=== PATIENT | male | born 1950 | race Caucasian/White ===

== ENCOUNTER → 2017-07-29 09:04 | Outpatient (CLI) | payer MEDICARE, OTHER, SELFPAY ==
[2017-07-29 12:42] LABS: AST(SGOT) 80 U/L (15-37); Alanine Aminotransfer ALT/SGPT 370 U/L (16-61); Albumin, Serum 3.7 g/dL (3.2-5.0); Alkaline Phosphatase 214 U/L (45-117); Bilirubin, Direct 0.15 mg/dL (0.00-0.30); Cholesterol 254 mg/dL (200); Globulin 4.3 g/dL (2.2-4.2); High Density Lipoprotein 39 mg/dL; Triglycerides 179 mg/dL; Very Low Density Lipoprotein 36 mg/dL (5-40)
== END ==
PROVIDERS: Internal Medicine Cardiovascular Disease; Family Provider Family Medicine; PCP Family Medicine; Visit Provider Urology
DX: C61 Malignant neoplasm of prostate (principal); E78.5 Hyperlipidemia, unspecified
CPT/HCPCS: 36415; 80061; 80076; 84153

== ENCOUNTER → 2017-07-29 15:57 | Outpatient (CLI) | payer MEDICARE, OTHER, SELFPAY ==
--- NOTE | 2017-07-29 16:00 | VDLE_ITS ---
Reason For Study: pain and swelling RIGHT LEFT CFV is compressible, spontaneous, phasic, GSV is normal. competent and demonstrates normal CFV is compressible, spontaneous, phasic, augmentation. competent, and demonstrates normal Procedure augmentation. Exam performed in department. FV is compressible, spontaneous, phasic, The exam was diagnostic. competent and demonstrates normal A preliminary report was called and/or faxed augmentation. to the [facility]. POP V is compressible, spontaneous, phasic, competent and demonstrates normal augmentation. T/P Trunk is compressible. PTV is compressible. LT PerV is compressible. Interpretation Summary Deep veins of the left lower extremity are patent and compressible segmentally. There is no evidence of left lower extremity deep vein thrombosis. Valvular competence appears intact within the proximal deep venous system on the left . The left greater saphenous vein appears patent and compressible segmentally. Ordering Physician: DANIKA HARDY Performed By: Breezy Cloud RVT
== END ==
PROVIDERS: Family Provider Family Medicine; PCP Family Medicine
DX: M79.605 Pain in left leg (principal); M79.89 Other specified soft tissue disorders; C61 Malignant neoplasm of prostate; E78.5 Hyperlipidemia, unspecified
CPT/HCPCS: 36415; 80061; 80076; 84153; 93971

== ENCOUNTER 2017-08-09 11:15 | Day surgery (SDC) | payer MEDICARE, OTHER, SELFPAY ==
[2017-07-24 11:23] VITALS: BP 143/86; PULSE 101; RESP 16; TEMP 37.2; O2SAT 97; BMI 32.2
--- NOTE | 2017-07-24 11:52 | SDCEKG_ITS ---
Test Reason : Blood Pressure : / mmHG Vent. Rate : 089 BPM Atrial Rate : 089 BPM P-R Int : 164 ms QRS Dur : 100 ms QT Int : 348 ms P-R-T Axes : 030 028 041 degrees QTc Int : 423 ms Normal sinus rhythm Possible Left atrial enlargement Borderline ECG Confirmed by KATIE JAMES MD ([id number]), senior editor DAMARI JOHN ([id number]) on 07/25/2017 2:41:54 PM Also confirmed by KATIE JAMES MD ([id number]), senior editor VINICIUS SOUZA ([id number]) on 10/24/2018 10:57:21 AM Referred By: Harsha Gilman Confirmed By:KATIE JAMES MD
[2017-07-24 12:12] LABS: Hematocrit 39.5 % (40-54); Hemoglobin 12.9 g/dl (13.0-16.5); Mean Corp Hgb Conc 32.7 g/gl (32-36); Mean Corpuscular Hgb 28.1 pg (27.0-32.0); Mean Corpuscular Volume 86.1 fL (80-94); Mean Platelet Vol. 8.1 fl (6.2-12.0); Platelet Count 242 K/mm3 (150-450); RBC Distribution Width CV 13.2 % (11.6-14.6); RBC Distribution Width SD 41.6 fl (35.1-43.9); Red Blood Count 4.59 M/mm3 (4.6-6.2)
[2017-07-24 12:13] LABS: Scan Indicated on CBC? Y/N NO
[2017-07-24 12:51] LABS: Anion Gap 7 (5-15); BUN 27 mg/dL (7-18); BUN/Creat Ratio 22.7 RATIO (10-20); Chloride 102 mmol/L (98-107); Creatinine, Serum 1.19 mg/dL (0.70-1.30); EST Glomerular Filtration Rate 65 mL/min (>60); Est Glom Filt Rate - Afr Amer 79 mL/min (>60); Estimated Creatinine Clearance 65.04 ml/min; Glucose 107 mg/dL (74-106); Potassium 3.7 mmol/L (3.5-5.1); Sodium Level 137 mmol/L (136-145)
[2017-08-09] VITALS (11 sets, daily range): BP systolic 117–146; BP diastolic 85–102; PULSE 76–99; RESP 12–18; TEMP 36.7–37.2; O2SAT 92–96; BMI 32.2
--- NOTE | 2017-08-09 13:04 | PCM.DC.URO ---
Discharge Diet: Light diet - advance as tolerated Discharge Activity: Return to Normal Activity, May not drive while taking narcotic pain medications. May shower in (days): 1 Lifting Restrictions: no lifting > 10lbs Call your doctor if your incision/area has: Sudden Increased Bleeding Call your doctor if you observe: Fever of 101 or Higher, Uncontrolled pain Suture Line Care: Avoid Pulling/Pushing, Avoid Pinching/Bending Allergies/Adverse Reactions: Allergies Penicillins Allergy (Verified 07/24/17 11:14) Rash valsartan Adverse Reaction (Severe, Verified 07/24/17 11:14) Joint Pain Medications to take at Discharge nitroglycerin 0.4 mg sublingual tablet 0.4 mg SUBLINGUAL Q5M PRN 04/04/17 Amlodipine Besylate [Norvasc] 10 mg PO QDAY 07/24/17 Hydrochlorothiazide 12.5 mg PO DAILY 07/24/17 Naproxen Sodium [Aleve] 220 mg PO Q8H PRN PRN 07/24/17 [place]-3 Fatty Acids/Fish Oil [Fish Oil 1,000 mg Capsule] 1 each PO DAILY 07/24/17 Pantoprazole Sodium [Protonix] 40 mg PO DAILY 07/24/17 Ciprofloxacin [Cipro] 500 mg PO BID #20 tab 08/09/17 Hydrocodone/Acetaminophen [[place] 5-325 Tablet] 1 ea PO Q4H PRN PRN 7 Days #20 tab 08/09/17 The following prescriptions were given: Hydrocodone/Acetaminophen [[place] 5-325 Tablet] 1 ea PO Q4H PRN PRN 7 Days #20 tab PRN Reason: Pain Ciprofloxacin [Cipro] 500 mg PO BID #20 tab Primary Care Physician: Ritesh Rocha MD [Primary Care Provider] - Please Follow Up With: Harsha Gilman MD - call if need to change appt. When: SaturdayAugust 27 at 1:45 pm
--- NOTE | 2017-08-09 13:08 | DCINST_ITS ---
Discharge Diet: Light diet - advance as tolerated Discharge Activity: Return to Normal Activity, May not drive while taking narcotic pain medications. May shower in (days): 1 Lifting Restrictions: no lifting > 10lbs Call your doctor if your incision/area has: Sudden Increased Bleeding Call your doctor if you observe: Fever of 101 or Higher, Uncontrolled pain Suture Line Care: Avoid Pulling/Pushing, Avoid Pinching/Bending Allergies/Adverse Reactions: Allergies Penicillins Allergy (Verified 07/24/17 11:14) Rash valsartan Adverse Reaction (Severe, Verified 07/24/17 11:14) Joint Pain Medications to take at Discharge nitroglycerin 0.4 mg sublingual tablet 0.4 mg SUBLINGUAL Q5M PRN 04/04/17 Amlodipine Besylate [Norvasc] 10 mg PO QDAY 07/24/17 Hydrochlorothiazide 12.5 mg PO DAILY 07/24/17 Naproxen Sodium [Aleve] 220 mg PO Q8H PRN PRN 07/24/17 [place]-3 Fatty Acids/Fish Oil [Fish Oil 1,000 mg Capsule] 1 each PO DAILY Pantoprazole Sodium [Protonix] 40 mg PO DAILY 07/24/17 Ciprofloxacin [Cipro] 500 mg PO BID #20 tab 08/09/17 Hydrocodone/Acetaminophen [[place] 5-325 Tablet] 1 ea PO Q4H PRN PRN 7 Days #20 tab 08/09/17 The following prescriptions were given: Hydrocodone/Acetaminophen [[place] 5-325 Tablet] 1 ea PO Q4H PRN PRN 7 Days #20 tab PRN Reason: Pain Ciprofloxacin [Cipro] 500 mg PO BID #20 tab Primary Care Physician: Ritesh Rocha MD [Primary Care Provider] - Please Follow Up With: Harsha Gilman MD - call if need to change appt. When: SaturdayAugust 27 at 1:45 pm
--- NOTE | 2017-08-09 13:20 | PROS_PTH ---
PATIENT: HENRI SILVESTRE LOC: [facility] [place] U#:[id number] AGE/SX: 67/M ROOM: RE08/09/[address]: Dr. Harsha Gilman MD : [id number] BED: DIS: 08/10/2017 SPEC #: [id number] RECD: 08/09/17 15:23 STATUS: GAURANG MARIA GUADALUPE #: [id number] LUISA: 08/09/17 13:[address]: Harsha Gilman DEPT: SURGICAL PATHOLOGY RECD BY: Murphy Rojas ENTERED: 08/12/17 09:54 SP TYPE: TURP OTHR DR: Dr. Manuel Rocha MD Tissues: Prostate, NOS Procedures: Surgery Specimen Level IV HEADER OPERATION: Cysto, TUR, prostate, Olympus PRE-OP DIAGNOSIS: BPH with obstruction, urinary retention TISSUE SUBMITTED: Prostate chips MICROSCOPIC DIAGNOSIS Prostate chips, TUR: Benign prostatic hyperplasia, glandular and stromal type. Focal chronic inflammation and basal cell hyperplasia. SJ:nadine 08/13/17 COMMENT Please make reference to previous specimen ([id number]) right prostate, mid, core biopsy and left prostate, mid, core biopsy with diagnosis of prostatic adenocarcinoma. This case has been reviewed in consultation with Dr. Diaz who concurs with the above diagnosis. MICROSCOPIC DESCRIPTION Slides are reviewed. GROSS DESCRIPTION Received is one container labeled with the patient's name and designated prostate tissue. The specimen consists of multiple irregular fragments of pink-hunter, rubbery, soft tissue that in aggregate weigh 20.8 gm and measure in aggregate 6.5 x 6.5 x 1 cm. Braille Teacher portions are submitted in 12 cassettes. / AM:nadine 08/12/17 Rest of the specimen is submitted in eight more cassettes, 13-20. A few metallic pins are also noted in the specimen. These are for gross only. / SJ:nadine 08/13/17 TC:5 CPT: 05053
[2017-08-09] MEDS: Cefazolin 2 GM in 0.9% Normal Saline 100 ML IV (13:30)
--- NOTE | 2017-08-09 15:22 | OP.PCM_ITS ---
Report of Operation Date of Procedure: 08/09/17 Pre-Operative Diagnosis: BPH and urinary retention Post-Operative Diagnosis: Same Surgery/Procedure Performed:: Transurethral resection of the prostate Description of Surgical Findings:: 67-year-old male has a history of BPH with a large prostate after a surgical procedure with orthopedics he develop retention of urine is failed multiple voiding trials is on maximal medical therapy for now and taken to surgery to do a TURP to restore normal voiding. Patient underwent general anesthesia was placed supine on the table the penis and testicles were prepped and draped in usual sterile fashion. Went into the urethra with a 26 Lithuanian continuous flow resectoscope the entire length of the urethra is normal sphincter was normal prostate had bilateral hypertrophy obstructive tissue bilaterally no median lobe I then switched over to the resectoscope and started resecting the prostate resected at the all the way circumferentially around the 12:00 to the 6 :00 in the prostate and the right side resected the right lobe all the way back to the verumontanum then went to the left side resected the left side all the way back to the verumontanum and then switch over to the Olympus button and in use the button to finish off the resection of the near the sphincter smoothing out the edges of the resection nice smooth resection all the way from the sphincter into the bladder at the end of the resection pulled back to the sphincter the sphincter was intact the due to flow test had a nice open flow at all the chips out and he had a prior procedure and all the clips were removed removed from the prostate from the prior ureteral left in the past. Had a nice wide open channel put a catheter in the bladder continues bladder irrigation the urine is nice and clear and he went to the PACU in good condition tomorrow morning we will get the catheter out for a voiding trial. Type of Anesthesia:: General Drains: lisa 3 way - Admit VTE Documentation VTE Present on Admission: No VTE Mechan Device Prophylaxis: SCD's VTE Pharm Prophylaxis ordered?: No Reason prophylaxis not ordered:: Treatment Not Indicated
[2017-08-09] MEDS: oxyCODONE 5 MG Tablet PO (16:41)
[2017-08-09] MEDS: 0.9% Normal Saline 1,000 ML 150 ML IV (19:04)
[2017-08-09] MEDS: Naproxen 250 MG Tablet PO (21:59)
[2017-08-09] MEDS: Docusate Sodium 100 MG Capsule PO (22:00)
[2017-08-09] MEDS: Ciprofloxacin 500 MG Tablet PO (22:00)
--- NOTE | 2017-08-09 23:59 | NURSING ---
see PACU documentation for previous CBI intake/output charting.
[2017-08-10] MEDS: 0.9% Normal Saline 1,000 ML 150 ML IV ×2 (01:50→08:08)
[2017-08-10 02:16] VITALS: BP 128/85; PULSE 66; RESP 18; TEMP 36.6; O2SAT 95
--- NOTE | 2017-08-10 04:24 | NURSING ---
pt states has now passed gas
[2017-08-10] MEDS: oxyCODONE 5 MG Tablet PO (04:34)
--- NOTE | 2017-08-10 06:57 | NURSING ---
Pt's CBI irrigation clamped at this time, lisa draining to gravity.
[2017-08-10 08:02] VITALS: O2SAT 95
[2017-08-10 08:10] VITALS: BP 152/94; PULSE 71; RESP 18; TEMP 36.8; O2SAT 98
[2017-08-10] MEDS: Ciprofloxacin 500 MG Tablet PO (08:17)
[2017-08-10] MEDS: Pantoprazole Sodium 40 MG Tablet PO (08:17)
[2017-08-10] MEDS: Docusate Sodium 100 MG Capsule PO (08:17)
[2017-08-10] MEDS: amLODIPine 10 MG Tablet PO (08:17)
[2017-08-10] MEDS: HYDROCHLOROTHIAZIDE 12.5 MG CAPSULE PO (08:17)
[2017-08-10] MEDS: Finasteride 5 MG Tablet PO (08:18)
[2017-08-10] MEDS: Naproxen 250 MG Tablet PO (11:01)
[2017-08-10 13:24] VITALS: BP 156/94; PULSE 96; RESP 18; TEMP 36.7; O2SAT 98
== END 2017-08-10 13:47 | disposition home or self-care (01) ==
LOC: SDC 11:16 → AC 11:17 → MS3 13:41
PROVIDERS: Anesthesiology; Family Provider Family Medicine; PCP Family Medicine; Visit Provider Urology
PROC: (CPT 52601; principal; 2017-08-09 13:10)
DX: N40.1 Benign prostatic hyperplasia with lower urinary tract symptoms (principal); R33.8 Other retention of urine; R35.1 Nocturia; R39.12 Poor urinary stream; C61 Malignant neoplasm of prostate; R97.21 Rising PSA following treatment for malignant neoplasm of prostate; I25.10 Atherosclerotic heart disease of native coronary artery without angina pectoris; I10 Essential (primary) hypertension; E78.00 Pure hypercholesterolemia, unspecified; G47.30 Sleep apnea, unspecified; M19.90 Unspecified osteoarthritis, unspecified site; Z79.82 Long term (current) use of aspirin; Z79.899 Other long term (current) drug therapy
CPT/HCPCS: 52601; 80048; 85027; 88305; J7030; J7120; J2405

== ENCOUNTER 2017-08-21 07:30 | Outpatient (RCR) | payer MEDICARE, OTHER, SELFPAY ==
--- NOTE | 2017-07-18 13:59 | HP.PTEVAL_ITS ---
Patient's Visit Information HENRI SILVESTRE is a 67 year old M referred to Physical Therapy by MD FANNIE Rios with a diagnosis of L TKA. Date of Evaluation: 07/18/17 Physical Therapist: Dennis Abraham PT, - Visit Plan Frequency: 2-3x /Week Duration: 4-6 Weeks Plan: L knee PROM/MOBs, stretching and strengthening, balance and proprio, nustep, and HEP - Subjective Subjective: DOS: 06/21/17. Pt reports he has had a chronic Hx of L knee pain for several years.. Pt reports both of his knees are bone on bone. Pt reports he eventually needs to get a R TKA. Pt reports he has had home health PT for the past 4 weeks. 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 Pt reports his R knee is still numb at the time. Sleep diff secondary to pain. Pt reports he is not sure if he is happy to have had the surgery yet secondary to not really feeling the benefits yet. 4/10 at rest, 9/10 at worst - Pain L knee Pain Intensity (Out of 10): 4 Pain Intensity Range: 9 - Objective Neuro: B LE sensation is WNL to light touch. Palpation: Incision is mostly healed. No signs of infection. 2+ pitting edema. Girth at joint line: L knee 44 cm. ROM: R knee 0-130, L knee 0-18-106. MMT: R knee 5/5, L knee 4-/5 and painful - Goals Goal 1:: Decrease L knee pain x 50% to aid with sleep Goal Time Frame: 4-6 Weeks Goal 2:: Increase L knee strength x 1 grade to aid with RTW without limitation Goal Time Frame: 4-6 Weeks Goal 3:: Increase L knee ROM x 20 degrees to aid with restoring a more normal gait pattern Goal Time Frame: 4-6 Weeks Goal 4:: I with HEP Goal Time Frame: 4-6 Weeks - Rehabilitation Potential Physical Therapy Diagnosis: L knee pain, swelling, and weakness secondary to L tKA Rehabilitation Potential: Excellent - Anticipated Interventions Patient/Client Instruction: Educate patient on: Condition, Plan of Care For the Purpose of:: To improve self management Therapeutic Exercise to Include: Strength training, Endurance training, Balance training, Flexibilty training, Gait and locomotor training, Passive ROM, Active ROM, Dynamic Lumbar Stabilization For the Purpose of:: To decrease pain, To increase ROM, To improve muscle performance and motor function Cryotherapy (ice pack, ice massage): Yes For the Purpose of:: To decrease pain Thank you for the opportunity to evaluate your patient. For Medicare and Medicare HMO plans, please review the plan of care and approve it. It will need to be FAXED BACK to us at [phone] for Medicare purposes. Please let me know if there are questions or concerns regarding this plan of care. Physician Signature: Date:
--- NOTE | 2017-08-21 08:13 | HP.PTDCSUM ---
HP - PT D/C Summary It has been my pleasure to treat HENRI SILVESTRE under orders from Robbin Frazier MD, for the diagnosis of L TKA for a total of 15 visit(s). Discharge Date: Please see the following information for a summary of their discharge status. - Subjective Subjective: Knee is a little sore today. - Pain L knee Pain Intensity (Out of 10): 3 - Overall Improvement % Improvement: 75 - Objective Objective/Function: Pt is now I with HEP and has achieved all Rx goals. L knee ROM: 0-10-122. L knee MMT: flex= 5/5, ext= 4/5 - Goals Goal 1:: Decrease L knee pain x 50% to aid with sleep Goal Progress: Goal Met Goal 2:: Increase L knee strength x 1 grade to aid with RTW without limitation Goal Progress: Goal Met Goal 3:: Increase L knee ROM x 20 degrees to aid with restoring a more normal gait pattern Goal Progress: Goal Met Goal 4:: I with HEP Goal Progress: Goal Met - Plan Plan: Discharge - D/C Information If there are questions or concerns regarding this patient's physical therapy, please feel free to call me at [phone]. Thank you for the referral of this patient. Sincerely, Dennis Abraham, PT,
== END 2017-08-21 19:00 | disposition home or self-care (01) ==
LOC: PT 07:30
PROVIDERS: Family Provider Family Medicine; PCP Family Medicine; Visit Provider Specialist
DX: Z96.652 Presence of left artificial knee joint (principal)
CPT/HCPCS: 97110; 97161; 97530; J2405

== ENCOUNTER → 2017-08-27 08:13 | Outpatient (CLI) | payer MEDICARE, OTHER, SELFPAY ==
[2017-08-27 10:51] LABS: AST(SGOT) 21 U/L (15-37); Alanine Aminotransfer ALT/SGPT 45 U/L (16-61); Albumin, Serum 3.9 g/dL (3.2-5.0); Alkaline Phosphatase 81 U/L (45-117); Bilirubin, Direct 0.12 mg/dL (0.00-0.30); Globulin 3.9 g/dL (2.2-4.2); Magnesium 2.2 mg/dL (1.6-2.6); Protein, Total 7.8 g/dL (6.4-8.2)
== END ==
PROVIDERS: Nurse Practitioner Family; Family Provider Family Medicine; PCP Family Medicine; Visit Provider Urology
DX: E78.5 Hyperlipidemia, unspecified (principal); I25.10 Atherosclerotic heart disease of native coronary artery without angina pectoris; I10 Essential (primary) hypertension; R74.8 Abnormal levels of other serum enzymes; R30.0 Dysuria
CPT/HCPCS: 36415; 80076; 83735; 87086

== ENCOUNTER → 2017-09-18 10:08 | Outpatient (CLI) | payer MEDICARE, OTHER, SELFPAY ==
--- NOTE | 2017-09-18 10:14 | RAD_ITS ---
STUDY: X-RAY - ORBITS REASON FOR EXAM: Male, 67 years old. This study is being performed as a clearance examination for exclusion of orbital metal, prior to the performance of an MRI examination. TECHNIQUE: 2 view(s) of the orbits were obtained. COMPARISON: None. FINDINGS: Normal bilateral orbits without a metallic orbital foreign body. Normal visualized facial bones. Normal paranasal sinuses. The soft tissue structures are unremarkable. RAD/Orbits for Foreign Body IMPRESSION: No demonstrated metallic orbital foreign body. The patient is cleared for an MRI examination. Electronically Signed: Rahul Acevedo MD at 10:38 EDT Tel [phone], Service support ,
--- NOTE | 2017-09-18 10:45 | MRI_ITS ---
STUDY: MRI RIGHT SHOULDER REASON FOR EXAM: Right shoulder pain and limited range of motion status post fall. TECHNIQUE: Standardized fat and water weighted pulse sequences were obtained in all 3 orthogonal planes. COMPARISON: Radiographs 04/12/2017. FINDINGS: There is a full-thickness tear of the supraspinatus tendon (T2 coronal images 12-14; T2 sagittal image 15) with a fluid-filled gap measuring 1.4 cm in diameter. There is a small signal void in the distal anterior supraspinatus tendon (proton-density coronal image 12) consistent with calcific tendinitis. Normal infraspinatus tendon. There is an undersurface partial-thickness tear of the subscapularis tendon with delamination (T2 axial images 16, 17). Normal teres minor tendon. There is atrophy with partial fat replacement of the supraspinatus and infraspinatus muscles (T2 sagittal images 1-7). Normal subscapularis muscle. Normal teres minor muscle. There is a small glenohumeral joint effusion with fluid extending into the bicipital tendon sheath. Normal humeral head and visualized proximal humerus. Normal biceps labral complex. Normal intracapsular long biceps tendon. Normal labrum. Normal capsulo- ligamentous complex. There is acromioclavicular arthrosis with hypertrophic changes (T2 sagittal images 10, 11). There is a Type I morphology (flat undersurface), with a neutral orientation. There is subacromial-subdeltoid bursal fluid. Normal visualized coracohumeral and coracoacromial ligaments. Normal deltoid muscle. Normal trapezius muscle. 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 Undersurface partial thickness tear of the subscapularis tendon. Atrophy of the supraspinatus and infraspinatus muscles. Acromioclavicular arthrosis. Glenohumeral joint fluid communicating with the subacromial-subdeltoid bursa. Electronically Signed: Ortega Thompson MD at 11:40 EDT Tel , Service support ,
== END ==
PROVIDERS: Family Provider Family Medicine; PCP Family Medicine
DX: M75.101 Unspecified rotator cuff tear or rupture of right shoulder, not specified as traumatic (principal)
CPT/HCPCS: 70030; 73221

== ENCOUNTER → 2017-11-29 15:10 | Outpatient (CLI) | payer MEDICARE, OTHER, SELFPAY ==
--- NOTE | 2017-11-29 15:14 | RAD_ITS ---
STUDY: X-RAY - RIGHT KNEE REASON FOR EXAM: Male, 67 years old. PAIN IN RIGHT KNEE FOR A LONG TIME GETTING WORSE TECHNIQUE: 3 view(s) of the knee. COMPARISON: None. FINDINGS: Normal visualized distal femur. Normal visualized proximal tibia and fibula. Normal proximal tibiofibular articulation. There is severe degenerative arthrosis of the medial femorotibial compartment with severe joint space narrowing. Normal lateral femorotibial compartment. There is mild degenerative arthrosis of the patellofemoral articulation. The soft tissue structures are unremarkable. RAD/Knee 3 Views IMPRESSION: Degenerative arthrosis. Electronically Signed: Dennis Heredia MD at 19:38 EDT , Service support ,
== END ==
PROVIDERS: Family Provider Family Medicine; PCP Family Medicine; Visit Provider Family Medicine
DX: M17.11 Unilateral primary osteoarthritis, right knee (principal)
CPT/HCPCS: 73562

== ENCOUNTER → 2018-02-26 07:48 | Outpatient (CLI) | payer MEDICARE, OTHER, SELFPAY ==
[2018-02-26 10:51] LABS: AST(SGOT) 24 U/L (15-37); Alanine Aminotransfer ALT/SGPT 50 U/L (16-61); Alkaline Phosphatase 76 U/L (45-117); Anion Gap 6 (5-15); BUN 18 mg/dL (7-18); BUN/Creat Ratio 15.5 RATIO (10-20); Bilirubin, Direct 0.19 mg/dL (0.00-0.30); Calcium,Total 8.6 mg/dL (8.5-10.1); Chloride 104 mmol/L (98-107); Cholesterol 181 mg/dL (200); Creatinine, Serum 1.16 mg/dL (0.70-1.30); EST Glomerular Filtration Rate 67 mL/min (>60); Est Glom Filt Rate - Afr Amer 81 mL/min (>60); Glucose 103 mg/dL (74-106); High Density Lipoprotein 51 mg/dL; Potassium 3.7 mmol/L (3.5-5.1); Sodium Level 139 mmol/L (136-145); Triglycerides 119 mg/dL; Very Low Density Lipoprotein 24 mg/dL (5-40)
== END ==
PROVIDERS: Family Provider Family Medicine; PCP Family Medicine; Referring Provider Family Medicine; Visit Provider Family Medicine
DX: I10 Essential (primary) hypertension (principal); E78.5 Hyperlipidemia, unspecified
CPT/HCPCS: 36415; 80048; 80061; 80076

== ENCOUNTER → 2018-05-19 09:37 | Outpatient (CLI) | payer MEDICARE, OTHER, SELFPAY ==
[2018-05-19 12:24] LABS: ALB/GLOB Ratio 1.2 RATIO (0.9-2.4); AST(SGOT) 25 U/L (15-37); Alanine Aminotransfer ALT/SGPT 50 U/L (16-61); Albumin, Serum 4.4 g/dL (3.2-5.0); Alkaline Phosphatase 85 U/L (45-117); Anion Gap 11 (5-15); BUN 28 mg/dL (7-18); BUN/Creat Ratio 23.3 RATIO (10-20); Calcium,Total 9.3 mg/dL (8.5-10.1); Chloride 103 mmol/L (98-107); Cholesterol 255 mg/dL (200); EST Glomerular Filtration Rate 64 mL/min (>60); Est Glom Filt Rate - Afr Amer 78 mL/min (>60); Globulin 3.8 g/dL (2.2-4.2); Glucose 100 mg/dL (74-106); High Density Lipoprotein 45 mg/dL; PSA,Total- Diagnostic 5.86 ng/mL (0.0-4.0); Potassium 3.5 mmol/L (3.5-5.1); Protein, Total 8.2 g/dL (6.4-8.2); Sodium Level 140 mmol/L (136-145); Triglycerides 151 mg/dL; Very Low Density Lipoprotein 30 mg/dL (5-40)
--- OUTSIDE RECORDS SUMMARY | 2018-07-21 19:42 | XMS RPT_ITS ---
:1950 Author Organization [employer] Address [address] [place] [address] Phone Care Team Providers Name Role Phone Feliz BENÍTEZ, Nickolas Ewing Unavailable Reason for Visit Reason For Visit Description Start Date New/Est - 1st visit with physician Preliminary reason for visit data, not yet signed by the author as of right shoulder pain Preliminary reason for visit data, not yet signed by the author as of Chief Complaint Chief Complaint Description Start Date right shoulder pain Preliminary chief complaint data, not yet signed by the author as of Instructions Instruction Description Start Date Patient advised to follow-up with Primary Care Physician for BMI management. Plan of Care Type Date Detail Appointment 03:00 PM Nickolas Piper MD, [address] [place], [address], Appointment 11:30 AM Nickolas Piper MD, [address] [place], [address], Appointment 03:00 PM Nickolas Piper MD, [address] [place], [address], Patient education \[email or web address]\CPS_PtEducation\CD [email or web address].pdf Medications Medication Instructions Start Stop Generic Name NDC Provider Date Date TRAMADOL HCL take one tab by / TRAMADOL HCL 35096484371 Robbin F 50 MG TABS mouth every 6 27 Freddie BENÍTEZ hours as needed for pain. AUGMENTIN Take 1 tablet / AMOXICILLIN-POT 34064298900 Robbin F 500-125 MG by mouth at 11 CLAVULANATE Freddie BENÍTEZ TABS bedtime the night before dental treatment and 1 tablet 3 times the day of dental visit AMLODIPINE daily / AMLODIPINE 08684413099 Phan Keenan BESYLATE 5 MG 11 BESYLATE Feliz BENÍTEZ TABS ALEVE 220 MG as directed as / NAPROXEN SODIUM 06420092127 Robbin Molina CAPS needed 06 Freddie BENÍTEZ NITROSTAT 0.4 take 1 tablet / NITROGLYCERIN 22129022761 Ashli MG SUBL as needed Anahi RAMIREZ ASPIRIN 81 MG take 1 tablet / ASPIRIN 26004806182 Ashli ORAL TABLET once daily 29 Anahi ADAMESN Conditions or Problems Problem Name Problem Code Onset Status Entry Provider Comment Standard Annotate Date Date Description Rotator cuff 500043117 Active Nickolas Ewing Disorder of SS, SbS tear, right (SNOMED CT) 06/03 06/03 Feliz BENÍTEZ rotator cuff Presence of Z96.651 Active Robbin Molina Presence of right (ICD-10-CM) 05/25 05/25 Freddie BENÍTEZ 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 Pain in right 39395274389113 Active Phan Keenan Pain of shoulder 100 (SNOMED 09/06 09/06 Feliz BENÍTEZ right CT) shoulder joint Presence of Z96.652 Active Robbin Molina Presence of left (ICD-10-CM) 07/12 07/12 Freddie BENÍTEZ 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 Subacromial 233665053 Active Robbin Molina Subacromial impingement of (SNOMED CT) 06/04 06/04 Freddie BENÍTEZ impingement right shoulder Unilateral M17.12 Active Robbin Molina Unilateral primary (ICD-10-CM) 06/04 06/04 Freddie BENÍTEZ primary osteoarthritis osteoarthrit left knee is, left knee Unilateral M17.11 Active Robbni Molina Unilateral primary (ICD-10-CM) 06/04 06/04 Freddie BENÍTEZ primary osteoarthritis osteoarthrit right knee is, right knee Allergies, Adverse Reactions, Alerts Allergy Name Reaction Start Date Severity Status Provider Description PENICILLIN rash Critical Active Ashli Anahi RAMIREZ Social History No information available. Vital Signs Date Name Value Unit Description BMI (Body Mass 33.31 kg/m2 Body Mass Index Index) [Ratio] Preliminary vital sign data, not yet signed by the author as of BP Diastolic 82 mm[Hg] blood pressure, diastolic Preliminary vital sign data, not yet signed by the author as of BP Systolic 131 mm[Hg] blood pressure, systolic Preliminary vital sign data, not yet signed by the author as of Heart Rate 89 /min pulse rate E&M Preliminary vital sign data, not yet signed by the author as of Height 71 [in_us] height E&M Preliminary vital sign data, not yet signed by the author as of Height 180 cm height in centimeters E&M Preliminary vital sign data, not yet signed by the author as of Weight Measured 238 [lb_av] weight E&M Preliminary vital sign data, not yet signed by the author as of Weight Measured 108 kg weight in kilograms E&M Preliminary vital sign data, not yet signed by the author as of Results Date Name Value Unit Range Flag Description Office Visit: New/Est - 1st visit with physician, Rm: 10 MEDS REVIEW Done Documentation of current medications (procedure) Preliminary observation data, not yet signed by the author as of Preliminary observation data, not yet signed by the author as of MRI HX of the Right MRI (magnetic shoulder on resonance 09/18/2017 at imaging) history [facility] Preliminary observation data, not yet signed by the author as of XRAY HX of the Right xray history shoulder on 09/06/2017 at [facility] [place] Preliminary observation data, not yet signed by the author as of Clinical Summary: HMSPatientID FOP account number Procedures Code Procedure Name Date Entry Date CPT-40907 Physical Therapy R6444A [facility] [place] COMBO - SHOULDER (BREG) [id number] [place]ING[place]OT 2 (BREG) G8730 Pain assessment documented as positive - follow-up documented G8427 Current medications documented 1036F Tobacco screening was negative - non user G8417 BMI documented as above normal parameters - follow-up documented G8783 Blood pressure within normal parameters - no follow-up required 1100F Fallen more than twice or injured themselves from a fall documented 3288F Falls risk assessment documented 0518F Falls plan of care documented [id number] Patient Encounter Medications Administered No information available. Immunizations No information available. Advance Directives There may be information available, but it has not been provided by the sender. Assessments There may be information available, but it has not been provided by the sender. Review of Systems There may be information available, but it has not been provided by the sender. Family History There may be information available, but it has not been provided by the sender. History of Past Illness There may be information available, but it has not been provided by the sender. History of Present Illness There may be information available, but it has not been provided by the sender.
--- OUTSIDE RECORDS SUMMARY | 2018-07-21 19:42 | XMS RPT_ITS ---
:[address] [employer] Address [facility] [place] [address] Phone Care Team Providers Name Role Phone Feliz BENÍTEZ, Nickolas Ewing Unavailable Reason for Visit Reason For Visit Description Start Date Postop - 1st visit Preliminary reason for visit data, not yet signed by the author as of right shoulder post Right shoulder rotator cuff repair and subacromial decompression on 05/01/2018 Preliminary reason for visit data, not yet signed by the author as of Chief Complaint Chief Complaint Description Start Date right shoulder post Right shoulder rotator cuff repair and subacromial decompression on 05/01/2018 Preliminary chief complaint data, not yet signed by the author as of Instructions Instruction Description Start Date Patient advised to follow-up with Primary Care Physician for BMI management. Plan of Care Type Date Detail Appointment 10:10 AM Nickolas Piper MD, [address] [place] [address], [id number], Medications Medication Instructions Start Stop Generic Name ND Provider Date Date PERCOCET 5-325 1-2 tablets by / OXYCODONE-ACETAM 88554182672 Nickolas Ewing MG TABS mouth every 4-6 03 LIZPHEN Feliz BENÍTEZ hours as needed for pain (Duration: 5 days supply) TRAMADOL HCL take one tab by / TRAMADOL HCL 13948587018 Robbin F 50 MG TABS mouth every 6 27 Freddie BENÍTEZ hours as needed for pain. AUGMENTIN Take 1 tablet / AMOXICILLIN-POT 90115940566 Robbin F 500-125 MG by mouth at 11 CLAVULANATE Freddie BENÍTEZ TABS bedtime the night before dental treatment and 1 tablet 3 times the day of dental visit AMLODIPINE daily / AMLODIPINE 53608238311 Phan Keenan BESYLATE 5 MG 11 BESYLATE Feliz BENÍTEZ TABS ALEVE 220 MG as directed as / NAPROXEN SODIUM 50713701550 Robbin Molina CAPS needed 06 Freddie BENÍTEZ NITROSTAT 0.4 take 1 tablet / NITROGLYCERIN 51067592060 Ashli MG SUBL as needed Anahi RAMIREZ ASPIRIN 81 MG take 1 tablet / ASPIRIN 31757690116 Ashli ORAL TABLET once daily 29 Anahi ADAMESN Conditions or Problems Problem Name Problem Code Onset Status Entry Provider Comment Standard Annotate Date Date Description Rotator cuff 507164033 Active Nickolas Ewing Disorder of SS, SbS tear, right (SNOMED CT) 06/03 06/03 Feliz BENÍTEZ rotator cuff Presence of Z96.651 Active Robbin Molina Presence of right (ICD-10-CM) 05/25 05/25 Freddie BENÍTEZ 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 Pain in right 87427114016457 Active Phan Keenan Pain of shoulder 100 (SNOMED 09/06 09/06 Feliz BENÍTEZ right CT) shoulder joint Presence of Z96.652 Active Robbin Molina Presence of left (ICD-10-CM) 07/12 07/12 Freddie BENÍTEZ 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 Subacromial 508939050 Active Robbin Molian Subacromial impingement of (SNOMED CT) 06/04 06/04 Freddie BENÍTEZ impingement right shoulder Unilateral M17.12 Active Robbin Molina Unilateral primary (ICD-10-CM) 06/04 06/04 Freddie BENÍTEZ primary osteoarthritis osteoarthrit left knee is, left knee Unilateral M17.11 Active Robbin Molina Unilateral primary (ICD-10-CM) 06/04 [...] by the author as of BP Diastolic 88 mm[Hg] blood pressure, diastolic Preliminary vital sign data, not yet signed by the author as of BP Systolic 127 mm[Hg] blood pressure, systolic Preliminary vital sign data, not yet signed by the author as of Heart Rate 98 /min pulse rate E&M Preliminary vital sign [...] Value Unit Range Flag Description Office Visit: Postop - 1st visit, Rm: 10 MEDS REVIEW Done Documentation of current medications (procedure) Preliminary observation data, not yet signed by the author as of Preliminary observation data, not yet signed by the author as of Clinical Summary: HMSPatientID FOP account number Procedures Code Procedure Name Date Entry Date G8730 Pain assessment documented as positive - follow-up documented G8427 Current medications documented 1036F Tobacco screening was negative - non user G8417 BMI documented as above normal parameters - follow-up documented G8783 Blood pressure within normal parameters - no follow-up required [id number] Patient Encounter Medications Administered No information available. [...]
--- OUTSIDE RECORDS SUMMARY | 2018-07-21 19:42 | XMS RPT_ITS ---
:1950 Author Organization [email or web address] Address [address] [place] [address] Phone Care Team Providers Name Role Phone Robbin Frazier MD Unavailable Reason for Visit Reason For Visit Description Start Date Follow-up by complaint Preliminary reason for visit data, not yet signed by the author as of left knee pain Preliminary reason for visit data, not yet signed by the author as of Chief Complaint Chief Complaint Description Start Date left knee pain Preliminary chief complaint data, not yet signed by the author as of Instructions Instruction Description Start Date Please follow-up with Primary Care Physician or Book Coverer for treatment or adjustment of medication regarding elevated blood pressure.Patient advised to follow-up with Primary Care Physician for BMI management. Plan of Care Type Date Detail Appointment 02:15 PM Robbin Frazier MD, [address] [place], [address], Appointment 07:30 AM Robbin Frazier MD, [address] [place], [address], Appointment 01:30 PM Robbin Frazier MD, [address] [place], [address], Patient education \[email or web address]\[email or web address]\ht n.pdf Medications Medication Instructions Start Stop Generic Name NDC Provider Date Date HYDROCHLOROTHIAZIDE daily Robbin Molina 25 MG ORAL TABLET Freddie BENÍTEZ (HYDROCHLOROTHIAZIDE) AMLODIPINE BESYLATE 5 daily AMLODIPINE 68856688600 Phan J MG TABS / BESYLATE Feliz BENÍTEZ ALEVE 220 MG CAPS as directed as NAPROXEN SODIUM 36036563988 Robbin Molina needed Freddie BENÍTEZ NITROSTAT 0.4 MG SUBL take 1 tablet NITROGLYCERIN 92941976506 Ashli as needed Anahi RAMIREZ ASPIRIN 81 MG ORAL take 1 tablet ASPIRIN 86463682650 Ashli TABLET once daily Anahi RAMIREZ Conditions or Problems Problem Name Problem Code Onset Status Entry Provider Comment Standard Annotate Date Date Description Pain in right 30696766916376 Active Phan Keenan Pain of shoulder 100 (SNOMED 09/06 09/06 Feliz BENÍTEZ right CT) shoulder joint Presence of Z96.652 Active Robbin Molina Presence of left (ICD-10-CM) 07/12 07/12 Freddie BENÍTEZ 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 Subacromial 138909532 Active Robbin Molina Subacromial impingement of (SNOMED [...] Name Value Unit Description BMI (Body Mass 34.15 kg/m2 Body Mass Index Index) [Ratio] Preliminary vital sign data, not yet signed by the author as of BP Diastolic 85 mm[Hg] blood pressure, diastolic Preliminary vital sign data, not yet signed by the author as of BP Diastolic 103 mm[Hg] blood pressure, diastolic, second observation Preliminary vital sign data, not yet signed by the author as of BP Systolic 147 mm[Hg] blood pressure, systolic Preliminary vital sign data, not yet signed by the author as of BP Systolic 152 mm[Hg] blood pressure, systolic, second observation Preliminary vital sign data, not yet signed by the author as of Heart Rate 96 /min pulse rate E&M Preliminary vital sign data, not yet signed by the author as of Height 71 [in_us] height E&M Preliminary vital sign data, not yet signed by the author as of Height 180 cm height in centimeters E&M Preliminary vital sign data, not yet signed by the author as of Weight Measured 244 [lb_av] weight E&M Preliminary vital sign data, not yet signed by the author as of Weight Measured 111 kg weight in kilograms E&M Preliminary vital sign data, not yet signed by the author as of Results Date Name Value Unit Range Flag Description Office Visit: Follow-up by cherie Rm: 2 MEDS REVIEW Done Documentation of current medications (procedure) Preliminary observation data, not yet signed by the author as of Preliminary observation data, not yet signed by the author as of Clinical Summary: HMSPatientID FOP account number Procedures Code Procedure Name Date Entry Date CPT-27470 XR KNEE 3VWS-LT G8730 Pain assessment documented as positive - follow-up documented G8427 Current medications documented 1036F Tobacco screening was negative - non user G8417 BMI documented as above normal parameters - follow-up documented G8950 Blood pressure outside of normal parameters - follow-up documented 1006F Osteoarthritis symptoms and functional status assessed [facility] [email or web address] Patient Encounter Medications Administered No information available. [...]
--- OUTSIDE RECORDS SUMMARY | 2018-07-21 19:42 | XMS RPT_ITS ---
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 Plan of Care Type Date Detail Appointment 01:30 PM Robbin Frazier MD, [address] [place] [address], [address], Patient education \[email or web address]\CPS_PtEducation\CD C_[email or web address].pdf Medications Medication Instructions Start Stop Generic Name NDC Provider Date Date TRAMADOL HCL take one tab by / TRAMADOL HCL 62960044866 Robbin Molina 50 MG TABS mouth every 6 27 Freddie BENÍTEZ hours as needed for pain. AUGMENTIN Take 1 tablet / AMOXICILLIN-POT 05392710526 Robbin F 500-125 MG by mouth at 11 CLAVULANATE Freddie BENÍTEZ TABS bedtime the night before dental treatment and 1 tablet 3 times the day of dental visit AMLODIPINE daily / AMLODIPINE 91262733858 Phan Keenan BESYLATE 5 MG 11 BESYLATE Feliz BENÍTEZ TABS ALEVE 220 MG as directed as / NAPROXEN SODIUM 53041674908 Robbin Molina CAPS needed Freddie BENÍTEZ NITROSTAT 0.4 take 1 tablet / NITROGLYCERIN 65165988651 Ashli MG SUBL as needed Anahi RAMIREZ ASPIRIN 81 MG take 1 tablet / ASPIRIN 68797416951 Ashli ORAL TABLET once daily 29 Anahi RAMIREZ Conditions or Problems Problem Name Problem Code Onset Status Entry Provider Comment Standard Annotate Date Date Description Presence of Z96.651 Active Robbin Molina Presence of right (ICD-10-CM) 05/25 05/25 Freddie BENÍTEZ 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 Vital Signs Date Name Value Unit Description BMI (Body Mass 33.31 kg/m2 Body Mass Index Index) [Ratio] Preliminary vital sign data, not yet signed by the author as of BP Diastolic 78 mm[Hg] blood pressure, diastolic Preliminary vital sign data, not yet signed by the author as of BP Systolic 112 mm[Hg] blood pressure, systolic Preliminary vital sign data, not yet signed by the author as of Heart Rate 102 /min pulse rate E&M Preliminary vital sign [...] Office Visit: Postop - 1st visit, Rm: 1 MEDS REVIEW Done Documentation of current medications (procedure) Preliminary observation data, not yet signed by the author as of Preliminary observation data, not yet signed by the author as of Clinical Summary: HMSPatientID FOP account number Procedures Code Procedure Name Date Entry Date CPT-80950 XR KNEE 1-2 VWS-RT G8730 Pain assessment documented as positive - [...] documented 0518F Falls plan of care documented [id number] Patient Encounter Medications Administered No information available. [...]
--- OUTSIDE RECORDS SUMMARY | 2018-07-21 19:43 | XMS RPT_ITS ---
:1950 Author Organization [employer] Address [facility] [place] [address] Phone Care Team Providers Name Role Phone Robbin Frazier MD Unavailable Reason for Visit Reason For Visit Description Start Date Postop - 1st visit Preliminary reason for visit data, not yet signed by the author as of left knee post left knee replacement on 06/21/2017 Preliminary reason for visit data, not yet signed by the author as of Chief Complaint Chief Complaint Description Start Date left knee post left knee replacement on 06/21/2017 Preliminary chief complaint data, not yet signed by the author as of Instructions Instruction Description Start Date Patient advised to follow-up with Primary Care Physician for BMI management. Plan of Care Type Date Detail Appointment 09:00 AM Robbin Frazier MD, [address] [place] [address], [phone], Medications Medication Instructions Start Stop Generic Name [facility] Provider Date Date ALEVE 220 MG as directed as / NAPROXEN SODIUM 63196964165 Robbin Molina CAPS needed 06 Freddie BENÍTEZ NITROSTAT 0.4 take 1 tablet / NITROGLYCERIN 37353215229 Ashli MG SUBL as needed 29 Anahi [employer] FINASTERIDE 5 take 1 tablet / FINASTERIDE 56148849647 Ashli MG TABS once daily 29 [place] [employer] ASPIRIN 81 MG take 1 tablet / ASPIRIN 04322320909 Ashli TABS once daily 29 [place] [employer] AMLODIPINE take 1 tablet / AMLODIPINE 28648469248 Ashli BESYLATE 10 MG once daily 29 BESYLATE Anahi FIELD MARKETER TABS Conditions or Problems Problem Name Problem Onset Status Entry Provider Comment Standard Annotate Code Date Date Description Presence of left Z96.652 Active Robbin Molina Presence of artificial knee (ICD-10-CM) 07/12 Freddie BENÍTEZ left joint artificial knee joint Subacromial 148104970 Active Robbin Molina Subacromial impingement of (SNOMED CT) /06/04 Freddie BENÍTEZ impingement right shoulder Unilateral M17.12 Active Robbin Molina Unilateral primary (ICD-10-CM) /06/04 Freddie BENÍTEZ primary osteoarthritis osteoarthrit left knee is, left knee Unilateral M17.11 Active Robbin F Unilateral primary (ICD-10-CM) /06/04 Freddie BENÍTEZ primary osteoarthritis osteoarthrit right knee is, right knee Allergies, Adverse Reactions, Alerts Allergy Name Reaction Start Date Severity Status Provider Description PENICILLIN rash Critical Active Ashli Anahi [employer] Social History No information available. Vital Signs Date Name Value Unit Description BMI (Body Mass 32.89 kg/m2 Body Mass Index Index) [Ratio] Preliminary vital sign data, not yet signed by the author as of BP Diastolic 69 mm[Hg] blood pressure, diastolic Preliminary vital sign data, not yet signed by the author as of BP Systolic 105 mm[Hg] blood pressure, systolic Preliminary vital sign data, not yet signed by the author as of Heart Rate 109 /min pulse rate E&M Preliminary vital sign data, not yet signed by the author as of Height 71 [in_us] height E&M Preliminary vital sign data, not yet signed by the author as of Height 180 cm height in centimeters E&M Preliminary vital sign data, not yet signed by the author as of Weight Measured 235 [lb_av] weight E&M Preliminary vital sign data, not yet signed by the author as of Weight Measured 107 kg weight in kilograms E&M Preliminary vital sign data, not yet signed by the author as of Results Date Name Value Unit Range Flag Description Office Visit: Postop - 1st visit, Rm: 2 MEDS REVIEW Done Documentation of current medications (procedure) Preliminary observation data, not yet signed by the author as of Preliminary observation data, not yet signed by the author as of Clinical Summary: HMSPatientID FOP account number Procedures Code Procedure Name Date Entry Date CPT-43888 XR KNEE 1-2 VWS-LT G8730 Pain assessment documented as positive - follow-up documented G8427 Current medications documented 1036F Tobacco screening was negative - non user G8417 BMI documented as above normal parameters - follow-up documented G8783 Blood pressure within normal parameters - no follow-up required 1006F Osteoarthritis symptoms and functional status assessed [facility]-[id number] Patient Encounter Medications Administered No information available. [...]
--- OUTSIDE RECORDS SUMMARY | 2018-07-21 19:44 | XMS RPT_ITS ---
:1950 Author Organization [facility] Support Name Relationship Address Phone Dany SILVESTRE Unavailable [address] + [place] [address] TOÑO SILVESTRE Unavailable [address] + [place] [address] S Unavailable Unavailable Unavailable Dany SILVESTRE CASSY Unavailable [address] + [place] [address] BRYNN SILVESTREIAN Unavailable [address] + [place] [address] S Unavailable Unavailable Unavailable Dany SILVESTRE CASSY Unavailable [address] + [place] [address] BRYNN SILVESTREIAN Unavailable [address] + [place] [address] S Unavailable Unavailable Unavailable Dany SILVESTRE CASSY Unavailable [address] + [place] [address] BRYNN SILVESTREIAN Unavailable [address] + [place] [address] S Unavailable Unavailable Unavailable KONRAD Dany CASSY Unavailable [address] + [place] [address] KONRAD TOÑO Unavailable [address] + [place] [address] S Unavailable Unavailable Unavailable Dany SILVESTRE CASSY Unavailable [address] + [place] [address] KONRAD TOÑO Unavailable [address] + [place] [address] S Unavailable Unavailable Unavailable Dany SILVESTRE CASSY Unavailable [address] [phone] [place] [address] KONRAD TOÑO Unavailable [address] + [place] [address] S Unavailable Unavailable Unavailable JENTES, L CASSY Unavailable [address] [phone] [place] [address] BRYNN SILVESTREIAN Unavailable [address] + [place] [address] S Unavailable Unavailable Unavailable JENTES, L CASSY Unavailable [address] [phone] [place] [address] KONRAD TOÑO Unavailable . + [place] [address] S Unavailable Unavailable Unavailable JENTES, L CASSY Unavailable [address] [phone] [place] [address] KONRAD TOÑO Unavailable . + [place] [address] S Unavailable Unavailable Unavailable JENTES, L CASSY Unavailable [address] [phone] [place] [address] BRYNN SILVESTREIAN Unavailable Unavailable + S Unavailable Unavailable Unavailable JENTES, L CASSY Unavailable [address] [phone] [place] [address] S Unavailable Unavailable Unavailable JENTES, L CASSY Unavailable [address] [phone] [place] [address] S Unavailable Unavailable Unavailable JENTES, L CASSY Unavailable [address] [phone] [place] [address] BRYNN SILVESTREIAN Unavailable [address] + [place] [address] S Unavailable Unavailable Unavailable JENTES, L CASSY Unavailable NA + [place], [place] Unavailable Unavailable Unavailable JENTES, L CASSY Unavailable [place] + [place] Unavailable Unavailable Unavailable JENTES, L CASSY Unavailable [place] + [place] Unavailable Unavailable Unavailable JENTES, L CASSY Unavailable [place] + [place] Unavailable Unavailable Unavailable Care Team Providers Name Role Phone Nickolas Piper Attending Unavailable Nickolas Piper Referring Unavailable Manuel Rocha Primary Care Unavailable Harsha Chaidez Attending Unavailable [facility] Unavailable Kaylynn, Harsha Zimmerman Referring Unavailable Moodispaw, Clinton Attending Unavailable Ranney, Christopher Referring Unavailable [facility], [facility] Primary [facility] Unavailable Debbie Barker Attending Unavailable Ranney, Christopher Referring Unavailable [facility], [facility] Primary [facility] Unavailable Corrie Teixeira Attending Unavailable Kaushik Morgan H Attending Unavailable Robbin Frazier Attending Unavailable Robbin Frazier Referring Unavailable [facility], [facility] Unavailable Kaylynn, Harsha Zimmerman Attending Unavailable Ranney, Christopher Primary Care Unavailable Kaylynn, Manish Referring Unavailable Kaylynn, Harsha Zimmerman Attending Unavailable Ranney, Christopher Primary Care Unavailable Kaylynn, Harsha Zimmerman Referring Unavailable Moodispaamdaeo, Clinton Consulting Unavailable Ranney, Christarelyer Consulting Unavailable DANIKA HARDY Attending Unavailable Ran[facility], [facility] Unavailable Moodispaamadeo, Clinton Attending Unavailable Ranney, Christopher Referring Unavailable Ranney, [facility] Primary [facility] Unavailable Kaylynn, Harsha Zimmerman Attending Unavailable Ranney, Tunas Primary Care Unavailable Kaushik Morgan Referring Unavailable Clinton Barriga Consulting Unavailable Blayne Medina Attending Unavailable IanHoTom lincoln Referring Unavailable FELIZ, PHAN Attending Unavailable FELIZ, PHAN Referring Unavailable Ranney, [facility] Primary Care Unavailable Kaylynn, Harsha Zimmerman Attending Unavailable Kaylynn, Harsha Zimmerman Referring Unavailable Ranney, [facility] Primary Care Unavailable NoAmerica rodríguez Attending Unavailable Gillespie, Clinton Attending Unavailable GillespieClinton Referring Unavailable Ranney, [facility] Primary Care Unavailable Ranney, Manuel Attending Unavailable Ranney, Christopher Referring Unavailable Ranney, Tunas Primary Care Unavailable PROBLEMS PROBLEMS DATE TYPE CONDITION / CODE ATTENDING STATUS SOURCE 05/23/2018 Unknown M75.101 - Unspecified FelizNickolas coto Active [place] rotator cuff tear or Community rupture of right Hospital shoulder, not Repository specified as traumatic / M75.101(ICD-10) 11/29/2017 Unknown M25.569 - Pain in Clinton Gillespie Active [facility] unspecified knee / Community M25.569(ICD-10) Hospital Repository 08/22/2017 Unknown Z96.652 - Presence of Robbin Frazier Active [place] left artificial knee [facility] Community joint / Hospital Z96.652(ICD-10) Repository 08/15/2017 Unknown R74.0 - Nonspecific MoodispawClinton Active [place] elevation of levels [facility] lactic acid Repository dehydrogenase [LDH] / R74.0(ICD-10) 08/12/2017 Unknown 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.1 - 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 [facility] / D29.1(ICD-10) Hospital Repository 09/02/2017 Unknown 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, 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 Repository without angina pectoris / I25.10(ICD-10) 09/02/2017 Unknown I10 - Essential Carol, Brandon Active [place] (primary) Community hypertension / Hospital I10(ICD-10) Repository PROCEDURES PROCEDURES No Procedure Records FoundRESULTS RESULTS COMPREHENSIVE METABOLIC Collected: 05/19/2018 Status: F Source: [place] PROFIL 9:45 AM [facility] REPOSITORY Order Comment: DR CHAIDEZ ORDERED PSAD DR ROCHA ORDERED CMP/LIPID/PSA TYPE CODE TESTS RESULT OUT OF RANGE REFERENCE UNITS LAB L501.0100 74-106 mg/dL Normal GLU 100 Result Comment: Fasting Glucose result from 100 to 125 mg/dL suggests IMPAIRED HOMEOSTASIS per A.D.A. criteria. Please note revised GLUCOSE reference range effective 2017. LAB L501.1000 7-18 mg/dL High BUN 28 LAB L501.1100 0.70-1.30 mg/dL Normal CREAT,SERUM 1.20 Result Comment: The validity of the calculated GFR AND GFRAA in patients over 70 years has not been determined. Clinical correlation is essential. LAB L501.1110 >60 mL/min Normal EST GFR 64 Result Comment: Non- GFR Calc LAB L501.1115 >60 mL/min Normal EST GFR - AA 78 Result Comment: GFR Calc LAB L501.1300 10-20 RATIO High BUN/CRE 23.3 LAB L501.1500 6.4-8.2 g/dL T Normal PROT 8.2 LAB L501.1800 3.2-5.0 g/dL Normal ALB 4.4 LAB L501.1950 2.2-4.2 g/dL Normal GLOB 3.8 LAB L501.2000 0.9-2.4 RATIO Normal A/G 1.2 LAB L501.2200 8.5-10.1 mg/dL CA Normal 9.3 LAB L501.4100 15-37 U/L Normal AST 25 LAB L501.4305 45-117 U/L Normal ALK P 85 LAB L501.4405 16-61 U/L Normal ALT 50 LAB L501.4600 0.20-1.00 mg/dL T Normal BILI 0.70 LAB L501.5300 136-145 mmol/L NA Normal 140 LAB L501.5600 3.5-5.1 mmol/L K Normal 3.5 LAB L501.5900 98-107 mmol/L CL Normal 103 LAB L501.6100 21.0-32.0 mmol/L Normal CO2 26.0 LAB L501.6200 5-15 Normal GAP 11 Performed By: #### L500.4050, L500.4100 #### [facility] [address] [place], [place], [id number] LIPID PROFILE Collected: 05/19/2018 Status: F Source: [place] 9:45 AM [facility] REPOSITORY Order Comment: DR CHAIDEZ ORDERED PSAD DR ROCHA ORDERED CMP/LIPID/PSA TYPE CODE TESTS RESULT OUT OF RANGE REFERENCE UNITS LAB L501.4900 200 mg/dL High CHOL 255 Result Comment: <200 mg/dL Desirable 200-240 mg/dL Borderline >240 mg/dL High Risk LAB L501.5000 mg/dL Normal TRIG 151 Result Comment: The drugs N-Acetylcysteine and Metamizole may falsely depress this assay. Serum Triglycerides Reference Interval Normal <150 mg/dL Borderline high 150 - 199 mg/dL High 200 - 499 mg/dL Very High > or = 500 mg/dL LAB L501.6400 mg/dL Normal HDL 45 Result Comment: The drugs N-Acetylcysteine and Metamizole may falsely depress this assay. Reference Range HDL <40 mg/dL Low HDL Cholesterol HDL >or= 60 mg/dL High HDL Cholesterol LAB L501.6500 0-130 mg/dL High LDL 180 LAB L501.6600 5-40 mg/dL Normal VLDL 30 Performed By: #### L500.4050, L500.4100 #### [facility] [address] [place], [address] PSA,TOTAL- DIAGNOSTIC Collected: 05/19/2018 Status: F Source: [place] 9:45 AM [facility] REPOSITORY Order Comment: DR CHAIDEZ ORDERED PSAD DR ROCHA ORDERED CMP/LIPID/PSA TYPE CODE TESTS RESULT OUT OF REFERENCE UNITS RANGE LAB L501.9940 0.0-4.0 ng/mL PSA, High DIAGNOSTIC 5.86 Result Comment: This test was performed using the TPSA assay method for the [employer] chemistry system. Values obtained with different assay methods cannot be used interchangably. When changing PSA assays in the course of monitoring a patient, additional sequential testing should be carried out to confirm baseline values. Performed By: #### L501.9940 #### [facility] [address] [place], [address] INITAL EVALUATION (1) Observed: 05/13/2018 Status: F Source: [place] - PT 9:43 AM [facility] REPOSITORY [facility] Physical Therapy 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 Date of Evaluation: 05/09/18 Physical Therapist: Tom Foster DPT, OCS, CSCS - Visit Plan Frequency: 2-3x /Week Duration: 3 Months Plan: 1-3x/week for 4-6 weeks initially and 3 months long-term to work on. 1. Ensure appropriate progress for first 3 weeks. 2. Progress per protocol PROM, AAROM, AROM, resistance. Return to function when appropriate - Subjective Findings: R large RCR last 05/01/17. Tore it tripping in shop and landing on shoulder in March of 2017. Wasn't healing well and had knee replaced and then he fixed it. Prior to surgery was painful with movement. Not much pain now but eating pills percoset every 4 hours. In sling all day and all night. Sleeping is decent in recliner chair due to shoulder. Ice machine at home at night. HEP is squeezing ball. He lets it hang when he takes a shower. 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 Is R handed. Dressing with help from for pants and sling. Not wearing tie shoes. R knee was done in February and L last May. - Pain R shoulder pain Pain Intensity (Out of 10): 0 Pain Intensity Range: 0, 4 - Objective Walks I and safe, trasnfers I protecting R UE. Incision healed well and no drainage, excess redness or heat. [address] PROM R UE ext rotation to 5 degrees, flexion to 80 and abd to 45. Elbow aROM is full but slow. Hand ROM is full and painfree. Scapular ROM is limited in R side vs. L. - Goals Goal 1:: ST: Full PROM according to protocol without pain Goal Time Frame: 6-8 Weeks Goal 2:: Reach [place] and behind back without pain Goal Time Frame: 8-12 Weeks Goal 3:: Pain 0-1/10 and sleeping well without interruption Goal Time Frame: 4-6 Weeks Goal 4:: Pt ready to return to work Goal Time Frame: 12-16 Weeks - Rehabilitation Potential Physical Therapy Diagnosis: R RCT Rehabilitation Potential: Fair - Anticipated Interventions Patient/Client Instruction: Educate patient on: Condition, Plan of Care For the Purpose of:: To decrease pain, To decrease swelling/inflammation, To increase ROM, To improve ability of physical actions for home/community/work/leisure Therapeutic Exercise to Include: Strength training, Passive ROM, Active ROM Comment: per protocol For the Purpose of:: To decrease pain, To increase ROM, To improve performance and independence with ADL's, To decrease level of supervision to perform tasks, To improve gait and locomotor functions Manual Therapy Techniques to Include: Scar massage, Passive ROM For the Purpose of:: To increase ROM, To improve ability of physical actions for home/community/work/leisure Cryotherapy (ice pack, ice massage): Yes For the Purpose of:: To decrease pain, To decrease swelling/inflammation Thank you for the opportunity to evaluate your patient. For Medicare and Medicare HMO plans, please review the plan of care and approve it. It will need to be FAXED BACK to us at [phone] for Medicare purposes. For Medicare only, by signing this I certify the plan of care. Please let me know if there are questions or concerns regarding this plan of care. Physician Signature: Date: <Electronically signed by Tom Foster DPT, OCS, CSCS> 05/13/18 0943 CC: Nickolas Piper MD; Manuel Rocha MD EBG Signed BASIC METABOLIC Collected: 02/26/2018 Status: F Source: [place] PROFILE (BMP) 7:54 AM [facility] REPOSITORY Order Comment: Order Date: 11/18/17 Order Info: 0667-1 - BMP Order Info: 0788-1 - LIVER Order Info: 32776-9 - LIPID TYPE CODE TESTS RESULT OUT OF RANGE REFERENCE UNITS LAB L501.0100 74-106 mg/dL Normal GLU 103 Result Comment: Fasting Glucose result from 100 to 125 mg/dL suggests IMPAIRED HOMEOSTASIS per A.D.A. criteria. Please note revised GLUCOSE reference range effective 2017. LAB L501.1000 7-18 mg/dL Normal BUN 18 LAB L501.1100 0.70-1.30 mg/dL Normal CREAT,SERUM 1.16 Result Comment: The validity of the calculated GFR AND GFRAA in patients over 70 years has not been determined. Clinical correlation is essential. LAB L501.1110 >60 mL/min Normal EST GFR 67 Result Comment: Non- GFR Calc LAB L501.1115 >60 mL/min Normal EST GFR - AA 81 Result Comment: GFR Calc LAB L501.1300 10-20 RATIO Normal BUN/CRE 15.5 LAB L501.2200 8.5-10.1 mg/dL CA Normal 8.6 LAB L501.5300 136-145 mmol/L NA Normal 139 LAB L501.5600 3.5-5.1 mmol/L K Normal 3.7 LAB L501.5900 98-107 mmol/L CL Normal 104 LAB L501.6100 21.0-32.0 mmol/L Normal CO2 29.0 LAB L501.6200 5-15 Normal GAP 6 Performed By: #### L500.2500 #### [facility] [address] [place], [place], [address] LIVER PROFILE Collected: 02/26/2018 Status: F Source: [place] 7:54 AM [facility] REPOSITORY Order Comment: Order Date: 11/18/17 Order Info: 0667-1 - BMP Order Info: 0788 - LIVER Order Info: [id number] - LIPID TYPE CODE TESTS RESULT OUT OF RANGE REFERENCE UNITS LAB L501.1500 6.4-8.2 g/dL Normal T PROT 8.0 LAB L501.1800 3.2-5.0 g/dL Normal ALB 4.0 LAB L501.1950 2.2-4.2 g/dL Normal GLOB 4.0 LAB L501.4100 15-37 U/L Normal AST 24 LAB L501.4305 45-117 U/L Normal ALK P 76 LAB L501.4405 16-61 U/L Normal ALT 50 LAB L501.4600 0.20-1.00 mg/dL Normal T BILI 0.60 LAB L501.4700 0.00-0.30 mg/dL Normal D BILI 0.19 Performed By: #### L500.3400, L500.4100 #### [facility] [address] [place], [place], [address] LIPID PROFILE Collected: 02/26/2018 Status: F Source: [place] 7:54 AM [facility] REPOSITORY Order Comment: Order Date: 11/18/17 Order Info: 0667-1 - BMP Order Info: 0788- - LIVER Order Info: 41677-2 - LIPID TYPE CODE TESTS RESULT OUT OF RANGE REFERENCE UNITS LAB L501.4900 200 mg/dL Normal CHOL 181 Result Comment: <200 mg/dL Desirable 200-240 mg/dL Borderline >240 mg/dL High Risk LAB L501.5000 mg/dL Normal TRIG 119 Result Comment: The drugs N-Acetylcysteine and Metamizole may falsely depress this assay. Serum Triglycerides Reference Interval Normal <150 mg/dL Borderline high 150 - 199 mg/dL High 200 - 499 mg/dL Very High > or = 500 mg/dL LAB L501.6400 mg/dL Normal HDL 51 Result Comment: The drugs N-Acetylcysteine and Metamizole may falsely depress this assay. Reference Range HDL <40 mg/dL Low HDL Cholesterol HDL >or= 60 mg/dL High HDL Cholesterol LAB L501.6500 0-130 mg/dL Normal LDL 106 LAB L501.6600 5-40 mg/dL Normal VLDL 24 Performed By: #### L500.3400, L500.4100 #### [facility] [address] [facility] [place], [address] KNEE 3 VIEWS Observed: 11/29/2017 Status: F Source: [place] 3:14 PM [facility] REPOSITORY [facility] Imaging Services [address] [place] [address] Knee 3 Views MR#: [id number] Acct: [id number] Name: HENRI SILVESTRE Rep #: [id number] : 1950 M 67 From: Dennis Heredia MD PCP: Manuel Rocha MD Status: REG CLI Study: Knee 3 Views Date of Exam: 11/29/17 Exam# [id number] Ordering Dr: Clinton Gillespie MD STUDY: X-RAY - RIGHT KNEE REASON FOR EXAM: Male, 67 years old. PAIN IN RIGHT KNEE FOR A LONG TIME GETTING WORSE TECHNIQUE: 3 view(s) of the knee. COMPARISON: None. FINDINGS: Normal visualized distal femur. Normal visualized proximal tibia and fibula. Normal proximal tibiofibular articulation. There is severe degenerative arthrosis of the medial femorotibial compartment with severe joint space narrowing. Normal lateral femorotibial compartment. There is mild degenerative arthrosis of the patellofemoral articulation. The soft tissue structures are unremarkable. RAD/Knee 3 Views IMPRESSION: Degenerative arthrosis. Electronically Signed: Dennis Heredia MD at 19:38 EDT , Service support , CC: Manuel Rocha MD; [place] Gillespie MD Hog Raiser: Signed UPPER EXT JOINT Observed: 09/18/2017 Status: F Source: [place] ONLY(ROUTINE) 10:24 AM [facility] REPOSITORY [facility] Imaging Services [address] [place] [address] Upper Ext Joint Only(Routine) MR#: [id number] Acct: [id number] Name: HENRI SILVESTRE Rep #: [id number] : 1950 M 67 From: Ortega Thompson MD PCP: Manuel Rocha MD Status: REG CLI Study: Upper Ext Joint Only(Routine) Date of Exam: 09/18/17 Exam# [id number] Ordering Dr: Phan Piper MD STUDY: MRI RIGHT SHOULDER REASON FOR EXAM: Right shoulder pain and limited range of motion status post fall. TECHNIQUE: Standardized fat and water weighted pulse sequences were obtained in all 3 orthogonal planes. COMPARISON: Radiographs 04/12/2017. FINDINGS: There is a full-thickness tear of the supraspinatus tendon (T2 coronal images 12-14; T2 sagittal image 15) with a fluid-filled gap measuring 1.4 cm in diameter. There is a small signal void in the distal anterior supraspinatus tendon (proton-density coronal image 12) consistent with calcific tendinitis. Normal infraspinatus tendon. There is an undersurface partial-thickness tear of the subscapularis tendon with delamination (T2 axial images 16, 17). Normal teres minor tendon. There is atrophy with partial fat replacement of the supraspinatus and infraspinatus muscles (T2 sagittal images 1-7). Normal subscapularis muscle. Normal teres minor muscle. There is a small glenohumeral joint effusion with fluid extending into the bicipital tendon sheath. Normal humeral head and visualized proximal humerus. Normal biceps labral complex. Normal intracapsular long biceps tendon. Normal labrum. Normal capsulo- ligamentous complex. There is acromioclavicular arthrosis with hypertrophic changes (T2 sagittal images 10, 11). There is a Type I morphology (flat undersurface), with a neutral orientation. There is subacromial-subdeltoid bursal fluid. Normal visualized coracohumeral and coracoacromial ligaments. Normal deltoid muscle. Normal trapezius muscle. 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 Undersurface partial thickness tear of the subscapularis tendon. Atrophy of the supraspinatus and infraspinatus muscles. Acromioclavicular arthrosis. Glenohumeral joint fluid communicating with the subacromial-subdeltoid bursa. Electronically Signed: Ortega Thompson MD at 11:40 EDT Tel , Service support , CC: Manuel Rocha MD; PHAN PIPER Hog Raiser: Signed ORBITS FOR FOREIGN Observed: 09/17/2017 Status: F Source: [place] BODY 2:10 PM [facility] REPOSITORY [facility] Imaging Services [address] [place] [address] Orbits for Foreign Body MR#: [id number] Acct: [id number] Name: HENRI SILVESTRE Rep #: [id number] : 1950 67 From: Rahul Acevedo MD PCP: Manuel Rocha MD Status: REG CLI Study: Orbits for Foreign Body Date of Exam: 09/18/17 Exam# [id number] Ordering Dr: Phan Piper MD STUDY: X-RAY - ORBITS REASON FOR EXAM: Male, 67 years old. This study is being performed as a clearance examination for exclusion of orbital metal, prior to the performance of an MRI examination. TECHNIQUE: 2 view(s) of the orbits were obtained. COMPARISON: None. FINDINGS: Normal bilateral orbits without a metallic orbital foreign body. Normal visualized facial bones. Normal paranasal sinuses. The soft tissue structures are unremarkable. RAD/Orbits for Foreign Body IMPRESSION: No demonstrated metallic orbital foreign body. The patient is cleared for an MRI examination. Electronically Signed: Rahul Acevedo MD at 10:38 EDT Tel [phone], Service support , CC: Manuel Rocha MD; PHAN PIPER Hog Raiser: Signed LIVER PROFILE Collected: 08/27/2017 Status: F Source: [place] 8:20 AM [facility] REPOSITORY TYPE CODE TESTS RESULT OUT OF RANGE REFERENCE UNITS LAB L501.1500 6.4-8.2 g/dL Normal T PROT 7.8 LAB L501.1800 3.2-5.0 g/dL Normal ALB 3.9 LAB L501.1950 2.2-4.2 g/dL Normal GLOB 3.9 LAB L501.4100 15-37 U/L Normal AST 21 LAB L501.4305 45-117 U/L Normal ALK P 81 LAB L501.4405 16-61 U/L Normal ALT 45 LAB L501.4600 0.20-1.00 mg/dL Normal T BILI 0.50 LAB L501.4700 0.00-0.30 mg/dL Normal D BILI 0.12 Performed By: #### L500.3400, L501.5200 #### [facility] [address] [place], [address] MAGNESIUM Collected: 08/27/2017 Status: F Source: [place] 8:20 AM [facility] REPOSITORY TYPE CODE TESTS RESULT OUT OF RANGE REFERENCE UNITS LAB L501.5200 1.6-2.6 mg/dL Normal MG 2.2 Performed By: #### L500.3400, L501.5200 #### [facility] [address] [place], [address] Observed: 08/27/2017 Status: F Source: [place] CULTURE, URINE 8:20 AM [facility] REPOSITORY Urine Culture Culture exhibits no growth. Performed By: #### M100.0650 #### [facility] [address] [place], [address] PT D/C SUMMARY (1) Observed: 08/21/2017 Status: F Source: [place] 8:14 AM [facility] REPOSITORY [facility] Physical Therapy [facility] [address] [place], [place] [address] Fax REHABILITATION SERVICES DISCHARGE SUMMARY MR#: [id number] Acct: [id number] Name: HENRI SILVESTRE Rep #: [id number] : 1950 67 From: Dennis Abraham PT, ATC Referring Dr.: Robbin Frazier MD Status: REG RCR Insurance: SELF PAY INSURANCE HP - PT D/C Summary It has been my pleasure to treat HENRI SILVESTRE under orders from Robbin Frazier MD, for the diagnosis of L TKA for a total of 15 visit(s). Discharge Date: Please see the following information for a summary of their discharge status. - Subjective Subjective: Knee is a little sore today. - Pain L knee Pain Intensity (Out of 10): 3 - Overall Improvement % Improvement: 75 - Objective Objective/Function: Pt is now I with HEP and has achieved all Rx goals. L knee ROM: 0-10-122. L knee MMT: flex= 5/5, ext= 4/5 - Goals Goal 1:: Decrease L knee pain x 50% to aid with sleep Goal Progress: Goal Met Goal 2:: Increase L knee strength x 1 grade to aid with RTW without limitation Goal Progress: Goal Met Goal 3:: Increase L knee ROM x 20 degrees to aid with restoring a more normal gait pattern Goal Progress: Goal Met Goal 4:: I with HEP Goal Progress: Goal Met - Plan Plan: Discharge - D/C Information If there are questions or concerns regarding this patient's physical therapy, please feel free to call me at [phone]. Thank you for the referral of this patient. Sincerely, Dennis Abraham, PT, <Electronically signed by Dennis Abraham PT, ATC> 08/21/17 0814 CC: Robbin Frazier MD; Manuel Rocha MD [facility] Signed CARDIOLOGY VISIT Observed: 08/15/2017 Status: F Source: LODI REPORT 11:06 AM [facility] REPOSITORY [facility] [address] [place] [address] OFFICE VISIT Date of Service: 08/15/17 MR#: [id number] Acct: [id number] Name: HENRI SILVESTRE Rep #: [id number] : 1950 Provider: Clinton Barriga MD Age/Sex: 67/M Location: [facility] [place] Status: Signed HPI HPI Details: HENRI SILVESTRE, is a 67 M who presents to the office today for for outpatient cardiovascular follow-up. Since his last visit on 02/07/2017 he states from a cardiac standpoint he has been doing well. He denies any ongoing history of classic angina pectoris or evidence of CHF or pulmonary edema. There has been no near syncope or syncope. He has undergone noncardiovascular evaluation. This included a urologic procedure with a TURP and an orthopedic procedure with a knee replacement. He had hepatic and lipid studies performed earlier this month. His lipid profile demonstrates continued elevation of his total cholesterol and LDL cholesterol. His hepatic transaminases were elevated as well. He has been on various other lipid-lowering medications in the past. He has been on atorvastatin as well as rosuvastatin. He has also been on Zetia and cholestyramine. He states every time he is on a lipid-lowering medication he does not tolerate them well. He did have an echocardiogram performed on 04/19/2017. At that time his left ventricle was normal with an LVEF of 65%. He had moderate concentric LVH. He had no hemodynamically significant valvular heart disease. Intake Vital Signs08/15/17 Height 5 ft 11 in 08/15/17 Weight: 235 lb 08/15/17 Body Mass Index (BMI) 32.8 08/15/17 Blood Pressure 128/74 Intake Visit Reasons: 6 M FU Allergies Penicillins Allergy (Verified 08/15/17 10:17) Rash valsartan Adverse Reaction (Severe, Verified 08/15/17 10:17) Joint Pain Medications nitroglycerin 0.4 mg sublingual tablet 0.4 mg SUBLINGUAL Q5M PRN 04/04/17 [History Confirmed 08/15/17] Amlodipine Besylate [Norvasc] 10 mg PO QDAY 07/24/17 [History Confirmed 08/15/17] Hydrochlorothiazide 12.5 mg PO DAILY 07/24/17 [History Confirmed 08/15/17] Naproxen Sodium [Aleve] 220 mg PO Q8H PRN PRN 07/24/17 [History Confirmed 08/15/17] Slater-3 Fatty Acids/Fish Oil [Fish Oil 1,000 mg Capsule] 1 ea PO DAILY 07/24/17 [History Confirmed 08/15/17] Pantoprazole Sodium [Protonix] 40 mg PO DAILY 07/24/17 [History Confirmed 08/15/17] Ciprofloxacin [Cipro] 500 mg PO BID #20 tab 08/09/17 [Rx Confirmed 08/15/17] Hydrocodone/Acetaminophen [[place] 5-325 Tablet] 1 ea PO Q4H PRN PRN 7 Days #20 tab 08/09/17 [Rx Confirmed 08/15/17] PFSH Medical History Chest pain, precordial (Acute) Atherosclerotic heart disease of [place] coronary artery without angina pectoris (Chronic) Hyperlipidemia (Acute) Hypertension (Chronic) Family history of hypertension (Acute) Surgical History H/O transurethral resection of prostate (Resolved) History of knee replacement procedure of left knee (Resolved) Family History Mother CHF (congestive heart failure) Brother Hypertension Son Hypertension Other Family history of hypertension Social History Smoking Status: Never smoker alcohol intake: never substance use type: does not use ROS Const Const: Negative for fatigue, weakness, weight gain, weight loss, frequent falls or excessive sweating Eyes Eyes: Negative for change in vision, blurry vision or transient loss of vision ENT ENT: Positive for dizziness (x1 episode after surgery); negative for balance problems Cardio Chest Pain: No Palpitations: Yes (occasional) feels like its: thumping Edema: Left (slight) Muscle aches with walking: Left Additional Details: Patient S/P left knee sugery 06/16 Resp Respiratory: Negative for SOB with activity or SOB at rest GI GI: Negative vomiting or vomiting blood/hematemesis : Negative for hematuria Musc Musc: Negative for balance problems, muscle aches/ myalgia, muscle weakness or joint pain Skin Skin: Negative non-healing lesions or rash Neuro Neuro: Positive for dizziness (x1 episode after surgery); negative for weakness, blurry vision, lightheadedness, frequent falls or orthostatic symptoms Yobani Hematologic/Lymphatic: Negative for easy bleeding Endo Endo: Negative for fatigue or excessive sweating Psych Psych: Negative for anxiety or depression Allergy Allergy/Immunology: Negative for hives, Negative for rash Cardiology Exam Const Appearance: cooperative, healthy appearing, comfortable, no acute distress, well groomed and well developed Nutritional Appearance: average body habitus Orientation: alert, awake and oriented x3 Head Head: normal to inspection, normocephalic and atraumatic Ears: hearing grossly normal bilaterally Nose: external nose normal Face and Sinus: face symmetric Mouth: oral mucosae normal Eyes General: appearance normal, both eyes and all related structures Eyelids: eyelids normal Conjunctivae: conjunctivae normal Pupils: PERRL EOM: EOM intact bilaterally Neck Neck: normal visual inspection and full ROM Carotids: normal carotid upstroke Chest Chest inspection: normal inspection of the chest and symmetric chest movement Auscultation: Bilateral: Clear to Auscultation Cardio Palpation: normal PMI Rate: regular rate Rhythm: regular rhythm Heart sounds: S1 normal and S2 normal GI GI: normal to inspection, bowel sounds present, soft and no hepatosplenomegaly Neuro General: alert, awake and oriented x3 Extremities Pulses: Normal: Right Radial Pulse, Left Radial Pulse Lower Extremity Edema: None: Bilateral Psych Psychological: normal affect Assessment AND Plan 1. Atherosclerosis of [place] coronary artery of [place] heart without angina pectoris I25.10 Mild per Cardiac cath 09/13/09 Plan At the present time he appears to be doing well with no acute symptoms. He does need to continue risk factor modification and medical management as best as possible. This would ideally include reattempting prescription medication to bring his lipid profile under better control. However there are concerns with respect to his hepatic transaminase levels. Thus the present time he will have these repeated in the near future. If they remain elevated he should have further follow-up with his primary care physician and gastroenterology as deemed appropriate. Otherwise it does not appear he requires further cardiac diagnostic studies or therapeutic intervention at this time. 2. Hyperlipidemia, unspecified hyperlipidemia type E78.5 Plan Again his lipid labs were reviewed. His lipid profile remains elevated. He will undergo further evaluation and care as noted above. If he is able to attempt other lipid-lowering medications in the future then perhaps he can attempt, if he does not want to retry statin therapy, etc. medicine such as colestipol or Colestid. 3. Essential hypertension I10 Plan He has blood pressure appears to be improved at this time. He will continue his current medical management. 4. Elevated transaminase level R74.0 Plan Again he will undergo follow-up hepatic studies. Copies will be forwarded to his other physicians. Depending upon his findings he may need additional follow-up by his primary care physician as well as gastroenterology. Orders Orders: Plan Detail Additional Comments Otherwise he will be scheduled for an outpatient visit in approximately 9 months unless needed sooner. Thank you for allowing me to participate in the care of your patient. Please don't hesitate to call if any issues arise. This note was generated using a voice recognition system and there may be incorrect words, spelling or punctuation that were not noted when reviewing the office note prior to saving. Follow Up 9 Months (PFM) Coding Level of Care Code Off vis,est,level 4 Diagnoses Atherosclerosis of [place] coronary artery of [place] heart without angina pectoris I25.10 [place] vs. transplanted heart: [place] heart Hyperlipidemia, unspecified hyperlipidemia type E78.5 Hyperlipidemia type: unspecified Essential hypertension I10 Hypertension type: essential hypertension Elevated transaminase level R74.0 Coding Level of Care Code Off vis,est,level 4 Diagnoses Atherosclerosis of [place] coronary artery of [place] heart without angina pectoris I25.10 [place] vs. transplanted heart: [place] heart Hyperlipidemia, unspecified hyperlipidemia type E78.5 Hyperlipidemia type: unspecified Essential hypertension I10 Hypertension type: essential hypertension Elevated transaminase level R74.0 08/15/17 1106 <Electronically signed by Clinton Barriga MD> Date Clinton Barriga MD Cosigner Signature: Date (if applicable) CC: Manuel Rocha MD; Harsha Chaidez MD; Robbin Gutierrez MD; Nacho Montgomery OPERATIVE REPORT Observed: 08/09/2017 Status: F Source: LODI 3:22 PM [facility] REPOSITORY [facility] Medical Records Department [address] [facility] [place] [address] Operative Report 08/09/17 1519 MR#: [id number] Acct: [id number] Name: HENRI SILVESTRE Randy Rep #: [id number] : 1950 67 From: Harsha Chaidez MD PCP: Manuel Rocha MD Status: REG SDC Y Location: [place] [address] Report of Operation Date of Procedure: 08/09/17 Pre-Operative Diagnosis: BPH and urinary retention Post-Operative Diagnosis: Same Surgery/Procedure Performed:: Transurethral resection of the prostate Description of Surgical Findings:: 67-year-old male has a history of BPH with a large prostate after a surgical procedure with orthopedics he develop retention of urine is failed multiple voiding trials is on maximal medical therapy for now and taken to surgery to do a TURP to restore normal voiding. Patient underwent general anesthesia was placed supine on the table the penis and testicles were prepped and draped in usual sterile fashion. Went into the urethra with a 26 Martiniquais continuous flow resectoscope the entire length of the urethra is normal sphincter was normal prostate had bilateral hypertrophy obstructive tissue bilaterally no median lobe I then switched over to the resectoscope and started resecting the prostate resected at the all the way circumferentially around the 12:00 to the 6:00 in the prostate and the right side resected the right lobe all the way back to the verumontanum then went to the left side resected the left side all the way back to the verumontanum and then switch over to the Olympus button and in use the button to finish off the resection of the near the sphincter smoothing out the edges of the resection nice smooth resection all the way from the sphincter into the bladder at the end of the resection pulled back to the sphincter the sphincter was intact the due to flow test had a nice open flow at all the chips out and he had a prior procedure and all the clips were removed removed from the prostate from the prior ureteral left in the past. Had a nice wide open channel put a catheter in the bladder continues bladder irrigation the urine is nice and clear and he went to the PACU in good condition tomorrow morning we will get the catheter out for a voiding trial. Type of Anesthesia:: General Drains: lisa 3 way - Admit VTE Documentation VTE Present on Admission: No VTE Mechan Device Prophylaxis: SCD's VTE Pharm Prophylaxis ordered?: No Reason prophylaxis not ordered:: Treatment Not Indicated 08/09/171521 <Electronically signed by Harsha Chaidez MD> Date Harsha Chaidez MD CC: Manuel Rocha MD; Harsha Chaidez MD Signed PROSTATE, TUR Observed: 08/09/2017 Status: F Source: LODI 1:20 PM [facility] REPOSITORY Patient: HENRI SILVESTRE : 1950 (67/M) Acct Num: [id number] Phys: Kaylynn BENÍTEZ,Harsha Zimmerman Unit Num: [id number] Loc: [facility] Specimen: [id number] Received: 08/09/171522 Spec Type: TURP TISSUES TISSUES: Prostate, NOS COMMENT Please make reference to previous specimen ([id number]) right prostate, mid, core biopsy and left prostate, mid, core biopsy with diagnosis of prostatic adenocarcinoma. This case has been reviewed in consultation with Dr. Diaz who concurs with the above diagnosis. GROSS DESCRIPTION Received is one container labeled with the patient's name and designated prostate tissue. The specimen consists of multiple irregular fragments of pink-hunter, rubbery, soft tissue that in aggregate weigh 20.8 gm and measure in aggregate 6.5 x 6.5 x 1 cm. Financial Economist portions are submitted in 12 cassettes. / AM:nadine 08/12/17 Rest of the specimen is submitted in eight more cassettes, 13-20. A few metallic pins are also noted in the specimen. These are for gross only. / SJ: nadine 08/13/17 TC:5 CPT: 92250 HEADER OPERATION: Cysto, TUR, prostate, Olympus PRE-OP DIAGNOSIS: BPH with obstruction, urinary retention TISSUE SUBMITTED: Prostate chips MICROSCOPIC DESCRIPTION Slides are reviewed. MICROSCOPIC DIAGNOSIS Prostate chips, TUR: Benign prostatic hyperplasia, glandular and stromal type. Focal chronic inflammation and basal cell hyperplasia. SJ:nadine 08/13/17 Signed Rush Saucedo 08/14/17 <signature on file> Performed By: #### PPROS #### [facility] [address] [facility] [facility] [place], [address] DISCHARGE INSTRUCTION Observed: 08/09/2017 Status: F Source: LODI 1:08 PM [facility] REPOSITORY [facility] Medical Records Department [address] [place] [address] Instructions for Home/Discharge Instructions 08/09/17 1304 MR#: [id number] Acct: [id number] Name: HENRI SILVESTRE Rep #: [id number] : 1950 67 From: Harsha Chaidez MD PCP: Manuel Rocha MD Status: REG [facility] Discharge Diet: Light diet - advance as tolerated Discharge Activity: Return to Normal Activity, May not drive while taking narcotic pain medications. May shower in (days): 1 Lifting Restrictions: no lifting > 10lbs Call your doctor if your incision/area has: Sudden Increased Bleeding Call your doctor if you observe: Fever of 101 or Higher, Uncontrolled pain Suture Line Care: Avoid Pulling/Pushing, Avoid Pinching/Bending Allergies/Adverse Reactions: Allergies Penicillins Allergy (Verified 07/24/17 11:14) Rash valsartan Adverse Reaction (Severe, Verified 07/24/17 11:14) Joint Pain Medications to take at Discharge nitroglycerin 0.4 mg sublingual tablet 0.4 mg SUBLINGUAL Q5M PRN 04/04/17 Amlodipine Besylate [Norvasc] 10 mg PO QDAY 07/24/17 Hydrochlorothiazide 12.5 mg PO DAILY 07/24/17 Naproxen Sodium [Aleve] 220 mg PO Q8H PRN PRN 07/24/17 Slater-3 Fatty Acids/Fish Oil [Fish Oil 1,000 mg Capsule] 1 each PO DAILY 07/24/17 Pantoprazole Sodium [Protonix] 40 mg PO DAILY 07/24/17 Ciprofloxacin [Cipro] 500 mg PO BID #20 tab 08/09/17 Hydrocodone/Acetaminophen [[place] 5-325 Tablet] 1 ea PO Q4H PRN PRN 7 Days #20 tab 08/09/17 The following prescriptions were given: Hydrocodone/Acetaminophen [[place] 5-325 Tablet] 1 ea PO Q4H PRN PRN 7 Days #20 tab PRN Reason: Pain Ciprofloxacin [Cipro] 500 mg PO BID #20 tab Primary Care Physician: Ritesh Rocha MD [Primary Care Provider] - Please Follow Up With: Harsha Chaidez MD - call if need to change appt. When: SaturdayAugust 27 at 1:45 pm 08/09/17 1308 <Electronically signed by Harsha Chaidez MD> Date Harsha Chaidez MD CC: Manuel Rocha MD VENOUS DUPLEX LOWER Observed: 07/29/2017 Status: F Source: TEJINDER EXTREMITY 9:33 PM [facility] REPOSITORY [facility] Cardiovascular Services [address] [place] [address] Venous Duplex US, Unilateral 07/29/17 1601 MR#: [id number] Acct: [id number] Name: HENRI SILVESTRE Rep #: [id number] : 1950 67 From: Espinoza Murray MD Attending Dr: DANIKA HARDY Status: REG CLI Ordering Dr: Danika Hardy MD Date: 07/29/17 Location: [facility] Sex: M C Admitted: Reason For Study: pain and swelling RIGHT LEFT CFV is compressible, spontaneous, phasic, GSV is normal. competent and demonstrates normal CFV is compressible, spontaneous, phasic, augmentation. competent, and demonstrates normal Procedure augmentation. Exam performed in department. FV is compressible, spontaneous, phasic, The exam was diagnostic. competent and demonstrates normal A preliminary report was called and/or faxed augmentation. to the [facility]. POP V is compressible, spontaneous, phasic, competent and demonstrates normal augmentation. T/P Trunk is compressible. PTV is compressible. LT PerV is compressible. Interpretation Summary Deep veins of the left lower extremity are patent and compressible segmentally. There is no evidence of left lower extremity deep vein thrombosis. Valvular competence appears intact within the proximal deep venous system on the left . The left greater saphenous vein appears patent and compressible segmentally. Ordering Physician: DANIKA HARDY Performed By: Breezy Cloud RVT 07/29/172132 Date Espinoza Murray MD CC: Manuel Rocha MD; DANIKA HARDY Date Dictated: 07/29/17 1601 Date Transcribed: 07/29/172132 Hog Raiser: Signed LIVER PROFILE Collected: 07/29/2017 Status: F Source: TEJINDER 9:15 AM [facility] REPOSITORY Order Comment: Order Date: 02/08/17 Order Info: [id number] - *Hepatic Function Panel Order Info: [id number] - *Lipid Profile CC PCP Comments: 12 hours fasting, may have water. MOODISPAW ORDERED LIPID AND LIVER KAYLYNN ORDERED PSAD COPY OF RESULTS GO TO [facility] TYPE CODE TESTS RESULT OUT OF RANGE REFERENCE UNITS LAB L501.1500 6.4-8.2 g/dL Normal T PROT 8.0 LAB L501.1800 3.2-5.0 g/dL Normal ALB 3.7 LAB L501.1950 2.2-4.2 g/dL High GLOB 4.3 LAB L501.4100 15-37 U/L High AST 80 LAB L501.4305 45-117 U/L High ALK P 214 LAB L501.4405 16-61 U/L High ALT 370 Result Comment: Please note revised ALT reference range effective 2017. LAB L501.4600 0.20-1.00 mg/dL Normal T BILI 0.50 LAB L501.4700 0.00-0.30 mg/dL Normal D BILI 0.15 Performed By: #### L500.3400 #### [facility] [address] [place], [address] LIPID PROFILE Collected: 07/29/2017 Status: F Source: TEJINDER 9:15 AM [facility] REPOSITORY Order Comment: Order Date: 02/08/17 Order Info: [id number] - *Hepatic Function Panel Order Info: [id number] - *Lipid Profile CC PCP Comments: 12 hours fasting, may have water. MOODISPAW ORDERED LIPID AND LIVER KAYLYNN ORDERED PSAD COPY OF RESULTS GO TO [facility] TYPE CODE TESTS RESULT OUT OF RANGE REFERENCE UNITS LAB L501.4900 200 mg/dL High CHOL 254 Result Comment: <200 mg/dL Desirable 200-240 mg/dL Borderline >240 mg/dL High Risk LAB L501.5000 mg/dL Normal TRIG 179 Result Comment: The drugs N-Acetylcysteine and Metamizole may falsely depress this assay. Serum Triglycerides Reference Interval Normal <150 mg/dL Borderline high 150 - 199 mg/dL High 200 - 499 mg/dL Very High > or = 500 mg/dL LAB L501.6400 mg/dL Low HDL 39 Result Comment: The drugs N-Acetylcysteine and Metamizole may falsely depress this assay. Reference Range HDL <40 mg/dL Low HDL Cholesterol HDL >or= 60 mg/dL High HDL Cholesterol LAB L501.6500 0-130 mg/dL High LDL 179 LAB L501.6600 5-40 mg/dL Normal VLDL 36 Performed By: #### L500.4100 #### [facility] [address] [facility] [place], [address] PSA,TOTAL- DIAGNOSTIC Collected: 07/29/2017 Status: F Source: LODI 9:15 AM [facility] REPOSITORY Order Comment: Order Date: 02/08/17 Order Info: 0788-1 - *Hepatic Function Panel Order Info: [id number] - *Lipid Profile CC PCP Comments: 12 hours fasting, may have water. MOODISPAW ORDERED LIPID AND LIVER KAYLYNN ORDERED PSAD [facility] TYPE CODE TESTS RESULT OUT OF REFERENCE UNITS RANGE LAB L501.9940 0.0-4.0 ng/mL PSA, High DIAGNOSTIC 22.40 Result Comment: This test was performed using the TPSA assay method for the [employer] chemistry system. Values obtained with different assay methods cannot be used interchangably. When changing PSA assays in the course of monitoring a patient, additional sequential testing should be carried out to confirm baseline values. Performed By: #### L501.9940 #### [facility] [address] [place], [address] 12 LEAD ELECTROCARDIOGRAM Observed: 07/25/2017 Status: F Source: LODI 2:42 PM [facility] REPOSITORY [facility] Cardiovascular Services [address] [facility] [address] EKG - [facility] 07/24/17 1104 MR#: [id number] Acct: [id number] Name: HENRI SILVESTRE Randy Rep #: [id number] : 1950 67 From: Blayne Medina MD Attending Dr: Harsah Chaidez MD Status: PRE [facility] Ordering Dr: Tom Bonilla MD Date: 07/24/17 Location: [facility] Sex: M C Admitted: Test Reason : Blood Pressure : / mmHG Vent. Rate : 089 BPM Atrial Rate : 089 BPM P-R Int : 164 ms QRS Dur : 100 ms QT Int : 348 ms P-R-T Axes : 030 028 041 degrees QTc Int : 423 ms Normal sinus rhythm Possible Left atrial enlargement Borderline ECG Confirmed by BLAYNE MEDINA MD ([id number]), writer editor DAMARI JOHN ([id number]) on 07/25/2017 2:41:54 PM Referred By: Harsha Chaidez Confirmed By:BLAYNE MEDINA MD 07/25/17 1441 Date Blayne Medina MD CC: Manuel Rocha MD; Tom Bonilla MD; Harsha Chaidez MD Date Dictated: 07/24/171103 Date Transcribed: 07/24/171103 Hog Raiser: Signed CBC-COMPLETE BLOOD CNT Collected: 07/24/2017 Status: F Source: TEJINDER NO DIFF 12:00 PM [facility] REPOSITORY TYPE CODE TESTS RESULT OUT OF RANGE REFERENCE UNITS LAB L100.1000 4.4-11.0 K/mm3 Normal WBC 5.0 LAB L100.1200 4.6-6.2 M/mm3 Low RBC 4.59 LAB L100.1300 13.0-16.5 g/dl Low HGB 12.9 LAB L100.1400 40-54 % Low HCT 39.5 LAB L100.1500 80-94 fL Normal MCV 86.1 LAB L100.1600 27.0-32.0 pg Normal MCH 28.1 LAB L100.1700 32-36 g/gl Normal MCHC 32.7 LAB L100.1810 11.6-14.6 % Normal RDW CV 13.2 LAB L100.1820 35.1-43.9 fl Normal RDW SD 41.6 LAB L100.1900 150-450 K/mm3 Normal PLT 242 LAB L100.2000 6.2-12.0 fl Normal MPV 8.1 Performed By: #### L100.0500 #### [facility] [address] [place], [place], [address] BASIC METABOLIC Collected: 07/24/2017 Status: F Source: TEJINDER PROFILE (BMP) 12:00 PM [facility] REPOSIT[facility] TYPE CODE TESTS RESULT OUT OF RANGE REFERENCE UNITS LAB L501.0100 74-106 mg/dL High GLU 107 Result Comment: Fasting Glucose result from 100 to 125 mg/dL suggests IMPAIRED HOMEOSTASIS per A.D.A. criteria. Please note revised GLUCOSE reference range effective 2017. LAB L501.1000 7-18 mg/dL High BUN 27 LAB L501.1100 0.70-1.30 mg/dL Normal CREAT,SERUM 1.19 Result Comment: The validity of the calculated GFR AND GFRAA in patients over 70 years has not been determined. Clinical correlation is essential. LAB L501.1110 >60 mL/min Normal EST GFR 65 Result Comment: Non- GFR Calc LAB L501.1115 >60 mL/min Normal EST GFR - AA 79 Result Comment: GFR Calc LAB L501.1255 ml/min Normal Estimated CRCL 65.04 LAB L501.1300 10-20 RATIO High BUN/CRE 22.7 LAB L501.2200 8.5-10 mg/dL Normal .1 CA 9.0 LAB L501.5300 136-14 mmol/L Normal 5 NA 137 LAB L501.5600 3.5-5. mmol/L Normal 1 K 3.7 LAB L501.5900 98-107 mmol/L Normal CL 102 LAB L501.6100 21.0-3 mmol/L Normal 2.0 CO2 28.0 LAB L501.6200 5-15 Normal GAP 7 Performed By: #### L500.2500 #### [facility] [address] [place], [address] INITAL EVALUATION (1) Observed: 07/18/2017 Status: F Source: TEJINDER - PT 1:59 PM [facility] REPOSITORY [facility] [address] [place] [address]. [address] [place], [place] [address] Fax REHABILITATION SERVICES INITIAL EVALUATION MR#: [id number] Acct: [id number] Name: HENRI SILVESTRE Rep #: [id number] : 1950 67 From: Dennis Abraham PT, ATC Referring Dr.: Robbin Frazier MD Status: REG RCR Insurance: SELF PAY INSURANCE Patient's Visit Information HENRI SILVESTRE is a 67 year old M referred to Physical Therapy by Robbin Frazier MD DR.RKLI with a diagnosis of L TKA. Date of Evaluation: 07/18/17 Physical Therapist: Dennis Abraham, PT, - Visit Plan Frequency: 2-3x /Week Duration: 4-6 Weeks Plan: L knee PROM/MOBs, stretching and strengthening, balance and proprio, nustep, and HEP - Subjective Subjective: DOS: 06/21/17. Pt reports he has had a chronic Hx of L knee pain for several years.. Pt reports both of his knees are bone on bone. Pt reports he eventually needs to get a R TKA. Pt reports he has had home health PT for the past 4 weeks. 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 Pt reports his R knee is still numb at the time. Sleep diff secondary to pain. Pt reports he is not sure if he is happy to have had the surgery yet secondary to not really feeling the benefits yet. 4/10 at rest, 9/10 at worst - Pain L knee Pain Intensity (Out of 10): 4 Pain Intensity Range: 9 - Objective Neuro: B LE sensation is WNL to light touch. Palpation: Incision is mostly healed. No signs of infection. 2+ pitting edema. Girth at joint line: L knee 44 cm. ROM: R knee 0-130, L knee 0-18-106. MMT: R knee 5/5, L knee 4-/5 and painful - Goals Goal 1:: Decrease L knee pain x 50% to aid with sleep Goal Time Frame: 4-6 Weeks Goal 2:: Increase L knee strength x 1 grade to aid with RTW without limitation Goal Time Frame: 4-6 Weeks Goal 3:: Increase L knee ROM x 20 degrees to aid with restoring a more normal gait pattern Goal Time Frame: 4-6 Weeks Goal 4:: I with HEP Goal Time Frame: 4-6 Weeks - Rehabilitation Potential Physical Therapy Diagnosis: L knee pain, swelling, and weakness secondary to L tKA Rehabilitation Potential: Excellent - Anticipated Interventions Patient/Client Instruction: Educate patient on: Condition, Plan of Care For the Purpose of:: To improve self management Therapeutic Exercise to Include: Strength training, Endurance training, Balance training, Flexibilty training, Gait and locomotor training, Passive ROM, Active ROM, Dynamic Lumbar Stabilization For the Purpose of:: To decrease pain, To increase ROM, To improve muscle performance and motor function Cryotherapy (ice pack, ice massage): Yes For the Purpose of:: To decrease pain Thank you for the opportunity to evaluate your patient. For Medicare and Medicare HMO plans, please review the plan of care and approve it. It will need to be FAXED BACK to us at [phone] for Medicare purposes. Please let me know if there are questions or concerns regarding this plan of care. Physician Signature: Date: <Electronically signed by Dennis Abraham PT, ATC> 07/18/17 1359 CC: Robbin Frazier MD; Manuel Rocha MD [facility] Signed For Medicare only, by signing this I certify the plan of care. Physicians Signature Date OFFICE VISIT REPORT Observed: 06/27/2017 Status: F Source: [place] 4:[address] [place] [address] OFFICE VISIT Date of Service: 06/27/17 MR#: [id number] Acct: [id number] Patient: HENRI SILVESTRE Rep #: [id number] : 1950 Provider: Debbie Barker Age/Sex: 66/M Location: [facility] Status: Signed Intake Intake Visit Reasons: Allergies Penicillins Allergy (Verified 04/12/17 08:39) Rash Medications Aspirin [Aspirin, Baby] 81 mg PO DAILY@0800 11/18/15 [History Confirmed 04/12/17] nitroglycerin 0.4 mg sublingual tablet 0.4 mg SUBLINGUAL Q5M PRN 04/04/17 [History Confirmed 04/12/17] Hydrocodone Bitart/Apap 5-325 [[place] 5/325] 1 - 2 tab PO Q4H PRN PRN #12 tab 04/12/17 [Rx] finasteride 5 mg tablet 5 mg PO QDAY 05/07/17 [History] amlodipine 10 mg tablet 10 mg PO QDAY #30 tab 06/14/17 [Rx] Nursing Note Pt is here today for a bp check pt states he was instructed to start HCTZ, pt currently does not know the dosage and will call us back. In the meantime I contacted [facility] and left a VM for dosage clarification. Pt denies SOB, chest discomfort, dizziness, left lower extremity edema is present, pt recently had a left knee surgery. BP 130/82, HR 104, RR 20.Kaushik Morgan NP reviewed vitals and pt is to continue current medication therapy, record BP and HR and call us in 2 weeks with readings. 06/27/17 1646 <Electronically signed by Kaushik Morgan MUTTON PUNCHER-C> Date Kaushik Morgan NP-C Cosigner Signature: Date (if applicable) CC: Debbie Barker OFFICE VISIT REPORT Observed: 05/30/2017 Status: F Source: [place] 11:53 AM [address] [place] [place] [address] OFFICE VISIT Date of Service: 05/30/17 MR#: [id number] Acct: [id number] Patient: HENRI SILVESTRE Rep #: [id number] : 1950 Provider: Clinton Barriga MD Age/Sex: 66/M Location: [facility] Status: Signed Intake Vital Signs05/30/17 Height 5 ft 11 in 05/30/17 Blood Pressure 140/88 05/30/17 Blood Pressure Location Lt brachial Intake Visit Reasons: 2 wk bp ck Spice Cleaner Required: No Accompanied by: None Is patient in pain?: No Allergies Penicillins Allergy (Verified 04/12/17 08:39) Rash Medications Aspirin [Aspirin, Baby] 81 mg PO DAILY@0800 11/18/15 [History Confirmed 04/12/17] nitroglycerin 0.4 mg sublingual tablet 0.4 mg SUBLINGUAL Q5M PRN 04/04/17 [History Confirmed 04/12/17] Hydrocodone Bitart/Apap 5-325 [[place] 5/325] 1 - 2 tab PO Q4H PRN PRN #12 tab 04/12/17 [Rx] finasteride 5 mg tablet 5 mg PO QDAY 05/07/17 [History] amlodipine 10 mg tablet 10 mg PO QDAY 05/16/17 [History Confirmed 05/16/17] Nursing Note Pt is here today (05/30/2017) for a bp check d/t increasing Norvasc to 10 mg po daily. Since increasing Norvasc pt has noticed some trace lower extremity edema, pt denies SOB, chest discomfort, and dizziness. BP 140/88, 88 bpm, RR 20. Kaushik HOUSE reviewed vitals and pt is to 1.) continue current medication therapy, 2.) monitor bp and call in readings in 2 weeks. It was discussed with pt and Kaushik Morgan MUTTON PUNCHER-C regarding the possibility of starting HCTZ at either 12.5 mg or 25 mg daily, and decreasing norvasc to 5 mg po daily, at this time pt will continue with Norvasc 10 mg po daily, no change in medication was made today. 05/30/17 1153 <Electronically signed by Kaushik ORDONEZC> Date Kaushik ORDONEZC Cosigner Signature: Date (if applicable) CC: Debbie DeFinis ALLERGIES ALLERGIES DATE TYPE / CODE NAME / CODE REACTION SEVERITY SOURCE 08/15/2017 Drug Penicillins/ Rash Unknown [facility] Allergy/4160 [id number]([facility] [address]27(SNOMED XNORM) Repository CT) 08/15/2017 Drug valsartan/F0 JOINT PAIN [facility] Allergy/4160 [id number]([place] 1346202(SNOMED ORM) Repository CT) ENCOUNTERS ENCOUNTERS ADMIT/DISCHARGE ACCOUNT ADMITTING ENCOUNTER LOCATION SOURCE NUMBER CLASS 05/23/2018 [id number] Ambulatory [place] [facility] Hospital ing:PT Repository 05/19/2018 [id number] [facility] [place] [facility] ing[facility]MTLAB Repository 02/26/2018 [id number] Ambulatory [place] 5 [facility] Hospital ing:MTLAB Repository 11/29/2017 [id number] Ambulatory [place] 0 [facility] Hospital ing:MTRAD Repository 11/18/2017 [id number] Ambulatory BMSBuilding:B [place] 5 [facility] Repository 10/18/2017 [id number] Ambulatory [place] 1 [facility] Hospital ing:LAB.FUTUR Repository E 09/18/2017 [id number] Ambulatory [place] 6 [facility] Hospital ing:MRI Repository 08/27/2017 [id number] Ambulatory [place] 0 [facility] Hospital ing:LAB.FUTUR Repository E 08/21/2017/ [id number] Ambulatory [place] 8 1 [facility] Hospital ing:PT Repository 08/15/2017/ [id number] Ambulatory BMSBuilding:B [place] [facility] 8 [facility] Repository 08/09/2017/ [id number] Ambulatory [place] 8 7 [facility] Hospital ing:SDCRoom: Repository MS303 07/29/2017 [id number] Ambulatory [place] [facility] Hospital ing:CVS Repository 07/29/2017 [id number] Ambulatory [place] 7 [facility] Hospital ing:LAB.FUTUR Repository E 07/24/2017 [id number] Ambulatory BMSBuilding:W [place] 9 [facility] Repository 07/11/2017 [id number] Ambulatory BMSBuilding:B [place] 8 [facility] Repository 07/03/2017 [id number] Ambulatory BMSBuilding:B [place] 3 [facility] Repository 06/27/2017/ [id number] Ambulatory BMSBuilding:B [place] 8 8 [facility] Repository 05/30/2017/02/01/201 [id number] Ambulatory BMSBuilding:B [place] 8 9 [facility] Repository PAYERS PAYERS ENCOUNTER GUARANTOR PAYER SUBSCRIBER SOURCE 05/23/2018 HENRI N Primary [place]RI N [place] [id number] Insurance:MEDICARE JENTESDOB: Community JENTES PART A [facility] [id number] Number[place] Repository 22714Ygd: 330 [id number] [phone] (HP) Date:2016-06-27 05/23/2018 Secondary HENRI N [place] Insurance:MEDICAL JENTESDOB: [facility] [id number] Hospital Number: Repository [id number] Date:4011-94-66QA [address] [address]JM: 05/23/2018 Tertiary NOT GIVENUNK [place] Insurance:SELF PAY [facility] Number: Effective Repository Date:2018-05-02 05/19/2018 HENRI N Primary HENRI N [place] [id number] Insurance:MEDICARE JENTESDOB: Community JENTES PART A [facility] [id number] Number: Repository [address]Kfq: 330 [id number] [phone] (HP) Date:2018-05-12 05/19/2018 Secondary HENRI N [place] Insurance:MEDICAL JENTESDOB: [facility] [id number] Hospital Number: Repository [id number] Date:6932-39-65DU [address] [address]NB: 05/19/2018 Tertiary NOT GIVENUNK [place] Insurance:SELF PAY [facility] Number: Effective Repository Date:2018-05-12 02/26/2018 HENRI N Primary HENRI N [place] [id number] Insurance:MEDICARE JENTESDOB: Community JENTES PART A [facility] [id number] Number: Repository 115[address]Iez: 330 [id number] [phone] (HP) Date:2018-02-26 02/26/2018 Secondary HENRI N [place] Insurance:MEDICAL JENTESDOB: [facility] [id number] Hospital Number: Repository [id number] Date:8851-58-00VB [address] [address]AM: 02/26/2018 Tertiary NOT GIVENUNK [place] Insurance:SELF PAY [facility] Number: Effective Repository Date:2018-02-26 11/29/2017 HENRI N Primary HENRI N [place] [id number] Insurance:MEDICARE JENTESDOB: Community JENTES PART A [facility] [id number] Number: Repository [address]Uak: [phone] [id number] [phone] (HP) Date:2017-11-29 11/29/2017 Secondary HENRI N [place] Insurance:MEDICAL JENTESDOB: [facility] [id number] Hospital Number: Repository [id number] Date:8212-71-61QH[address] [address]NN: 11/29/2017 Tertiary NOT GIVENUNK [place] Insurance:SELF PAY [facility] Number: Effective Repository Date:2017-11-29 11/18/2017 HENRI N Primary HENRI N [place] [id number] Insurance:MEDICARE JENTESDOB: Community JENTES PART A [facility] [id number] Number: Repository [address]Eti: 330 [id number] [phone] (HP) Date:2017-11-18 11/18/2017 Secondary HENRI N [place] Insurance:MEDICAL JENTESDOB: [facility] [id number] Hospital Number: Repository [id number] Date:8892-78-25UF[address] [address]EP: 11/18/2017 Tertiary NOT GIVENUNK [place] Insurance:SELF PAY [facility] Number: Effective Repository Date:2017-11-18 10/18/2017 HENRI N Primary HENRI N [place] [id number] Insurance:MEDICARE JENTESDOB: Community JENTES PART A [facility] [id number] Number: Repository [address]Mkx: [phone] [id number] [phone] () Date:2017-10-18 10/18/2017 Secondary HENRI N [place] Insurance:MEDICAL JENTESDOB: [facility] [id number] Hospital Number: Repository [id number] Date:9103-25-36CF [address] [address]QX: 10/18/2017 Tertiary NOT GIVENUNK [place] Insurance:SELF PAY [facility] Number: Effective Repository Date:2017-10-18 09/18/2017 HENRI N Primary HENRI N [place] [id number] Insurance:MEDICARE JENTESDOB: Community JENTES PART A [facility] [id number] Number: Repository [address]Bdm: [id number] [phone] Date:2017-09-06 () 09/18/2017 Secondary HNERI N [place] Insurance:MEDICAL JENTESDOB: [facility] [id number] Hospital Number: Repository [id number] Date:0063-73-96NG [address] [address]OX: 09/18/2017 Tertiary NOT GIVENUNK [place] Insurance:SELF PAY [facility] Number: Effective Repository Date:2017-09-06 08/27/2017 HENRI N Primary HENRI N [place] [id number] Insurance:MEDICARE JENTESDOB: Community JENTES PART A [facility] [id number] Number: Repository [address]Hvm: [id number] [phone] Date:2017-08-22 () 08/27/2017 Secondary HENRI N [place] Insurance:MEDICAL JENTESDOB: [facility] [id number] Hospital Number: Repository [id number] Date:8919-53-98RD [address] [address]ZL: 08/27/2017 Tertiary NOT GIVENUNK [place] Insurance:SELF PAY [facility] Number: Effective Repository Date:2017-08-22 08/21/2017 HENRI N Primary HENRI N [place] [id number] Insurance:MEDICARE JENTESDOB: Community JENTES PART A [facility] [id number] Number: Repository [address]Okr: [id number] [phone] Date:2016-06-27 () 08/21/2017 Secondary HENRI N [place] Insurance:MEDICAL JENTESDOB: Community [facility] [id number] Hospital Number: Repository [id number] Date:5707-60-02OB [address] [address]YA: 08/21/2017 Tertiary NOT GIVENUNK [place] Insurance:SELF PAY [facility] Hospital Number: Effective Repository Date:2017-07-17 08/15/2017 HENRI N Primary HENRI N [place] [id number] Insurance:MEDICARE JENTESDOB: Community JENTES PART A [facility] [id number] Number: Repository [address]Jyf: [id number] [phone] Date:2017-04-15 () 08/15/2017 Secondary HENRI N [place] Insurance:MEDICAL JENTESDOB: [facility] [id number] Hospital Number: Repository [id number] Date:7201-44-87QR [address] [address]LQ: 08/15/2017 Tertiary NOT GIVENUNK [place] Insurance:SELF PAY [facility] Hospital Number: Effective Repository Date:2017-08-15 08/09/2017 HENRI N Primary HENRI N [place] [id number] Insurance:MEDICARE JENTESDOB: Community JENTES PART A [facility] [id number], [place] Number: Repository [id number]: [id number] [phone] Date:2017-07-17 (HP) 08/09/2017 Secondary HENRI N [place] Insurance:MEDICAL JENTESDOB: Community [facility] [id number] Hospital Number: Repository [id number] Date:4612-96-26RI [address] [address]KH: 08/09/2017 Tertiary NOT GIVENUNK [place] Insurance:SELF PAY [facility] Hospital Number: Effective Repository Date:2017-07-17 07/29/2017 HENRI N Primary HENRI N [place] [id number] Insurance:MEDICARE JENTESDOB: Community JENTES PART A [facility] [id number], [place] Number: Repository [address]Doj: [id number] [phone] Date:2017-07-29 () 07/29/2017 Secondary HENRI N [place] Insurance:MEDICAL JENTESDOB: [facility] [id number] Hospital Number: Repository [id number] Date:0348-87-89SC [address] [address]OK: 07/29/2017 Tertiary NOT GIVENUNK [place] Insurance:SELF PAY [facility] Number: Effective Repository Date:2017-07-29 07/29/2017 HENRI N Primary HENRI N [place] [id number] Insurance:MEDICARE JENTESDOB: Community JENTES PART A [facility] [id number], [place] Number: Repository [id number]: [id number] [phone] Date:2017-07-29 () 07/29/2017 Secondary HENRI N [place] Insurance:MEDICAL JENTESDOB: [facility] [id number] Hospital Number: Repository [id number] Date:7938-52-41SI [address] [address]IE: 07/29/2017 Tertiary NOT GIVENUNK [place] Insurance:SELF PAY [facility] Number: Effective Repository Date:2017-07-29 07/24/2017 HENRI N Primary HENRI N [place] [id number] Insurance:MEDICARE JENTESDOB: Community JENTES PART A [facility] [id number], [place] Number: Repository [id number]: [id number] [phone] Date:2017-07-29 (HP) 07/24/2017 Secondary HENRI N [place] Insurance:MEDICAL JENTESDOB: [facility] [id number] Hospital Number: Repository [id number] Date:3685-22-61WA [address] [place] [address]KX: 07/24/2017 Tertiary NOT GIVENUNK [place] Insurance:SELF PAY [facility] Number: Effective Repository Date:2017-07-24 07/11/2017 BOOGIE D Primary BOOGIE D [place] [id number] Insurance:MEDICARE JENTESDOB: Community JENTES PART A [facility] [id number], [place] Number: Repository [id number]: 330 [id number] [phone] () Date:2017-07-11 07/11/2017 Secondary BOOGIE D [place] Insurance:MEDICAL JENTESDOB: [facility] [id number] Hospital Number: Repository [id number] Date:0564-41-72GO[address] [address]KY: 07/11/2017 Tertiary NOT GIVENUNK [place] Insurance:SELF PAY [facility] Number: Effective Repository Date:2017-07-11 07/03/2017 BOOGIE D Primary BOOGIE D [place] [id number] Insurance:MEDICARE JENTESDOB: Community JENTES PART A [facility] [id number] Number: Repository [address]Xkg: 330 [id number] [phone] () Date:2017-07-03 07/03/2017 Secondary BOOGIE D [place] Insurance:MEDICAL JENTESDOB: [facility] [id number] Hospital Number: Repository [id number] Date:1047-68-33LR [address] [place] [address]JX: 07/03/2017 Tertiary NOT GIVENUNK [place] Insurance:SELF PAY [facility] Number: Effective Repository Date:2017-07-03 06/27/2017 BOOGIE D Primary BOOGIE D [place] [id number] Insurance:MEDICARE JENTESDOB: Community JENTES PART A [facility] [id number], [place] Number: Repository [id number]: 330 [id number] [phone] () Date:2017-06-24 06/27/2017 Secondary BOOGIE D [place] Insurance:MEDICAL JENTESDOB: [facility] [id number] Hospital Number: Repository [id number] Date:4950-32-60CP [address] [address]AI: 06/27/2017 Tertiary NOT GIVENUNK [place] Insurance:SELF PAY [facility] Number: Effective Repository Date:2017-06-24 05/30/2017 BOOGIE D Primary BOOGIE D [place] [id number] Insurance:MEDICARE JENTESDOB: Community JENTES PART A [facility] [id number], [place] Number: Repository [id number]: 330 [id number] [phone] () Date:2017-05-16 05/30/2017 Secondary BOOGIE D [place] Insurance:MEDICAL JENTESDOB: [facility] [id number] Hospital Number: Repository [id number] Date:5995-14-36SI [address] [place] [address]IT: 05/30/2017 Tertiary NOT GIVENUNK [place] Insurance:SELF PAY [facility] Number: Effective Repository Date:2017-05-16
== END ==
PROVIDERS: Family Provider Family Medicine; PCP Family Medicine; Referring Provider Urology; Visit Provider Urology
DX: N40.0 Benign prostatic hyperplasia without lower urinary tract symptoms (principal); C61 Malignant neoplasm of prostate; E78.5 Hyperlipidemia, unspecified
CPT/HCPCS: 36415; 80053; 80061; 84153

== ENCOUNTER → 2018-08-20 08:11 | Outpatient (CLI) | payer MEDICARE, OTHER, SELFPAY ==
[2018-08-04 13:02] VITALS: BMI 34.2
[2018-08-20 10:46] LABS: Anion Gap 7 (5-15); BUN 21 mg/dL (7-18); BUN/Creat Ratio 16.7 RATIO (10-20); Calcium,Total 9.4 mg/dL (8.5-10.1); Chloride 102 mmol/L (98-107); Creatinine, Serum 1.26 mg/dL (0.70-1.30); EST Glomerular Filtration Rate 61 mL/min (>60); Est Glom Filt Rate - Afr Amer 73 mL/min (>60); Glucose 102 mg/dL (74-106); Potassium 3.3 mmol/L (3.5-5.1); Sodium Level 140 mmol/L (136-145)
== END ==
PROVIDERS: Family Provider Family Medicine; PCP Family Medicine; Referring Provider Internal Medicine Cardiovascular Disease; Visit Provider Internal Medicine Cardiovascular Disease
DX: I10 Essential (primary) hypertension (principal)
CPT/HCPCS: 36415; 80048

== ENCOUNTER → 2018-08-27 | Outpatient (CLI) | payer MEDICARE, OTHER, SELFPAY ==
[2018-08-04 13:02] VITALS: BMI 34.2
[2018-08-27 10:16] LABS: Anion Gap 6 (5-15); BUN 19 mg/dL (7-18); BUN/Creat Ratio 15.8 RATIO (10-20); Calcium,Total 8.9 mg/dL (8.5-10.1); Chloride 102 mmol/L (98-107); EST Glomerular Filtration Rate 64 mL/min (>60); Est Glom Filt Rate - Afr Amer 78 mL/min (>60); Glucose 143 mg/dL (74-106); Potassium 3.4 mmol/L (3.5-5.1); Sodium Level 139 mmol/L (136-145)
== END | disposition home or self-care (01) ==
LOC: MTLAB 08:35
PROVIDERS: Family Provider Family Medicine; PCP Family Medicine; Referring Provider Internal Medicine Cardiovascular Disease; Visit Provider Internal Medicine Cardiovascular Disease
DX: E87.6 Hypokalemia (principal)
CPT/HCPCS: 36415; 80048

== ENCOUNTER → 2018-09-08 08:12 | Outpatient (CLI) | payer MEDICARE, OTHER, SELFPAY ==
[2018-08-04 13:02] VITALS: BMI 34.2
[2018-09-08 10:22] LABS: Anion Gap 8 (5-15); BUN 23 mg/dL (7-18); Calcium,Total 8.4 mg/dL (8.5-10.1); Chloride 105 mmol/L (98-107); Creatinine, Serum 1.35 mg/dL (0.70-1.30); EST Glomerular Filtration Rate 56 mL/min (>60); Est Glom Filt Rate - Afr Amer 68 mL/min (>60); Glucose 192 mg/dL (74-106); Sodium Level 140 mmol/L (136-145)
== END ==
PROVIDERS: Family Provider Family Medicine; PCP Family Medicine; Referring Provider Internal Medicine Cardiovascular Disease; Visit Provider Internal Medicine Cardiovascular Disease
DX: E87.6 Hypokalemia (principal); I10 Essential (primary) hypertension
CPT/HCPCS: 36415; 80048

== ENCOUNTER 2018-10-16 10:30 | Outpatient (RCR) | payer MEDICARE, OTHER, SELFPAY ==
--- NOTE | 2018-05-09 12:58 | HP.PTEVAL_ITS ---
Patient's Visit Information HENRI SILVESTRE is a 67 year old M referred to Physical Therapy by Nickolas Piper MD with a diagnosis of R RCT s/p repair s/p repair 05/01/18 jeremiah. Date of Evaluation: 05/09/18 Physical Therapist: Tom Foster, DPT, OCS, CSCS - Visit Plan Frequency: 2-3x /Week Duration: 3 Months Plan: 1-3x/week for 4-6 weeks initially and 3 months long-term to work on. 1. Ensure appropriate progress for first 3 weeks. 2. Progress per protocol PROM, AAROM, AROM, resistance. Return to function when appropriate - Subjective Findings: R large RCR last 05/01/17. Tore it tripping in shop and landing on shoulder in March of 2017. Wasn't healing well and had knee replaced and then he fixed it. Prior to surgery was painful with movement. Not much pain now but eating pills percoset every 4 hours. In sling all day and all night. Sleeping is decent in recliner chair due to shoulder. Ice machine at home at night. HEP is squeezing ball. He lets it hang when he takes a shower. 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 Is R handed. Dressing with help from for pants and sling. Not wearing tie shoes. R knee was done in February and L last May. - Pain R shoulder pain Pain Intensity (Out of 10): 0 Pain Intensity Range: 0, 4 - Objective Walks I and safe, trasnfers I protecting R UE. Incision healed well and no drainage, excess redness or heat. [address] PROM R UE ext rotation to 5 degrees, flexion to 80 and abd to 45. Elbow aROM is full but slow. Hand ROM is full and painfree. Scapular ROM is limited in R side vs. L. - Goals Goal 1:: ST: Full PROM according to protocol without pain Goal Time Frame: 6-8 Weeks Goal 2:: Reach OH and behind back without pain Goal Time Frame: 8-12 Weeks Goal 3:: Pain 0-1/10 and sleeping well without interruption Goal Time Frame: 4-6 Weeks Goal 4:: Pt ready to return to work Goal Time Frame: 12-16 Weeks - Rehabilitation Potential Physical Therapy Diagnosis: R RCT Rehabilitation Potential: Fair - Anticipated Interventions Patient/Client Instruction: Educate patient on: Condition, Plan of Care For the Purpose of:: To decrease pain, To decrease swelling/inflammation, To increase ROM, To improve ability of physical actions for home/community/work/leisure Therapeutic Exercise to Include: Strength training, Passive ROM, Active ROM Comment: per protocol For the Purpose of:: To decrease pain, To increase ROM, To improve performance and independence with ADL's, To decrease level of supervision to perform tasks, To improve gait and locomotor functions Manual Therapy Techniques to Include: Scar massage, Passive ROM For the Purpose of:: To increase ROM, To improve ability of physical actions for home/community/work/leisure Cryotherapy (ice pack, ice massage): Yes For the Purpose of:: To decrease pain, To decrease swelling/inflammation Thank you for the opportunity to evaluate your patient. For Medicare and Medicare HMO plans, please review the plan of care and approve it. It will need to be FAXED BACK to us at [phone] for Medicare purposes. For Medicare only, by signing this I certify the plan of care. Please let me know if there are questions or concerns regarding this plan of care. Physician Signature: Date:
--- NOTE | 2018-06-20 13:24 | HP.PTREVAL ---
Nickolas Piper MD, It has been my pleasure to treat HENRI SILVESTRE over the last 7 visits for R RCT s/p repair s/p repair 05/01/18 large. Please see the progress note below for an update on the physical therapy plan of care! Subjective: Doing OK, no issues. Not alot of pain. HEP going well , feels like he is getting further. Sleeping well. Alleve in am for shoulder adn knees and one at night. Objective/Function: Impriving AAROM supine with stick adn carol ann within protocol limits. Coming along nicely with improvements every week. still on target for plan and progression. 147 supine stick flexion, ext rotation:38 degrees. Near 120 supine stick abduction and 45 IR at 50 abduction. Plan Plan: progress per protocol to seated ex next session, continue weekly x 6-8 weeks for protocol progression of HEP. Goals Goal 1:: ST: Full PROM according to protocol without pain Goal Time Frame: 6-8 Weeks Goal Progress: Progressing Goal 2:: Reach OH and behind back without pain Goal Time Frame: 8-12 Weeks Goal 3:: Pain 0-1/10 and sleeping well without interruption Goal Time Frame: 4-6 Weeks Goal Progress: Progressing Goal 4:: Pt ready to return to work Goal Time Frame: 12-16 Weeks Anticipated Interventions Patient/Client Instruction: Educate patient on: Condition, Plan of Care For the Purpose of:: To decrease pain, To decrease swelling/inflammation, To increase ROM, To improve ability of physical actions for home/community/work/leisure Therapeutic Exercise to Include: Strength training, Passive ROM, Active ROM Comment: per protocol For the Purpose of:: To decrease pain, To increase ROM, To improve performance and independence with ADL's, To decrease level of supervision to perform tasks, To improve gait and locomotor functions Manual Therapy Techniques to Include: Scar massage, Passive ROM For the Purpose of:: To increase ROM, To improve ability of physical actions for home/community/work/leisure Cryotherapy (ice pack, ice massage): Yes For the Purpose of:: To decrease pain, To decrease swelling/inflammation Please do not hesitate to contact me at [phone] by phone or if you have questions or concerns regarding this new plan of care! Sincerely, Tom Foster, DPT, OCS, CSCS
--- NOTE | 2018-07-28 09:30 | HP.PTREVAL ---
Nickolas Piper MD, It has been my pleasure to treat HENRI SILVESTRE over the last 12 visits for R RCT s/p repair s/p repair 05/01/18 large. Please see the progress note below for an update on the physical therapy plan of care! Subjective: Doing OK, needs to be stronger. Had 4/10 pain with wall walk but transient. No pain at rest. Sleeping well. To doctor on Saturday. Objective/Function: AROM 60 ext rotation, 155 flexion 130 abd, L5 IR. PROM: similar numbers with pain at end ranges. Tolerated isometrics without pain at 50% today. Plan Plan: Pt to doctor this week. Likely will continue weekly x 4-6 for progression to resistance training and ROM/HEP Goals Goal 1:: ST: Full PROM according to protocol without pain Goal Time Frame: 6-8 Weeks Goal Progress: Progressing Goal 2:: Reach OH and behind back without pain Goal Time Frame: 8-12 Weeks Goal Progress: Goal Met Goal 3:: Pain 0-1/10 and sleeping well without interruption Goal Time Frame: 4-6 Weeks Goal Progress: Goal Met Goal 4:: Pt ready to return to work Goal Time Frame: 12-16 Weeks Goal Progress: Progressing Anticipated Interventions Patient/Client Instruction: Educate patient on: Condition, Plan of Care For the Purpose of:: To decrease pain, To decrease swelling/inflammation, To increase ROM, To improve ability of physical actions for home/community/work/leisure Therapeutic Exercise to Include: Strength training, Passive ROM, Active ROM Comment: per protocol For the Purpose of:: To decrease pain, To increase ROM, To improve performance and independence with ADL's, To decrease level of supervision to perform tasks, To improve gait and locomotor functions Manual Therapy Techniques to Include: Scar massage, Passive ROM For the Purpose of:: To increase ROM, To improve ability of physical actions for home/community/work/leisure Cryotherapy (ice pack, ice massage): Yes For the Purpose of:: To decrease pain, To decrease swelling/inflammation Please do not hesitate to contact me at [phone] by phone or if you have questions or concerns regarding this new plan of care! Sincerely, Tom Foster, DPT, OCS, CSCS
--- NOTE | 2018-08-20 08:51 | HP.PTREVAL ---
Nickolas Piper MD, It has been my pleasure to treat HENRI SILVESTRE over the last 14 visits for R RCT s/p repair s/p repair 05/01/18 large. Please see the progress note below for an update on the physical therapy plan of care! Subjective: No increase in pain. Some exercises talk to him but doing well. Sleep is OK. Objective/Function: Excellent ROM today 145 flexionwith SLA easily, tough initially with LLA but better after exercises today. Ext rotationa dn Int rotation are symmetrical AROM. Strength improving as expected. Plan Plan: Weekly x 4 to progress bands, mpove to flexion, abd then diagonals and WB. good prgonsis. Goals Goal 1:: ST: Full PROM according to protocol without pain Goal Time Frame: 6-8 Weeks Goal Progress: Progressing Goal 2:: Reach OH and behind back without pain Goal Time Frame: 8-12 Weeks Goal Progress: Goal Met Goal 3:: Pain 0-1/10 and sleeping well without interruption Goal Time Frame: 4-6 Weeks Goal Progress: Goal Met Goal 4:: Pt ready to return to work Goal Time Frame: 12-16 Weeks Goal Progress: Progressing Goal 5:: Pt I with appropriate custodial strength to manage condition and wean back to 100% activities Goal Time Frame: 4-6 Weeks Goal Progress: NEW GOAL Anticipated Interventions Patient/Client Instruction: Educate patient on: Condition, Plan of Care For the Purpose of:: To decrease pain, To decrease swelling/inflammation, To increase ROM, To improve ability of physical actions for home/community/work/leisure Therapeutic Exercise to Include: Strength training, Passive ROM, Active ROM Comment: per protocol For the Purpose of:: To decrease pain, To increase ROM, To improve performance and independence with ADL's, To decrease level of supervision to perform tasks, To improve gait and locomotor functions Manual Therapy Techniques to Include: Scar massage, Passive ROM For the Purpose of:: To increase ROM, To improve ability of physical actions for home/community/work/leisure Cryotherapy (ice pack, ice massage): Yes For the Purpose of:: To decrease pain, To decrease swelling/inflammation Please do not hesitate to contact me at [phone] by phone or if you have questions or concerns regarding this new plan of care! Sincerely, Tom Foster, DPT, OCS, CSCS
--- NOTE | 2018-10-16 10:55 | HP.PTDCSUM_ITS ---
HP - PT D/C Summary It has been my pleasure to treat HENRI SILVESTRE under orders from Nickolas Piper MD, for the diagnosis of R RCT s/p repair s/p repair 05/01/18 large for a total of 18 visit(s). Discharge Date: 10/16/18 Please see the following information for a summary of their discharge status. - Subjective Subjective: To doctor 10/29. R shoulder is coming along. Some days tight and tense if works too hard. Comfy at rest. Sleeping is fine. Has been using chainsaw without pain. reaching up to a switch is tired but can do it. Life activities: pretty normal. Shoulder not holding him back at work. Tight sometimes. u - Pain R shoulder pain Pain Intensity (Out of 10): 0 - Overall Improvement % Improvement: 85 - Objective Objective/Function: 150 AROM R shoulder symmetrical to L, Slightly elevated R scap with LLA flex /abd but corrects with VC. Strength flex abd R is 4 and L is 4+. Biceps,triceps 5/5 B, ext rotation R 4+ and L 5, IR 5/5 B. OVERALL DOING V PABLO WELL WITH FULL AROM , ONLY EXPECTED TIGHTNESS WITH OVERDOING IT. STRENGTH IS IMPROVING AND PT CAN CONTINUE THAT AT HOME. - Goals Goal 1:: ST: Full PROM according to protocol without pain Goal Progress: Goal Met Goal 2:: Reach OH and behind back without pain Goal Progress: Goal Met Goal 3:: Pain 0-1/10 and sleeping well without interruption Goal Progress: Goal Met Goal 4:: Pt ready to return to work Goal Progress: Goal Met Goal 5:: Pt I with appropriate group home strength to manage condition and wean back to 100% activities Goal Progress: Goal Met - Plan Plan: D/C - D/C Information Discharge Comments: Pt to continue HEP of strengthening and f/u with doctor in October. Doing excellent. Just needs to keep up with strengthening regularly. If there are questions or concerns regarding this patient's physical therapy, please feel free to call me at [phone]. Thank you for the referral of this patient. Sincerely, Tom Foster, DPT, OCS, CSCS
== END 2018-10-16 19:00 | disposition home or self-care (01) ==
LOC: PT 10:30
PROVIDERS: Family Provider Family Medicine; PCP Family Medicine; Referring Provider Orthopaedic Surgery; Visit Provider Orthopaedic Surgery
DX: M75.101 Unspecified rotator cuff tear or rupture of right shoulder, not specified as traumatic (principal); I10 Essential (primary) hypertension
CPT/HCPCS: 36415; 80048; 97110; 97140; 97162; 97530

== ENCOUNTER → 2018-11-07 09:00 | Outpatient (CLI) | payer MEDICARE, OTHER, SELFPAY ==
[2018-08-04 13:02] VITALS: BMI 34.2
--- NOTE | 2018-11-07 09:03 | RAD_ITS ---
STUDY: X-RAY - ESOPHAGUS (BARIUM SWALLOW) WITH FLUOROSCOPY REASON FOR EXAM: Male, 68 years old. Dysphagia. TECHNIQUE: 17 view(s) of the esophagus were obtained following swallowing of barium. FLUOROSCOPY TIME (if supplied): (0:37) minutes/seconds COMPARISON: None. FINDINGS: There is no demonstrated esophageal foreign body. There is no demonstrated stricture or mucosal abnormality. Normal gastroesophageal junction, without a demonstrated hiatal hernia. The patient ingested a 12 mm tablet of barium. The tablet is trapped at the gastroesophageal junction. There is atherosclerotic calcification of the aortic arch with tortuosity of the descending aorta. Normal visualized pulmonary parenchyma. There are degenerative changes of the visualized thoracic spine. RAD/Esophagus Only IMPRESSION: The 12 mm tablet of barium is trapped at the gastroesophageal junction. Electronically Signed: Rahul Acevedo, at 15:22 EDT , Service support ,
== END ==
PROVIDERS: Family Provider Family Medicine; PCP Family Medicine; Referring Provider Internal Medicine Gastroenterology; Visit Provider Internal Medicine Gastroenterology
DX: R13.10 Dysphagia, unspecified (principal)
CPT/HCPCS: 74220

== ENCOUNTER → 2018-11-17 08:20 | Outpatient (CLI) | payer MEDICARE, OTHER, SELFPAY ==
[2018-08-04 13:02] VITALS: BMI 34.2
[2018-11-17 10:07] LABS: Anion Gap 8 (5-15); BUN 17 mg/dL (7-18); BUN/Creat Ratio 14.2 RATIO (10-20); Calcium,Total 8.8 mg/dL (8.5-10.1); Chloride 106 mmol/L (98-107); EST Glomerular Filtration Rate 64 mL/min (>60); Est Glom Filt Rate - Afr Amer 78 mL/min (>60); Glucose 103 mg/dL (74-106); PSA,Total- Diagnostic 4.75 ng/mL (0.0-4.0); Potassium 3.9 mmol/L (3.5-5.1); Sodium Level 141 mmol/L (136-145)
== END ==
PROVIDERS: Internal Medicine Cardiovascular Disease; Family Provider Family Medicine; PCP Family Medicine; Referring Provider Urology; Visit Provider Urology
DX: C61 Malignant neoplasm of prostate (principal); I25.10 Atherosclerotic heart disease of native coronary artery without angina pectoris; I10 Essential (primary) hypertension
CPT/HCPCS: 36415; 80048; 84153

== ENCOUNTER → 2019-05-18 08:55 | Outpatient (CLI) | payer MEDICARE, OTHER, SELFPAY ==
[2018-08-04 13:02] VITALS: BMI 34.2
[2019-05-18 11:16] LABS: ALB/GLOB Ratio 1.1 RATIO (0.9-2.4); AST(SGOT) 31 U/L (15-37); Alanine Aminotransfer ALT/SGPT 68 U/L (16-61); Albumin, Serum 4.2 g/dL (3.2-5.0); Alkaline Phosphatase 71 U/L (45-117); Anion Gap 4 (5-15); BUN 16 mg/dL (7-18); BUN/Creat Ratio 12.8 RATIO (10-20); Calcium,Total 9.2 mg/dL (8.5-10.1); Chloride 103 mmol/L (98-107); Cholesterol 200 mg/dL (200); Creatinine, Serum 1.25 mg/dL (0.70-1.30); EST Glomerular Filtration Rate 61 mL/min (>60); Est Glom Filt Rate - Afr Amer 74 mL/min (>60); Globulin 3.9 g/dL (2.2-4.2); Glucose 111 mg/dL (74-106); High Density Lipoprotein 49 mg/dL; PSA,Total- Diagnostic 4.19 ng/mL (0.0-4.0); Protein, Total 8.1 g/dL (6.4-8.2); Sodium Level 137 mmol/L (136-145); Triglycerides 90 mg/dL; Very Low Density Lipoprotein 18 mg/dL (5-40)
== END ==
PROVIDERS: PCP Family Medicine; Referring Provider Urology; Visit Provider Urology
DX: C61 Malignant neoplasm of prostate (principal); E78.5 Hyperlipidemia, unspecified
CPT/HCPCS: 36415; 80053; 80061; 84153

== ENCOUNTER → 2019-07-02 15:47 | Outpatient (CLI) | payer MEDICARE, OTHER, SELFPAY ==
[2018-08-04 13:02] VITALS: BMI 34.2
== END ==
PROVIDERS: PCP Family Medicine; Referring Provider Family Medicine; Visit Provider Family Medicine
DX: J32.9 Chronic sinusitis, unspecified (principal)
CPT/HCPCS: 87070; 87077; 87205

== ENCOUNTER → 2019-11-12 09:33 | Outpatient (CLI) | payer MEDICARE, OTHER, SELFPAY ==
[2019-08-06 12:55] VITALS: BMI 33.9
[2019-11-12 13:11] LABS: AST(SGOT) 23 U/L (15-37); Alanine Aminotransfer ALT/SGPT 44 U/L (16-61); Albumin, Serum 4.2 g/dL (3.2-5.0); Alkaline Phosphatase 86 U/L (45-117); Bilirubin, Direct 0.19 mg/dL (0.00-0.30); Cholesterol 266 mg/dL (200); Globulin 4.1 g/dL (2.2-4.2); High Density Lipoprotein 47 mg/dL; Protein, Total 8.3 g/dL (6.4-8.2); Triglycerides 143 mg/dL; Very Low Density Lipoprotein 29 mg/dL (5-40)
== END ==
PROVIDERS: PCP Family Medicine; Referring Provider Internal Medicine Cardiovascular Disease; Visit Provider Internal Medicine Cardiovascular Disease
DX: E78.00 Pure hypercholesterolemia, unspecified (principal)
CPT/HCPCS: 36415; 80061; 80076

== ENCOUNTER → 2019-11-17 12:03 | Outpatient (CLI) | payer MEDICARE, OTHER, SELFPAY ==
[2019-11-13 14:32] VITALS: BMI 33.9
[2019-11-17 15:48] LABS: ALB/GLOB Ratio 1.1 RATIO (0.9-2.4); AST(SGOT) 27 U/L (15-37); Alanine Aminotransfer ALT/SGPT 46 U/L (16-61); Albumin, Serum 4.3 g/dL (3.2-5.0); Alkaline Phosphatase 82 U/L (45-117); Anion Gap 2 (5-15); BUN 19 mg/dL (7-18); BUN/Creat Ratio 18.1 RATIO (10-20); Calcium,Total 8.9 mg/dL (8.5-10.1); Chloride 104 mmol/L (98-107); Creatinine, Serum 1.05 mg/dL (0.70-1.30); EST Glomerular Filtration Rate 75 mL/min (>60); Est Glom Filt Rate - Afr Amer 90 mL/min (>60); Globulin 3.9 g/dL (2.2-4.2); Glucose 93 mg/dL (74-106); Potassium 3.8 mmol/L (3.5-5.1); Protein, Total 8.2 g/dL (6.4-8.2); Sodium Level 137 mmol/L (136-145)
[2019-11-17 17:06] LABS: PSA,Total- Diagnostic 5.24 ng/mL (0.0-4.0)
== END ==
PROVIDERS: PCP Family Medicine; Referring Provider Urology; Visit Provider Urology
DX: C61 Malignant neoplasm of prostate (principal); I25.10 Atherosclerotic heart disease of native coronary artery without angina pectoris
CPT/HCPCS: 36415; 80053; 84153

== ENCOUNTER → 2019-12-01 06:41 | Outpatient (CLI) | payer MEDICARE, OTHER, SELFPAY ==
[2019-11-13 14:32] VITALS: BMI 33.9
--- NOTE | 2019-12-01 06:42 | ECHOCS_ITS ---
Reason For Study: CAD/ASHD Procedure This was a 2D Doppler, Color Flow transthoracic echocardiogram. The study was technically difficult. Due to body habitus. Contrast injection was performed. Exam performed in department. Left Ventricle Moderate concentric left ventricular hypertrophy. Base upon the 2D echocardiographic and contrast enhanced images obtained there appears to be grossly normal left ventricular size, wall motion, and systolic function. The estimated ejection fraction is 55 %. No evidence for diastolic dysfunction. Right Ventricle Normal RV size. Normal systolic function. Atria Normal left atrium. Normal right atrium. No doppler evidence for ASD. Mitral Valve There is no mitral annular calcification. Normal mitral valve. Trivial mitral valve insufficiency. Tricuspid Valve Normal tricuspid valve. Mild tricuspid valve insufficiency. Right ventricular systolic pressure estimated to be 25 mmHg. Aortic Valve Trisinus/trileaflet aortic valve. Mild focal aortic valve calcification. Pulmonic Valve The pulmonic valve is not well visualized. Trivial pulmonic valve insufficiency. Great Vessels Mildly dilated aortic root. Pericardium/Pleural No pericardial effusion. Medication Diluted definity 3.0ml given slow IV push to enhance endocardial definition. MMode/2D Measurements & Calculations LVIDd: 4.4 cm IVSd: 1.8 cm Ao root diam: 4.0 cm LVIDs: 2.8 cm LVPWd: 1.5 cm RVDd: 4.1 cm FS: 35.1 % LAV(MOD-bp): 48.5 ml LA A4 area: 16.4 cm2 LA dimension(2D): 3.9 cm LAV(MOD-bp) Indexed: 21.3 ml/m2 LAV(MOD-sp2): 47.8 ml LAV(MOD-sp4): 49.1 ml RA A4 area: 12.7 cm2 Doppler Measurements & Calculations MV E max kayden: 42.4 cm/sec Lat Peak E' Kayden: 6.3 cm/sec Med Peak E' Kayden: 3.8 cm/sec MV A max kayden: 60.1 cm/sec E/E' lat: 6.7 E/E' med: 11.1 MV E/A: 0.71 Ao V2 max: 78.4 cm/sec LV V1 max: 70.2 cm/sec PA V2 max: 103.7 cm/sec Ao max P.5 mmHg LV V1 max P.0 mmHg TR max kayden: 235.7 cm/sec TR max P.2 mmHg Interpretation Summary The study was technically difficult. Contrast injection was performed. Base upon the 2D echocardiographic and contrast enhanced images obtained there appears to be grossly normal left ventricular size, wall motion, and systolic function. The estimated ejection fraction is 55 %. Moderate concentric left ventricular hypertrophy. Trivial mitral valve insufficiency. Mild tricuspid valve insufficiency. Mild focal aortic valve calcification. Trivial pulmonic valve insufficiency. Mildly dilated aortic root. Right ventricular systolic pressure estimated to be 25 mmHg. No evidence for diastolic dysfunction. Ordering Physician: Clinton Barriga Referring Physician: Yadi Rocha Performed By: Keara Hand RDCS, RVT
--- NOTE | 2019-12-01 08:38 | STRESSREP ---
Stress Test Report Date: 12-01-2019 Procedure: Exercise tolerance test/imaging study Indications: Chest pain; CAD Consent: Per the patient Procedure: The patient exercised on a Krzysztof protocol for 7 minutes completing completing Stage II and 1 minute of Stage III achieving a peak heart rate of 131 bpm (86 % predicted maximal heart rate) with a peak blood pressure 204/98 mmHg and a peak MET capacity of 8 METs. The baseline ECG demonstrated normal sinus rhythm. The peak exercise ECG demonstrated somatic/motion artifact with no obvious ECG changes and recovery ECG demonstrating transient 0.5 to [address] segment depression in lead II and aVF and approximately 0.[address] segment depression in lead III with subsequent gradual resolution towards baseline. There was a rare premature ectopic complex during early recovery. The functional capacity was considered average. There was left upper arm/shoulder discomfort during exercise with spontaneous resolution in recovery. The examination was discontinued secondary to dyspnea, fatigue, and left upper arm/shoulder discomfort. Impression: 1. Technically adequate (percent predicted maximal heart rate greater than 85%) exercise tolerance test 2. Peak exercise ECG with somatic/motion artifact with no obvious ECG changes and recovery ECG demonstrating transient 0.5 to [address] segment depression in lead II and aVF and approximately 0.[address] segment depression in lead III with subsequent gradual resolution towards baseline 3. There was a rare premature ectopic complex during early recovery 4. Nuclear images pending Myocardial perfusion imaging study: Technique: The patient was injected with 14.4 mCi of technetium 99m Cardiolite and subsequently rest SPECT Cardiolite nuclear imaging was obtained in the horizontal long, vertical long, and short axis views. The patient exercised on a Krzysztof protocol for 7 minutes completing completing Stage II and 1 minute of Stage III achieving a peak heart rate of 131 bpm (86 % predicted maximal heart rate) with a peak blood pressure 204/98 mmHg and a peak MET capacity of 8 METs. The patient was injected with 44.5 mCi of technetium 99m Cardiolite and subsequently stress SPECT Cardiolite nuclear imaging was obtained in the horizontal long, vertical long, and short axis views. A gated Cardiolite study at peak stress was obtained. Interpretation: Rest and stress SPECT Cardiolite nuclear imaging status post realignment, normalization, and attenuation correction, demonstrates at rest the appearance of relative uniform tracer uptake and myocardial perfusion appearing within normal limits. Status post stress there is notation of diminished myocardial perfusion/tracer uptake in portions of the distal anterior, distal anteroseptal, and apical segments. There is diminished end systolic thickening and brightening in the aforementioned areas. The gated Cardiolite study demonstrates myocardial thickening and inward wall motion. The reported LVEF is 57 %. Impression: 1. Rest and stress SPECT Cardiolite nuclear imaging demonstrate myocardial perfusion changes concerning for an area of stress-induced myocardial ischemia involving portions of the distal anterior, distal anteroseptal, and apical segments. 2. The gated Cardiolite study reports an LVEF of 57 %. This note was generated with [employer] software. It may contain incorrect words, spelling, and punctuation that were not noted in checking the note before signing.
== END ==
PROVIDERS: PCP Family Medicine; Referring Provider Internal Medicine Cardiovascular Disease; Visit Provider Internal Medicine Cardiovascular Disease
DX: I25.10 Atherosclerotic heart disease of native coronary artery without angina pectoris (principal); E78.5 Hyperlipidemia, unspecified; I10 Essential (primary) hypertension; R07.2 Precordial pain; R06.00 Dyspnea, unspecified
CPT/HCPCS: 78452; 93017; 93306; A9500; Q9957; A4216; C8929

== ENCOUNTER 2019-12-08 08:57 | Day surgery (SDC) | payer MEDICARE, OTHER, SELFPAY ==
[2019-11-13 14:32] VITALS: BMI 33.9
[2019-12-04 10:26] VITALS: BMI 33.9
--- NOTE | 2019-12-04 10:30 | RAD_ITS ---
STUDY: X-RAY CHEST REASON FOR EXAM: Male, 69 years old. Shortness of breath. Hypertension. TECHNIQUE: Frontal and lateral views of the chest COMPARISON: 11/18/15 FINDINGS: The lungs are clear. There are no pleural effusions. There is no pneumothorax. The heart is normal in size. The visualized osseous structures are within normal limits. RAD/Chest PA and Lateral IMPRESSION: No acute thoracic pathology. Electronically Signed: Mook Quevedo, at 21:57 EDT Tel , Service support ,
[2019-12-04 11:20] LABS: Hematocrit 50.3 % (40-54); Hemoglobin 16.7 g/dL (13.0-16.5); Mean Corp Hgb Conc 33.2 g/dL (32-36); Mean Corpuscular Hgb 28.4 pg (27.0-32.0); Mean Corpuscular Volume 85.7 fL (80-94); Mean Platelet Vol. 8.8 fl (6.2-12.0); Platelet Count 291 K/mm3 (150-450); RBC Distribution Width CV 12.5 % (11.6-14.6); RBC Distribution Width SD 38.6 fl (35.1-43.9); Red Blood Count 5.87 M/mm3 (4.6-6.2); White Blood Count 7.2 K/mm3 (4.4-11.0)
[2019-12-04 11:36] LABS: Partial Thromboplast Time 31.2 Seconds (24.1-36.2)
[2019-12-04 11:44] LABS: Anion Gap 3 (5-15); BUN 15 mg/dL (7-18); BUN/Creat Ratio 15.2 RATIO (10-20); Chloride 106 mmol/L (98-107); Creatinine, Serum 0.99 mg/dL (0.70-1.30); EST Glomerular Filtration Rate 80 mL/min (>60); Est Glom Filt Rate - Afr Amer 97 mL/min (>60); Glucose 107 mg/dL (74-106); Potassium 3.7 mmol/L (3.5-5.1); Sodium Level 139 mmol/L (136-145)
[2019-12-07 08:17] VITALS: BMI 33.9
[2019-12-08] VITALS (12 sets, daily range): BP systolic 120–137; BP diastolic 77–90; PULSE 57–76; RESP 13–23; TEMP 36.6–37.4; O2SAT 92–96; BMI 33.6
--- NOTE | 2019-12-08 08:32 | PCM.HP.BLA ---
Problem List (1) Abnormal stress test Status: Acute History and Physical Date of Admission: 12/08/19 [facility] [address] [place] [address] OFFICE VISIT Date of Service: 11/13/19 MR#: [id number] Acct: [id number] Name: HENRI SILVESTRE Rep #: [id number] : 1950 Provider: Dr. Clinton Barriga MD Age/Sex: 69/M Location: [facility] [email or web address] Status: Signed HPI [facility] History of Present Illness Details: This is a 69 year-old white male who presents today for outpatient cardiovascular follow-up with a history of CAD previously thought to be non-angiographically significant, hyperlipidemia, and hypertension. Overall he states he is done reasonably well however he does note that he has had some episodes with exertion where he feels a chest heaviness as he points to the left side of his chest with some shortness of breath and dyspnea on exertion. He notes that this can occur after he works in his garden for some time. He has not had resting or nocturnal discomfort. There is been no episodes of orthopnea or PND or worsening peripheral pitting edema. There is been no near syncope or syncope. He states he has not had use his nitroglycerin sublingual and states he does not have them because they went through the washing machine . He states he never received his previous prescription for his hyperlipidemia with fenofibrate despite the system stating that it was successfully delivered to the pharmacy. He states he forgot to call back and notify the office that his prescription never arrived. He did have lipids performed earlier this year and now just recently. His recent lipid profile demonstrated a significant change/increase in his total cholesterol up to 266 with an LDL up to 190 with his HDLs being at 47 and his triglycerides being at 143. 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: No Accompanied by: None Is patient in pain?: No Allergies Penicillins Allergy (Verified 08/04/18 13:02) Rash valsartan Adverse Reaction (Severe, Verified 08/04/18 13:02) Joint Pain Medications aspirin 81 mg tablet,delayed release 81 mg PO DAILY 08/04/18 [History Confirmed 11/13/19] hydrochlorothiazide 25 mg tablet 12.5 mg PO QDAY tab 08/06/19 [History Confirmed 11/13/19] amlodipine 5 mg tablet 2.5 mg PO QDAY tab 11/13/19 [History] ezetimibe 10 mg tablet 10 mg PO DAILY #90 tab 11/13/19 [Rx Confirmed 11/13/19] nitroglycerin 0.4 mg sublingual tablet 0.4 mg SUBLINGUAL Q5M PRN #90 tab 11/13/19 [Rx Confirmed 11/13/19] potassium chloride 20 mEq tablet,extended release 20 meq PO BID tab 11/13/19 [History] Ejection fraction %: 65 to 70 PFSH Medical History Essential hypertension (Chronic) Chest pain, precordial (Chronic) Atherosclerotic heart disease of [place] coronary artery without angina pectoris (Chronic) Hyperlipidemia (Chronic) Family history of hypertension (Chronic) Hypertension (Inactive) Surgical History H/O transurethral resection of prostate (Resolved) History of knee replacement procedure of left knee (Resolved) History of total right knee replacement (Resolved) S/P right rotator cuff repair (Resolved) Family History Mother CHF (congestive heart failure) Brother Hypertension Son Hypertension Other Family history of hypertension Social History (Updated 11/13/19 @ 15:[address] Clinton Barriga MD) Smoking Status: Never smoker alcohol intake: never substance use type: does not use ROS Const Const: Positive for fatigue (Tires more easily); negative for weakness, headache(s), frequent falls, difficulty sleeping or excessive sweating Eyes Eyes: Negative for loss of peripheral vision, transient loss of vision, blurry vision, double vision or tunnel vision ENT ENT: Positive for dizziness (Occasional dizziness); negative for headache(s), Nosebleed/epistaxis or balance problems Cardio Chest Pain: Yes Frequency: other (randomly) Character: dull, tightness Onset: other (exertion) Location: left chest Duration: minutes (15-20 minutes) Palpitations: Yes (1 episode of racing heart a couple of months ago) Edema: Bilateral Muscle aches with walking: None Resp Respiratory: Positive for SOB with activity; negative for SOB at rest, SOB orthopnea\SOB lying down, Cough or paroxysmal nocturnal dyspnea GI GI: Negative nausea, vomiting, heartburn or black,tarry stools : Negative for hematuria Musc Musc: Negative for muscle aches/ myalgia, muscle weakness, joint pain or balance problems Skin Skin: Negative non-healing lesions, rash or unusual bruising Neuro Neuro: Positive for dizziness (Occasional dizziness); negative for lightheadedness, near syncope, syncope, frequent falls, headache(s), weakness, blurry vision, double vision or lack of coordination Yobani Hematologic/Lymphatic: Negative for easy bleeding or easy bruising Endo Endo: Positive for fatigue (Tires more easily); negative for excessive sweating or increased thirst/drinking Psych Psych: Negative for anxiety or depression Allergy Allergy/Immunology: Negative for hives, Negative for rash Cardiology Exam Const Appearance: cooperative, healthy appearing, comfortable, no acute distress, well developed and well groomed Nutritional Appearance: average body habitus Orientation: alert, awake and oriented x3 Head Head: normal to inspection, normocephalic and atraumatic Ears: hearing grossly normal bilaterally Nose: external nose normal Face and Sinus: face symmetric Eyes Eyelids: eyelids normal Conjunctivae: conjunctivae normal Pupils: PERRL EOM: EOM intact bilaterally Neck Neck: normal visual inspection and full ROM Carotids: normal carotid upstroke Chest Chest inspection: normal inspection of the chest, symmetric chest movement and normal respiratory effort Auscultation: Bilateral: Clear to Auscultation Cardio Palpation: normal PMI Rate: regular rate Rhythm: regular rhythm Heart sounds: S1 normal and S2 normal GI GI: normal to inspection, soft and bowel sounds present Neuro General: alert, awake, oriented x3 and moves all extremities Skin Skin: no rashes or lesions noted Extremities Pulses: Normal: Right Radial Pulse, Left Radial Pulse Lower Extremity Edema: +1: Bilateral Psych Psychological: normal affect Assessment & Plan 1. Atherosclerosis of [place] coronary artery of [place] heart without angina pectoris I25.10 Mild per Cardiac cath 09/13/09 Plan At the present time he is going to continue risk factor modification medical therapy as deemed appropriate. His nitroglycerin sublingual prescription will be renewed. He will be asked based upon his symptoms to have reassessment of his cardiovascular anatomy, structure, and physiology with a combination of a transthoracic echocardiogram and an exercise tolerance test/imaging study. Depending upon the findings he may need repeat diagnostic cardiac catheterization to compare to his study of 10 years ago. Orders Orders: Echo Complete Today Nuclear Stress Test - Treadmil Today Lipid Profile 6 Weeks Liver Profile 6 Weeks 2. Hyperlipidemia, unspecified hyperlipidemia type E78.5 Plan He is willing to attempt alternative lipid-lowering therapy such as Zetia at 10 mg a day. He states he cannot tolerate statins. If he does not do well with Zetia then he may need to inquire with his third-libertarian pair whether he can be a candidate for Repatha therapy. Orders Orders: Echo Complete Today Nuclear Stress Test - Treadmil Today Lipid Profile 6 Weeks Liver Profile 6 Weeks 3. Essential hypertension I10 Plan His blood pressure is borderline to mildly elevated today. It will need to be followed with his upcoming studies and visits. If his blood pressure trends are elevated then he may need readjustment of his medications such as increasing his amlodipine dose. Orders Orders: Echo Complete Today Nuclear Stress Test - Treadmil Today Lipid Profile 6 Weeks Liver Profile 6 Weeks 4. Chest pain, precordial R07.2 Plan Again he has concerns of chest discomfort and dyspnea on exertion. It is unclear whether this is cardiac versus noncardiac. However based upon his known diagnosis, etc., he will undergo further evaluation as noted above. Orders Orders: Echo Complete Today Nuclear Stress Test - Treadmil Today Lipid Profile 6 Weeks Liver Profile 6 Weeks Plan Detail Other Orders Orders: Echo Complete Today R06.00 Nuclear Stress Test - Treadmil Today R06.00 Lipid Profile 6 Weeks E78.00, R06.00 Liver Profile 6 Weeks E78.00, R06.00 Other Medications New: nitroglycerin 0.4 mg sublingual Q5M PRN 90 tabs 3RF Pain ezetimibe (Zetia) 10 mg PO DAILY 90 tabs 3RF Discontinued: fenofibrate nanocrystallized Discontinued Reason: Order Changed 145 mg PO DAILY 90 tabs 3RF Additional Comments Thank you for allowing me to participate in the care of your patient. Please don't hesitate to call if any issues arise. This note was generated using a voice recognition system and there may be incorrect words, spelling or punctuation that were not noted when reviewing the office note prior to saving. Follow Up 6 Months (PFM) Coding Level of Care Code Off vis,est,level 4 Diagnoses Atherosclerosis of [place] coronary artery of [place] heart without angina pectoris I25.10 ??[place] vs. transplanted heart: [place] heart Hyperlipidemia, unspecified hyperlipidemia type E78.5 ??Hyperlipidemia type: unspecified Essential hypertension I10 Chest pain, precordial R07.2 Coding Level of Care Code Off vis,est,level 4 Diagnoses Atherosclerosis of [place] coronary artery of [place] heart without angina pectoris I25.10 ??[place] vs. transplanted heart: [place] heart Hyperlipidemia, unspecified hyperlipidemia type E78.5 ??Hyperlipidemia type: unspecified Essential hypertension I10 Chest pain, precordial R07.2 Supplemental Info Supplemental Information Labs LDL Cholesterol 190 mg/dL (0-130) H 11/12/19 HDL Cholesterol 47 mg/dL (40-) 11/12/19 Triglycerides 143 mg/dL (-199) 11/12/19 VLDL Cholesterol 29 mg/dL (5-40) 11/12/19 Diagnostics Electrocardiogram 11/18/15 Echocardiogram 04/19/17 Chest X-Ray 11/18/15 Venous Doppler Study 07/29/17 11/13/19 9836 <Electronically signed by Clinton Barriga MD> Date Clinton Barriga MD Cosigner Signature: Date (if applicable) CC: Dr. Ritesh Rocha MD ~ I have examined the patient the following changes are noted: The patient has undergone evaluation with a transthoracic echocardiogram and an exercise tolerance test/imaging study. The results are as noted. Echocardiogram: 12-01-2019 Interpretation Summary The study was technically difficult. Contrast injection was performed. Base upon the 2D echocardiographic and contrast enhanced images obtained there appears to be grossly normal left ventricular size, wall motion, and systolic function. The estimated ejection fraction is 55 %. Moderate concentric left ventricular hypertrophy. Trivial mitral valve insufficiency. Mild tricuspid valve insufficiency. Mild focal aortic valve calcification. Trivial pulmonic valve insufficiency. Mildly dilated aortic root. Right ventricular systolic pressure estimated to be 25 mmHg. No evidence for diastolic dysfunction. Stress Test Report Date: 12-01-2019 Procedure: Exercise tolerance test/imaging study Indications: Chest pain; CAD Consent: Per the patient Procedure: The patient exercised on a Krzysztof protocol for 7 minutes completing completing Stage II and 1 minute of Stage III achieving a peak heart rate of 131 bpm (86 % predicted maximal heart rate) with a peak blood pressure 204/98 mmHg and a peak MET capacity of 8 METs. The baseline ECG demonstrated normal sinus rhythm. The peak exercise ECG demonstrated somatic/motion artifact with no obvious ECG changes and recovery ECG demonstrating transient 0.5 to [address] segment depression in lead II and aVF and approximately 0.[address] segment depression in lead III with subsequent gradual resolution towards baseline. There was a rare premature ectopic complex during early recovery. The functional capacity was considered average. There was left upper arm/shoulder discomfort during exercise with spontaneous resolution in recovery. The examination was discontinued secondary to dyspnea, fatigue, and left upper arm/shoulder discomfort. Impression: 1. Technically adequate (percent predicted maximal heart rate greater than 85%) exercise tolerance test 2. Peak exercise ECG with somatic/motion artifact with no obvious ECG changes and recovery ECG demonstrating transient 0.5 to 1[address] segment depression in lead II and aVF and approximately 0.[address] segment depression in lead III with subsequent gradual resolution towards baseline 3. There was a rare premature ectopic complex during early recovery 4. Nuclear images pending Myocardial perfusion imaging study: Technique: The patient was injected with 14.4 mCi of technetium 99m Cardiolite and subsequently rest SPECT Cardiolite nuclear imaging was obtained in the horizontal long, vertical long, and short axis views. The patient exercised on a Krzysztof protocol for 7 minutes completing completing Stage II and 1 minute of Stage III achieving a peak heart rate of 131 bpm (86 % predicted maximal heart rate) with a peak blood pressure 204/98 mmHg and a peak MET capacity of 8 METs. The patient was injected with 44.5 mCi of technetium 99m Cardiolite and subsequently stress SPECT Cardiolite nuclear imaging was obtained in the horizontal long, vertical long, and short axis views. A gated Cardiolite study at peak stress was obtained. Interpretation: Rest and stress SPECT Cardiolite nuclear imaging status post realignment, normalization, and attenuation correction, demonstrates at rest the appearance of relative uniform tracer uptake and myocardial perfusion appearing within normal limits. Status post stress there is notation of diminished myocardial perfusion/tracer uptake in portions of the distal anterior, distal anteroseptal, and apical segments. There is diminished end systolic thickening and brightening in the aforementioned areas. The gated Cardiolite study demonstrates myocardial thickening and inward wall motion. The reported LVEF is 57 %. Impression: 1. Rest and stress SPECT Cardiolite nuclear imaging demonstrate myocardial perfusion changes concerning for an area of stress-induced myocardial ischemia involving portions of the distal anterior, distal anteroseptal, and apical segments. 2. The gated Cardiolite study reports an LVEF of 57 %. Cardiac catheterization: 09-13-2009 [facility] Left ventricle normal with an LVEF of 65% No angiographically significant appearing CAD reported Based upon the aforementioned history and findings it was recommended the patient be considered for further evaluation with diagnostic cardiac catheterization. The procedure and risks were discussed with the patient. He was agreeable to this approach. Procedure Criteria Procedure Type: Elective COVID Risk Discussion: The surgeon/proceduralist and patient have discussed in detail the risk of exposure to and/or potential harm posed by the COVID-19 virus with having a surgery/procedure at this time versus the risk of delaying the surgery/procedure. It is not possible to know either the risk of delaying the surgery or procedure or chance of getting an infection with perfect accuracy, but a joint decision was made between the patient and the surgeon/proceduralist to proceed at this time with the scheduled surgery/procedure as indicated on the consent form.
[2019-12-08 11:26] LABS: ACT Activated Clotting Time 169 sec (74-137)
--- NOTE | 2019-12-08 11:27 | CL.I_ITS ---
Patient Name: HENRI SILVESTRE Study Date: 12/08/2019 Performing: Nickolas Whittington MD Ht: 70.87 inches 180 cm : 1950 Wt: 242.51 lbs 110 kg Age: 69 Gender: male BSA: 2.29 PROCEDURE(S) PERFORMED XV57-JKM W OR WO PTCA, SINGLE CORONARY ARTERY [id number], EACH ADD'L CORONARY ART, SAME MAJOR CLINICAL PROFILE AND CO-MORBIDITIES Indications: Worsening Angina, New Onset Angina <= 2 months Heart Failure: None Stress/Imaging Date: 12/08/2019 Stress Test with SPECT MPI: Positive Angina Classification Anginal Classification w/in 2 Weeks: CCS III CAD Presentations: Stable angina. Unstable angina. Comorbidities/Risk Factors: Hypertension Dyslipidemia CONCLUSIONS Successful PTCA/ALEC to mid LAD with a 2.5 x 38 Promus Synergy, followed immediately upstream with a 2 .5 x 12 Promus Synergy, post dilated proximally with a 3.0 x 8 NC Balloon; 85%-->0%, no dissection. Successful PCI with PTCA to the ostial DIAG#1 with a 2.0 x 12 balloon; 90%-->50%, no dissection. RECOMMENDATIONS Highly recommend quitting all tobacco products Follow up with primary property staff accountant Risk factor modification ASA Indefinitley Plavix for at least 12 months Routine post interventional care Refer for Outpatient Cardiac Rehab Manual sheath removal per protocol Follow up with Dr. Barriga Medical management of distal RCA unless or until pt has recurrent angina or inferior ischemia. Successful Mynx Control closure of RFA. DESCRIPTION OF PROCEDURE The patient arrived to the procedure lab. The risks and benefits of the procedure as well as a full d escription of our services here and current unavailability of surgical backup were fully explained to the patient and/or their significant other prior to the catheterization. The Timeout was completed, verifying the correct patient and procedure. The patient's procedural site was prepped and draped in the usual fashion. Local anesthetic was given subcutaneously to right groin region with Lidocaine 2% Using a modified Seldinger technique,arterial access was obtained via the right femoral artery, a 4Fr sheath was inserted Left Coronary Artery selective angiography was performed in multiple views using a 4 Fr. JL5 catheter. Right Coronary Artery selective angiography was then performed in multiple vie ws using a 4 Fr. 3DRC catheter. Left Ventriculography was performed in FIORE projection using a 4 Fr. P igtail catheter. LV to AO pullback pressures were then recorded.The images were reviewed and options discussed. A decision was then made to proceed with an Intervention, IVUS or other adjunc t procedure. Arterial sheath was exchanged for a 6 Fr Sheath. EBU 3.75 Guide catheter was inserted and engaged into the LCA. EBU 4.0 Guide catheter was inserted and engaged into the LCA. BMW Guide wire was advan yvette to the LAD. Emerge 2.00x12 Balloon catheter was inserted. PTCA balloon inflated at 6 atms for 10 secs. PTCA balloon inflated at 6 atms for 7 secs. Angiogram performed post balloon dilatation. Synerg y 2.50x38 Drug Eluting stent was inserted. Angiogram performed post stent deployment. Synergy 2.50x12 Drug Eluting stent was inserted. Angiogram performed post stent deployment. NC Emerge 3.00x8 Balloon catheter was inserted. Angiogram performed post balloon dilatation. NC Emerge 3.00x8 Balloon cathete r was inserted. Angiogram performed post balloon dilatation. BMW Guide wire was repositioned to the 1 st Diagonal EMerge 2.00x12 Balloon catheter was inserted. PTCA balloon inflated at 5 atms for 14 secs . PTCA balloon inflated at 6 atms for 17 secs. Angiogram performed post balloon dilatation. Contrast was injected through the sheath and the Right Iliac and Femoral artery were asse ssed for possible closure device. The arterial sheath was pulled and a Mynx closure device was deplo yed for hemostasis INTERVENTION INFORMATION LESION SITE: LAD (Mid) Lesion Complexity: High/C, lesion at bifurcation: Yes, thrombus present: No, lesion length: 50 mm, cu lprit lesion: Yes Pre Stenosis: 85 % Pre intervention TINY flow: 3 PROCEDURE: Drug Eluting Stent with pre and post dilatation Post Stenosis: 0 % Post intervention TINY flow: 3 Lesion Devices: [place] .014 BMW [place] Straight 190cm Braulio Sci EMERGE MR 2.00x12 BALLOON Medtronic 6 Fr EBU4.0 100cm Guide Catheter Braulio Sci Synergy MR ALEC 2.50x38 Braulio Sci Synergy MR ALEC 2.50x12 Braulio Sci NC EMERGE MR 3.00x08 BALLOON LESION SITE: 1st Diagonal (Ostial) Lesion Complexity: Non-High/Non-C, lesion at bifurcation: Yes, thrombus present: No, lesion length: 8 mm, culprit lesion: No Pre Stenosis: 90 % Pre intervention TINY flow: 2 PROCEDURE: Balloon Angioplasty Post Stenosis: 50 % Post intervention TINY flow: 3 Lesion Devices: [place] .014 BMW [place] Straight 190cm Braulio Sci EMERGE MR 2.00x12 BALLOON Medtronic 6 Fr EBU4.0 100cm Guide Catheter COMPLICATIONS No Complications PROCEDURE MEDICATIONS Versed 1 mg IV Baby Aspirin (81mg) 1 Tabs PO @ 12/08/2019 09:12:13 Heparin 6000 unit(s) IV 12/08/2019 10:34:16 Nitro 200 mcg IC 12/08/2019 10:38:41 Nitro 300 mcg IC 12/08/2019 10:43:16 Nitro 300 mcg IC 12/08/2019 10:55:23 Nitro 200 mcg IC 12/08/2019 11:07:16 Nitro Paste 1 in R shoulder 12/08/2019 11:13:02 IV Bolus: .9 NaCl 600 ml total 12/08/2019 10:34:22 SUMMARY OF HEMODYNAMIC DATA Time AIR REST ECG 09:14:04 AO 180/99 (129) SA 09:47:49 LV 162/-18, 12 09:59:28 LV 163/-21, 11 09:59:34 LV 160/-7, 15 10:00:32 LVp 157/-9, 15 10:00:35 AOp 159/86 (117) 10:00:41 Signed By Nickolas Whittington MD On 12/08/2019 11:26:07 Nickolas Whittington MD
--- NOTE | 2019-12-08 11:30 | EKG12_ITS ---
Test Reason : POST PCI Blood Pressure : / mmHG Vent. Rate : 064 BPM Atrial Rate : 064 BPM P-R Int : 178 ms QRS Dur : 112 ms QT Int : 410 ms P-R-T Axes : 046 048 075 degrees QTc Int : 422 ms Normal sinus rhythm Nonspecific T wave abnormality Abnormal ECG When compared with ECG of 24-JUL-2017 11:04, Nonspecific T wave abnormality now evident in Lateral leads Confirmed by MARIAN FERMIN ([id number]), primer expeditor and drier OSCAR MCCAULEY ([id number]) on 12/11/2019 10:41:51 AM Referred By: Clinton Barriga Confirmed By:MARIAN FERMIN
[2019-12-08] MEDS: 0.9% Normal Saline 1,000 ML 150 ML IV (11:52)
--- NOTE | 2019-12-08 13:06 | CRPHASE1 ---
Patient Communication Former Patient:: Phase I PHII Cardiac Rehab Discussed with Patient:: Yes Guide to Cardiac Rehab Given to Patient:: Yes Cardiac Rehab Facility Choice List Given to Patient:: Yes Choice Program [facility] CR PHII:: Communication Given to CR Choice Program Other:: Communication Given to CR Refer Phase II Cardiac Rehab:: Yes Sessions:: 36 sessions - 3 days/wk, 12 weeks Risk Factors/Lifestyle Smoking Status: Never smoker Second-Hand Smoke:: No Hx Hypertension: Yes Hx Diabetes Mellitus Type 1: No Hx Diabetes Mellitus Type 2: No Hx Metabolic Disorders: No Hx Dyslipidemia: Yes Hx Obesity: Yes Post-Menopausal: No ETOH: No Caffeine: No Substance Abuse: No Risk Factor for Sedentary Lifestyle: Moderate Risk Family History: Family History (Last Reviewed 11/13/19 @ 14:41 by America Lora) Mother CHF (congestive heart failure) Brother Hypertension Son Hypertension Other Family history of hypertension Cardiac Rehabilitation Info Cardiac Rehabilitation Program Information: Cardiac Rehabilitation is important for patients like you who are recovering from a heart problem. Cardiac rehabilitation programs are recognized as integral to the continued care of the patient with coronary heart disease. The cardiac rehabilitation program is designed to optimize a patient's physical, psychological, and social functioning. Health healthcare applications analyst work in cardiac rehabilitation programs and assist you with getting the treatments you need to get stronger and healthier - like exercise, healthy eating habits, and medications. Cardiac rehabilitation has been show to help people with heart problems live longer and have better life enjoyment than people who do not go to cardiac rehabilitation. Please contact the Cardiac Rehabilitation Program at [facility] at in two weeks if you have not heard from them.
--- NOTE | 2019-12-08 13:08 | CRPH1.INSTRU ---
General Education CAD and cardiac anatomy and function:: Patient communicates acknowledgment Explanation of diagnoses and procedures:: Patient communicates acknowledgment Sign/Symptoms of [place]:: Patient communicates acknowledgment Antiplatelet therapy: Patient communicates acknowledgment Proper use of NTG-SL: Patient communicates acknowledgment Emergency procedures and activation of EMS: Patient communicates acknowledgment Compliance of all prescribed medications: Patient communicates acknowledgment Dyslipidemia Patient Dyslipidemia Risk Factors Are:: Total Cholesterol, Triglycerides, LDL Recommendations Include:: Lipid profile provided, Lipid profile not available, Reviewed NCEP/ATP guidelines, Therapeutic Lifestyle Change dietary guidelines Dyslipidemia Response Code:: Patient communicates acknowledgment Overweight/Obesity Patient Overweight/Obesity Risk Factors Are:: Obesity - > or = 30 Recommendations Include:: Weight loss of 5-10%, Reduced calorie diet, Exercise 5-7 times/week Overweight/Obesity:: Patient communicates acknowledgment Hypertension Patient Hypertension Risk Factors Are:: No documented hx of HTN Recommendations Include:: Maintain BP <130/85, DASH dietary guidelines, Decrease/maintain normal body weight, Moderation of ETOH Hypertension:: Patient communicates acknowledgment Sedentary Patient Sedentary Risk Factors Are:: Lack of regular exercise Recommendations Include:: Aerobic exercise 5-7 times/week for 20-30 minutes continuously, Benefits of regular exercise, Discussed home walking program, Monitored Outpatient Cardiac Rehab Sedentary Response Code:: Patient communicates acknowledgment
--- NOTE | 2019-12-08 15:55 | CHAPLAIN ---
Type of Pastoral Visit _x__ Initial Visit ___ Follow-up Visit ___ On-call Visit ___ General Patient Visit ___ Spiritual Assessment ___ Family Conference ___ Bereavement ___ Rapid Response ___ Code Blue ___ Other (describe below) Pastoral Care Referral From _x__ Patient ___ Family ___ Nurse ___ Physician ___ Back Shoe Worker ___ Agricultural Produce Commission Agent ___ Other (describe below) Sacrament/Intervention _x__ Active listening ___ Anointing ___ Worship ___ Bereavement ___ Communion ___ Ángela exploration ___ _x__ Life review _x__ Prayer ___ Reconciliation ___ Sacrament of Sick _x__ Supportive presence ___ Wedding ___ Other (describe below) Pastoral Comments
--- NOTE | 2019-12-08 16:15 | PCM.DC.CCA ---
Discharge Diet: Low fat/ Low Cholesterol Discharge Activity: Return to Normal Activity Lifting Restrictions: 10 pounds and also avoid any pushing or pulling for 3 days after your test. Call your doctor if your incision/area has: Continuous Slow Oozing, Sudden Increased Bleeding, Increased Pain/ Swelling, Increased Redness, Foul Smelling Discharge, Swelling at the incision site Call your doctor if you observe: Fever of 101 or Higher, Shortness of breath, Chest pain Remove Dressing in (days):: 1 Cleanse incision/area with: Soap & Water Additional Dressing/Incision Instructions:: Keep the dressing (bandage) on until the next morning. You may then shower, but do not take a tub bath for 5 days after your test. It is normal to have some tenderness and discomfort at the puncture site. Sometimes bruising also occurs. However, if pain, numbness, or coldness occurs below the puncture site (in your leg, toes, arms or fingers) call your doctor at once. You may have a small, marble sized knot at the puncture site. This is normal. Do not rub it. It will go away in 4-6 weeks. Bleeding can occur from the area where the puncture was done. Blood may spurt or drip from the site. If blood spurts, apply pressure right away to stop bleeding and call 911. Although rare, bleeding into the tissue (hematoma) can also occur. If this happens, a large, firm area goose egg under the skin will appear. If any of these occur, lie down as flat as you can and have someone apply firm pressure to the cath site with a gauze pad or a clean washcloth for 10-15 minutes. Call 911 or go to the Emergency Department. Additional Instructions: You will need to stay on your plavix for at least one year prior to stopping this. Allergies/Adverse Reactions: Allergies Penicillins Allergy (Verified 08/04/18 13:02) Rash valsartan Adverse Reaction (Severe, Verified 08/04/18 13:02) Joint Pain Medications to take at Discharge aspirin 81 mg tablet,delayed release 81 mg PO DAILY 08/04/18 hydrochlorothiazide 25 mg tablet 12.5 mg PO QDAY tab 08/06/19 amlodipine 5 mg tablet 2.5 mg PO QDAY tab 11/13/19 ezetimibe 10 mg tablet 10 mg PO DAILY #90 tab 11/13/19 nitroglycerin 0.4 mg sublingual tablet 0.4 mg SUBLINGUAL Q5M PRN #90 tab 11/13/19 potassium chloride 20 mEq tablet,extended release 20 meq PO BID tab 11/13/19 clopidogrel 75 mg tablet 75 mg PO DAILY #30 tab 12/02/19 Primary Care Physician: Ritesh Rocha MD [Primary Care Provider] - Test Results: Test results from this visit will be discussed in further detail at your follow-up appointment, if applicable. Please Follow Up With: Corrie Eckert PA When: 12/24 at 10am Cardiac Rehabilitation Info Cardiac Rehabilitation Program Information: Cardiac Rehabilitation is important for patients like you who are recovering from a heart problem. Cardiac rehabilitation programs are recognized as integral to the continued care of the patient with coronary heart disease. The cardiac rehabilitation program is designed to optimize a patient's physical, psychological, and social functioning. Health hospice care transitions coordinator work in cardiac rehabilitation programs and assist you with getting the treatments you need to get stronger and healthier - like exercise, healthy eating habits, and medications. Cardiac rehabilitation has been show to help people with heart problems live longer and have better life enjoyment than people who do not go to cardiac rehabilitation. Please contact the Cardiac Rehabilitation Program at [facility] at in two weeks if you have not heard from them.
--- NOTE | 2019-12-08 16:22 | CL.D_ITS ---
Patient Name: HENRI SILVESTRE Study Date: 12/08/2019 Performing: Clinton Barriga MD Ht: 70.87 inches 180 cm : 1950 Wt: 242.51 lbs 110 kg Age: 69 Gender: male BSA: 2.29 PROCEDURE(S) PERFORMED [id number]/LV [id number] W OR WO PTCA, SINGLE CORONARY ARTERY [id number], EACH ADD'L CORONARY ART, SAME MAJOR CLINICAL PROFILE AND INDICATIONS Indications: Worsening Angina, New Onset Angina <= 2 months Heart Failure: None Stress/Imaging Date: 12/08/2019Stress Test with SPECT MPI: Positive Angina Classification Anginal Classification w/in 2 Weeks: CCS III CAD Presentations: Stable angina. Unstable angina. Comorbidities/Risk Factors: Hypertension Dyslipidemia CONCLUSIONS Normal Left Ventricular End Diastolic Pressure Normal LV size, wall motion,and systolic function LVEF: by LV gram 60 % [place] Multivessel CAD RECOMMENDATIONS Risk factor modification Medical therapy Referred for immediate PCI DESCRIPTION OF PROCEDURE The patient arrived to the procedure lab. The risks and benefits of the procedure as well as a full d escription of our services here and current unavailability of surgical backup were fully explained to the patient and/or their significant other prior to the catheterization. The Timeout was completed, verifying the correct patient and procedure. The patient's procedural site was prepped and draped in the usual fashion. Local anesthetic was given subcutaneously to right groin region with Lidocaine 2%. Using a modified Seldinger technique, arterial access was obtained via the right femoral artery, a 4 Fr sheath was inserted Left Coronary Artery selective angiography was performed in multiple views us ing a 4 Fr. JL5 catheter. Right Coronary Artery selective angiography was then performed in multiple views using a 4 Fr. 3DRC catheter. Left Ventriculography was performed in FIORE projection using a 4 Fr . Pigtail catheter. LV to AO pullback pressures were then recorded.Contrast was injected through the sheath and the Right Iliac and Femoral artery were assessed for possible closure device.T he arterial sheath was pulled and a Mynx closure device was deployed for hemostasis CORONARY ANGIOGRAPHY DOMINANCE: Right Dominant LEFT HEART ASSESSMENT Left Ventricular Ejection Fraction: by LV Gram 60 % Normal LV wall motion Normal Left Ventricular End Diastolic Pressure LVEDP: 11 mmHg LEFT MAIN: Angiographically normal LEFT ANTERIOR DESCENDING ARTERY: PROX LAD: Mild calcification, Mild luminal irregularities MID LAD: 90 % Stenosis DIAGONAL 2: Ostial - 90 % Stenosis (small caliber vessel) CIRCUMFLEX ARTERY: PROX CIRC: Mild luminal irregularities RIGHT CORONARY ARTERY: Mild luminal irregularities DISTAL RCA: diffuse: ectatic: 50 -75 % Stenosis AORTIC ROOT: Angiographically normal COMPLICATIONS No Complications PROCEDURE MEDICATIONS Versed 1 mg IV Baby Aspirin (81mg) 1 Tabs PO @ 12/08/2019 09:12:13 Heparin 6000 unit(s) IV 12/08/2019 10:34:16 Nitro 200 mcg IC 12/08/2019 10:38:41 Nitro 300 mcg IC 12/08/2019 10:43:16 Nitro 300 mcg IC 12/08/2019 10:55:23 Nitro 200 mcg IC 12/08/2019 11:07:16 Nitro Paste 1 in R shoulder 12/08/2019 11:13:02 IV Bolus: .9 NaCl 600 ml total 12/08/2019 10:34:22 SUMMARY OF HEMODYNAMIC DATA Time AIR REST ECG 09:14:04 AO 180/99 (129) SA 09:47:49 LV 162/-18, 12 09:59:28 LV 163/-21, 11 09:59:34 LV 160/-7, 15 10:00:32 LVp 157/-9, 15 10:00:35 AOp 159/86 (117) 10:00:41 Signed By Clinton Barriga MD On 12/08/2019 16:21:19 Clinton Barriga MD
[2019-12-08] MEDS: Nitroglycerin Oint 1 INCH PACKET TRANSDERM. ×2 (18:32→23:43)
[2019-12-08] MEDS: Carvedilol 3.125 MG TABLET PO (21:43)
[2019-12-08] MEDS: Acetaminophen 325 MG Tablet 650 MG PO (21:43)
[2019-12-08] MEDS: Atorvastatin Calcium 80 MG Tablet PO (21:44)
--- NOTE | 2019-12-09 00:20 | NURSING ---
Rec'd report from ROXNANA Osorio. This RN taking over care at this time. Kemar RN
[2019-12-09 02:58] VITALS: PULSE 54
[2019-12-09 03:40] VITALS: BP 129/76; PULSE 59; RESP 12; TEMP 36.7; O2SAT 93
[2019-12-09 05:57] LABS: Hematocrit 46.5 % (40-54); Hemoglobin 14.7 g/dL (13.0-16.5); Mean Corp Hgb Conc 31.6 g/dL (32-36); Mean Corpuscular Hgb 27.7 pg (27.0-32.0); Mean Corpuscular Volume 87.7 fL (80-94); Mean Platelet Vol. 8.9 fl (6.2-12.0); Platelet Count 265 K/mm3 (150-450); RBC Distribution Width CV 12.7 % (11.6-14.6); RBC Distribution Width SD 41.1 fl (35.1-43.9); White Blood Count 7.6 K/mm3 (4.4-11.0)
[2019-12-09 06:27] VITALS: BP 141/68; PULSE 58; RESP 16; TEMP 36.6; O2SAT 92
[2019-12-09 06:30] VITALS: BP 141/68; PULSE 58
[2019-12-09] MEDS: Nitroglycerin Oint 1 INCH PACKET TRANSDERM. (06:30)
[2019-12-09 06:42] LABS: AST(SGOT) 20 U/L (15-37); Alanine Aminotransfer ALT/SGPT 41 U/L (16-61); Albumin, Serum 3.5 g/dL (3.2-5.0); Alkaline Phosphatase 70 U/L (45-117); Anion Gap 2 (5-15); BUN 22 mg/dL (7-18); Calcium,Total 8.5 mg/dL (8.5-10.1); Chloride 105 mmol/L (98-107); EST Glomerular Filtration Rate 71 mL/min (>60); Est Glom Filt Rate - Afr Amer 86 mL/min (>60); Estimated Creatinine Clearance 68.45 ml/min; Globulin 3.5 g/dL (2.2-4.2); Glucose 103 mg/dL (74-106); Sodium Level 138 mmol/L (136-145)
[2019-12-09 06:46] VITALS: PULSE 66
--- NOTE | 2019-12-09 07:45 | DCINST_ITS ---
- Discharge Diagnoses Current Active Problems: CAD s/p PCI Reason(s) for Visit for Discharge Instructions: Abnormal stress test. Cardiac catheterization You will use the following diet at home:: Cardiac Discharge Activity: Return to Normal Activity, May Not Drive - May not drive: X48 hours, May Shower - May shower today, May Take a Tub Bath - May not take a tub bath for 7 days May resume sexual activity in: 2 weeks Weight Bearing Status: - - Avoid heavy exertional activity x2 weeks Call your doctor if your incision/area has: Continuous Slow Oozing, Sudden Increased Bleeding, Increased Pain/ Swelling, Increased Redness, Foul Smelling Discharge, Swelling at the incision site Call your doctor if you observe: Fever of 101 or Higher, Shortness of breath, Chest pain Remove Dressing in (days):: 1 Cleanse incision/area with: Soap & Water Additional Dressing/Incision Instructions:: Keep the dressing (bandage) on until the next morning. You may then shower, but do not take a tub bath for 5 days after your test. It is normal to have some tenderness and discomfort at the puncture site. Sometimes bruising also occurs. However, if pain, numbness, or coldness occurs below the puncture site (in your leg, toes, arms or fingers) call your doctor at once. You may have a small, marble sized knot at the puncture site. This is normal. Do not rub it. It will go away in 4-6 weeks. Bleeding can occur from the area where the puncture was done. Blood may spurt or drip from the site. If blood spurts, apply pressure right away to stop bleeding and call 911. Although rare, bleeding into the tissue (hematoma) can also occur. If this happens, a large, firm area goose egg under the skin will appear. If any of these occur, lie down as flat as you can and have someone apply firm pressure to the cath site with a gauze pad or a clean washcloth for 10-15 minutes. Call 911 or go to the Emergency Department. Allergies/Adverse Reactions: Allergies Penicillins Allergy (Verified 08/04/18 13:02) Rash valsartan Adverse Reaction (Severe, Verified 08/04/18 13:02) Joint Pain Medications to take at Discharge aspirin 81 mg tablet,delayed release 81 mg PO DAILY 08/04/18 hydrochlorothiazide 25 mg tablet 12.5 mg PO QDAY tab 08/06/19 amlodipine 5 mg tablet 2.5 mg PO QDAY tab 11/13/19 ezetimibe 10 mg tablet 10 mg PO DAILY #90 tab 11/13/19 nitroglycerin 0.4 mg sublingual tablet 0.4 mg SUBLINGUAL Q5M PRN #90 tab 11/13/19 potassium chloride 20 mEq tablet,extended release 20 meq PO BID tab 11/13/19 clopidogrel 75 mg tablet 75 mg PO DAILY #30 tab 12/02/19 Atorvastatin Calcium [Lipitor] 80 mg PO QHS tablet 12/09/19 Carvedilol [Coreg (Beta Luisito)] 3.125 mg PO BID tablet 12/09/19 Nitroglycerin (INPATIENT USE) [Nitrostat] 0.4 mg SUBLINGUAL Q5M PRN tab.subl 12/09/19 Primary Care Physician: Ritesh Rocha MD [Primary Care Provider] - Test Results: Test results from this visit will be discussed in further detail at your follow- up appointment, if applicable. Please Follow Up With: Corrie Eckert PA When: 12/24 at 10am
[2019-12-09 08:50] VITALS: BP 143/85; PULSE 78; RESP 16; TEMP 37.2; O2SAT 94
[2019-12-09] MEDS: hydroCHLOROthiazide 12.5mg 12.5 MG PO (08:54)
[2019-12-09] MEDS: Carvedilol 3.125 MG TABLET PO (08:54)
[2019-12-09] MEDS: Clopidogrel Bisulfate 75 MG Tablet PO (08:54)
[2019-12-09] MEDS: Aspirin E.C. 81 MG Tablet PO (08:54)
[2019-12-09] MEDS: amLODIPine 2.5 MG Tablet PO (08:54)
[2019-12-09] MEDS: Ezetimibe 10 MG Tablet PO (08:54)
--- NOTE | 2019-12-09 09:16 | DS.PCM_ITS ---
Discharge Date and Diagnosis Date of Admission: 12/08/19 Date of Discharge: 12/09/19 - Primary Discharge Diagnosis Acute Problems: CAD status post PCI - Secondary Discharge Diagnosis Chronic Problems: Chronic Problems (Last Updated 12/09/19 @ 09:07 by Corrie Teixeira) Presence of coronary angioplasty implant and graft (Chronic ~12/08/19) Successful PTCA/ALEC to mid LAD with a 2.5 x 38 Promus Synergy, followed immediately upstream with a 2.5 x 12 Promus Synergy, post dilated proximally with a 3.0 x 8 NC Balloon; 85%-->0%, no dissection; Successful PCI with PTCA to the ostial DIAG#1 with a 2.0 x 12 balloon; 90%-->50%, no dissection per cath 12/08/19 Presence of stent in coronary artery (Chronic ~12/08/19) Successful PTCA/ALEC to mid LAD with a 2.5 x 38 Promus Synergy, followed immediately upstream with a 2.5 x 12 Promus Synergy, post dilated proximally with a 3.0 x 8 NC Balloon; 85%-->0%, no dissection; Successful PCI with PTCA to the ostial DIAG#1 with a 2.0 x 12 balloon; 90%-->50%, no dissection per cath 12/08/19 Essential hypertension (Chronic) Chest pain, precordial (Chronic) Atherosclerotic heart disease of [place] coronary artery without angina pectoris (Chronic) Hyperlipidemia (Chronic) Hospital Course and Treatment Procedures: Cardiac catheterization, - - Cardiac intervention Summary of Care Provided: The patient is a 69 year old white male who presented for evaluation of an abnormal exercise tolerance test and underwent diagnostic cardiac catheterization. The diagnostic cardiac catheterization led to PCI. The patient was monitored overnight. He appeared to be symptomatically and hemodynamically stable. He is to be released home for continued outpatient cardiovascular follow-up and outpatient cardiac rehabilitation therapy. [] Subjective: The patient is awake and alert and in no acute distress. - Physical Exam Vitals/I&O's: Vital Signs Temp Pulse Resp BP Pulse Ox 99.0 F 78 16 143/85 H 94 12/09/19 08:50 12/09/19 08:50 12/09/19 08:50 12/09/19 08:50 12/09/19 08:50 Oxygen Delivery Method Room Air Weight: 240 lb 11.916 oz Body Mass Index (BMI) 33.6 Intake and Output for Last 24 Hours 12/07/19 12/08/19 12/09/19 23:59 23:59 23:59 Intake Total 1995.0 / 1995.0 100 / 100 Output Total 550 / 550 Balance 1445.0 / 1445.0 100 / 100 General: Alert, Oriented x3, Cooperative, No apparent distress HEENT: Atraumatic, PERRLA, EOMI, Normocephalic Neck: Supple, No JVD Lungs: Clear to auscultation Cardiovascular: Regular rate, Normal S1, Normal S2 Abdomen: Bowel Sounds Present, Soft Extremities: No edema Neurological: Neuro grossly intact Psych/Mental Status: Normal Affect Comment: Right inguinal area: Right femoral artery pulse: 2+/4+; no bruit; no hemato Laboratory Results 12/08/19 11:08: Activated Clotting Time 169 H 12/09/19 05:28: WBC 7.6, RBC 5.30, Hgb 14.7, Hct 46.5, MCV 87.7, MCH 27.7, MCHC 31.6 L, RDW Std Deviation 41.1, RDW Coeff of Robinson 12.7, Plt Count 265, MPV 8.9 12/09/19 05:28: Sodium 138, Potassium 4.0, Chloride 105, Carbon Dioxide 31.0, Anion Gap 2 L, BUN 22 H, Creatinine 1.10, Estim Creat Clear Calc 68.45, Est GFR (MDRD) Af Amer 86, Est GFR (MDRD) Non-Af 71, BUN/Creatinine Ratio 20.0, Glucose 103, Calcium 8.5, Total Bilirubin 0.90, AST 20, ALT 41, Alkaline Phosphatase 70, Total Protein 7.0, Albumin 3.5, Globulin 3.5, Albumin/Globulin Ratio 1.0 Cardiac catheterization: CONCLUSIONS Normal Left Ventricular End Diastolic Pressure Normal LV size, wall motion,and systolic function LVEF: by LV gram 60 % [place] Multivessel CAD RECOMMENDATIONS Risk factor modification Medical therapy Referred for immediate PCI CORONARY ANGIOGRAPHY DOMINANCE: Right Dominant LEFT HEART ASSESSMENT Left Ventricular Ejection Fraction: by LV Gram 60 % Normal LV wall motion Normal Left Ventricular End Diastolic Pressure LVEDP: 11 mmHg LEFT MAIN: Angiographically normal LEFT ANTERIOR DESCENDING ARTERY: PROX LAD: Mild calcification, Mild luminal irregularities MID LAD: 90 % Stenosis DIAGONAL 2: Ostial - 90 % Stenosis (small caliber vessel) CIRCUMFLEX ARTERY: PROX CIRC: Mild luminal irregularities RIGHT CORONARY ARTERY: Mild luminal irregularities DISTAL RCA: diffuse: ectatic: 50 -75 % Stenosis AORTIC ROOT: Angiographically normal PCI: CONCLUSIONS Successful PTCA/ALEC to mid LAD with a 2.5 x 38 Promus Synergy, followed immediately upstream with a 2.5 x 12 Promus Synergy, post dilated proximally with a 3.0 x 8 NC Balloon; 85%-->0%, no dissection. Successful PCI with PTCA to the ostial DIAG#1 with a 2.0 x 12 balloon; 90%-->50%, no dissection. Current Medications Acetaminophen (Tylenol) 650 mg PO Q6H PRN PRN PRN Reason: Pain Score 1-10 Last Admin: 12/08/19 21:43 Dose: 650 mg Documented by: Amlodipine Besylate (Norvasc) 2.5 mg PO DAILY [facility] Last Admin: 12/09/19 08:54 Dose: 2.5 mg Documented by: [facility]) [facility] Last Admin: 12/09/19 08:54 Dose: 81 mg Documented by: Atorvastatin Calcium (Lipitor) 80 mg PO QHS [facility] Last Admin: 12/08/19 21:44 Dose: 80 mg Documented by: Atropine Sulfate () 0.5 mg IV UD PRN PRN Reason: HR <50 bpm Carvedilol (Coreg) 3.125 mg PO BID [facility] Last Admin: 12/09/19 08:54 Dose: 3.125 mg Documented by: Clopidogrel Bisulfate (Plavix) 75 mg PO DAILY [facility] Last Admin: 12/09/19 08:54 Dose: 75 mg Documented by: Diazepam (Valium) 5 mg PO Q6H PRN PRN PRN Reason: BACK SPASMS/ANXIETY Ezetimibe (Zetia) 10 mg PO DAILY [facility] Last Admin: 12/09/19 08:54 Dose: 10 mg Documented by: Heparin Sodium (Beef Lung) (Heparin 500 Unit/5 Ml (100/Ml)) 500 unit IV UD PRN PRN Reason: HEPARIN FLUSH Hydrochlorothiazide () 12.5 mg PO DAILY [facility] Last Admin: 12/09/19 08:54 Dose: 12.5 mg Documented by: Labetalol HCl (Trandate) 5 mg IV X1 PRN PRN Reason: SBP > 160 when pulling sheath Metoclopramide HCl (Reglan) 5 mg IV Q6H PRN PRN PRN Reason: NAUSEA/VOMITING Morphine Sulfate () 2 - 4 mg IV Q4H PRN PRN PRN Reason: Pain Score 1-10/10 Morphine Sulfate () 2 - 4 mg IV Q4H PRN PRN PRN Reason: Pain Score 1-10/10 Nitroglycerin (Nitrobid) 1 inch TRANSDERM. Q6 [facility] Stop: 12/09/19 10:00 Last Admin: 12/09/19 06:30 Dose: 1 inch Documented by: Nitroglycerin (Nitrostat) 0.4 mg SUBLINGUAL Q5M PRN PRN Reason: CARDIAC/CHEST PAIN Potassium Chloride (K-Dur) 20 meq PO BIDCM [facility] Last Admin: 12/09/19 08:54 Dose: 20 meq Documented by: Sodium Chloride () 500 ml IV BOLUS PRN PRN Reason: VASO-VAGAL PROTOCOL Sodium Chloride () 10 - 40 ml IV UD PRN PRN Reason: SALINE FLUSH Discharge Diet: Low fat/ Low Cholesterol Discharge Activity: Return to Normal Activity, May Not Drive - May not drive: X48 hours, May Shower - May shower today, May Take a Tub Bath - May not take a tub bath for 7 days May resume sexual activity in: 2 weeks Weight Bearing Status: - - Avoid heavy exertional activity x2 weeks Call your doctor if your incision/area has: Continuous Slow Oozing, Sudden Increased Bleeding, Increased Pain/ Swelling, Increased Redness, Foul Smelling Discharge, Swelling at the incision site Call your doctor if you observe: Fever of 101 or Higher, Shortness of breath, Chest pain Remove Dressing in (days):: 1 Cleanse incision/area with: Soap & Water Additional Dressing/Incision Instructions:: Keep the dressing (bandage) on until the next morning. You may then shower, but do not take a tub bath for 5 days after your test. It is normal to have some tenderness and discomfort at the puncture site. Sometimes bruising also occurs. However, if pain, numbness, or coldness occurs below the puncture site (in your leg, toes, arms or fingers) call your doctor at once. You may have a small, marble sized knot at the puncture site. This is normal. Do not rub it. It will go away in 4-6 weeks. Bleeding can occur from the area where the puncture was done. Blood may spurt or drip from the site. If blood spurts, apply pressure right away to stop bleeding and call 911. Although rare, bleeding into the tissue (hematoma) can also occur. If this happens, a large, firm area goose egg under the skin will appear. If any of these occur, lie down as flat as you can and have someone apply firm pressure to the cath site with a gauze pad or a clean washcloth for 10-15 minutes. Call 911 or go to the Emergency Department. Home Medications: Medications to take at Discharge aspirin 81 mg tablet,delayed release 81 mg PO DAILY 08/04/18 hydrochlorothiazide 25 mg tablet 12.5 mg PO QDAY tab 08/06/19 amlodipine 5 mg tablet 2.5 mg PO QDAY tab 11/13/19 ezetimibe 10 mg tablet 10 mg PO DAILY #90 tab 11/13/19 potassium chloride 20 mEq tablet,extended release 20 meq PO BID tab 11/13/19 clopidogrel 75 mg tablet 75 mg PO DAILY #30 tab 12/02/19 Atorvastatin Calcium [Lipitor] 80 mg PO QHS tab 12/09/19 Carvedilol [Coreg (Beta Luisito)] 3.125 mg PO BID tab 12/09/19 Nitroglycerin (INPATIENT USE) [Nitrostat] 0.4 mg SUBLINGUAL Q5M PRN tab.subl 12/09/19 Other Amb Orders: Phase II, Outpatient Cardiac Rehab Location: None Selected Primary Care Physician: Ritesh Rocha MD [Primary Care Provider] - Please Follow Up With: Corrie Eckert PA When: 12/24 at 10am Additional Instructions: You will need to stay on your plavix for at least one year prior to stopping this. Disposition: Home Minutes spent on discharge:: 45 Patient Condition:: Stable Medical Necessity - Tobacco Use Smoking Status: Never smoker Meaningful Use Info Meaningful Use Diagnoses (Choose all that apply): None applicable
--- NOTE | 2019-12-09 10:00 | EKG12_ITS ---
Test Reason : AM EKG Blood Pressure : / mmHG Vent. Rate : 059 BPM Atrial Rate : 059 BPM P-R Int : 174 ms QRS Dur : 114 ms QT Int : 416 ms P-R-T Axes : 033 045 071 degrees QTc Int : 411 ms Sinus bradycardia Nonspecific T wave abnormality Abnormal ECG When compared with ECG of 08-DEC-2019 11:38, MANUAL COMPARISON REQUIRED, DATA IS UNCONFIRMED Confirmed by MARIAN FERMIN ([id number]), book or script editor OSCAR MCCAULEY ([id number]) on 12/11/2019 10:39:15 AM Referred By: Clinton Barriga Confirmed By:MARIAN FERMIN
== END 2019-12-09 07:46 | disposition home or self-care (01) ==
LOC: CLSP 08:58 → ICU 11:20 → PCU 15:23
PROVIDERS: Internal Medicine Cardiovascular Disease; PCP Family Medicine; Referring Provider Internal Medicine Cardiovascular Disease; Visit Provider Internal Medicine Cardiovascular Disease
DX: I25.110 Atherosclerotic heart disease of native coronary artery with unstable angina pectoris (principal); R94.39 Abnormal result of other cardiovascular function study; I10 Essential (primary) hypertension; Z79.899 Other long term (current) drug therapy; Z79.82 Long term (current) use of aspirin; Z79.02 Long term (current) use of antithrombotics/antiplatelets; E78.5 Hyperlipidemia, unspecified; I08.3 Combined rheumatic disorders of mitral, aortic and tricuspid valves; R07.9 Chest pain, unspecified
CPT/HCPCS: 36415; 71046; 80048; 80053; 85027; 85347; 85610; 85730; 92921; 92928; 93005; 93458; 99152; 99153; C1760; J7030; J7040; Q9967; C1725; C1769; C1874; C1887; C1894; C9600

== ENCOUNTER → 2019-12-17 07:51 | Outpatient (CLI) | payer MEDICARE, OTHER, SELFPAY ==
[2019-12-08 11:35] VITALS: BMI 33.6
--- NOTE | 2019-12-17 07:57 | PCM.CR.ITP ---
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 Personal Learning Style:: Audio/Visual, Written Barriers to Learning: Vision Impairment Stage of change r/t lifestyle modifications:: Action Gave educational material for:: Treating Heart Disease, Emotions & Heart Disease, Stress Management & Relaxation, Sleep Disorders & Heart Disease, How The Heart Works, What it means to have Heart Disease, How Coronary Artery Disease is Diagnosed, Heart Procedures, What Heart Medications Do, Risk Factors & Modifications, Living an Active Life, Nutrition - Education/Goals Individual Counseling: Initial Assessment: Abnormal Cholesterol Levels, High Blood Pressure, Overweight/Obesity Cardiac Rehabilitation Goals: 1. Maintain the individual as the primary focus of care. 2. To improve the patient's quality of life. 3. Identification of cardiac risk factors and provide cardiac risk factor management. 4. Enhance the psychosocial status of the patient. 5. Reconditioning enough to allow the patient to resume customary activities. 6. Control symptoms of cardiac disease Personal Goals: Initial Assessment: Improve energy level, Get back to work, or to resume activities faster, Improve muscle strength and endurance, Control risk factors (learn risk factor modification) Scale for measuring improvement of personal goals: Enter appropriate number in Comments. 2 = Unchanged. 3 = Slightly Better. 4 = Moderate Improvement. 5 = Met my Goal - Diagnosis & Disease Process Outcomes/Goals: Pt IDs own risk factors & lifestyle modifications by Session 10, Verbalizes symptoms of angina & response by session 3., Pt independently manages Plan/Interventions: Assist Pt to ID & engage in lifestyle modification to reduce CVD risk, Instruct on individual risk factors, Review symptoms of angina & emergency actions, Review secondary diagnosis & identify educational needs. - Safety Referral to Physical Therapy: No Referral to [facility] Case Management: No Fall Risk Assessed:: Yes Assistive Devices:: None Exercise - Initial Assessment - Visit Date of Eval: 12/17/19 Session #:: 0 - PRE-CARDIAC REHAB EVALUATION Mets: Pre-: >7 METS for 30 minutes by discharge - Stress Test Date: 12/01/19 Protocol:: MELONIE Resting HR (bpm):: 67 Maximum HR (bpm):: 130 Blood Pressure: 142/96 Maximum Blood Pressure: 184/90 MET LEVEL:: 8.5 EKG: hORIZONTAL ST SEG DEPRESSION IN LEAD II AND aVF - Physician Prescribed Exercise Modalities: Treadmill, Rower, Airdyne Frequency: 3x/week for 12 weeks [36 sessions] Intensity: 60-80% maximum heart rate reserve from GXT Current METSs:: 4.0 Target Heart Rate:: 99-129 - Outcomes & Goals Goals:: Verbalizes understanding of THR, RPE & goal METS by session 6, Documents in home exercise log/reports 30 min aerobic 5 day/wk by DC - Intervention & Plan Exercise Program Goals: Instruct on personal THR & RPE, Instruct on MET level & personal MET goal, Show patient to take own pulse /validate performance until accurate, Instruct on home exercise - Physical Activity Home Exercise Physical Activity - Home Exercise: Safe Exercise, Warm-up, Self-monitoring, Cool-Down, Home Exercise > 30 min Daily, Sitting Time <3 hours/daily - Outcomes & Goals Outcomes/Goals: Demonstrates correct Warm-up/exercise Cool-Down (S3) if = 2.5 METs, Verbalizes symptoms of exercise intolerance by Session 3 (S3), Demonstrate safe equipment use (S3) & follows exercise prescrition (6) - Intervention & Plan Plan/Intervention: Instruct warm-up & cool-down if exercising at > 2 METs, Instruct on symptoms of exercise intolerance & actions to take, Instruct & monitor on saf, Assess intial functional capacity & safety risk Nutrition - Initial Assessment - Program Goals Nutrition Program Goals: LDL <100 optimal. 100 - 129 Near optimal. 130 - 159 Borderline High. 160 - 189 High. Total Cholesterol <200 desirable. 200 - 239 Borderline High. >/= 240 High. HDL < 40 Low >/=60 High. Triglycerides <150 desirable. <199 optimal. VlDL 5 - 40. HgbA1C <7%. BMI <25 Patient has diagnosis of Hyperlipidemia (ICD E78)?: Yes - Visit Date of Assessment:: 12/17/19 Session #:: 0 - PRE-CARDIAC REHAB - Cholesterol/Lipids Triglycerides (mg/dL): 143 - 11/12/2019 Total Cholesterol (mg/dL): 266 LDL Cholesterol (mg/dL): 190 HDL Cholesterol (mg/dL): 47 Determine presence & major risk factors that modify LDL goal: Hypertension or hypertensive medication, Age men > 45 years; women >/= 55 years Outcomes/Goals: Pt IDs own risk factors & lifestyle modifications by Session 10, Verbalizes symptoms of angina & response by session 3., Pt independently manages Intervention/Plan: Advocate for lipid panel cholesterol medication if applicable, Instruct on personal lipid levels & lipid goals/NCEP guidelines Referral to dietitian:: Yes - Diabetes (Other Core Measures) Diabetes Type: Not Applicable - Weight Mgt (Other Care) Not Applicable: No Height: 5 ft 11 in Weight:: 243 lb BMI: 33.9 Diagnosis Overweight/Obesity BMI> 30% ICD-10 E66: Yes Diagnosis High BMI/Morbid Obesity BMI> 35% ICD-10 Z68: No Outcomes/Goals: Pt sets, maintains & shows weight loss goal & trend during rehab Intervention/Plan: Instruct on ideal BMI & set weight loss goal w/patient, Assist pt to ID & incorporate diet changes for weight loss by S9, Refer to Structured Weight Loss program as appropriate, Encourage goal of using 250-300dcal per session for weight loss - Healthy Eating Habits Will attend diet classes:: Yes Outcomes/Goals:: Consume diet rich in vegs,fruits,whole grain/high fiber,fish,lean meat, Limit sat/trans fats,cholesterol & added salts & sugars Intervention/Plan:: Assess current eating habits - Education Gave educational materials for:: Healthy eating Medical - Initial Assessment - Visit Date of Eval: 12/17/19 Session #:: 0 - PRE-CARDIAC REHAB - Medication Compliance Preventative Medication(s):: Aspirin, Clopidogrel/P2Y12 inhibit, Statin/lipid, Beta lon H/O mental health issues: depression, anxiety, or addiction?: No Doesn?t believe in the benefits of treatment?: No Believes medications are unnecessary or harmful?: No Has a concern about medication side effects?: No Expresses concern over the cost of medications?: No Outcomes/Goals: Verbalizes medications,desired effect & common side effects @ DC, Pt self-reports following medication regimen, Keeps card in wallet w/medications listed by DC Interventions/plans: Instruct on medication effects & side effects, Review medication list w/patient every two weeks, Instruct importance of taking meds as ordered & assist problem solving - Tobacco Use Tobacco Use: Non-smoker - Hypertension Hypertension Diagnosis:: Hypertension ICD-10 I10 Resting Blood Pressure:: 144/86 [place] [employer] Hypertension Guidelines: [place] [employer] Hypertension Guidelines. Normal BP Less than 120/80. Elevated BP 120/80. Hypertension Stage 1: BP 130-139/80-89. Hypertesnion Stage 2: BP 140 or higher/90 or higher. Hypertension Crisis: BP higher than 180/120 Outcomes/Goals: Able to verbalize/achieve optimal blood pressure <130/80, Incorporates diet changes & exercise for blood pressure control by DC Interventions/plan: Instruct on optimal blood pressure, hypertension & medications, Instruct on effects of sodium, alcohol, stress, exercise &hypertension - Tobacco Cessation Referral Smoking Cessation Referral:: No Individual Education/Counseling:: No Education Schedule Given:: Yes Psychosocial - Initial Assess - VIsit Date of Eval: 12/17/19 Session #:: 0 - PRE-CARDIAC REHAB Not Applicable: Yes History of previous Mental disease:: No - Target Goals Target Goals: Assess presence or absence of depression. Using a valid screening tool, maximizes coping skills. Positive support system - Psychosocial Test Tool Used:: [employer] QOL Cardiac, PHQ-9 Questionnaire Self-reported stress:: phq-9 Severity: Severity. 1-4 Minimal Depression. 5-9 Mild Depression. 10-14 Moderate Depression. 15-19 Moderately Sever Depression. 20-27 Severe Depression. Rule: See PHQ-9 Score: 10 - MODERATE DEPRESSION - Referral to Behavioral Health PS - Interventions: Yes Referral to Behavioral Health if PHQ-9 score >9:, Yes Referral to Physician if PHQ-9 if score is 5-9: - REFERRAL TO PCP, Yes Attend Stress Management Classes, No Referral to [facility] - Outcomes/Goals: See list Psychosocial Outcomes/Goals:: ID's personal stressors & 2 strategies to manage stress by discharge - Intervention/Plan: See List Interventions/Plan:: Assess stressors,coping strategies & signs of derpression on admission, Instruct/assist pt to develop coping & personal stress Mgt strategies, Instruct patient to recognize signs & symptoms of depression, Instruct patient to recog Patient Health Questionnaire Initial Assessment 1. Little interest or pleasure in doing things: Several days 2. Feeling down, depressed, or hopeless: Several days 3. Trouble falling or staying asleep, or sleeping too much: Several days 4. Feeling tired or having little energy: More than half the days 5. Poor appetite or overeating: Several days 6. Feeling bad about yourself -- or that you are a failure or have let yourself or your family down: Several days 7. Trouble concentrating on things, such as reading the newspaper or watching television: Several days 8. Moving or speaking so slowly that other people could have noticed. Or the opposite - being so fidgety or restless that you have been moving around a lot more than usual: Several days 9. Thoughts that you would be better off , or of hurting yourself in some way: Several days How difficult have these problems made it for you to do your work, take care of things at home, or get along with other people?: Somewhat difficult - REFERRAL TO PCP Total Score: 10 [place]-Q SV Test - Statements CAD is a disease of the arteries in the heart: True Examples of risk factors for heart disease: True Angina is chest pain or discomfort: I Don't Know The benefits of resistance training include: True Eating more meat and dairy products: False Anti-platelet medications such as aspirin are important: True The only effective way to manage stress: False An exercise warm-up slowly increases heart rate: True Prepared, processed foods usually have high sodium: True Depression is common after a heart attack: I Don't Know The statin medications lower cholesterol: True To control blood pressure, lower the amount of sodium: True If someone gets chest discomfort during walking: False Transfats are partially hydrogenated vegetable oils: I Don't Know Sleep apnea that is not treated increases the risk: False To control cholesterol, one should become a vegetarian: False Someone knows if he/she is exercising at the right level: True Diabetes cannot be prevented with exercise & health eating: True Stress is a large risk for heart attack: True A diet that can help lower blood pressure is rich in: True - Total Score Total Correct Responses: 15 Self-Efficacy Initial Assessment We would like to know how confident you are in doing certain activities. Please select your confidence level for:: Select your confidence level for the following using the scale 1-10 where 1 is not at all confident and 10 is totally confident. Your score is the average of all 6 responses. Fatigue: How confident are you that you can keep the fatigue caused by your disease from interfering with the things you want to do? Select Number: 7 Physical Discomfort or Pain: How confident are you that you can keep the physical discomfort or pain of your disease from interfering with the things you want to do? Select Number: 7 Emotional Distress: How confident are you that you can keep the emotional distress caused by your disease from interfering with the things you want to do? Select Number: 8 Other Symptoms or Health Problems: How confident are you that you can keep other symptoms or health problems from interfering with the things you want to do? Select Number: 8 Different Tasks and Activities: How confident are you that you can do the different tasks and activities needed to manage your health condition so as to reduce your need to see a doctor? Select Number: 8 Medication: How confident are you that you can do things other than just taking medication to reduce how much your illness affects your everyday life? Select Number: 9 Total Score:: 7 Nutrition Survey - Nutrition Survey Instructions Scoring Instructions: Scoring is as follows: Yes = 1 points. No = 0 point. Patient score that is >/=12 is considered to be at potential nutritional risk and could benefit from a referral to a registered dietitian. - Nutrition Survey Initial Have you lost >10 lbs over the past 2 months without trying?: No Are you following a special diet at home for diabetes, low fat, or low salt?: No Are you interested in meeting with a dietitian for help understanding your diet?: Yes Do you eat less than 3 meals a day?: No Do you eat fatty meats (kaur, sausage, ribs, etc), fried foods, desserts, large amounts of salad dressings, margarine, butter, or cheese most days?: Yes Do you have food allergies? [Enter types in comment field]: No Do you eat in restaurants more than 3 times a week?: No Do you season food with salt, seasoning salt, or garlic salt?: Yes Do you used canned, boxed, frozen meals, or soups, seasoning packets?: No Total Score:: 3
--- NOTE | 2019-12-17 07:58 | CR.HP_ITS ---
CR - History & Physical - General Arrival date:: 12/17/19 Arrival time:: 08:01 Date of Referral:: 12/09/19 Date of CR Evaluation:: 12/17/19 Referring Physician: DR. FREDI CROOKS Primary Diagnosis: PCI W/CORONARY STENTING - History of Present Cardiac Event Onset Date: Enter Onset Date of cardiac illnesses in Comment field below PTCA or coronary stenting:: Yes - 12/08/2019 Type of Symptoms:: SHORTNESS OF BREATH AND DYSPNEA ON EXERTION, kind of an aching in the chest. Interventions with present event:: STRESS TEST-ABNORMAL HEART CATH PROCEDURE Were there any complications?: NONE - Medications Home Medications: Ambulatory Orders Medication Instructions Recorded aspirin 81 mg tablet,delayed 81 mg PO DAILY 08/04/18 release hydrochlorothiazide 25 mg tablet 12.5 mg PO QDAY tab 08/06/19 amlodipine 5 mg tablet 2.5 mg PO QDAY tab 11/13/19 ezetimibe 10 mg tablet 10 mg PO DAILY #90 tab 11/13/19 potassium chloride 20 mEq 20 meq PO BID tab 11/13/19 tablet,extended release clopidogrel 75 mg tablet 75 mg PO DAILY #30 tab 12/02/19 Atorvastatin Calcium [Lipitor] 80 mg PO QHS tab 12/09/19 Carvedilol [Coreg (Beta Luisito)] 3.125 mg PO BID tab 12/09/19 Nitroglycerin (INPATIENT USE) 0.4 mg SUBLINGUAL Q5M PRN tab.subl 12/09/19 [Nitrostat] - Allergies Allergies/Adverse Reactions: Allergies Penicillins Allergy (Verified 08/04/18 13:02) Rash valsartan Adverse Reaction (Severe, Verified 08/04/18 13:02) Joint Pain - Sleep Disorder Evaluation Hx of Sleep Apnea: Yes Do you snore loudly (louder than talking or can be heard through closed doors)?: Yes - Yes, on CPAP for 4-5 years now. Do you often feel tired/ fatigued/ sleepy during daytime?: No Has anyone observed you stop breathing during sleep?: No History of Hypertension (for STOP score): Yes STOP Results: Positive Advanced Directives - Advanced Directives Power of Risk And Insurance Consultant: Yes Living Will: Yes Advance Directives Information Provided: No Advance Directives on File: No DNR Order?:: No - MOLST See MOLST form: No Past Medical History - Covid-19 Screening Fever: No Unexplained muscle aches: No Current respiratory symptoms: No Upper respiratory infections symptoms: No Gastro-intestinal symptoms: No Izs-Lsbm-Lvjend symptoms: No Has tested positive for COVID-19 in last 30 days: No Had contact w/person w/symptoms or Covid-19 (+) last 14 days: No Has High Risk Exposures ID'd by Health dept/Inf Control team: No 65 years or older:: Yes Lives in Assisted Living facility:: No Has a chronic lung disease or moderate to severe asthma:: No Has a serious heart condition:: No Immunocompromised:: No Severely obese (Body Mass Index of 40 or higher):: No Diabetic:: No Has chronic kidney disease undergoing dialysis:: No Has liver disease:: No - Past Medical Illness Medical History: Past Medical History (Last Updated 12/09/19 @ 09:07 by Corrie Teixeira) Presence of stent in coronary artery (Chronic) Onset Date: ~12/08/19 Z95.5 Successful PTCA/ALEC to mid LAD with a 2.5 x 38 Promus Synergy, followed immediately upstream with a 2.5 x 12 Promus Synergy, post dilated proximally with a 3.0 x 8 NC Balloon; 85%-->0%, no dissection; Successful PCI with PTCA to the ostial DIAG#1 with a 2.0 x 12 balloon; 90%-->50%, no dissection per cath 12/08/19 Chest pain (Acute) R07.9 SOB (shortness of breath) on exertion (Acute) R06.02 Abnormal stress test (Acute) R94.39 Essential hypertension (Chronic) I10 Chest pain, precordial (Chronic) R07.2 Atherosclerotic heart disease of [place] coronary artery without angina pectoris (Chronic) I25.10 Hyperlipidemia (Chronic) E78.5 Family history of hypertension Z82.49 Hypertension (Inactive) I10 - Past Surgical History Surgical History: Past Surgical History (Last Updated 12/09/19 @ 09:07 by Corrie Teixeira) Presence of coronary angioplasty implant and graft (Chronic) Onset Date: ~12/08/19 Z95.5 Successful PTCA/ALEC to mid LAD with a 2.5 x 38 Promus Synergy, followed immediately upstream with a 2.5 x 12 Promus Synergy, post dilated proximally with a 3.0 x 8 NC Balloon; 85%-->0%, no dissection; Successful PCI with PTCA to the ostial DIAG#1 with a 2.0 x 12 balloon; 90%-->50%, no dissection per cath 12/08/19 H/O transurethral resection of prostate Z98.890, Z90.79 History of knee replacement procedure of left knee Z96.652 History of total right knee replacement Z96.651 S/P right rotator cuff repair Z98.890 - Family History Summary Family History: Family History (Last Reviewed 11/13/19 @ 14:41 by America Lora) Mother CHF (congestive heart failure) Brother Hypertension Son Hypertension Other Family history of hypertension Social History - Smoking History Smoking Status: Never smoker Hx Tobacco Use: No Hx Smoking Exposure: No - Alcohol Use Alcohol Usage: No - Substance Abuse Hx Substance Use: No - Occupation Occupation (List type of work in comments):: 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 [employer] Hours worked per day:: 10 - Hobbies, Recreation, Social Activities Hobbies: Farm, Other - antiquing, seeing grandchildren Recreational Activities: I am able to engage in most, but not all activities Social Environment - Status Marital Status: - Current Living Arrangements Living Environment:: Spouse - Children How many children do you have?: 4 Do any of your children live nearby?: Yes - 3 in [facility], other in [place] - Safety Do you feel safe in your surroundings?: Yes - Assistance Do you need any assistance at home?: none Review of Systems - Review of Systems Hints: Right click = Denies (Slash). Left click = Reports ([place]) Review of Present Symptoms: Reports: Operative Discomfort - still experiencing a dulll aching in the chest and upper left shoulder area from the heart cath and stent. Patient advised to let the office knwo if the discomfort becomes worse or continues., Dizziness/Lightheadedness - touch once in a while but nothing troubling or concerning.. Denies: Shortness of Breath at Rest, Shortness of Breath with Exertion - Pain Is Patient Pain Free?: Yes Pain Location: none Risk Factor Assessment - Chief Complaint Chief Complaint: THIS IS A 69/MALE OF DR. CROOKS WHO PRESENTST O CARDIAC REHAB TODAY FOLLOWING RECENT PCI INTERVENTION HERE AT [facility] ON 12/08/2019. - Vital Signs Temperature: 97.7 F Respiratory Rate: 16 Pulse Ox: 96 Blood Pressure: 144/86 - Pulse Pulse Rate: 96 Pulse Rhythm: Regular - Hypertension How long have you been treated?: 10 On medication(s)?: yes Blood Pressure Sitting - Left Arm: 144/86 - Blood Cholesterol/Lipids Total Cholesterol (mg/dL) Goal = less than 200 mg/dL: 266 HDL Cholesterol (mg/dL) Goal = less than 40 mg/dL: 47 LDL Cholesterol (mg/dL) Goal = less than 70 mg/dL: 190 Triglycerides (mg/dL) Goal = less than 150 mg/dL: 143 - Obesity Height: 5 ft 11 in Weight:: 243 lb Weight in Pounds: 243.0 lbs Weight Source: [facility] Body Mass Index (BMI): 33.9 Nutritional Referral for Obesity: Yes - Physical Inactivity Physical Inactivity: Physically demanding job - Risk Stratification Risk Guidelines: Lowest Risk: Risk Factor for Smoking, Risk Factor for Diabetes, Risk Factor for Sedentary Lifestyle, Risk Factor for Depression, Moderate Risk: Risk Factor for Dyslipidemia, Risk Factor for Hypertension, Highest Risk: Risk Factor for Obesity - For Smoking Smoking Risk Guidelines: Smoking Low Risk: None or quit greater than 6 months ago. Smoking Moderate Risk: Smoker or quit 6 months or less ago. Smoking High Risk: Smoker - For Dyslipidemia Dyslipidemia Risk Guidelines: Low Risk: Moderate Risk: High Risk: 15-25% fat 25.1-29% fat >/= 30% fat. <7% sat fat 7-9% sat fat >9% sat fat. <150 mg chol 150-299 mg chol >/= 300 mg chol. LDL <100 LDL 100-129 LDL >/= 130. Chol/HDL ratio <5.0 Chol/HDL ratio 5.0-6.0 Chol/HDL ratio >6.0. Triglycerides <100 Triglycerides 100- 149 Triglycerides >/= 150 - For Diabetes Mellitus Diabetes Risk Guidelines: Diabetes Low Risk: HgA1c <6.5% and/or FBG <120. Diabetes Moderate Risk: HgA1c 6.6-7.9% and/or FBG 120-180. Diabetes High Risk: HgA1c >/= 8% and/or FBG >180 - For Obesity/Overweight Obesity/Overweight Risk Guidelines: Obesity Low Risk: BMI <25.0. Obesity Moderate Risk: BMI 25-29.9. Obesity High Risk: BMI >/= 30.0 - For Hypertension Hypertension Risk Guidelines: Hypertension Low Risk: Systolic <120 and Diastolic <80. Hypertension Moderate Risk: Systolic 120-139 and Diastolic 80-89. Hypertension High Risk: Systolic >/= 140 and Diastolic >/= 90 - For Sedentary Lifestyle Sedentary Lifestyle Risk Guidelines: Sedentary Lifestyle Low Risk: >/= 1,500 kcal/week. Sedentary Lifestyle Moderate Risk: 700-1,499 kcal/week. Sedentary Lifestyle High Risk: < 700 kcal/week - For Depression Depression Risk Guidelines: Depression Low Risk: Not clinically depressed. Depression Moderate Risk: Mildly depressed. Depression High Risk: Clinically depressed - Family History Family History: Family History (Last Reviewed 11/13/19 @ 14:41 by America Lora) Mother CHF (congestive heart failure) Brother Hypertension Son Hypertension Other Family history of hypertension Motivation - Motivation to Participate On a scale of 1 to 10, how prepared are you to commit to attending program?: 7 What do you see as barriers to successfully being able to complete the program?: vacation planned first week december corn harvesting What do you see as the benefits of succesfully completing the program? In other words, what do you hope to get out of participating in the program?: learning how to exercise, nutrition, more energy Are there issues you are dealing with that will interfere with completing the program?: none Do you have a spouse or signficant other, family or friends who will help support you to complete the program?: yes
[2019-12-17 08:21] VITALS: BP 142/96; BP 144/86; BMI 33.9
[2019-12-17 08:36] VITALS: BP 144/86; PULSE 96; RESP 16; TEMP 36.5; O2SAT 96; BMI 33.9
== END ==
PROVIDERS: PCP Family Medicine; Referring Provider Internal Medicine Cardiovascular Disease; Visit Provider Internal Medicine Cardiovascular Disease
DX: E78.5 Hyperlipidemia, unspecified (principal); I10 Essential (primary) hypertension; I25.10 Atherosclerotic heart disease of native coronary artery without angina pectoris; Z82.49 Family history of ischemic heart disease and other diseases of the circulatory system; Z68.33 Body mass index [BMI] 33.0-33.9, adult

== ENCOUNTER 2019-12-28 08:00 | Outpatient (RCR) | payer MEDICARE, OTHER, SELFPAY ==
[2019-12-17 08:21] VITALS: BMI 33.9
[2019-12-17 08:36] VITALS: BMI 33.9
== END 2019-12-28 23:59 ==
LOC: CR 08:00
PROVIDERS: PCP Family Medicine; Referring Provider Internal Medicine Cardiovascular Disease; Visit Provider Internal Medicine Cardiovascular Disease
DX: Z95.5 Presence of coronary angioplasty implant and graft (principal); I25.10 Atherosclerotic heart disease of native coronary artery without angina pectoris
CPT/HCPCS: 93798

== ENCOUNTER 2020-01-27 08:00 | Outpatient (RCR) | payer MEDICARE, OTHER, SELFPAY ==
[2019-12-17 08:21] VITALS: BMI 33.9
[2019-12-25 10:02] VITALS: BMI 33.9
--- NOTE | 2020-01-15 07:28 | CR.ITP_ITS ---
Exercise - 30-day Assessment - Visit Date of Eval: 01/15/20 Session #:: 10 - Physician Prescribed Exercise Modalities: Treadmill, Airdyne, NuStep Frequency: 3x/week for 12 weeks [36 sessions] Intensity: 60-80% of age predicted maximum heart rate reserve Current METSs:: 4.5 increase from 4.0 Target Heart Rate:: 99-129 Current RPE:: 13-15 Maximum Excercise HR:: 109 Resting Blood Pressure: 154/86 - uncontrolled with medication Maximum Exercise Blood Pressure: 164/82 EKG Type: NSR to sinus tachycardia with occas. PAC Current Physical Activity or Exercising minutes: [place] - Outcomes & Goals Goals:: Verbalizes understanding of THR, RPE & goal METS by session 6, Documents in home exercise log/reports 30 min aerobic 5 day/wk by DC, Demonstrates accurate pulse taking by DC - Intervention & Plan Exercise Program Goals: Instruct on personal THR & RPE, Instruct on MET level & personal MET goal, Show patient to take own pulse /validate performance until accurate, Instruct on home exercise - 30-day Reassessments 30 day Reassessments:: Progressing - Physical Activity Home Exercise Physical Activity - Home Exercise: Safe Exercise, Warm-up, Self-monitoring, Cool-Down, Home Exercise > 30 min Daily, Sitting Time <3 hours/daily - Outcomes & Goals Outcomes/Goals: Demonstrates correct Warm-up/exercise Cool-Down (S3) if = 2.5 METs, Verbalizes symptoms of exercise intolerance by Session 3 (S3), Demonstrate safe equipment use (S3) & follows exercise prescrition (6) - Intervention & Plan Plan/Intervention: Instruct warm-up & cool-down if exercising at > 2 METs, Instruct on symptoms of exercise intolerance & actions to take, Instruct & monitor on saf, Assess intial functional capacity & safety risk - 30-day Reassessments 30 day Reassessments:: Progressing Nutrition - 30-Day Assessment - Program Goals Nutrition Program Goals: LDL <100 optimal. 100 - 129 Near optimal. 130 - 159 Borderline High. 160 - 189 High. Total Cholesterol <200 desirable. 200 - 239 Borderline High. >/= 240 High. HDL < 40 Low >/=60 High. Triglycerides <150 desirable. <199 optimal. VlDL 5 - 40. HgbA1C <7%. BMI <25 Patient has diagnosis of Hyperlipidemia (ICD E78)?: Yes - Visit Date of Assessment:: 01/15/20 Session #:: 10 - no updated labs - Cholesterol/Lipids Outcomes/Goals: Pt IDs own risk factors & lifestyle modifications by Session 10, Verbalizes symptoms of angina & response by session 3., Pt independently manages Intervention/Plan: Advocate for lipid panel cholesterol medication if applicable, Instruct on personal lipid levels & lipid goals/NCEP guidelines, Instruct on cholesterol Referral to dietitian:: Yes 30-day Reassessments:: Progressing - Diabetes (Other Core Measures) Diabetes Type: Not Applicable - Weight Mgt (Other Care) Not Applicable: No Height: 5 ft 11 in Weight:: 246 lb BMI: 34.2 Diagnosis Overweight/Obesity BMI> 30% ICD-10 E66: Yes Diagnosis High BMI/Morbid Obesity BMI> 35% ICD-10 Z68: No Outcomes/Goals: Pt sets, maintains & shows weight loss goal & trend during rehab Intervention/Plan: Instruct on ideal BMI & set weight loss goal w/patient, Assist pt to ID & incorporate diet changes for weight loss by S9, Refer to Structured Weight Loss program as appropriate, Encourage goal of using 250- 300dcal per session for weight loss 30 day Reassessments:: Progressing - Healthy Eating Habits Will attend diet classes:: Yes Outcomes/Goals:: Consume diet rich in vegs,fruits,whole grain/high fiber,fish,lean meat, Limit sat/trans fats,cholesterol & added salts & sugars Intervention/Plan:: Assess current eating habits 30-day Reassessments:: Progressing - Education Gave educational materials for:: Healthy eating Medical- 30-Day Assessment - Visit Date of Eval: 01/15/20 Session #:: 10 - Medication Compliance Preventative Medication(s):: Aspirin, Clopidogrel/P2Y12 inhibit, Statin/lipid, Beta lon H/O mental health issues: depression, anxiety, or addiction?: No Doesn?t believe in the benefits of treatment?: No Believes medications are unnecessary or harmful?: No Has a concern about medication side effects?: No Expresses concern over the cost of medications?: No Outcomes/Goals: Verbalizes medications,desired effect & common side effects @ DC, Pt self-reports following medication regimen, Keeps card in wallet w/medications listed by DC Interventions/plans: Instruct on medication effects & side effects, Review medication list w/patient every two weeks, Instruct importance of taking meds as ordered & assist problem solving 30-day Reassessments:: Progressing - Tobacco Use Tobacco Use: Non-smoker - Hypertension [place] [employer] Hypertension Guidelines: [place] [employer] Hypertension Guidelines. Normal BP Less than 120/80. Elevated BP 120/80. Hypertension Stage 1: BP 130-139/80-89. Hypertesnion Stage 2: BP 140 or higher/90 or higher. Hypertension Crisis: BP higher than 180/120 Outcomes/Goals: Able to verbalize/achieve optimal blood pressure <130/80, Incorporates diet changes & exercise for blood pressure control by DC Interventions/plan: Instruct on optimal blood pressure, hypertension & medications, Instruct on effects of sodium, alcohol, stress, exercise &hypertension 30 day Reassessments:: Progressing - Tobacco Cessation Referral Smoking Cessation Referral:: No Individual Education/Counseling:: No Education Schedule Given:: Yes Psychosocial - 30-Day Assess - VIsit Date of Eval: 01/15/20 Session #:: 10 Not Applicable: Yes - Target Goals Target Goals: Assess presence or absence of depression. Using a valid screening tool, maximizes coping skills. Positive support system - Psychosocial Test Tool Used:: PHQ-9 Questionnaire phq-9 Severity: Severity. 1-4 Minimal Depression. 5-9 Mild Depression. 10-14 Moderate Depression. 15-19 Moderately Sever Depression. 20-27 Severe Depression. Rule: - Referral to Behavioral Health PS - Interventions: Yes Attend Stress Management Classes, No Referral to Behavioral Health if PHQ-9 score >9:, No Referral to [facility], No Referral to Physician if PHQ-9 if score is 5-9: - Outcomes/Goals: See list Psychosocial Outcomes/Goals:: ID's personal stressors & 2 strategies to manage stress by discharge - Intervention/Plan: See List Interventions/Plan:: Assess stressors,coping strategies & signs of derpression on admission, Instruct/assist pt to develop coping & personal stress t merlin mcintyre, Instruct patient to recognize signs & symptoms of depression, Instruct patient to recog - 30-day Reassessments: 30 day Reassessments:: Progressing Patient Health Questionnaire 30-Day Re-eval Assessment 1. Little interest or pleasure in doing things: Not at all 2. Feeling down, depressed, or hopeless: Several days 3. Trouble falling or staying asleep, or sleeping too much: Not at all 4. Feeling tired or having little energy: Several days 5. Poor appetite or overeating: Not at all 6. Feeling bad about yourself -- or that you are a failure or have let yourself or your family down: Several days 7. Trouble concentrating on things, such as reading the newspaper or watching television: Not at all 8. Moving or speaking so slowly that other people could have noticed. Or the opposite - being so fidgety or restless that you have been moving around a lot more than usual: Several days 9. Thoughts that you would be better off , or of hurting yourself in some way: Several days How difficult have these problems made it for you to do your work, take care of things at home, or get along with other people?: Somewhat difficult - referral back to PCP for Depression evaluation based on PHQ-9 Total Score: 5 Self-Efficacy 30-Day Re-eval Assessment We would like to know how confident you are in doing certain activities. Please select your confidence level for:: Select your confidence level for the following using the scale 1-10 where 1 is not at all confident and 10 is totally confident. Your score is the average of all 6 responses. Fatigue: How confident are you that you can keep the fatigue caused by your disease from interfering with the things you want to do? Select Number: 8 Physical Discomfort or Pain: How confident are you that you can keep the physical discomfort or pain of your disease from interfering with the things you want to do? Select Number: 8 Emotional Distress: How confident are you that you can keep the emotional distress caused by your disease from interfering with the things you want to do? Select Number: 8 Other Symptoms or Health Problems: How confident are you that you can keep other symptoms or health problems from interfering with the things you want to do? Select Number: 8 Different Tasks and Activities: How confident are you that you can do the different tasks and activities needed to manage your health condition so as to reduce your need to see a doctor? Select Number: 8 Medication: How confident are you that you can do things other than just taking medication to reduce how much your illness affects your everyday life? Select Number: 8 Total Score:: 8
[2020-01-15 07:40] VITALS: BP 154/86; BMI 34.2
== END 2020-01-27 23:59 ==
LOC: CR 08:00
PROVIDERS: PCP Family Medicine; Referring Provider Internal Medicine Cardiovascular Disease; Visit Provider Internal Medicine Cardiovascular Disease
DX: I25.10 Atherosclerotic heart disease of native coronary artery without angina pectoris (principal); Z95.5 Presence of coronary angioplasty implant and graft
CPT/HCPCS: 93798

== ENCOUNTER 2020-02-26 08:00 | Outpatient (RCR) | payer MEDICARE, OTHER, SELFPAY ==
[2019-12-25 10:02] VITALS: BMI 33.9
[2020-01-15 07:40] VITALS: BMI 34.2
[2020-01-28 00:40] VITALS: BP 154/86
--- NOTE | 2020-02-12 07:07 | PCM.CR.ITP ---
Exercise - 60-day Assessment - Visit Date of Eval: 02/12/20 Session #:: 23 - Physician Prescribed Exercise Modalities: Treadmill, Airdyne, NuStep Frequency: 3x/week for 12 weeks [36 sessions] Intensity: 60-80% of age predicted maximum heart rate reserve Current METSs:: 5.0 no increase; patient states maximal level Target Heart Rate:: 99-129 Current RPE:: 11-12 Maximum Excercise HR:: 103 Resting Blood Pressure: 144/86 Maximum Exercise Blood Pressure: 172/72 EKG Type: NSR to sinus tachycardia with rare isolated PAC. - Outcomes & Goals Goals:: Verbalizes understanding of THR, RPE & goal METS by session 6, Documents in home exercise log/reports 30 min aerobic 5 day/wk by DC, Demonstrates accurate pulse taking by DC - Intervention & Plan Exercise Program Goals: Instruct on personal THR & RPE, Instruct on MET level & personal MET goal, Show patient to take own pulse /validate performance until accurate, Instruct on home exercise - 30-day Reassessments 30 day Reassessments:: Progressing - Physical Activity Home Exercise Physical Activity - Home Exercise: Safe Exercise, Warm-up, Self-monitoring, Cool-Down, Home Exercise > 30 min Daily, Sitting Time <3 hours/daily - Outcomes & Goals Outcomes/Goals: Demonstrates correct Warm-up/exercise Cool-Down (S3) if = 2.5 METs, Verbalizes symptoms of exercise intolerance by Session 3 (S3), Demonstrate safe equipment use (S3) & follows exercise prescrition (6) - Intervention & Plan Plan/Intervention: Instruct warm-up & cool-down if exercising at > 2 METs, Instruct on symptoms of exercise intolerance & actions to take, Instruct & monitor on saf, Assess intial functional capacity & safety risk - 30-day Reassessments 30 day Reassessments:: Progressing Nutrition - 60-Day Assessment - Program Goals Nutrition Program Goals: LDL <100 optimal. 100 - 129 Near optimal. 130 - 159 Borderline High. 160 - 189 High. Total Cholesterol <200 desirable. 200 - 239 Borderline High. >/= 240 High. HDL < 40 Low >/=60 High. Triglycerides <150 desirable. <199 optimal. VlDL 5 - 40. HgbA1C <7%. BMI <25 Patient has diagnosis of Hyperlipidemia (ICD E78)?: Yes - Visit Date of Assessment:: 02/12/20 Session #:: 23 - no updated lipid profile available - Cholesterol/Lipids Determine presence & major risk factors that modify LDL goal: Hypertension or hypertensive medication, Age men > 45 years; women >/= 55 years Outcomes/Goals: Pt IDs own risk factors & lifestyle modifications by Session 10, Verbalizes symptoms of angina & response by session 3., Pt independently manages Intervention/Plan: Instruct on personal lipid levels & lipid goals/NCEP guidelines, Instruct on cholesterol Referral to dietitian:: No 30-day Reassessments:: Progressing - Diabetes (Other Core Measures) Diabetes Type: Not Applicable - Weight Mgt (Other Care) Height: 5 ft 11 in Weight:: 245 lb 8 oz - loss 1.5 pounds BMI: 34.2 Diagnosis Overweight/Obesity BMI> 30% ICD-10 E66: Yes Diagnosis High BMI/Morbid Obesity BMI> 35% ICD-10 Z68: No Outcomes/Goals: Pt sets, maintains & shows weight loss goal & trend during rehab Intervention/Plan: Instruct on ideal BMI & set weight loss goal w/patient, Assist pt to ID & incorporate diet changes for weight loss by S9, Refer to Structured Weight Loss program as appropriate, Encourage goal of using 250-300dcal per session for weight loss 30 day Reassessments:: Not Met - Healthy Eating Habits Will attend diet classes:: Yes Outcomes/Goals:: Consume diet rich in vegs,fruits,whole grain/high fiber,fish,lean meat, Limit sat/trans fats,cholesterol & added salts & sugars Intervention/Plan:: Assess current eating habits 30-day Reassessments:: Progressing - Education Gave educational materials for:: Healthy eating Medical- 60-Day Assessment - Visit Date of Eval: 02/12/20 Session #:: 23 - Medication Compliance Preventative Medication(s):: Aspirin, Statin/lipid, Beta lon H/O mental health issues: depression, anxiety, or addiction?: No Doesn?t believe in the benefits of treatment?: No Believes medications are unnecessary or harmful?: No Has a concern about medication side effects?: No Expresses concern over the cost of medications?: No Outcomes/Goals: Verbalizes medications,desired effect & common side effects @ DC, Pt self-reports following medication regimen, Keeps card in wallet w/medications listed by DC Interventions/plans: Instruct on medication effects & side effects, Review medication list w/patient every two weeks, Instruct importance of taking meds as ordered & assist problem solving 30-day Reassessments:: Progressing - Tobacco Use Tobacco Use: Non-smoker - Hypertension Hypertension Diagnosis:: Hypertension ICD-10 I10 Resting Blood Pressure:: 144/86 [place] [employer] Hypertension Guidelines: [place] [employer] Hypertension Guidelines. Normal BP Less than 120/80. Elevated BP 120/80. Hypertension Stage 1: BP 130-139/80-89. Hypertesnion Stage 2: BP 140 or higher/90 or higher. Hypertension Crisis: BP higher than 180/120 Peak Exercise Blood Pressure:: 172/72 Outcomes/Goals: Able to verbalize/achieve optimal blood pressure <130/80, Incorporates diet changes & exercise for blood pressure control by DC Interventions/plan: Instruct on optimal blood pressure, hypertension & medications, Instruct on effects of sodium, alcohol, stress, exercise &hypertension 30 day Reassessments:: Progressing - Tobacco Cessation Referral Smoking Cessation Referral:: No Individual Education/Counseling:: No Education Schedule Given:: Yes Psychosocial - 60-Day Assess - VIsit Date of Eval: 02/12/20 Session #:: 23 Not Applicable: Yes History of previous Mental disease:: No - Target Goals Target Goals: Assess presence or absence of depression. Using a valid screening tool, maximizes coping skills. Positive support system - Psychosocial Test Tool Used:: PHQ-9 Questionnaire phq-9 Severity: Severity. 1-4 Minimal Depression. 5-9 Mild Depression. 10-14 Moderate Depression. 15-19 Moderately Sever Depression. 20-27 Severe Depression. Rule: - Referral to Behavioral Health PS - Interventions: Yes Attend Stress Management Classes, No Referral to Behavioral Health if PHQ-9 score >9:, No Referral to [facility], No Referral to Physician if PHQ-9 if score is 5-9: - Outcomes/Goals: See list Psychosocial Outcomes/Goals:: ID's personal stressors & 2 strategies to manage stress by discharge - Intervention/Plan: See List Interventions/Plan:: Assess stressors,coping strategies & signs of derpression on admission, Instruct/assist pt to develop coping & personal stress Mgt strategies, Instruct patient to recognize signs & symptoms of depression, Instruct patient to recog - 30-day Reassessments: 30 day Reassessments:: Met Patient Health Questionnaire 60-Day Re-eval Assessment 1. Little interest or pleasure in doing things: Not at all 2. Feeling down, depressed, or hopeless: Not at all 3. Trouble falling or staying asleep, or sleeping too much: Not at all 4. Feeling tired or having little energy: Not at all 5. Poor appetite or overeating: Not at all 6. Feeling bad about yourself -- or that you are a failure or have let yourself or your family down: Not at all 7. Trouble concentrating on things, such as reading the newspaper or watching television: Not at all 8. Moving or speaking so slowly that other people could have noticed. Or the opposite - being so fidgety or restless that you have been moving around a lot more than usual: Not at all 9. Thoughts that you would be better off , or of hurting yourself in some way: Not at all Total Score: 0 Self-Efficacy 60-Day Re-eval Assessment We would like to know how confident you are in doing certain activities. Please select your confidence level for:: Select your confidence level for the following using the scale 1-10 where 1 is not at all confident and 10 is totally confident. Your score is the average of all 6 responses. Fatigue: How confident are you that you can keep the fatigue caused by your disease from interfering with the things you want to do? Select Number: 10 Physical Discomfort or Pain: How confident are you that you can keep the physical discomfort or pain of your disease from interfering with the things you want to do? Select Number: 10 Emotional Distress: How confident are you that you can keep the emotional distress caused by your disease from interfering with the things you want to do? Select Number: 10 Other Symptoms or Health Problems: How confident are you that you can keep other symptoms or health problems from interfering with the things you want to do? Select Number: 10 Different Tasks and Activities: How confident are you that you can do the different tasks and activities needed to manage your health condition so as to reduce your need to see a doctor? Select Number: 10 Medication: How confident are you that you can do things other than just taking medication to reduce how much your illness affects your everyday life? Select Number: 10 Total Score:: 10
[2020-02-12 07:13] VITALS: BP 144/86; BP 172/72; BMI 34.2
== END 2020-02-27 23:59 ==
LOC: CR 08:00
PROVIDERS: PCP Family Medicine; Referring Provider Internal Medicine Cardiovascular Disease; Visit Provider Internal Medicine Cardiovascular Disease
DX: I25.10 Atherosclerotic heart disease of native coronary artery without angina pectoris (principal); Z95.5 Presence of coronary angioplasty implant and graft
CPT/HCPCS: 93798

== ENCOUNTER → 2020-03-04 08:39 | Outpatient (CLI) | payer MEDICARE, OTHER, SELFPAY ==
[2019-12-25 10:02] VITALS: BMI 33.9
[2020-02-12 07:13] VITALS: BMI 34.2
[2020-03-04 10:05] LABS: AST(SGOT) 26 U/L (15-37); Alanine Aminotransfer ALT/SGPT 51 U/L (16-61); Albumin, Serum 3.9 g/dL (3.2-5.0); Alkaline Phosphatase 86 U/L (45-117); Cholesterol 212 mg/dL (200); High Density Lipoprotein 49 mg/dL; Protein, Total 7.9 g/dL (6.4-8.2); Triglycerides 144 mg/dL; Very Low Density Lipoprotein 29 mg/dL (5-40)
== END ==
PROVIDERS: PCP Family Medicine; Visit Provider Physician Assistant Medical
DX: E78.00 Pure hypercholesterolemia, unspecified (principal); I25.10 Atherosclerotic heart disease of native coronary artery without angina pectoris; E78.5 Hyperlipidemia, unspecified; I10 Essential (primary) hypertension; R07.2 Precordial pain; R06.00 Dyspnea, unspecified
CPT/HCPCS: 36415; 80061; 80076

== ENCOUNTER 2020-03-11 08:00 | Outpatient (RCR) | payer MEDICARE, OTHER, SELFPAY ==
[2019-12-25 10:02] VITALS: BMI 33.9
[2020-02-12 07:13] VITALS: BMI 34.2
[2020-02-28 00:25] VITALS: BP 144/86; BP 172/72
--- NOTE | 2020-03-16 06:55 | PCM.CR.ITP ---
Exercise - Final/Discharge - Visit Date of Eval: 03/16/20 Session #:: 32 - Physician Prescribed Exercise Modalities: Treadmill, Airdyne, NuStep Frequency: 3x/week for 12 weeks [36 sessions] Intensity: 60-80% of age predicted maximum heart rate reserve Current METSs:: 5.0 originally started at 2.5 METs Target Heart Rate:: 99-129 Current RPE:: 11-12 Maximum Excercise HR:: 106 Resting Blood Pressure: 148/88 - still not well controlled with medications. Maximum Exercise Blood Pressure: 162/90 EKG Type: NSR to sinus tachycardia without ectopy. - Outcomes & Goals Goals:: Verbalizes understanding of THR, RPE & goal METS by session 6, Documents in home exercise log/reports 30 min aerobic 5 day/wk by DC, Demonstrates accurate pulse taking by DC - Intervention & Plan Exercise Program Goals: Instruct on personal THR & RPE, Instruct on MET level & personal MET goal, Show patient to take own pulse /validate performance until accurate, Instruct on home exercise - 30-day Reassessments 30 day Reassessments:: Met - Physical Activity Home Exercise Physical Activity - Home Exercise: Safe Exercise, Warm-up, Self-monitoring, Cool-Down, Home Exercise > 30 min Daily, Sitting Time <3 hours/daily - Outcomes & Goals Outcomes/Goals: Demonstrates correct Warm-up/exercise Cool-Down (S3) if = 2.5 METs, Verbalizes symptoms of exercise intolerance by Session 3 (S3), Demonstrate safe equipment use (S3) & follows exercise prescrition (6) - Intervention & Plan Plan/Intervention: Instruct warm-up & cool-down if exercising at > 2 METs, Instruct on symptoms of exercise intolerance & actions to take, Instruct & monitor on saf, Assess intial functional capacity & safety risk - 30-day Reassessments 30 day Reassessments:: Met Nutrition - Final Assessment - Program Goals Nutrition Program Goals: LDL <100 optimal. 100 - 129 Near optimal. 130 - 159 Borderline High. 160 - 189 High. Total Cholesterol <200 desirable. 200 - 239 Borderline High. >/= 240 High. HDL < 40 Low >/=60 High. Triglycerides <150 desirable. <199 optimal. VlDL 5 - 40. HgbA1C <7%. BMI <25 Patient has diagnosis of Hyperlipidemia (ICD E78)?: Yes - Visit Date of Assessment:: 03/16/20 Session #:: 32 - no recent update to labs drawn - Cholesterol/Lipids Determine presence & major risk factors that modify LDL goal: Hypertension or hypertensive medication, Family history of premature CHD in Male < 55 years: female <65 yearsFa, Age men > 45 years; women >/= 55 years Outcomes/Goals: Pt IDs own risk factors & lifestyle modifications by Session 10, Verbalizes symptoms of angina & response by session 3., Pt independently manages Intervention/Plan: Instruct on personal lipid levels & lipid goals/NCEP guidelines, Instruct on cholesterol Referral to dietitian:: No 30-day Reassessments:: Met - Diabetes (Other Core Measures) Diabetes Type: Not Applicable - Weight Mgt (Other Care) Not Applicable: No Height: 5 ft 11 in Weight:: 246 lb BMI: 34.2 Diagnosis Overweight/Obesity BMI> 30% ICD-10 E66: Yes Diagnosis High BMI/Morbid Obesity BMI> 35% ICD-10 Z68: No Outcomes/Goals: Pt sets, maintains & shows weight loss goal & trend during rehab Intervention/Plan: Instruct on ideal BMI & set weight loss goal w/patient, Assist pt to ID & incorporate diet changes for weight loss by S9, Encourage goal of using 250-300dcal per session for weight loss 30 day Reassessments:: Not Met - Patient made little effort to lose weight during the program. - Healthy Eating Habits Will attend diet classes:: Yes Outcomes/Goals:: Consume diet rich in vegs,fruits,whole grain/high fiber,fish,lean meat, Limit sat/trans fats,cholesterol & added salts & sugars Intervention/Plan:: Assess current eating habits 30-day Reassessments:: Not Met Medical - Final Assessment - Visit Date of Eval: 03/16/20 Session #:: 32 - Medication Compliance Preventative Medication(s):: Aspirin, Clopidogrel/P2Y12 inhibit, Statin/lipid, Beta lon H/O mental health issues: depression, anxiety, or addiction?: Yes Doesn?t believe in the benefits of treatment?: No Believes medications are unnecessary or harmful?: No Has a concern about medication side effects?: No Expresses concern over the cost of medications?: No Outcomes/Goals: Verbalizes medications,desired effect & common side effects @ DC, Pt self-reports following medication regimen, Keeps card in wallet w/medications listed by DC Interventions/plans: Instruct on medication effects & side effects, Review medication list w/patient every two weeks, Instruct importance of taking meds as ordered & assist problem solving 30-day Reassessments:: Met - Tobacco Use Tobacco Use: Non-smoker - Hypertension Hypertension Diagnosis:: Hypertension ICD-10 I10 Resting Blood Pressure:: 148/88 - still not well controlled with medications and sodium reduction [place] [employer] Hypertension Guidelines: [place] [employer] Hypertension Guidelines. Normal BP Less than 120/80. Elevated BP 120/80. Hypertension Stage 1: BP 130-139/80-89. Hypertesnion Stage 2: BP 140 or higher/90 or higher. Hypertension Crisis: BP higher than 180/120 Peak Exercise Blood Pressure:: 162/90 Outcomes/Goals: Able to verbalize/achieve optimal blood pressure <130/80, Incorporates diet changes & exercise for blood pressure control by DC Interventions/plan: Instruct on optimal blood pressure, hypertension & medications, Instruct on effects of sodium, alcohol, stress, exercise &hypertension 30 day Reassessments:: Not Met - Tobacco Cessation Referral Smoking Cessation Referral:: No Individual Education/Counseling:: No Education Schedule Given:: Yes Psychosocial - Final Assessmen - VIsit Date of Eval: 03/16/20 Session #:: 32 Not Applicable: Yes History of previous Mental disease:: No - Target Goals Target Goals: Assess presence or absence of depression. Using a valid screening tool, maximizes coping skills. Positive support system - Psychosocial Test Tool Used:: Radha Pacheco QOL Cardiac, PHQ-9 Questionnaire phq-9 Severity: Severity. 1-4 Minimal Depression. 5-9 Mild Depression. 10-14 Moderate Depression. 15-19 Moderately Sever Depression. 20-27 Severe Depression. Rule: - Referral to Behavioral Health PS - Interventions: Yes Attend Stress Management Classes, No Referral to Behavioral Health if PHQ-9 score >9:, No Referral to [facility], No Referral to Physician if PHQ-9 if score is 5-9: - Outcomes/Goals: See list Psychosocial Outcomes/Goals:: ID's personal stressors & 2 strategies to manage stress by discharge - Intervention/Plan: See List Interventions/Plan:: Assess stressors,coping strategies & signs of derpression on admission, Instruct/assist pt to develop coping & personal stress Mgt strategies, Instruct patient to recognize signs & symptoms of depression, Instruct patient to recog - 30-day Reassessments: 30 day Reassessments:: Progressing Patient Health Questionnaire Discharge Assessment 1. Little interest or pleasure in doing things: Not at all 2. Feeling down, depressed, or hopeless: Not at all 3. Trouble falling or staying asleep, or sleeping too much: Several days 4. Feeling tired or having little energy: Several days 5. Poor appetite or overeating: Not at all 6. Feeling bad about yourself -- or that you are a failure or have let yourself or your family down: Not at all 7. Trouble concentrating on things, such as reading the newspaper or watching television: Not at all 8. Moving or speaking so slowly that other people could have noticed. Or the opposite - being so fidgety or restless that you have been moving around a lot more than usual: Not at all 9. Thoughts that you would be better off , or of hurting yourself in some way: Not at all Total Score: 2 [place]-Q SV Test - Statements CAD is a disease of the arteries in the heart: False Examples of risk factors for heart disease: True Angina is chest pain or discomfort: True The benefits of resistance training include: True Eating more meat and dairy products: False Anti-platelet medications such as aspirin are important: True The only effective way to manage stress: False An exercise warm-up slowly increases heart rate: True Prepared, processed foods usually have high sodium: True Depression is common after a heart attack: True The statin medications lower cholesterol: True To control blood pressure, lower the amount of sodium: True If someone gets chest discomfort during walking: False Transfats are partially hydrogenated vegetable oils: True Sleep apnea that is not treated increases the risk: False To control cholesterol, one should become a vegetarian: False Someone knows if he/she is exercising at the right level: True Diabetes cannot be prevented with exercise & health eating: False Stress is a large risk for heart attack: True A diet that can help lower blood pressure is rich in: True - Total Score Total Correct Responses: 20 Self-Efficacy Discharge Assessment We would like to know how confident you are in doing certain activities. Please select your confidence level for:: Select your confidence level for the following using the scale 1-10 where 1 is not at all confident and 10 is totally confident. Your score is the average of all 6 responses. Fatigue: How confident are you that you can keep the fatigue caused by your disease from interfering with the things you want to do? Select Number: 10 Physical Discomfort or Pain: How confident are you that you can keep the physical discomfort or pain of your disease from interfering with the things you want to do? Select Number: 10 Emotional Distress: How confident are you that you can keep the emotional distress caused by your disease from interfering with the things you want to do? Select Number: 10 Other Symptoms or Health Problems: How confident are you that you can keep other symptoms or health problems from interfering with the things you want to do? Select Number: 10 Different Tasks and Activities: How confident are you that you can do the different tasks and activities needed to manage your health condition so as to reduce your need to see a doctor? Select Number: 10 Medication: How confident are you that you can do things other than just taking medication to reduce how much your illness affects your everyday life? Select Number: 10 Total Score:: 10 Nutrition Survey - Nutrition Survey Instructions Scoring Instructions: Scoring is as follows: Yes = 1 points. No = 0 point. Patient score that is >/=12 is considered to be at potential nutritional risk and could benefit from a referral to a registered dietitian. - Nutrition Survey Discharge Have you lost >10 lbs over the past 2 months without trying?: No Are you following a special diet at home for diabetes, low fat, or low salt?: No Are you interested in meeting with a dietitian for help understanding your diet?: No Do you eat less than 3 meals a day?: No Do you eat fatty meats (kaur, sausage, ribs, etc), fried foods, desserts, large amounts of salad dressings, margarine, butter, or cheese most days?: Yes Do you have food allergies? [Enter types in comment field]: No Do you eat in restaurants more than 3 times a week?: No Do you season food with salt, seasoning salt, or garlic salt?: Yes Do you used canned, boxed, frozen meals, or soups, seasoning packets?: Yes Total Score:: 3
[2020-03-16 07:02] VITALS: BP 148/88; BP 162/90; BMI 34.2
== END 2020-03-28 23:59 ==
LOC: CR 08:00
PROVIDERS: PCP Family Medicine; Referring Provider Internal Medicine Cardiovascular Disease; Visit Provider Internal Medicine Cardiovascular Disease
DX: I25.10 Atherosclerotic heart disease of native coronary artery without angina pectoris (principal); Z95.5 Presence of coronary angioplasty implant and graft
CPT/HCPCS: 93798

== ENCOUNTER 2020-03-16 06:37 | Day surgery (SDC) | payer MEDICARE, OTHER, SELFPAY ==
[2019-12-25 10:02] VITALS: BMI 33.9
[2020-02-12 07:13] VITALS: BMI 34.2
[2020-03-14 14:13] LABS: Hematocrit 49.5 % (40-54); Hemoglobin 15.9 g/dL (13.0-16.5); Mean Corp Hgb Conc 32.1 g/dL (32-36); Mean Corpuscular Volume 87.3 fL (80-94); Mean Platelet Vol. 8.9 fl (6.2-12.0); Platelet Count 229 K/mm3 (150-450); RBC Distribution Width CV 12.5 % (11.6-14.6); RBC Distribution Width SD 40.5 fl (35.1-43.9); Red Blood Count 5.67 M/mm3 (4.6-6.2); White Blood Count 4.3 K/mm3 (4.4-11.0)
[2020-03-14 14:24] LABS: Prothrombin Time (Protime)PT. 13.1 SECONDS (11.7-14.9)
[2020-03-14 14:25] LABS: Partial Thromboplast Time 32.4 Seconds (24.1-36.2)
[2020-03-14 15:00] LABS: Anion Gap 4 (5-15); BUN 17 mg/dL (7-18); BUN/Creat Ratio 14.4 RATIO (10-20); Calcium,Total 8.9 mg/dL (8.5-10.1); Chloride 102 mmol/L (98-107); Creatinine, Serum 1.18 mg/dL (0.70-1.30); EST Glomerular Filtration Rate 65 mL/min (>60); Est Glom Filt Rate - Afr Amer 79 mL/min (>60); Glucose 127 mg/dL (74-106); Potassium 3.7 mmol/L (3.5-5.1); Sodium Level 139 mmol/L (136-145)
[2020-03-15 11:17] VITALS: BMI 33.9
[2020-03-16] VITALS (18 sets, daily range): BP systolic 125–158; BP diastolic 71–89; PULSE 46–87; RESP 14–18; TEMP 36.6–37.1; O2SAT 92–96; BMI 34.0
--- NOTE | 2020-03-16 07:42 | HP.PCM_ITS ---
Problem List (1) Abnormal stress test Status: Acute (2) Chest pain Status: Acute (3) CAD (coronary artery disease) Status: Chronic (4) Presence of stent in coronary artery Status: Chronic Comment: Successful PTCA/ALEC to mid LAD with a 2.5 x 38 Promus Synergy, followed immediately upstream with a 2.5 x 12 Promus Synergy, post dilated proximally with a 3.0 x 8 NC Balloon; 85%-->0%, no dissection; Successful PCI with PTCA to the ostial DIAG#1 with a 2.0 x 12 balloon; 90%-->50%, no dissection per cath 12/08/19 (5) Hyperlipidemia Status: Chronic Qualifiers: (6) Essential hypertension Status: Chronic History and Physical Date of Admission: 03/16/20 [facility] [address] [place] [address] OFFICE VISIT Date of Service: 12/25/19 MR#: [id number] Acct: [id number] Name: HENRI SILVESTRE Rep #: [id number] : 1950 Provider: BARAK Eckert Age/Sex: 69/M Location: [facility] Status: Signed HPI HPI History of Present Illness Details: This is a 69 year-old white male who presents today for outpatient cardiovascular follow-up with a history of CAD previously thought to be non- angiographically significant, hyperlipidemia, and hypertension. Pt started cardiac rehab this past week. He does feel better. He does occasionally have chest heaviness. He sts that this is not brought on by anything in particular but does feel better since his stenting. He does not have an does not have any worsening SOB. He does not have any palpitations that you are aware of. He does not have any lightheadedness/dizziness. He does not have any syncope. He does occasionally have edema. He questions of his his is having more muscle aches since starting his statin. He is an active nava. In reviewing his medications it appears he did not start his coreg. Intake Vital Signs 12/25/19 Height 5 ft 11 in 12/25/19 Weight: 243 lb 12/25/19 BP 156/90 H 12/25/19 Blood Pressure Location Lt brachial 12/25/19 Position Sitting 12/25/19 Respiration 18 12/25/19 Pulse 80 12/25/19 Pulse Source Monitor 12/25/19 Pulse Oximetry (%) 95 Intake Visit Reasons: POST PCI Guncotton Packer Required: No Accompanied by: None Is patient in pain?: No Allergies Penicillins Allergy (Verified 12/25/19 10:02) Rash valsartan Adverse Reaction (Severe, Verified 12/25/19 10:02) Joint Pain Medications aspirin 81 mg tablet,delayed release 81 mg PO DAILY 08/04/18 [History Confirmed 12/07/19] ezetimibe 10 mg tablet 10 mg PO DAILY #90 tab 11/13/19 [Rx Confirmed 12/07/19] potassium chloride 20 mEq tablet,extended release 20 meq PO BID tab 11/13/19 [History Confirmed 12/07/19] Nitroglycerin (INPATIENT USE) [Nitrostat] 0.4 mg SUBLINGUAL Q5M PRN tab.subl 12/09/19 [Rx] amlodipine 2.5 mg tablet 2.5 mg PO QDAY #30 tab 12/25/19 [Rx Confirmed 12/25/19] atorvastatin 40 mg tablet 40 mg PO QHS #30 tab 12/25/19 [Rx Confirmed 12/25/19] carvedilol 3.125 mg tablet 3.125 mg PO BID #60 tab 12/25/19 [Rx Confirmed 12/25/19] clopidogrel 75 mg tablet 75 mg PO DAILY #30 tab 12/25/19 [Rx Confirmed 12/25/19] hydrochlorothiazide 12.5 mg tablet 12.5 mg PO QDAY #30 tab 12/25/19 [Rx Con firmed 12/25/19] [facility] Medical History Presence of stent in coronary artery (Chronic ~12/08/19) Chest pain (Acute) SOB (shortness of breath) on exertion (Acute) Abnormal stress test (Acute) Essential hypertension (Chronic) Chest pain, precordial (Chronic) Atherosclerotic heart disease of [place] coronary artery without angina pectoris (Chronic) Hyperlipidemia (Chronic) Family history of hypertension (Chronic) Hypertension (Inactive) Surgical History Presence of coronary angioplasty implant and graft (Chronic ~12/08/19) H/O transurethral resection of prostate (Resolved) History of knee replacement procedure of left knee (Resolved) History of total right knee replacement (Resolved) S/P right rotator cuff repair (Resolved) Family History Mother CHF (congestive heart failure) Brother Hypertension Son Hypertension Other Family history of hypertension Social History (Updated 12/28/19 @ 17:11 by BARAK Torres) Smoking Status: Never smoker alcohol intake: never substance use type: does not use ROS Const Const: Negative for fatigue, weakness, fever(s) or headache(s) Eyes Eyes: Negative for blind spots, loss of peripheral vision or transient loss of vision ENT ENT: Negative for headache(s), dizziness, tinnitus or Nosebleed/epistaxis Cardio Chest Pain: Yes Palpitations: No Edema: None Muscle aches with walking: None Resp Respiratory: Positive for SOB with activity; negative for SOB at rest, SOB orthopnea\SOB lying down or Cough GI GI: Negative nausea, vomiting, heartburn or vomiting blood/hematemesis : Negative for hematuria Musc Musc: Positive for muscle aches/ myalgia Neuro Neuro: Negative for dizziness, lightheadedness, near syncope, syncope, orthostatic symptoms, headache(s) or weakness Yobani Hematologic/Lymphatic: Negative for easy bleeding Endo Endo: Negative for fatigue Cardiology Exam Const Appearance: cooperative, healthy appearing, comfortable, no acute distress, well developed and well groomed Nutritional Appearance: average body habitus Orientation: alert, awake and oriented x3 Head Head: normal to inspection, normocephalic and atraumatic Ears: hearing grossly normal bilaterally Nose: external nose normal Face and Sinus: face symmetric Eyes Eyelids: eyelids normal Conjunctivae: conjunctivae normal Pupils: PERRL EOM: EOM intact bilaterally Neck Neck: normal visual inspection and full ROM Carotids: normal carotid upstroke Chest Chest inspection: normal inspection of the chest, symmetric chest movement and normal respiratory effort Auscultation: Bilateral: Clear to Auscultation Cardio Palpation: normal PMI Rate: regular rate Rhythm: regular rhythm Heart sounds: S1 normal and S2 normal GI GI: normal to inspection, soft and bowel sounds present Neuro General: alert, awake, oriented x3 and moves all extremities Skin Skin: no rashes or lesions noted Extremities Pulses: Normal: Right Radial Pulse, Left Radial Pulse Lower Extremity Edema: +1: Bilateral Psych Psychological: normal affect Assessment & Plan 1. Atherosclerosis of [place] coronary artery of [place] heart without angina pectoris I25.10 Plan Patient does not have any symptoms of angina. He will continue with aggressive medical management. We will have him start his Coreg. He is aware that he needs to continue with his Plavix for at least 1 year prior to interrupting. 2. Essential hypertension I10 Plan Blood pressure is on the higher side. We will have him start his Coreg. We will continue to monitor this. Patient Instructions I started you on Coreg at 3.125 mg twice a day, this is the one they wanted you to start after her heart cath. This helps with blood pressure 3. Hyperlipidemia, unspecified hyperlipidemia type E78.5 Plan Patient does seem to be intolerant to statins. Will decrease his atorvastatin to 40 mg daily. He will call us with an update on how he is feeling. May consider adding Repatha Patient Instructions Decrease your atorvastatin to 40 mg a day. You are on 80 mg a day. Let us know if you are on Zetia. If your muscle are not any better or getting worse call the office Plan Detail Other Medications Changed: From: atorvastatin 80 mg PO QHS 0RF To: atorvastatin 40 mg PO QHS 30 tabs 11RF From: amlodipine 2.5 mg PO QDAY BP To: amlodipine 2.5 mg PO QDAY 30 tabs 11RF BP From: clopidogrel For Cardiac Cath 75 mg PO DAILY 30 tabs 3RF To: clopidogrel 75 mg PO DAILY 30 tabs 11RF From: hydrochlorothiazide 12.5 mg PO QDAY blood pressure To: hydrochlorothiazide 12.5 mg PO QDAY 30 tabs 11RF blood pressure Refilled: carvedilol 3.125 mg PO BID 60 tabs 11RF Follow Up 12/25/19 (keep as is with [facility]) 12/25/19 (PFM 6 months from there) Coding Level of Care Code Off vis,est,level 4 Diagnoses Atherosclerosis of [place] coronary artery of [place] heart without angina pectoris I25.10 ??[place] vs. transplanted heart: [place] heart Essential hypertension I10 Hyperlipidemia, unspecified hyperlipidemia type E78.5 ??Hyperlipidemia type: unspecified Coding Level of Care Code Off vis,est,level 4 Diagnoses Atherosclerosis of [place] coronary artery of [place] heart without angina pectoris I25.10 ??[place] vs. transplanted heart: [place] heart Essential hypertension I10 Hyperlipidemia, unspecified hyperlipidemia type E78.5 ??Hyperlipidemia type: unspecified Supplemental Info Supplemental Information Stress Test Report Date: 12-01-2019 Procedure: Exercise tolerance test/imaging study Indications: Chest pain; CAD Consent: Per the patient Procedure: The patient exercised on a Krzysztof protocol for 7 minutes completing completing Stage II and 1 minute of Stage III achieving a peak heart rate of 131 bpm (86 % predicted maximal heart rate) with a peak blood pressure 204/98 mmHg and a peak MET capacity of 8 METs. The baseline ECG demonstrated normal sinus rhythm. The peak exercise ECG demonstrated somatic/motion artifact with no obvious ECG changes and recovery ECG demonstrating transient 0.5 to 1[address] segment depression in lead II and aVF and approximately 0.[address] segment depression in lead III with subsequent gradual resolution towards baseline. There was a rare premature ectopic complex during early recovery. The functional capacity was considered average. There was left upper arm/shoulder discomfort during exercise with spontaneous resolution in recovery. The examination was discontinued secondary to dyspnea, fatigue, and left upper arm/shoulder discomfort. Impression: 1. Technically adequate (percent predicted maximal heart rate greater than 85%) exercise tolerance test 2. Peak exercise ECG with somatic/motion artifact with no obvious ECG changes and recovery ECG demonstrating transient 0.5 to 1[address] segment depression in lead II and aVF and approximately 0.[address] segment depression in lead III with subsequent gradual resolution towards baseline 3. There was a rare premature ectopic complex during early recovery 4. Nuclear images pending Myocardial perfusion imaging study: Technique: The patient was injected with 14.4 mCi of technetium 99m Cardiolite and subsequently rest SPECT Cardiolite nuclear imaging was obtained in the horizon alejandro long, vertical long, and short axis views. The patient exercised on a Krzysztof protocol for 7 minutes completing completing Stage II and 1 minute of Stage III achieving a peak heart rate of 131 bpm (86 % predicted maximal heart rate) with a peak blood pressure 204/98 mmHg and a peak MET capacity of 8 METs. The patient was injected with 44.5 mCi of technetium 99m Cardiolite and subsequently stress SPECT Cardiolite nuclear imaging was obtained in the horizontal long, vertical long, and short axis views. A gated Cardiolite study at peak stress was obtained. Interpretation: Rest and stress SPECT Cardiolite nuclear imaging status post realignment, normalization, and attenuation correction, demonstrates at rest the appearance of relative uniform tracer uptake and myocardial perfusion appearing within normal limits. Status post stress there is notation of diminished myocardial perfusion/tracer uptake in portions of the distal anterior, distal anteroseptal, and apical segments. There is diminished end systolic thickening and brightening in the aforementioned areas. The gated Cardiolite study demonstrates myocardial thickening and inward wall motion. The reported LVEF is 57 %. Impression: 1. Rest and stress SPECT Cardiolite nuclear imaging demonstrate myocardial perfusion changes concerning for an area of stress-induced myocardial ischemia involving portions of the distal anterior, distal anteroseptal, and apical segments. 2. The gated Cardiolite study reports an LVEF of 57 %. CORONARY ANGIOGRAPHY 12/08/2019 DOMINANCE: Right Dominant LEFT HEART ASSESSMENT Left Ventricular Ejection Fraction: by LV Gram 60 % Normal LV wall motion Normal Left Ventricular End Diastolic Pressure LVEDP: 11 mmHg LEFT MAIN: Angiographically normal LEFT ANTERIOR DESCENDING ARTERY: PROX LAD: Mild calcification, Mild luminal irregularities MID LAD: 90 % Stenosis DIAGONAL 2: Ostial - 90 % Stenosis (small caliber vessel) CIRCUMFLEX ARTERY: PROX CIRC: Mild luminal irregularities RIGHT CORONARY ARTERY: Mild luminal irregularities DISTAL RCA: diffuse: ectatic: 50 -75 % Stenosis PCI: 11/2019: Successful PTCA/ALEC to mid LAD with a 2.5 x 38 Promus Synergy, followed immediately upstream with a 2.5 x 12 Promus Synergy, post dilated proximally with a 3.0 x 8 NC Balloon; 85%-->0%, no dissection. Successful PCI with PTCA to the ostial DIAG#1 with a 2.0 x 12 balloon; 90%-->50%, no dissection. RECOMMENDATIONS Risk factor modification ASA Indefinitley Plavix for at least 12 months Medical management of distal RCA unless or until pt has recurrent angina or inferior ischemia. Labs LDL Cholesterol 190 mg/dL (0-130) H 11/12/19 HDL Cholesterol 47 mg/dL (40-) 11/12/19 Triglycerides 143 mg/dL (-199) 11/12/19 VLDL Cholesterol 29 mg/dL (5-40) 11/12/19 Diagnostics Electrocardiogram 12/09/19 Echocardiogram 12/01/19 Stress Test Nuclear Medicine 12/01/19 Stress Test 12/01/19 Cardiac Catheterization 12/08/19 Chest X-Ray 12/04/19 12/28/19 0131 <Electronically signed by Corrie Alfonso> Date _ Corrie CANCINO Cosigner Signature: Date (if applicable) CC: Dr. Ritesh Rocha MD ~ I have examined the patient the following changes are noted: Patient has been participating in cardiac rehabilitation. He has been complaining of exertional chest discomfort which she states is similar to the discomfort he had prior to his diagnosis of CAD and his subsequent PCI procedure. He had been counseled on the appropriate use of nitroglycerin sublingual. He had been started on additional medical therapy with nitrates with isosorbide mononitrate at 30 mg p.o. daily. Based upon his ongoing concerns superimposed upon his cardiovascular diagnosis of CAD leading to PCI- especially in the LAD distribution-he has been recommended for reevaluation of his coronary status for the possibility of progression of CAD and/or in-stent restenosis with diagnostic cardiac catheterization. The procedure and risks have been discussed with him. He was agreeable to this approach. Procedure Criteria Procedure Type: Elective COVID Risk Discussion: The surgeon/proceduralist and patient have discussed in detail the risk of exposure to and/or potential harm posed by the COVID-19 virus with having a surgery/procedure at this time versus the risk of delaying the surgery/procedure. It is not possible to know either the risk of delaying the surgery or procedure or chance of getting an infection with perfect accuracy, but a joint decision was made between the patient and the surgeon/proceduralist to proceed at this time with the scheduled surgery/procedure as indicated on the consent form.
--- NOTE | 2020-03-16 09:44 | CL.D_ITS ---
Patient Name: HENRI SILVESTRE Study Date: 03/16/2020 Performing: Clinton Barriga MD Ht: 70.86 inches 180 cm : 1950 Wt: 246.92 lbs 112 kg Age: 69 Gender: male BSA: 2.3 PROCEDURE(S) PERFORMED [id number]/LV [id number] W OR WO PTCA, SINGLE CORONARY ARTERY CLINICAL PROFILE AND INDICATIONS Indications: Worsening Angina, Suspected CAD Heart Failure: None Stress/Imaging Stress/Image Study Performed: No Angina Classification Anginal Classification w/in 2 Weeks: CCS III CAD Presentations: Unstable angina. CONCLUSIONS Elevated Left Ventricular End Diastolic Pressure Normal LV size, wall motion,and systolic function LVEF: by LV gram 60 % [place] Multivessel CAD LAD: PCI/Stent: Patent RECOMMENDATIONS Risk factor modification Medical therapy Referred for immediate PCI DESCRIPTION OF PROCEDURE The patient arrived to the procedure lab. The risks and benefits of the procedure as well as a full d escription of our services here and current unavailability of surgical backup were fully explained to the patient and/or their significant other prior to the catheterization. The Timeout was completed, verifying the correct patient and procedure. The patient's procedural site was prepped and draped in the usual fashion. Local anesthetic was given subcutaneously to right groin region with Lidocaine 2%. Using a modified Seldinger technique, arterial access was obtained via the right femoral artery, a 4 Fr sheath was inserted Left Coronary Artery selective angiography was performed in multiple views us ing a 4 Fr. JL5 catheter. Right Coronary Artery selective angiography was then performed in multiple views using a 4 Fr. 3DRC catheter. Left Ventriculography was performed in FIORE projection using a 4 Fr . Pigtail catheter. LV to AO pullback pressures were then recorded.Contrast was injected through the sheath and the Right Iliac and Femoral artery were assessed for possible closure device.T he arterial sheath was pulled and a Perclose closure device was deployed for hemostasis CORONARY ANGIOGRAPHY DOMINANCE: Right Dominant LEFT HEART ASSESSMENT Left Ventricular Ejection Fraction: by LV Gram 60 % Normal LV wall motion Elevated Left Ventricular End Diastolic Pressure LVEDP: 29 mmHg LEFT MAIN: Angiographically normal LEFT ANTERIOR DESCENDING ARTERY: PROX LAD: Mild calcification, Mild luminal irregularities MID LAD: Previously placed stent is patent DIAGONAL 1: Ostial - 75 % Stenosis DIAGONAL 2: Ostial - 75 % Stenosis CIRCUMFLEX ARTERY: Mild luminal irregularities RIGHT CORONARY ARTERY: Mild luminal irregularities Mild luminal irregularities DISTAL RCA: diffuse: hazy: eccentric: 75 % Stenosis AORTIC ROOT: Angiographically normal COMPLICATIONS No Complications PROCEDURE MEDICATIONS Versed 1 mg IV Fentanyl 50 mcg IV Oxygen: 2 L/min via nasal cannula Heparin 8000 unit(s) IV 03/16/2020 09:01:51 SUMMARY OF HEMODYNAMIC DATA Time AIR REST ECG 07:04:42 AO 123/84 (95) SA 08:23:13 LV 141/3, 28 08:37:06 LV 139/2, 29 08:37:13 LV 132/5, 28 08:38:49 LVp 137/2, 26 08:38:55 AOp 140/80 (104) 08:39:00 AO 144/88 (112) 09:20:57 Signed By Clinton Barriga MD On 03/16/2020 09:43:18 Clinton Barriga MD
--- NOTE | 2020-03-16 10:15 | EKG12_ITS ---
Test Reason : Blood Pressure : / mmHG Vent. Rate : 075 BPM Atrial Rate : 075 BPM P-R Int : 194 ms QRS Dur : 098 ms QT Int : 398 ms P-R-T Axes : 031 029 050 degrees QTc Int : 444 ms Normal sinus rhythm Normal ECG When compared with ECG of 16-MAR-2020 07:23, MANUAL COMPARISON REQUIRED, DATA IS UNCONFIRMED Confirmed by ERIKA BENÍTEZ, KATIE ([id number]), map editor OSCAR MCCAULEY ([id number]) on 03/18/2020 10:59:38 AM Referred By: Clinton Barriga Confirmed By:KATIE JAMES MD
--- NOTE | 2020-03-16 11:13 | CRPHASE1_ITS ---
Patient Communication Former Patient:: Phase I, Phase II - Patient has just completed CR Phase II Outpatient prior to recent chest pain episode. PHII Cardiac Rehab Discussed with Patient:: Yes Guide to Cardiac Rehab Given to Patient:: Yes Cardiac Rehab Facility Choice List Given to Patient:: Yes Choice Program [facility] CR PHII:: Communication Given to CR, Refer to [facility] Choice Program Other:: Communication Given to CR, With permission faxed order and referral information Police [employer] Dispatcher:: Destiney Metzger Refer Phase II Cardiac Rehab:: Yes Sessions:: 36 sessions - 3 days/wk, 12 weeks Risk Factors/Lifestyle Family History: Family History (Last Reviewed 12/28/19 @ 17:09 by Corrie Eckert PA, PA) Mother CHF (congestive heart failure) Brother Hypertension Son Hypertension Other Family history of hypertension Cardiac Rehabilitation Info Cardiac Rehabilitation Program Information: Cardiac Rehabilitation is important for patients like you who are recovering from a heart problem. Cardiac rehabilitation programs are recognized as integral to the continued care of the patient with coronary heart disease. The cardiac rehabilitation program is designed to optimize a patient's physical, psychological, and social functioning. Health palliative care specialist work in cardiac rehabilitation programs and assist you with getting the treatments you need to get stronger and healthier - like exercise, healthy eating habits, and medications. Cardiac rehabilitation has been show to help people with heart problems live longer and have better life enjoyment than people who do not go to cardiac rehabilitation. Please contact the Cardiac Rehabilitation Program at [facility] at in two weeks if you have not heard from them.
--- NOTE | 2020-03-16 11:19 | CRPH1.INSTRU ---
General Education CAD and cardiac anatomy and function:: Patient communicates acknowledgment, Not instructed Explanation of diagnoses and procedures:: Patient communicates acknowledgment, Not instructed Sign/Symptoms of [place]:: Patient communicates acknowledgment, Not instructed Antiplatelet therapy: Patient communicates acknowledgment, Not instructed Proper use of NTG-SL: Patient communicates acknowledgment, Not instructed Emergency procedures and activation of EMS: Patient communicates acknowledgment, Not instructed Compliance of all prescribed medications: Patient communicates acknowledgment, Not instructed
--- NOTE | 2020-03-16 11:23 | CL.I_ITS ---
Patient Name: HENRI SILVESTRE Study Date: 03/16/2020 Performing: Lázaro Metzger MD Ht: 71 inches 180 cm : 1950 Wt: 247.2 lbs 112 kg Age: 69 Gender: male BSA: 2.3 PROCEDURE(S) PERFORMED EX90-EPE W OR WO PTCA, SINGLE CORONARY ARTERY CLINICAL PROFILE AND CO-MORBIDITIES Indications: Worsening Angina, Suspected CAD Heart Failure: None Stress/Imaging Stress/Image Study Performed: No Angina Classification Anginal Classification w/in 2 Weeks: CCS III CAD Presentations: Unstable angina. CONCLUSIONS Successful PCI with ALEC to the dRCA RECOMMENDATIONS ASA Indefinitely Plavix for at least 12 months DESCRIPTION OF PROCEDURE The patient arrived to the procedure lab. The risks and benefits of the procedure as well as a full d escription of our services here and current unavailability of surgical backup were fully explained to the patient and/or their significant other prior to the catheterization. The Timeout was completed, verifying the correct patient and procedure. The patient's procedural site was prepped and draped in the usual fashion. Local anesthetic was given subcutaneously to right groin region with Lidocaine 2% Using a modified Seldinger technique,arterial access was obtained via the right femoral artery, a 4Fr sheath was inserted Left Coronary Artery selective angiography was performed in multiple views using a 4 Fr. JL5 catheter. Right Coronary Artery selective angiography was then performed in multiple vie ws using a 4 Fr. 3DRC catheter. Left Ventriculography was performed in FIORE projection using a 4 Fr. P igtail catheter. LV to AO pullback pressures were then recorded.The images were reviewed and options discussed. A decision was then made to proceed with an Intervention, IVUS or other adjunc t procedure. JR 4 Guide catheter was inserted and engaged into the RCA. BMW Guide wire was advanced to the RCA . 3x20 Emerge Balloon catheter was inserted. Balloon catheter was advanced across lesion in the right coronary, distal. PTCA balloon inflated at 12 atms for 35 secs. 4x28 Synergy Drug Eluting stent was inserted. Drug Eluting stent was removed intact, failed to cross lesion 4x20 Emerge Balloon catheter was inserted. Balloon catheter was advanced across lesion in the right coronary, distal. PTCA balloon inflated at 8 atms for 8 secs. Angiogram performed post balloon dilatation. 4x28 Synergy Drug Elutin g stent was reinserted Drug Eluting stent was advanced across the lesion in the right coronary, dista l. Angiogram performed post stent deployment. Contrast was injected through the sheath and the Right Iliac and Femoral artery were assessed for possible closure device. The arterial sheath was pulled a nd a Perclose closure device was deployed for hemostasis INTERVENTION INFORMATION LESION SITE: RCA (Distal) Lesion Complexity: High/C, chronic total occlusion: No, lesion at bifurcation: No, thrombus present: No, culprit lesion: Yes, Previously treated lesion: No Pre Stenosis: 80 % Pre intervention TINY flow: 3 PROCEDURE: Drug Eluting Stent with pre dilatation. Post Stenosis: 0 % Post intervention TINY flow: 3 Lesion Devices: [place]no .014 BMW [place] Straight 190cm Medtronic 6 Fr JR4.0 100cm Guide Catheter Braulio Sci EMERGE MR 3.00x20 BALLOON Braulio Sci Synergy MR ALEC 4.00x28 Vascular Solutions 6 Macanese GuideLiner Brualio Sci EMERGE MR 4.00x20 BALLOON COMPLICATIONS No Complications PROCEDURE MEDICATIONS Versed 1 mg IV Fentanyl 50 mcg IV Oxygen: 2 L/min via nasal cannula Heparin 8000 unit(s) IV 03/16/2020 09:01:51 SUMMARY OF HEMODYNAMIC DATA Time AIR REST ECG 07:04:42 AO 123/84 (95) SA 08:23:13 LV 141/3, 28 08:37:06 LV 139/2, 29 08:37:13 LV 132/5, 28 08:38:49 LVp 137/2, 26 08:38:55 AOp 140/80 (104) 08:39:00 AO 144/88 (112) 09:20:57 RM AIR REST 09:43:02 Signed By Lázaro Metzger MD On 03/16/2020 11:22:39 AM Lázaro Metzger MD
--- NOTE | 2020-03-16 11:30 | NURSING ---
1035-Noted right femoral dressing completely saturated with blood running down pt leg. Manual pressure applied, called for rim fire charger operator to come to room to assist. electroplating laborer RN called to come to floor at 1050 d/t site continuing to bleed. 1100 ammunition assembly laborer RN, Jitendra to floor to assist with holding pressure. Hemostasis achieved at 1120, new dressing was applied. Dr Metzger updated on bleed and advised to restart bedrest time. Pt denies any abdominal pain or back pain at this time.
[2020-03-16] MEDS: Aspirin E.C. 81 MG Tablet PO (13:05)
--- NOTE | 2020-03-16 16:26 | NURSING ---
1615-Walked into hallway with this RN. No bleeding noted. Tolerated without difficulty. States back was uncomfortable in bed but has resolved with ambulation and changing of position. Assisted to sit in recliner and advised to call staff for assistance back to bed or if wants to get up to walk.
[2020-03-16] MEDS: Carvedilol 12.5 MG Tablet PO (17:03)
[2020-03-16] MEDS: Acetaminophen 325 MG Tablet 650 MG PO (17:03)
[2020-03-16] MEDS: Atorvastatin Calcium 40 MG Tablet PO (22:25)
[2020-03-17 02:59] VITALS: PULSE 67
[2020-03-17 03:29] VITALS: BP 167/83; PULSE 62; RESP 17; TEMP 36.7; O2SAT 96
[2020-03-17 05:18] LABS: Hematocrit 46.3 % (40-54); Hemoglobin 15.3 g/dL (13.0-16.5); Mean Corpuscular Hgb 28.8 pg (27.0-32.0); Mean Platelet Vol. 8.8 fl (6.2-12.0); Platelet Count 217 K/mm3 (150-450); RBC Distribution Width CV 12.3 % (11.6-14.6); RBC Distribution Width SD 39.4 fl (35.1-43.9); Red Blood Count 5.32 M/mm3 (4.6-6.2); White Blood Count 5.1 K/mm3 (4.4-11.0)
[2020-03-17 05:40] LABS: ALB/GLOB Ratio 0.9 RATIO (0.9-2.4); AST(SGOT) 42 U/L (15-37); Alanine Aminotransfer ALT/SGPT 46 U/L (16-61); Albumin, Serum 3.5 g/dL (3.2-5.0); Alkaline Phosphatase 76 U/L (45-117); Anion Gap 4 (5-15); BUN 19 mg/dL (7-18); BUN/Creat Ratio 18.6 RATIO (10-20); Calcium,Total 8.3 mg/dL (8.5-10.1); Chloride 104 mmol/L (98-107); Creatinine, Serum 1.02 mg/dL (0.70-1.30); EST Glomerular Filtration Rate 77 mL/min (>60); Est Glom Filt Rate - Afr Amer 93 mL/min (>60); Estimated Creatinine Clearance 73.82 ml/min; Globulin 3.7 g/dL (2.2-4.2); Glucose 113 mg/dL (74-106); Potassium 3.5 mmol/L (3.5-5.1); Protein, Total 7.2 g/dL (6.4-8.2); Sodium Level 138 mmol/L (136-145)
--- NOTE | 2020-03-17 05:41 | EKG12_ITS ---
Test Reason : AM EKG Blood Pressure : / mmHG Vent. Rate : 068 BPM Atrial Rate : 068 BPM P-R Int : 168 ms QRS Dur : 098 ms QT Int : 396 ms P-R-T Axes : 043 019 057 degrees QTc Int : 421 ms Normal sinus rhythm Normal ECG When compared with ECG of 16-MAR-2020 12:51, MANUAL COMPARISON REQUIRED, DATA IS UNCONFIRMED Confirmed by ERIKA BENÍTEZ, KATIE ([id number]), scientific editor OSCAR MCCAULEY ([id number]) on 03/21/2020 10:42:13 AM Referred By: Clinton Barriga Confirmed By:KATIE JAMES MD
[2020-03-17 07:00] VITALS: PULSE 68
[2020-03-17 08:45] VITALS: BP 162/97; PULSE 74; RESP 16; TEMP 36.8; O2SAT 95
[2020-03-17] MEDS: Carvedilol 12.5 MG Tablet PO (08:48)
[2020-03-17] MEDS: hydroCHLOROthiazide 6.25mg TAB 12.5 MG PO (08:48)
[2020-03-17] MEDS: Aspirin E.C. 81 MG Tablet PO (08:48)
[2020-03-17] MEDS: Isosorbide Mononitrate 30 MG Tablet PO (08:48)
[2020-03-17] MEDS: amLODIPine 2.5 MG Tablet PO (08:49)
[2020-03-17] MEDS: Ezetimibe 10 MG Tablet PO (08:49)
[2020-03-17] MEDS: Clopidogrel Bisulfate 75 MG Tablet PO (08:49)
[2020-03-17] MEDS: Lisinopril 20 MG Tablet PO (08:49)
--- NOTE | 2020-03-17 08:58 | DCINST_ITS ---
- Discharge Diagnoses Current Active Problems: Current Active and Chronic Problems (Last Updated 03/16/20 @ 12:07 by Corrie Teixeira) CAD (coronary artery disease) (Chronic) Presence of stent in coronary artery (Chronic ~03/16/20) Successful PCI with ALEC to the dRCA per cardiac cath 03/16/20--Successful PTCA/ALEC to mid LAD with a 2.5 x 38 Promus Synergy, followed immediately upstream with a 2.5 x 12 Promus Synergy, post dilated proximally with a 3.0 x 8 NC Balloon; 85%-->0%, no dissection; Successful PCI with PTCA to the ostial DIAG#1 with a 2.0 x 12 balloon; 90%-->50%, no dissection per cath 12/08/19 Chest pain (Acute) Abnormal stress test (Acute) Essential hypertension (Chronic) Hyperlipidemia (Chronic) Reason(s) for Visit for Discharge Instructions: Chest pain/angina pectoris. Cardiac catheterization You will use the following diet at home:: Cardiac Your food should be the consistency of: Regular Discharge Activity: May Drive - Orders may not drive: Ends 48 and May resume sexual activity in: 2 weeks Call your doctor if your incision/area has: Continuous Slow Oozing, Sudden Increased Bleeding, Increased Pain/ Swelling, Increased Redness, Foul Smelling Discharge, Swelling at the incision site Call your doctor if you observe: Fever of 101 or Higher, Shortness of breath, Dizziness, Fainting spells, Chest pain Change Dressing in (Days):: 1 Remove Dressing in (days):: 1 Cleanse incision/area with: Soap & Water Additional Instructions: May return to cardiac rehab on 03/28/2020 barring unforeseen circumstances Allergies/Adverse Reactions: Allergies Penicillins Allergy (Verified 12/25/19 10:02) Rash valsartan Adverse Reaction (Severe, Verified 12/25/19 10:02) Joint Pain Medications to take at Discharge aspirin 81 mg tablet,delayed release 81 mg PO DAILY 08/04/18 ezetimibe 10 mg tablet 10 mg PO DAILY #90 tab 11/13/19 potassium chloride 20 mEq tablet,extended release 20 meq PO BID tab 11/13/19 Nitroglycerin (INPATIENT USE) [Nitrostat] 0.4 mg SUBLINGUAL Q5M PRN tab.subl 12/09/19 amlodipine 2.5 mg tablet 2.5 mg PO QDAY #30 tab 12/25/19 atorvastatin 40 mg tablet 40 mg PO QHS #30 tab 12/25/19 clopidogrel 75 mg tablet 75 mg PO DAILY #30 tab 12/25/19 hydrochlorothiazide 12.5 mg tablet 12.5 mg PO QDAY #30 tab 12/25/19 lisinopril 20 mg tablet 20 mg PO DAILY 01/13/20 carvedilol 12.5 mg tablet 12.5 mg PO BID #60 tab 02/29/20 isosorbide mononitrate 30 mg tablet,extended release 24 hr 30 mg PO DAILY #30 tab 03/11/20 Aspirin E.C. [Ecotrin] 81 mg PO DAILY@0800 tab 03/17/20 Heparin Sodium,Porcine/Pf [Heparin 500 Unit/5 ml (100/ml)] 500 unit IV UD PRN syringe 03/17/20 Orders to be completed after discharge: Phase II, Outpatient Cardiac Rehab Location: None Selected Primary Care Physician: Ritesh Rocha MD [Primary Care Provider] - Test Results: Test results from this visit will be discussed in further detail at your follow- up appointment, if applicable. Please Follow Up With: [facility] When: Office to arrange follow up appointment Proposed Discharge Date: 03/17/20
--- NOTE | 2020-03-17 09:01 | PCM.DC.SUM ---
Discharge Date and Diagnosis - Problem List Patient Problems: Active and Suspected Problems (Last Updated 03/16/20 @ 12:07 by Corrie Teixeira) Chest pain (Acute) Abnormal stress test (Acute) Date of Admission: 03/16/20 Date of Discharge: 03/17/20 - Primary Discharge Diagnosis Acute Problems: Active Problems (Last Updated 03/16/20 @ 12:07 by Corrie Teixeira) Chest pain (Acute) Abnormal stress test (Acute) Suspected Problems: CAD - Secondary Discharge Diagnosis Chronic Problems: Chronic Problems (Last Updated 03/16/20 @ 12:07 by Corrie Teixeira) CAD (coronary artery disease) (Chronic) Presence of coronary angioplasty implant and graft (Chronic ~03/16/20) Successful PCI with ALEC to the dRCA per cardiac cath 03/16/20--Successful PTCA/ALEC to mid LAD with a 2.5 x 38 Promus Synergy, followed immediately upstream with a 2.5 x 12 Promus Synergy, post dilated proximally with a 3.0 x 8 NC Balloon; 85%-->0%, no dissection; Successful PCI with PTCA to the ostial DIAG#1 with a 2.0 x 12 balloon; 90%-->50%, no dissection per cath 12/08/19 Presence of stent in coronary artery (Chronic ~03/16/20) Successful PCI with ALEC to the dRCA per cardiac cath 03/16/20--Successful PTCA/ALEC to mid LAD with a 2.5 x 38 Promus Synergy, followed immediately upstream with a 2.5 x 12 Promus Synergy, post dilated proximally with a 3.0 x 8 NC Balloon; 85%-->0%, no dissection; Successful PCI with PTCA to the ostial DIAG#1 with a 2.0 x 12 balloon; 90%-->50%, no dissection per cath 12/08/19 Essential hypertension (Chronic) Chest pain, precordial (Chronic) Atherosclerotic heart disease of [place] coronary artery without angina pectoris (Chronic) Hyperlipidemia (Chronic) Hospital Course and Treatment Procedures: Cardiac catheterization, - - Cardiac intervention Summary of Care Provided: The patient is a 69 year old white male with history of CAD status post LAD PCI/stent and diagonal branch PTCA who presents for recurrent symptoms of angina pectoris for further evaluation with diagnostic cardiac catheterization. Diagnostic cardiac catheterization revealed the LAD stent to be patent. The ostial portion of the diagonal branch demonstrated stenosis. The consensus was to continue to treat that area medically. The RCA, which demonstrated previous distal disease, was reassessed. The consensus was to proceed with distal RCA PTCA/stent. This was accomplished without obvious adverse events/complication. The patient was monitored overnight. He appeared to be symptomatically and hemodynamically stable. He had no acute changes on his post procedure/follow-up ECGs. The decision was that the patient could be released home for continued outpatient follow-up and outpatient cardiac rehabilitation. [] Patient Problems: Active and Suspected Problems (Last Updated 03/16/20 @ 12:07 by Corrie Teixeira) Chest pain (Acute) Abnormal stress test (Acute) Subjective: Patient is awake and alert and in no acute distress. - Physical Exam Vitals/I&O's: Vital Signs Temp Pulse Resp BP Pulse Ox 98.3 F 74 16 162/97 H 95 03/17/20 08:45 03/17/20 08:45 03/17/20 08:45 03/17/20 08:45 03/17/20 08:45 Oxygen Flow Rate (L/min) 2 Oxygen Delivery Method Room Air Weight: 243 lb 9.773 oz Body Mass Index (BMI) 34.0 Intake and Output for Last 24 Hours 03/15/20 03/16/20 03/17/20 23:59 23:59 23:59 Intake Total 860 / 860 Output Total 675 / 675 Balance 185 / 185 General: Alert, Oriented x3, Cooperative, No apparent distress HEENT: Atraumatic, PERRLA, EOMI, Normocephalic Neck: No JVD Lungs: Clear to auscultation Cardiovascular: Regular rate, Normal S1, Normal S2 Abdomen: Bowel Sounds Present, Soft Extremities: No edema Neurological: Neuro grossly intact Psych/Mental Status: Normal Affect Comment: Right inguinal area: Right femoral pulse 2+/4+; no bruit; no hematoma Laboratory Results 03/17/20 04:50: WBC 5.1, RBC 5.32, Hgb 15.3, Hct 46.3, MCV 87.0, MCH 28.8, MCHC 33.0, RDW Std Deviation 39.4, RDW Coeff of Robinson 12.3, Plt Count 217, MPV 8.8 03/17/20 04:50: Sodium 138, Potassium 3.5, Chloride 104, Carbon Dioxide 30.0, Anion Gap 4 L, BUN 19 H, Creatinine 1.02, Estim Creat Clear Calc 73.82, Est GFR (MDRD) Af Amer 93, Est GFR (MDRD) Non-Af 77, BUN/Creatinine Ratio 18.6, Glucose 113 H, Calcium 8.3 L, Total Bilirubin 0.60, AST 42 H, ALT 46, Alkaline Phosphatase 76, Total Protein 7.2, Albumin 3.5, Globulin 3.7, Albumin/Globulin Ratio 0.9 Current Medications Acetaminophen (Acetaminophen 325 Mg Tablet) 650 mg PO Q6H PRN PRN PRN Reason: Pain Score 1-10 Last Admin: 03/16/20 17:03 Dose: 650 mg Documented by: Amlodipine Besylate (Amlodipine 2.5 Mg Tablet) 2.5 mg PO DAILY [facility] Last Admin: 03/17/20 08:49 Dose: 2.5 mg Documented by: Aspirin (Aspirin E.C. 81 Mg Tablet) 81 mg PO DAILY@0800 [facility] Last Admin: 03/17/20 08:48 Dose: 81 mg Documented by: Atorvastatin Calcium (Atorvastatin Calcium 40 Mg Tablet) 40 mg PO QHS [facility] Last Admin: 03/16/20 22:25 Dose: 40 mg Documented by: Atropine Sulfate (Atropine Sulfate 1 Mg/10 Ml Syringe) 0.5 mg IV UD PRN PRN Reason: HR <50 bpm Carvedilol (Carvedilol 12.5 Mg Tablet) 12.5 mg PO BIDCM [facility] Last Admin: 03/17/20 08:48 Dose: 12.5 mg Documented by: Clopidogrel Bisulfate (Clopidogrel Bisulfate 75 Mg Tablet) 75 mg PO DAILY [facility] Last Admin: 03/17/20 08:49 Dose: 75 mg Documented by: Ezetimibe (Ezetimibe 10 Mg Tablet) 10 mg PO DAILY [facility] Last Admin: 03/17/20 08:49 Dose: 10 mg Documented by: Heparin Sodium (Beef Lung) (Heparin Lock 500 Unit/5 Ml In 10 Ml Syringe) 500 unit IV UD PRN PRN Reason: HEPARIN FLUSH Hydrochlorothiazide (Hydrochlorothiazide 12.5mg) 12.5 mg PO DAILY [facility] Isosorbide Mononitrate (Isosorbide Mononitrate 30 Mg Tablet) 30 mg PO DAILY [facility] Last Admin: 11/19/20 08:48 Dose: 30 mg Documented by: Labetalol HCl (Labetalol (Prefilled) 20 Mg/4 Ml) 5 mg IV X1 PRN PRN Reason: SBP >160 when pulling sheath Stop: 03/18/20 10:04 Lisinopril (Lisinopril 20 Mg Tablet) 20 mg PO DAILY [facility] Last Admin: 03/17/20 08:49 Dose: 20 mg Documented by: Nitroglycerin (Nitroglycerin (Inpatient Use) 0.4 Mg Tab.Subl) 0.4 mg SUBLINGUAL Q5M PRN PRN Reason: CARDIAC/CHEST PAIN Potassium Chloride (Potassium Chloride 20 Meq Tablet) 20 meq PO BID [facility] Last Admin: 03/17/20 08:48 Dose: 20 meq Documented by: Sodium Chloride (0.9% Normal Saline 500 Ml Iv.Soln.) 500 ml IV BOLUS PRN PRN Reason: VASO-VAGAL PROTOCOL Sodium Chloride (0.9% Saline Lock 10 Ml Syringe) 10 - 40 ml IV UD PRN PRN Reason: SALINE FLUSH Discharge Activity: May Drive - Orders may not drive: Ends 48 and May resume sexual activity in: 2 weeks Call your doctor if your incision/area has: Continuous Slow Oozing, Sudden Increased Bleeding, Increased Pain/ Swelling, Increased Redness, Foul Smelling Discharge, Swelling at the incision site Call your doctor if you observe: Fever of 101 or Higher, Shortness of breath, Dizziness, Fainting spells, Chest pain Change Dressing in (Days):: 1 Remove Dressing in (days):: 1 Cleanse incision/area with: Soap & Water Home Medications: Medications to take at Discharge aspirin 81 mg tablet,delayed release 81 mg PO DAILY 08/04/18 ezetimibe 10 mg tablet 10 mg PO DAILY #90 tab 11/13/19 potassium chloride 20 mEq tablet,extended release 20 meq PO BID tab 11/13/19 Nitroglycerin (INPATIENT USE) [Nitrostat] 0.4 mg SUBLINGUAL Q5M PRN tab.subl 12/09/19 amlodipine 2.5 mg tablet 2.5 mg PO QDAY #30 tab 12/25/19 atorvastatin 40 mg tablet 40 mg PO QHS #30 tab 12/25/19 clopidogrel 75 mg tablet 75 mg PO DAILY #30 tab 12/25/19 hydrochlorothiazide 12.5 mg tablet 12.5 mg PO QDAY #30 tab 12/25/19 lisinopril 20 mg tablet 20 mg PO DAILY 01/13/20 carvedilol 12.5 mg tablet 12.5 mg PO BID #60 tab 02/29/20 isosorbide mononitrate 30 mg tablet,extended release 24 hr 30 mg PO DAILY #30 tab 03/11/20 Aspirin E.C. [Ecotrin] 81 mg PO DAILY@0800 tab 03/17/20 Heparin Sodium,Porcine/Pf [Heparin 500 Unit/5 ml (100/ml)] 500 unit IV UD PRN syringe 03/17/20 Other Amb Orders: Phase II, Outpatient Cardiac Rehab Location: None Selected Primary Care Physician: Ritesh Rocha MD [Primary Care Provider] - Please Follow Up With: [facility] When: Office to arrange follow up appointment Disposition: Home Minutes spent on discharge:: 45 Patient Condition:: Stable Medical Necessity - Tobacco Use Smoking Status: Never smoker Meaningful Use Info Meaningful Use Diagnoses (Choose all that apply): None applicable
--- NOTE | 2020-03-17 10:00 | EKG12_ITS ---
Test Reason : PRE CATH Blood Pressure : / mmHG Vent. Rate : 065 BPM Atrial Rate : 065 BPM P-R Int : 172 ms QRS Dur : 096 ms QT Int : 396 ms P-R-T Axes : 048 049 066 degrees QTc Int : 411 ms Normal sinus rhythm Normal ECG When compared with ECG of 09-DEC-2019 04:47, No significant change was found Confirmed by ERIKA BENÍTEZ, KATIE ([id number]), business editor OSCAR MCCAULEY ([id number]) on 03/18/2020 11:00:43 AM Referred By: Clinton Barriga Confirmed By:KATIE JAMES MD
--- NOTE | 2020-03-17 11:07 | PHA.DC.MR ---
Pharmacy Service has performed discharge medication reconciliation for this patient. Spoke with IRMA Godinez to D/C heparin flush order. The patient's discharge medication list was reviewed for discrepancies and discrepancies were resolved. Home Medications ezetimibe 10 mg tablet 10 mg PO DAILY #90 tab 11/13/19 potassium chloride 20 mEq tablet,extended release 20 meq PO BID tab 11/13/19 Nitroglycerin (INPATIENT USE) [Nitrostat] 0.4 mg SUBLINGUAL Q5M PRN tab.subl 12/09/19 amlodipine 2.5 mg tablet 2.5 mg PO QDAY #30 tab 12/25/19 atorvastatin 40 mg tablet 40 mg PO QHS #30 tab 12/25/19 clopidogrel 75 mg tablet 75 mg PO DAILY #30 tab 12/25/19 hydrochlorothiazide 12.5 mg tablet 12.5 mg PO QDAY #30 tab 12/25/19 lisinopril 20 mg tablet 20 mg PO DAILY 01/13/20 carvedilol 12.5 mg tablet 12.5 mg PO BID #60 tab 02/29/20 isosorbide mononitrate 30 mg tablet,extended release 24 hr 30 mg PO DAILY #30 tab 03/11/20 Aspirin E.C. [Ecotrin] 81 mg PO DAILY@0800 tab 03/17/20
== END 2020-03-17 09:01 | disposition home or self-care (01) ==
LOC: CLSP 06:38 → PCU 12:48
PROVIDERS: Specialist; PCP Family Medicine; Referring Provider Internal Medicine Cardiovascular Disease; Visit Provider Internal Medicine Cardiovascular Disease
DX: I25.110 Atherosclerotic heart disease of native coronary artery with unstable angina pectoris (principal); E78.5 Hyperlipidemia, unspecified; I10 Essential (primary) hypertension; Z79.899 Other long term (current) drug therapy; Z95.5 Presence of coronary angioplasty implant and graft; Z79.82 Long term (current) use of aspirin; Z79.02 Long term (current) use of antithrombotics/antiplatelets; R06.02 Shortness of breath
CPT/HCPCS: 36415; 80048; 80053; 85027; 85610; 85730; 92928; 93005; 93458; 99152; 99153; J0153; J7040; Q9967; C1725; C1760; C1769; C1874; C1887; C9600

== ENCOUNTER → 2020-04-12 08:01 | Outpatient (CLI) | payer MEDICARE, OTHER, SELFPAY ==
[2020-03-16 07:02] VITALS: BMI 34.2
[2020-03-30 08:37] VITALS: BMI 34.8
--- NOTE | 2020-04-12 08:06 | PCM.CR.ITP ---
Diagnosis - General Information Admitting Diagnosis: PCI W/CORONARY STENT PLACEMENT Personal Learning Style:: Audio/Visual, Written Barriers to Learning: Vision Impairment Stage of change r/t lifestyle modifications:: Action Gave educational material for:: Treating Heart Disease, Emotions & Heart Disease, Stress Management & Relaxation, Sleep Disorders & Heart Disease, How The Heart Works, What it means to have Heart Disease, How Coronary Artery Disease is Diagnosed, Heart Procedures, What Heart Medications Do, Risk Factors & Modifications, Living an Active Life, Nutrition - Education/Goals Individual Counseling: Initial Assessment: Abnormal Cholesterol Levels, High Blood Pressure, Overweight/Obesity Cardiac Rehabilitation Goals: 1. Maintain the individual as the primary focus of care. 2. To improve the patient's quality of life. 3. Identification of cardiac risk factors and provide cardiac risk factor management. 4. Enhance the psychosocial status of the patient. 5. Reconditioning enough to allow the patient to resume customary activities. 6. Control symptoms of cardiac disease Personal Goals: Initial Assessment: Improve energy level, Get back to work, or to resume activities faster, Improve muscle strength and endurance, Improve diet and eating habits (eat healthier), Control risk factors (learn risk factor modification) Scale for measuring improvement of personal goals: Enter appropriate number in Comments. 2 = Unchanged. 3 = Slightly Better. 4 = Moderate Improvement. 5 = Met my Goal - Diagnosis & Disease Process Outcomes/Goals: Pt IDs own risk factors & lifestyle modifications by Session 10, Verbalizes symptoms of angina & response by session 3., Pt independently manages Plan/Interventions: Assist Pt to ID & engage in lifestyle modification to reduce CVD risk, Instruct on individual risk factors, Review symptoms of angina & emergency actions, Review secondary diagnosis & identify educational needs. - Safety Referral to Physical Therapy: No Referral to [facility] Case Management: No Fall Risk Assessed:: Yes Assistive Devices:: None Exercise - Initial Assessment - Visit Date of Eval: 04/12/20 Session #:: 0 - PRE-CARDIAC REHAB EVALUATION Mets: Pre-: >7 METS for 30 minutes by discharge - Physician Prescribed Exercise Modalities: Treadmill, Rower, Airdyne, NuStep Frequency: 3x/week for 12 weeks [36 sessions] Intensity: 60-80% of age predicted maximum heart rate reserve Current METSs:: 3.5 Target Heart Rate:: 99-129 Resting Blood Pressure: 151/80 EKG Type: SINUS RHYTHM Current Physical Activity or Exercising minutes: FARMING - Outcomes & Goals Goals:: Verbalizes understanding of THR, RPE & goal METS by session 6, Documents in home exercise log/reports 30 min aerobic 5 day/wk by DC, Demonstrates accurate pulse taking by DC - Intervention & Plan Exercise Program Goals: Instruct on personal THR & RPE, Instruct on MET level & personal MET goal, Show patient to take own pulse /validate performance until accurate, Instruct on home exercise - Physical Activity Home Exercise Physical Activity - Home Exercise: Safe Exercise, Warm-up, Self-monitoring, Cool-Down, Home Exercise > 30 min Daily, Sitting Time <3 hours/daily - Outcomes & Goals Outcomes/Goals: Demonstrates correct Warm-up/exercise Cool-Down (S3) if = 2.5 METs, Verbalizes symptoms of exercise intolerance by Session 3 (S3), Demonstrate safe equipment use (S3) & follows exercise prescrition (6) - Intervention & Plan Plan/Intervention: Instruct warm-up & cool-down if exercising at > 2 METs, Instruct on symptoms of exercise intolerance & actions to take, Instruct & monitor on saf, Assess intial functional capacity & safety risk Nutrition - Initial Assessment - Program Goals Nutrition Program Goals: LDL <100 optimal. 100 - 129 Near optimal. 130 - 159 Borderline High. 160 - 189 High. Total Cholesterol <200 desirable. 200 - 239 Borderline High. >/= 240 High. HDL < 40 Low >/=60 High. Triglycerides <150 desirable. <199 optimal. VlDL 5 - 40. HgbA1C <7%. BMI <25 Patient has diagnosis of Hyperlipidemia (ICD E78)?: Yes - Visit Date of Assessment:: 04/12/20 Session #:: 0 - PRE-CARDIAC REHAB EVALUATION - Cholesterol/Lipids Triglycerides (mg/dL): 144 - 02/29/2020 Total Cholesterol (mg/dL): 212 LDL Cholesterol (mg/dL): 134 HDL Cholesterol (mg/dL): 49 Determine presence & major risk factors that modify LDL goal: Hypertension or hypertensive medication, Family history of premature CHD in Male < 55 years: female <65 yearsFa, Age men > 45 years; women >/= 55 years Outcomes/Goals: Pt IDs own risk factors & lifestyle modifications by Session 10, Verbalizes symptoms of angina & response by session 3., Pt independently manages Intervention/Plan: Instruct on personal lipid levels & lipid goals/NCEP guidelines, Instruct on cholesterol Referral to dietitian:: Yes - HYPERLIPIDEMIA/HTN MEDICAL NUTRITION THERAPY - Diabetes (Other Core Measures) Diabetes Type: Not Applicable - Weight Mgt (Other Care) Not Applicable: No Height: 5 ft 11 in Weight:: 246 lb BMI: 34.2 Diagnosis Overweight/Obesity BMI> 30% ICD-10 E66: Yes Diagnosis High BMI/Morbid Obesity BMI> 35% ICD-10 Z68: No Outcomes/Goals: Pt sets, maintains & shows weight loss goal & trend during rehab Intervention/Plan: Instruct on ideal BMI & set weight loss goal w/patient, Assist pt to ID & incorporate diet changes for weight loss by S9, Refer to Structured Weight Loss program as appropriate, Encourage goal of using 250-300dcal per session for weight loss - Healthy Eating Habits Will attend diet classes:: Yes Outcomes/Goals:: Consume diet rich in vegs,fruits,whole grain/high fiber,fish,lean meat, Limit sat/trans fats,cholesterol & added salts & sugars Intervention/Plan:: Assess current eating habits Medical - Initial Assessment - Visit Date of Eval: 04/12/20 Session #:: 0 - PRE-CARDIAC REHAB EVALUATION - Medication Compliance Preventative Medication(s):: Aspirin, Clopidogrel/P2Y12 inhibit, Statin/lipid, Beta lon H/O mental health issues: depression, anxiety, or addiction?: No Doesn?t believe in the benefits of treatment?: No Believes medications are unnecessary or harmful?: No Has a concern about medication side effects?: No Expresses concern over the cost of medications?: No Outcomes/Goals: Verbalizes medications,desired effect & common side effects @ DC, Pt self-reports following medication regimen, Keeps card in wallet w/medications listed by DC Interventions/plans: Instruct on medication effects & side effects, Review medication list w/patient every two weeks, Instruct importance of taking meds as ordered & assist problem solving - Tobacco Use Tobacco Use: Non-smoker - Hypertension Hypertension Diagnosis:: Hypertension ICD-10 I10 Resting Blood Pressure:: 151/80 [place] [employer] Hypertension Guidelines: [place] [employer] Hypertension Guidelines. Normal BP Less than 120/80. Elevated BP 120/80. Hypertension Stage 1: BP 130-139/80-89. Hypertesnion Stage 2: BP 140 or higher/90 or higher. Hypertension Crisis: BP higher than 180/120 Outcomes/Goals: Able to verbalize/achieve optimal blood pressure <130/80, Incorporates diet changes & exercise for blood pressure control by DC Interventions/plan: Instruct on optimal blood pressure, hypertension & medications, Instruct on effects of sodium, alcohol, stress, exercise &hypertension - Tobacco Cessation Referral Smoking Cessation Referral:: No Individual Education/Counseling:: No Education Schedule Given:: Yes Psychosocial - Initial Assess - VIsit Date of Eval: 04/12/20 Session #:: 0 - PRE-CARDIAC REHAB EVALUATION Not Applicable: Yes History of previous Mental disease:: No - Target Goals Target Goals: Assess presence or absence of depression. Using a valid screening tool, maximizes coping skills. Positive support system - Psychosocial Test Tool Used:: [place] QOL Cardiac, PHQ-9 Questionnaire phq-9 Severity: Severity. 1-4 Minimal Depression. 5-9 Mild Depression. 10-14 Moderate Depression. 15-19 Moderately Sever Depression. 20-27 Severe Depression. Rule: - Referral to Behavioral Health PS - Interventions: Yes Attend Stress Management Classes, No Referral to Behavioral Health if PHQ-9 score >9:, No Referral to [facility], No Referral to Physician if PHQ-9 if score is 5-9: - Outcomes/Goals: See list Psychosocial Outcomes/Goals:: ID's personal stressors & 2 strategies to manage stress by discharge - Intervention/Plan: See List Interventions/Plan:: Assess stressors,coping strategies & signs of derpression on admission, Instruct/assist pt to develop coping & personal stress Mgt strategies, Instruct patient to recognize signs & symptoms of depression, Instruct patient to recog Patient Health Questionnaire Initial Assessment 1. Little interest or pleasure in doing things: Not at all 2. Feeling down, depressed, or hopeless: Not at all 3. Trouble falling or staying asleep, or sleeping too much: Several days 4. Feeling tired or having little energy: Several days 5. Poor appetite or overeating: Not at all 6. Feeling bad about yourself -- or that you are a failure or have let yourself or your family down: Not at all 7. Trouble concentrating on things, such as reading the newspaper or watching television: Not at all 8. Moving or speaking so slowly that other people could have noticed. Or the opposite - being so fidgety or restless that you have been moving around a lot more than usual: Not at all 9. Thoughts that you would be better off , or of hurting yourself in some way: Not at all How difficult have these problems made it for you to do your work, take care of things at home, or get along with other people?: Not difficult at all Total Score: 2 [place]-Q SV Test - Statements CAD is a disease of the arteries in the heart: True Examples of risk factors for heart disease: True Angina is chest pain or discomfort: True The benefits of resistance training include: True Eating more meat and dairy products: False Anti-platelet medications such as aspirin are important: True The only effective way to manage stress: False An exercise warm-up slowly increases heart rate: True Prepared, processed foods usually have high sodium: True Depression is common after a heart attack: True The statin medications lower cholesterol: True To control blood pressure, lower the amount of sodium: True If someone gets chest discomfort during walking: False Transfats are partially hydrogenated vegetable oils: I Don't Know Sleep apnea that is not treated increases the risk: True To control cholesterol, one should become a vegetarian: False Someone knows if he/she is exercising at the right level: True Diabetes cannot be prevented with exercise & health eating: True Stress is a large risk for heart attack: True A diet that can help lower blood pressure is rich in: True - Total Score Total Correct Responses: 16 Self-Efficacy Initial Assessment We would like to know how confident you are in doing certain activities. Please select your confidence level for:: Select your confidence level for the following using the scale 1-10 where 1 is not at all confident and 10 is totally confident. Your score is the average of all 6 responses. Fatigue: How confident are you that you can keep the fatigue caused by your disease from interfering with the things you want to do? Select Number: 8 Physical Discomfort or Pain: How confident are you that you can keep the physical discomfort or pain of your disease from interfering with the things you want to do? Select Number: 8 Emotional Distress: How confident are you that you can keep the emotional distress caused by your disease from interfering with the things you want to do? Select Number: 8 Other Symptoms or Health Problems: How confident are you that you can keep other symptoms or health problems from interfering with the things you want to do? Select Number: 8 Different Tasks and Activities: How confident are you that you can do the different tasks and activities needed to manage your health condition so as to reduce your need to see a doctor? Select Number: 8 Medication: How confident are you that you can do things other than just taking medication to reduce how much your illness affects your everyday life? Select Number: 8 Total Score:: 8 Nutrition Survey - Nutrition Survey Instructions Scoring Instructions: Scoring is as follows: Yes = 1 points. No = 0 point. Patient score that is >/=12 is considered to be at potential nutritional risk and could benefit from a referral to a registered dietitian. - Nutrition Survey Initial Have you lost >10 lbs over the past 2 months without trying?: No Are you following a special diet at home for diabetes, low fat, or low salt?: No Are you interested in meeting with a dietitian for help understanding your diet?: Yes Do you eat less than 3 meals a day?: No Do you eat fatty meats (kaur, sausage, ribs, etc), fried foods, desserts, large amounts of salad dressings, margarine, butter, or cheese most days?: Yes Do you have food allergies? [Enter types in comment field]: No Do you eat in restaurants more than 3 times a week?: No Do you season food with salt, seasoning salt, or garlic salt?: No Do you used canned, boxed, frozen meals, or soups, seasoning packets?: Yes Total Score:: 3
--- NOTE | 2020-04-12 08:07 | CR.HP_ITS ---
CR - History & Physical - General Arrival date:: 04/12/20 Arrival time:: 08:00 Date of Referral:: 03/16/20 Date of CR Evaluation:: 04/12/20 Referring Physician: DR. CROOKS Primary Diagnosis: PCI W/CORONARY STENT PLACEMENT - History of Present Cardiac Event Onset Date: Enter Onset Date of cardiac illnesses in Comment field below Acute Myocardial Infarction within 12 months:: Yes - 11/2019 NSTEMI PTCA or coronary stenting:: Yes - 11/2019, again on 03/16/2020 Type of Symptoms:: precordial chest pain - Medications Home Medications: Ambulatory Orders Medication Instructions Recorded ezetimibe 10 mg tablet 10 mg PO DAILY #90 tab 11/13/19 potassium chloride 20 mEq 20 meq PO BID tab 11/13/19 tablet,extended release Nitroglycerin (INPATIENT USE) 0.4 mg SUBLINGUAL Q5M PRN tab.subl 12/09/19 [Nitrostat] clopidogrel 75 mg tablet 75 mg PO DAILY #30 tab 12/25/19 hydrochlorothiazide 12.5 mg tablet 12.5 mg PO QDAY #30 tab 12/25/19 carvedilol 12.5 mg tablet 12.5 mg PO BID #60 tab 02/29/20 Aspirin E.C. [Ecotrin] 81 mg PO DAILY@0800 tab 03/17/20 amlodipine 2.5 mg tablet 5 mg PO QDAY #30 tab 03/30/20 rosuvastatin 5 mg tablet 5 mg PO DAILY 03/31/20 - Allergies Allergies/Adverse Reactions: Allergies Penicillins Allergy (Verified 03/30/20 08:35) Rash valsartan Adverse Reaction (Severe, Verified 03/30/20 08:35) Joint Pain - Sleep Disorder Evaluation Hx of Sleep Apnea: No Do you snore loudly (louder than talking or can be heard through closed doors)?: No Do you often feel tired/ fatigued/ sleepy during daytime?: No Has anyone observed you stop breathing during sleep?: No History of Hypertension (for STOP score): Yes STOP Results: Negative Advanced Directives - Advanced Directives Power of News Assignment Editor: Yes Living Will: Yes Advance Directives Information Provided: No Advance Directives on File: No DNR Order?:: No - MOLST See MOLST form: No Past Medical History - Covid-19 Screening Fever: No Unexplained muscle aches: No Current respiratory symptoms: No Upper respiratory infections symptoms: No Gastro-intestinal symptoms: No Yfv-Gifs-Izwvsw symptoms: No Has tested positive for COVID-19 in last 30 days: No Had contact w/person w/symptoms or Covid-19 (+) last 14 days: No Has High Risk Exposures ID'd by Health dept/Inf Control team: No 65 years or older:: No Lives in Assisted Living facility:: No Has a chronic lung disease or moderate to severe asthma:: No Has a serious heart condition:: Yes Immunocompromised:: No Severely obese (Body Mass Index of 40 or higher):: No Diabetic:: No Has chronic kidney disease undergoing dialysis:: No Has liver disease:: No - Past Medical Illness Medical History: Past Medical History (Last Updated 03/16/20 @ 12:07 by Corrie Teixeira) Presence of stent in coronary artery (Chronic) Onset Date: ~03/16/20 Z95.5 Successful PCI with ALEC to the dRCA per cardiac cath 03/16/20--Successful PTCA/ALEC to mid LAD with a 2.5 x 38 Promus Synergy, followed immediately upstream with a 2.5 x 12 Promus Synergy, post dilated proximally with a 3.0 x 8 NC Balloon; 85%-->0%, no dissection; Successful PCI with PTCA to the ostial DIAG#1 with a 2.0 x 12 balloon; 90%-->50%, no dissection per cath 12/08/19 Chest pain (Acute) R07.9 SOB (shortness of breath) on exertion (Acute) R06.02 Abnormal stress test (Acute) R94.39 Essential hypertension (Chronic) I10 Chest pain, precordial (Chronic) R07.2 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.10 Hyperlipidemia (Chronic) E78.5 Family history of hypertension Z82.49 Hypertension (Inactive) I10 - Past Surgical History Surgical History: Past Surgical History (Last Updated 03/16/20 @ 12:07 by Corrie Teixeira) Presence of coronary angioplasty implant and graft (Chronic) Onset Date: ~03/16/20 Z95.5 Successful PCI with ALEC to the dRCA per cardiac cath 03/16/20--Successful PTCA/ALEC to mid LAD with a 2.5 x 38 Promus Synergy, followed immediately upstream with a 2.5 x 12 Promus Synergy, post dilated proximally with a 3.0 x 8 NC Balloon; 85%-->0%, no dissection; Successful PCI with PTCA to the ostial DIAG#1 with a 2.0 x 12 balloon; 90%-->50%, no dissection per cath 12/08/19 H/O transurethral resection of prostate Z98.890, Z90.79 History of knee replacement procedure of left knee Z96.652 History of total right knee replacement Z96.651 S/P right rotator cuff repair Z98.890 - Family History Summary Family History: Family History (Last Reviewed 12/28/19 @ 17:09 by Corrie Eckert PA, PA) Mother CHF (congestive heart failure) Brother Hypertension Son Hypertension Other Family history of hypertension Social History - Smoking History Smoking Status: Never smoker - Alcohol Use Alcohol Usage: No - Substance Abuse Hx Substance Use: No - Occupation Occupation (List type of work in comments):: Employed - [employer] - Hobbies, Recreation, Social Activities Hobbies: Farm, Walking Recreational Activities: I am able to engage in most, but not all activities Social Environment - Status Marital Status: - Current Living Arrangements Living Environment:: Spouse - Children How many children do you have?: 4 - ALL BOYS Do any of your children live nearby?: Yes - Safety Do you feel safe in your surroundings?: Yes - Assistance Do you need any assistance at home?: No Review of Systems - Review of Systems Hints: Right click = Denies ([place]). Left click = Reports ([place]) Review of Present Symptoms: Reports: Shortness of Breath with Exertion - LITTLE ONCE IN A WHILE, Angina - STILL EXPERIENCING SOME CHEST PAIN OFF/ON. 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 Denies: Shortness of Breath at Rest, Dizziness/Lightheadedness, Heart Arrhythmia/Irregularities, Appetite - Special Diet - NO, Sexual Changes - Pain Is Patient Pain Free?: Yes Pain Location: none Pain Level: 0/10 Risk Factor Assessment - Chief Complaint Chief Complaint: Ivette is a [address] Cro[address] who recently participated in outpatient Cardiac Rehab. On his last scheduled visit, patient presented with precordial chest pain on scale of 2-3 prior to exercise. Patient was taken to the emergency room for evaluation and subsequently admitted. THe next day he had a repeat heart cath which presented an additional blockage of a coronary vessel requiring an addditional stent placement. - Vital Signs Temperature: 97.3 F Respiratory Rate: 18 Pulse Ox: 96 Blood Pressure: 151/80 Nailbeds:: pink - Pulse Pulse Rate: 68 Pulse Rhythm: Regular - Hypertension Blood Pressure Sitting - Left Arm: 151/80 - Stress Stress: Recent - Blood Cholesterol/Lipids Total Cholesterol (mg/dL) Goal = less than 200 mg/dL: 212 - 03/04/2020 HDL Cholesterol (mg/dL) Goal = less than 40 mg/dL: 49 LDL Cholesterol (mg/dL) Goal = less than 70 mg/dL: 134 Triglycerides (mg/dL) Goal = less than 150 mg/dL: 144 - Obesity Height: 5 ft 11 in Weight:: 246 lb Weight in Pounds: 246.0 lbs Weight Source: Standing Scale Body Mass Index (BMI): 34.2 Nutritional Referral for Obesity: Yes - Physical Inactivity Physical Inactivity: Reg Exercise 30 min/day, Physically demanding job, Recreational activity - Risk Stratification Risk Guidelines: Lowest Risk: Risk Factor for Smoking, Risk Factor for Diabetes, Risk Factor for Sedentary Lifestyle, Risk Factor for Depression, Moderate Risk: Risk Factor for Dyslipidemia, Risk Factor for Hypertension, Highest Risk: Risk Factor for Obesity - For Smoking Smoking Risk Guidelines: Smoking Low Risk: None or quit greater than 6 months ago. Smoking Moderate Risk: Smoker or quit 6 months or less ago. Smoking High Risk: Smoker - For Dyslipidemia Dyslipidemia Risk Guidelines: Low Risk: Moderate Risk: High Risk: 15-25% fat 25.1-29% fat >/= 30% fat. <7% sat fat 7-9% sat fat >9% sat fat. <150 mg chol 150-299 mg chol >/= 300 mg chol. LDL <100 LDL 100-129 LDL >/= 130. Chol/HDL ratio <5.0 Chol/HDL ratio 5.0-6.0 Chol/HDL ratio >6.0. Triglycerides <100 Triglycerides 100- 149 Triglycerides >/= 150 - For Diabetes Mellitus Diabetes Risk Guidelines: Diabetes Low Risk: HgA1c <6.5% and/or FBG <120. Diabetes Moderate Risk: HgA1c 6.6-7.9% and/or FBG 120-180. Diabetes High Risk: HgA1c >/= 8% and/or FBG >180 - For Obesity/Overweight Obesity/Overweight Risk Guidelines: Obesity Low Risk: BMI <25.0. Obesity Moderate Risk: BMI 25-29.9. Obesity High Risk: BMI >/= 30.0 - For Hypertension Hypertension Risk Guidelines: Hypertension Low Risk: Systolic <120 and Diastolic <80. Hypertension Moderate Risk: Systolic 120-139 and Diastolic 80-89. Hypertension High Risk: Systolic >/= 140 and Diasto lic >/= 90 - For Sedentary Lifestyle Sedentary Lifestyle Risk Guidelines: Sedentary Lifestyle Low Risk: >/= 1,500 kcal/week. Sedentary Lifestyle Moderate Risk: 700-1,499 kcal/week. Sedentary Lifestyle High Risk: < 700 kcal/week - For Depression Depression Risk Guidelines: Depression Low Risk: Not clinically depressed. Depression Moderate Risk: Mildly depressed. Depression High Risk: Clinically depressed - Family History Family History: Family History (Last Reviewed 12/28/19 @ 17:09 by Corrie CANCINO, PA) Mother CHF (congestive heart failure) Brother Hypertension Son Hypertension Other Family history of hypertension Motivation - Motivation to Participate On a scale of 1 to 10, how prepared are you to commit to attending program?: 9 What do you see as barriers to successfully being able to complete the program?: NO What do you see as the benefits of succesfully completing the program? In other words, what do you hope to get out of participating in the program?: GETTING BACK TO MY NORMAL SELF. Are there issues you are dealing with that will interfere with completing the program?: STILL HAVING SOME CHEST DISCOMFORT, HAD BEEN IN TO SEE WU KEN CNP Do you have a spouse or signficant other, family or friends who will help support you to complete the program?: YES
[2020-04-12 08:28] VITALS: BP 151/80; PULSE 68; RESP 18; TEMP 36.3; O2SAT 96; BMI 34.2
[2020-04-12 08:40] VITALS: BP 151/80; BMI 34.2
== END ==
PROVIDERS: PCP Family Medicine; Visit Provider Internal Medicine Cardiovascular Disease
DX: E78.5 Hyperlipidemia, unspecified (principal); I10 Essential (primary) hypertension; I25.10 Atherosclerotic heart disease of native coronary artery without angina pectoris; Z95.5 Presence of coronary angioplasty implant and graft; Z68.34 Body mass index [BMI] 34.0-34.9, adult

== ENCOUNTER 2020-04-27 08:00 | Outpatient (RCR) | payer MEDICARE, OTHER, SELFPAY ==
[2020-04-12 08:28] VITALS: BMI 34.2
[2020-04-12 08:40] VITALS: BMI 34.2
== END 2020-04-28 23:59 ==
LOC: CR 08:00
PROVIDERS: PCP Family Medicine; Referring Provider Internal Medicine Cardiovascular Disease; Visit Provider Internal Medicine Cardiovascular Disease
DX: I25.10 Atherosclerotic heart disease of native coronary artery without angina pectoris (principal); Z95.5 Presence of coronary angioplasty implant and graft
CPT/HCPCS: 93798

== ENCOUNTER 2020-05-02 21:36 | Emergency (ER) | payer MEDICARE, OTHER, SELFPAY ==
[2020-04-12 08:28] VITALS: BMI 34.2
[2020-04-12 08:40] VITALS: BMI 34.2
[2020-05-02 21:36] VITALS: BP 153/98; PULSE 82; RESP 16; TEMP 36.3; O2SAT 95; BMI 34.2
--- NOTE | 2020-05-02 21:45 | ED.DCSUM_ITS ---
History of Present Illness Chief Complaint: Nosebleed Informant: Patient Onset: Today Context: Sudden Onset Timing: Continuous Current Severity: Moderate Maximum Severity: Moderate Narrative: Patient is a 69-year-old male who presents to the emergency department nosebleed. He states that happened spontaneously. He states that he woke and felt like he did blow his nose. He states he did begin to have bleeding from his left naris. He states he is never really had a significant nosebleed. He is on Plavix for history of coronary vascular disease. He denies any other trauma. He is otherwise been in his normal state of health. Prior similar symptoms: No Recent Illness/Hospitalization: No Past Medical History - Allergies and Home Meds Allergies/Adverse Reactions: Allergies Penicillins Allergy (Verified 03/30/20 08:35) Rash valsartan Adverse Reaction (Severe, Verified 03/30/20 08:35) Joint Pain Primary Care Physician: Ritesh Rocha MD [Primary Care Provider] - Prior records reviewed: Yes Past Medical History: - - Coronary vascular disease, hypertension, hyperlipidemia Surgical History: noncontributory Lives: With Family Smoking Status: Never smoker Review of Systems General: Denies: Chills, Fever, Sweats Eyes: Denies: Visual changes - bilaterally, Diplopia ENT: Denies: Rhinorrhea, Sore throat Cardiovascular: Denies: Chest pain, Palpitations Respiratory: Denies: Dyspnea, Cough, Dyspnea on exertion Gastrointestinal: Denies: Abdominal pain, Nausea, Vomiting, Diarrhea, Melena, Hematochezia Genitourinary: Denies: Dysuria, Hematuria, Frequency Musculoskeletal: Denies: Back pain, Extremity Pain Skin: Denies: Rash, Wounds Neurological: Denies: Headache, Weakness, Numbness Physical Exam Vital Signs/Narrative: Vital Signs Temp Pulse Resp BP Pulse Ox 05/02/20 21:36 97.4 F L 82 16 153/98 H 95 Inital Vital Signs reviewed: Yes General: Well nourished, Well developed, No Acute Distress Head: Normocephalic, Atraumatic Eyes: Perrl, EOMI ENT: Moist mucous membranes, No rhinorrhea, - - There is some clot within the left nares. Minimal active bleeding. Neck: Supple, Nontender Cardiovascular: Regular rate, Regular rhythm, No murmurs Respiratory: No distress, CTA bilaterally, Chest nontender Abdomen: Soft, Nontender, Nondistended, Normal bowel sounds Back: Nontender, Normal Inspection Extremities: Nontender, No edema Skin: Normal color, No rash Neurological: Alert, Oriented x3, Cranial nerves II-XII grossly intact, Normal Strength, Normal Sensation Psychological: Normal affect, Normal Mood Diagnostic/Tx/Re-eval - Medical Decision Making Patient presents with nosebleed. Did appear like discomfort in the left nares, however he had significant clot. Nasal clamp was placed. After 10 minutes, I had him blow his nose and he expelled a large amount of clot. Afrin-soaked pledgets were placed within the nose. After 15 minutes, they were removed. His bleeding had slowed. He did have a polyp on the septum. I was able to ca uterize the area with 1 silver nitrate stick. He was observed. There was still minimal bleeding. I then cauterized it a second time and there seem to be good control the bleeding without any further bleeding. At this point, I do feel the patient is safe for discharge. He is counseled on concerning symptoms and reasons to return. I will not have him hold his Plavix as he just had stents placed. He is comfortable with this plan of care. Impression 1. Epistaxis 2. Nasal cautery ED Disposition - Plan for ED Patient: Instructions: Nosebleed Referrals: Ritesh Rocha MD [Primary Care Provider] -
[2020-05-02] MEDS: Silver Nitrate (BKC) 1 EACH TOPICAL ×2 (23:22)
[2020-05-02] MEDS: Oxymetazoline 0.05% 1 SPRAY SPRAY.BTL 2 SPRAY NASAL (23:22)
== END 2020-05-02 23:26 | disposition home or self-care (01) ==
LOC: ED 22:03
PROVIDERS: Emergency Provider Emergency Medicine; PCP Family Medicine
DX: R04.0 Epistaxis (principal); I10 Essential (primary) hypertension; E78.5 Hyperlipidemia, unspecified; Z79.02 Long term (current) use of antithrombotics/antiplatelets; Z79.82 Long term (current) use of aspirin
CPT/HCPCS: 30901; 99282

== ENCOUNTER → 2020-05-25 07:51 | Outpatient (CLI) | payer MEDICARE, OTHER, SELFPAY ==
[2020-05-12 11:04] VITALS: BMI 34.2
[2020-05-19 09:05] VITALS: BMI 34.5
[2020-05-25 08:45] LABS: AST(SGOT) 24 U/L (15-37); Alanine Aminotransfer ALT/SGPT 54 U/L (16-61); Albumin, Serum 3.8 g/dL (3.2-5.0); Alkaline Phosphatase 65 U/L (45-117); Bilirubin, Direct 0.19 mg/dL (0.00-0.30); Cholesterol 140 mg/dL (200); High Density Lipoprotein 46 mg/dL; PSA,Total- Diagnostic 7.34 ng/mL (0.0-4.0); Protein, Total 7.8 g/dL (6.4-8.2); Triglycerides 104 mg/dL; Very Low Density Lipoprotein 21 mg/dL (5-40)
== END ==
PROVIDERS: PCP Family Medicine; Referring Provider Urology; Visit Provider Urology
DX: N40.1 Benign prostatic hyperplasia with lower urinary tract symptoms (principal); E78.5 Hyperlipidemia, unspecified
CPT/HCPCS: 36415; 80061; 80076; 84153; 84403

== ENCOUNTER 2020-05-27 08:00 | Outpatient (RCR) | payer MEDICARE, OTHER, SELFPAY ==
[2020-04-12 08:28] VITALS: BMI 34.2
[2020-04-12 08:40] VITALS: BMI 34.2
--- NOTE | 2020-05-12 10:58 | PCM.CR.ITP ---
Exercise - 30-day Assessment - Visit Date of Eval: 05/12/20 Session #:: 11 - KX Modifier applied - Physician Prescribed Exercise Modalities: Treadmill, Airdyne, NuStep Frequency: 3x/week for 12 weeks [36 sessions] Intensity: 60-80% of age predicted maximum heart rate reserve Current METSs:: 5.0 increased from 3.0 Target Heart Rate:: 99-129 Current RPE:: 13-14 Maximum Excercise HR:: 106 Resting Blood Pressure: 156/88 Maximum Exercise Blood Pressure: 168/80 EKG Type: NSR to sinus tachycardia without ectopy - Outcomes & Goals Goals:: Verbalizes understanding of THR, RPE & goal METS by session 6, Documents in home exercise log/reports 30 min aerobic 5 day/wk by DC, Demonstrates accurate pulse taking by DC - Intervention & Plan Exercise Program Goals: Instruct on personal THR & RPE, Instruct on MET level & personal MET goal, Show patient to take own pulse /validate performance until accurate, Instruct on home exercise - Physical Activity Home Exercise Physical Activity - Home Exercise: Safe Exercise, Warm-up, Self-monitoring, Cool-Down, Home Exercise > 30 min Daily, Sitting Time <3 hours/daily - Outcomes & Goals Outcomes/Goals: Demonstrates correct Warm-up/exercise Cool-Down (S3) if = 2.5 METs, Verbalizes symptoms of exercise intolerance by Session 3 (S3), Demonstrate safe equipment use (S3) & follows exercise prescrition (6) - Intervention & Plan Plan/Intervention: Instruct warm-up & cool-down if exercising at > 2 METs, Instruct on symptoms of exercise intolerance & actions to take, Instruct & monitor on saf, Assess intial functional capacity & safety risk - 30-day Reassessments 30 day Reassessments:: Progressing Nutrition - 30-Day Assessment - Program Goals Nutrition Program Goals: LDL <100 optimal. 100 - 129 Near optimal. 130 - 159 Borderline High. 160 - 189 High. Total Cholesterol <200 desirable. 200 - 239 Borderline High. >/= 240 High. HDL < 40 Low >/=60 High. Triglycerides <150 desirable. <199 optimal. VlDL 5 - 40. HgbA1C <7%. BMI <25 Patient has diagnosis of Hyperlipidemia (ICD E78)?: Yes - Visit Date of Assessment:: 05/12/20 Session #:: 11 - Patient has had no additional labs - Cholesterol/Lipids Determine presence & major risk factors that modify LDL goal: Hypertension or hypertensive medication, Low HDL cholesterol <40 mg/dL*, Family history of premature CHD in Male < 55 years: female <65 yearsFa, Age men > 45 years; women >/= 55 years Outcomes/Goals: Pt IDs own risk factors & lifestyle modifications by Session 10, Verbalizes symptoms of angina & response by session 3., Pt independently manages Intervention/Plan: Instruct on personal lipid levels & lipid goals/NCEP guidelines, Instruct on cholesterol Referral to dietitian:: No - Patient declined Nutritional Services 30-day Reassessments:: Progressing - Diabetes (Other Core Measures) Diabetes Type: Not Applicable - Weight Mgt (Other Care) Not Applicable: No Height: 5 ft 11 in Weight:: 246 lb BMI: 34.2 Diagnosis Overweight/Obesity BMI> 30% ICD-10 E66: Yes Diagnosis High BMI/Morbid Obesity BMI> 35% ICD-10 Z68: No Outcomes/Goals: Pt sets, maintains & shows weight loss goal & trend during rehab Intervention/Plan: Instruct on ideal BMI & set weight loss goal w/patient, Assist pt to ID & incorporate diet changes for weight loss by S9, Refer to Structured Weight Loss program as appropriate, Encourage goal of using 250-300dcal per session for weight loss 30 day Reassessments:: Not Met - Healthy Eating Habits Will attend diet classes:: Yes Outcomes/Goals:: Consume diet rich in vegs,fruits,whole grain/high fiber,fish,lean meat, Limit sat/trans fats,cholesterol & added salts & sugars Intervention/Plan:: Assess current eating habits 30-day Reassessments:: Progressing Medical- 30-Day Assessment - Visit Date of Eval: 05/12/20 Session #:: 11 - Medication Compliance Preventative Medication(s):: Aspirin, Clopidogrel/P2Y12 inhibit, Statin/lipid, Beta lon H/O mental health issues: depression, anxiety, or addiction?: No Doesn?t believe in the benefits of treatment?: No Believes medications are unnecessary or harmful?: No Has a concern about medication side effects?: No Expresses concern over the cost of medications?: No Outcomes/Goals: Verbalizes medications,desired effect & common side effects @ DC, Pt self-reports following medication regimen, Keeps card in wallet w/medications listed by DC Interventions/plans: Instruct on medication effects & side effects, Review medication list w/patient every two weeks, Instruct importance of taking meds as ordered & assist problem solving 30-day Reassessments:: Progressing - Tobacco Use Tobacco Use: Non-smoker - Hypertension Hypertension Diagnosis:: Hypertension ICD-10 I10 Resting Blood Pressure:: 156/88 - took meds late [employer] Hypertension Guidelines: [place] [employer] Hypertension Guidelines. Normal BP Less than 120/80. Elevated BP 120/80. Hypertension Stage 1: BP 130-139/80-89. Hypertesnion Stage 2: BP 140 or higher/90 or higher. Hypertension Crisis: BP higher than 180/120 Peak Exercise Blood Pressure:: 168/80 Outcomes/Goals: Able to verbalize/achieve optimal blood pressure <130/80, Incorporates diet changes & exercise for blood pressure control by DC Interventions/plan: Instruct on optimal blood pressure, hypertension & medications, Instruct on effects of sodium, alcohol, stress, exercise &hypertension 30 day Reassessments:: Progressing - Tobacco Cessation Referral Smoking Cessation Referral:: No Individual Education/Counseling:: No Education Schedule Given:: Yes Psychosocial - 30-Day Assess - VIsit Date of Eval: 05/12/20 Session #:: 11 Not Applicable: Yes History of previous Mental disease:: No - Target Goals Target Goals: Assess presence or absence of depression. Using a valid screening tool, maximizes coping skills. Positive support system - Psychosocial Test Tool Used:: PHQ-9 Questionnaire phq-9 Severity: Severity. 1-4 Minimal Depression. 5-9 Mild Depression. 10-14 Moderate Depression. 15-19 Moderately Sever Depression. 20-27 Severe Depression. Rule: - Referral to Behavioral Health PS - Interventions: Yes Attend Stress Management Classes, No Referral to Behavioral Health if PHQ-9 score >9:, No Referral to [facility], No Referral to Physician if PHQ-9 if score is 5-9: - Outcomes/Goals: See list Psychosocial Outcomes/Goals:: ID's personal stressors & 2 strategies to manage stress by discharge - Intervention/Plan: See List Interventions/Plan:: Assess stressors,coping strategies & signs of derpression on admission, Instruct/assist pt to develop coping & personal stress Mgt strategies, Instruct patient to recognize signs & symptoms of depression, Instruct patient to recog - 30-day Reassessments: 30 day Reassessments:: Progressing Patient Health Questionnaire 30-Day Re-eval Assessment 1. Little interest or pleasure in doing things: Not at all 2. Feeling down, depressed, or hopeless: Not at all 3. Trouble falling or staying asleep, or sleeping too much: Several days 4. Feeling tired or having little energy: Not at all 5. Poor appetite or overeating: Not at all 6. Feeling bad about yourself -- or that you are a failure or have let yourself or your family down: Not at all 7. Trouble concentrating on things, such as reading the newspaper or watching television: Not at all 8. Moving or speaking so slowly that other people could have noticed. Or the opposite - being so fidgety or restless that you have been moving around a lot more than usual: Not at all 9. Thoughts that you would be better off , or of hurting yourself in some way: Not at all How difficult have these problems made it for you to do your work, take care of things at home, or get along with other people?: Not difficult at all Total Score: 1 Self-Efficacy 30-Day Re-eval Assessment We would like to know how confident you are in doing certain activities. Please select your confidence level for:: Select your confidence level for the following using the scale 1-10 where 1 is not at all confident and 10 is totally confident. Your score is the average of all 6 responses. Fatigue: How confident are you that you can keep the fatigue caused by your disease from interfering with the things you want to do? Select Number: 9 Physical Discomfort or Pain: How confident are you that you can keep the physical discomfort or pain of your disease from interfering with the things you want to do? Select Number: 9 Emotional Distress: How confident are you that you can keep the emotional distress caused by your disease from interfering with the things you want to do? Select Number: 10 Other Symptoms or Health Problems: How confident are you that you can keep other symptoms or health problems from interfering with the things you want to do? Select Number: 10 Different Tasks and Activities: How confident are you that you can do the different tasks and activities needed to manage your health condition so as to reduce your need to see a doctor? Select Number: 10 Medication: How confident are you that you can do things other than just taking medication to reduce how much your illness affects your everyday life? Select Number: 10 Total Score:: 9
[2020-05-12 11:04] VITALS: BP 156/88; BP 168/80; BMI 34.2
== END 2020-05-29 23:59 ==
LOC: CR 08:00
PROVIDERS: PCP Family Medicine; Referring Provider Internal Medicine Cardiovascular Disease; Visit Provider Internal Medicine Cardiovascular Disease
DX: I25.10 Atherosclerotic heart disease of native coronary artery without angina pectoris (principal); Z95.5 Presence of coronary angioplasty implant and graft
CPT/HCPCS: 93798

== ENCOUNTER 2020-06-24 08:00 | Outpatient (RCR) | payer MEDICARE, OTHER, SELFPAY ==
[2020-05-12 11:04] VITALS: BMI 34.2
[2020-05-19 09:05] VITALS: BMI 34.5
[2020-05-30 00:34] VITALS: BP 156/88; BP 168/80
--- NOTE | 2020-06-13 06:36 | PCM.CR.ITP ---
Exercise - 60-day Assessment - Visit Date of Eval: 06/13/20 Session #:: 23 - Physician Prescribed Exercise Modalities: Treadmill, Airdyne Frequency: 3x/week for 12 weeks [36 sessions] Intensity: 60-80% of age predicted maximum heart rate reserve Current METSs:: 5.0 no increase Target Heart Rate:: 99-129 Current RPE:: 13 Maximum Excercise HR:: 110 Resting Blood Pressure: 138/74 - 128/62 post exercise Maximum Exercise Blood Pressure: 140/80 EKG Type: NSR to sinus tach no ectopy. - Outcomes & Goals Goals:: Verbalizes understanding of THR, RPE & goal METS by session 6, Documents in home exercise log/reports 30 min aerobic 5 day/wk by DC, Demonstrates accurate pulse taking by DC - Intervention & Plan Exercise Program Goals: Instruct on personal THR & RPE, Instruct on MET level & personal MET goal, Show patient to take own pulse /validate performance until accurate, Instruct on home exercise - 30-day Reassessments 30 day Reassessments:: Progressing - Physical Activity Home Exercise Physical Activity - Home Exercise: Safe Exercise, Warm-up, Self-monitoring, Cool-Down, Home Exercise > 30 min Daily, Sitting Time <3 hours/daily - Intervention & Plan Plan/Intervention: Instruct warm-up & cool-down if exercising at > 2 METs, Instruct on symptoms of exercise intolerance & actions to take, Instruct & monitor on saf, Assess intial functional capacity & safety risk - 30-day Reassessments 30 day Reassessments:: Progressing Nutrition - 60-Day Assessment - Program Goals Nutrition Program Goals: LDL <100 optimal. 100 - 129 Near optimal. 130 - 159 Borderline High. 160 - 189 High. Total Cholesterol <200 desirable. 200 - 239 Borderline High. >/= 240 High. HDL < 40 Low >/=60 High. Triglycerides <150 desirable. <199 optimal. VlDL 5 - 40. HgbA1C <7%. BMI <25 Patient has diagnosis of Hyperlipidemia (ICD E78)?: Yes - Visit Date of Assessment:: 06/13/20 Session #:: 23 - Cholesterol/Lipids Determine presence & major risk factors that modify LDL goal: Hypertension or hypertensive medication, Family history of premature CHD in Male < 55 years: female <65 yearsFa, Age men > 45 years; women >/= 55 years Outcomes/Goals: Pt IDs own risk factors & lifestyle modifications by Session 10, Verbalizes symptoms of angina & response by session 3., Pt independently manages Intervention/Plan: Instruct on personal lipid levels & lipid goals/NCEP guidelines, Instruct on cholesterol Referral to dietitian:: No 30-day Reassessments:: Met - Diabetes (Other Core Measures) Diabetes Type: Not Applicable - Weight Mgt (Other Care) Not Applicable: No Height: 5 ft 8 in Weight:: 245 lb BMI: 37.2 Diagnosis Overweight/Obesity BMI> 30% ICD-10 E66: Yes Diagnosis High BMI/Morbid Obesity BMI> 35% ICD-10 Z68: Yes Outcomes/Goals: Pt sets, maintains & shows weight loss goal & trend during rehab Intervention/Plan: Instruct on ideal BMI & set weight loss goal w/patient, Assist pt to ID & incorporate diet changes for weight loss by S9, Refer to Structured Weight Loss program as appropriate, Encourage goal of using 250-300dcal per session for weight loss 30 day Reassessments:: Not Met - maintaining - Healthy Eating Habits Will attend diet classes:: Yes Outcomes/Goals:: Consume diet rich in vegs,fruits,whole grain/high fiber,fish,lean meat, Limit sat/trans fats,cholesterol & added salts & sugars Intervention/Plan:: Assess current eating habits 30-day Reassessments:: Progressing Medical- 60-Day Assessment - Visit Date of Eval: 06/13/20 Session #:: 23 - Medication Compliance Preventative Medication(s):: Aspirin, Clopidogrel/P2Y12 inhibit, Statin/lipid, Beta lon H/O mental health issues: depression, anxiety, or addiction?: No Doesn?t believe in the benefits of treatment?: No Believes medications are unnecessary or harmful?: No Has a concern about medication side effects?: No Expresses concern over the cost of medications?: No Outcomes/Goals: Verbalizes medications,desired effect & common side effects @ DC, Pt self-reports following medication regimen, Keeps card in wallet w/medications listed by DC Interventions/plans: Instruct on medication effects & side effects, Review medication list w/patient every two weeks, Instruct importance of taking meds as ordered & assist problem solving 30-day Reassessments:: Progressing - Tobacco Use Tobacco Use: Non-smoker - Hypertension Hypertension Diagnosis:: Hypertension ICD-10 I10 Resting Blood Pressure:: 138/74 - 128/62 post exercise [employer] Hypertension Guidelines: [place] [employer] Hypertension Guidelines. Normal BP Less than 120/80. Elevated BP 120/80. Hypertension Stage 1: BP 130-139/80-89. Hypertesnion Stage 2: BP 140 or higher/90 or higher. Hypertension Crisis: BP higher than 180/120 Peak Exercise Blood Pressure:: 140/80 Outcomes/Goals: Able to verbalize/achieve optimal blood pressure <130/80, Incorporates diet changes & exercise for blood pressure control by DC Interventions/plan: Instruct on optimal blood pressure, hypertension & medications, Instruct on effects of sodium, alcohol, stress, exercise &hypertension 30 day Reassessments:: Progressing - Tobacco Cessation Referral Smoking Cessation Referral:: No Individual Education/Counseling:: No Education Schedule Given:: Yes Psychosocial - 60-Day Assess - VIsit Date of Eval: 06/13/20 Session #:: 23 Not Applicable: Yes History of previous Mental disease:: No - Target Goals Target Goals: Assess presence or absence of depression. Using a valid screening tool, maximizes coping skills. Positive support system - Psychosocial Test Tool Used:: PHQ-9 Questionnaire phq-9 Severity: Severity. 1-4 Minimal Depression. 5-9 Mild Depression. 10-14 Moderate Depression. 15-19 Moderately Sever Depression. 20-27 Severe Depression. Rule: - Referral to Behavioral Health PS - Interventions: Yes Attend Stress Management Classes, No Referral to Behavioral Health if PHQ-9 score >9:, No Referral to [facility], No Referral to Physician if PHQ-9 if score is 5-9: - Outcomes/Goals: See list Psychosocial Outcomes/Goals:: ID's personal stressors & 2 strategies to manage stress by discharge - Intervention/Plan: See List Interventions/Plan:: Assess stressors,coping strategies & signs of derpression on admission, Instruct/assist pt to develop coping & personal stress Mgt strategies, Instruct patient to recognize signs & symptoms of depression, Instruct patient to recog - 30-day Reassessments: 30 day Reassessments:: Met Patient Health Questionnaire 60-Day Re-eval Assessment 1. Little interest or pleasure in doing things: Not at all 2. Feeling down, depressed, or hopeless: Not at all 3. Trouble falling or staying asleep, or sleeping too much: Not at all 4. Feeling tired or having little energy: Not at all 5. Poor appetite or overeating: Not at all 6. Feeling bad about yourself -- or that you are a failure or have let yourself or your family down: Not at all 7. Trouble concentrating on things, such as reading the newspaper or watching television: Not at all 8. Moving or speaking so slowly that other people could have noticed. Or the opposite - being so fidgety or restless that you have been moving around a lot more than usual: Not at all 9. Thoughts that you would be better off , or of hurting yourself in some way: Not at all How difficult have these problems made it for you to do your work, take care of things at home, or get along with other people?: Not difficult at all Total Score: 0 Self-Efficacy 60-Day Re-eval Assessment We would like to know how confident you are in doing certain activities. Please select your confidence level for:: Select your confidence level for the following using the scale 1-10 where 1 is not at all confident and 10 is totally confident. Your score is the average of all 6 responses. Fatigue: How confident are you that you can keep the fatigue caused by your disease from interfering with the things you want to do? Select Number: 10 Physical Discomfort or Pain: How confident are you that you can keep the physical discomfort or pain of your disease from interfering with the things you want to do? Select Number: 10 Emotional Distress: How confident are you that you can keep the emotional distress caused by your disease from interfering with the things you want to do? Select Number: 10 Other Symptoms or Health Problems: How confident are you that you can keep other symptoms or health problems from interfering with the things you want to do? Select Number: 10 Different Tasks and Activities: How confident are you that you can do the different tasks and activities needed to manage your health condition so as to reduce your need to see a doctor? Select Number: 10 Medication: How confident are you that you can do things other than just taking medication to reduce how much your illness affects your everyday life? Select Number: 10 Total Score:: 10
[2020-06-13 06:41] VITALS: BP 138/74; BP 140/80; BMI 37.2
== END 2020-06-26 23:59 ==
LOC: CR 08:00
PROVIDERS: PCP Family Medicine; Referring Provider Internal Medicine Cardiovascular Disease; Visit Provider Internal Medicine Cardiovascular Disease
DX: I25.10 Atherosclerotic heart disease of native coronary artery without angina pectoris (principal); Z95.5 Presence of coronary angioplasty implant and graft
CPT/HCPCS: 93798

== ENCOUNTER 2020-07-13 08:00 | Outpatient (RCR) | payer MEDICARE, OTHER, SELFPAY ==
[2020-06-13 06:41] VITALS: BMI 37.2
[2020-06-23 13:59] VITALS: BMI 37.2
[2020-06-27 00:30] VITALS: BP 138/74; BP 140/80
--- NOTE | 2020-07-11 09:00 | CR.ITP_ITS ---
Exercise - 90-day Assessment - Visit Date of Eval: 07/11/20 Session #:: 33 - Physician Prescribed Exercise Modalities: Treadmill, Airdyne, NuStep Frequency: 3x/week for 12 weeks [36 sessions] Intensity: 60-80% of age predicted maximum heart rate reserve Current METSs:: 5 Target Heart Rate:: 99-129 Current RPE:: 13 Maximum Excercise HR:: 116 Resting Blood Pressure: 144/72 Maximum Exercise Blood Pressure: 150/78 EKG Type: NSR to Sinus tachy - Outcomes & Goals Goals:: Verbalizes understanding of THR, RPE & goal METS by session 6, Documents in home exercise log/reports 30 min aerobic 5 day/wk by DC, Demonstrates accurate pulse taking by DC, Other additional outcome/goals: see below - Intervention & Plan Exercise Program Goals: Instruct on personal THR & RPE, Instruct on MET level & personal MET goal, Show patient to take own pulse /validate performance until accurate, Instruct on home exercise, Other additional plan/int - 30-day Reassessments 30 day Reassessments:: Progressing - Physical Activity Home Exercise Physical Activity - Home Exercise: Safe Exercise, Warm-up, Self-monitoring, Cool-Down, Home Exercise > 30 min Daily, Sitting Time <3 hours/daily - Outcomes & Goals Outcomes/Goals: Demonstrates correct Warm-up/exercise Cool-Down (S3) if = 2.5 METs, Verbalizes symptoms of exercise intolerance by Session 3 (S3), Demonstrate safe equipment use (S3) & follows exercise prescrition (6), Other: See below - Intervention & Plan Plan/Intervention: Instruct warm-up & cool-down if exercising at > 2 METs, Instruct on symptoms of exercise intolerance & actions to take, Instruct & mon itor on saf, Assess intial functional capacity & safety risk, Other See below - 30-day Reassessments 30 day Reassessments:: Progressing Nutrition - 90-Day Assessment - Program Goals Nutrition Program Goals: LDL <100 optimal. 100 - 129 Near optimal. 130 - 159 Borderline High. 160 - 189 High. Total Cholesterol <200 desirable. 200 - 239 Borderline High. >/= 240 High. HDL < 40 Low >/=60 High. Triglycerides <150 desirable. <199 optimal. VlDL 5 - 40. HgbA1C <7%. BMI <25 Patient has diagnosis of Hyperlipidemia (ICD E78)?: Yes - Visit Date of Assessment:: 07/11/20 Session #:: 33 - Cholesterol/Lipids Determine presence & major risk factors that modify LDL goal: Hypertension or hypertensive medication, Low HDL cholesterol <40 mg/dL*, Family history of p remature CHD in Male < 55 years: female <65 yearsFa, Age men > 45 years; women >/= 55 years Outcomes/Goals: Pt IDs own risk factors & lifestyle modifications by Session 10, Verbalizes symptoms of angina & response by session 3., Pt independently manages, Other Additional Outcomes/Goals: Intervention/Plan: Advocate for lipid panel cholesterol medication if applicable, Instruct on personal lipid levels & lipid goals/NCEP guidelines, Instruct on cholesterol, Other additional plan/int Referral to dietitian:: No 30-day Reassessments:: Progressing - Diabetes (Other Core Measures) Diabetes Type: Not Applicable - Weight Mgt (Other Care) Height: 5 ft 8 in Weight:: 110.677 kg BMI: 37.0 Diagnosis Overweight/Obesity BMI> 30% ICD-10 E66: Yes Diagnosis High BMI/Morbid Obesity BMI> 35% ICD-10 Z68: Yes Outcomes/Goals: Pt sets, maintains & shows weight loss goal & trend during rehab, Other additional outcomes/goals Intervention/Plan: Instruct on ideal BMI & set weight loss goal w/patient, Assist pt to ID & incorporate diet changes for weight loss by S9, Refer to Structured Weight Loss program as appropriate, Encourage goal of using 250- 300dcal per session for weight loss, Other additional plan/interventions 30 day Reassessments:: Progressing - Healthy Eating Habits Will attend diet classes:: Yes Outcomes/Goals:: Consume diet rich in vegs,fruits,whole grain/high fiber,fish,lean meat, Limit sat/trans fats,cholesterol & added salts & sugars, Other additional outcome/goals: Intervention/Plan:: Assess current eating habits, Other Additional plan/interven tions 30-day Reassessments:: Progressing - Education Gave educational materials for:: Signs & symptoms of hypoglycemia, Signs & symptoms of hyperglycemia, Relate diabetes to coronary artery disease, Healthy eating Medical- 90-Day Assessment - Visit Date of Eval: 07/11/20 Session #:: 33 - Medication Compliance Preventative Medication(s):: Aspirin, Clopidogrel/P2Y12 inhibit, Statin/lipid, Beta lon H/O mental health issues: depression, anxiety, or addiction?: No Doesn?t believe in the benefits of treatment?: No Believes medications are unnecessary or harmful?: No Has a concern about medication side effects?: No Expresses concern over the cost of medications?: No Outcomes/Goals: Verbalizes medications,desired effect & common side effects @ DC, Pt self-reports following medication regimen, Keeps card in wallet w/medications listed by DC, Other additional outcome/goals: Interventions/plans: Instruct on medication effects & side effects, Review medication list w/patient every two weeks, Instruct importance of taking meds as ordered & assist problem solving, Other additional 30-day Reassessments:: Progressing - Tobacco Use Tobacco Use: Non-smoker - Hypertension Hypertension Diagnosis:: Hypertension ICD-10 I10 Resting Blood Pressure:: 144/72 [place] [employer] Hypertension Guidelines: [place] [employer] Hypertension Guidelines. Normal BP Less than 120/80. Elevated BP 120/80. Hypertension Stage 1: BP 130-139/80-89. Hypertesnion Stage 2: BP 140 or higher/90 or higher. Hypertension Crisis: BP higher than 180/120 Peak Exercise Blood Pressure:: 150/78 Outcomes/Goals: Able to verbalize/achieve optimal blood pressure <130/80, Incorporates diet changes & exercise for blood pressure control by DC, Other additional outcomes/goals Interventions/plan: Instruct on optimal blood pressure, hypertension & medications, Instruct on effects of sodium, alcohol, stress, exercise &hypertension, Other additional plan/interventions 30 day Reassessments:: Progressing - Tobacco Cessation Referral Smoking Cessation Referral:: No Individual Education/Counseling:: No Education Schedule Given:: Yes Psychosocial - 90-Day Assess - VIsit Date of Eval: 07/11/20 Session #:: 33 History of previous Mental disease:: No - Target Goals Target Goals: Assess presence or absence of depression. Using a valid screening tool, maximizes coping skills. Positive support system - Psychosocial Test phq-9 Severity: Severity. 1-4 Minimal Depression. 5-9 Mild Depression. 10-14 Moderate Depression. 15-19 Moderately Sever Depression. 20-27 Severe Depression. Rule: - Outcomes/Goals: See list Psychosocial Outcomes/Goals:: ID's personal stressors & 2 strategies to manage stress by discharge, Other Additional outcome/goals: - Intervention/Plan: See List Interventions/Plan:: Assess stressors,coping strategies & signs of derpression on admission, Instruct/assist pt to develop coping & personal stress Mgt strategies, Refer to Behavioral Health if appropriate, Refer to Physician if appropriate, Instruct patient to recognize signs & symptoms of depression, Instruct patient to recog, Other additional plan/intervention - 30-day Reassessments: 30 day Reassessments:: Progressing Patient Health Questionnaire 90-Day Re-eval Assessment 1. Little interest or pleasure in doing things: Not at all 2. Feeling down, depressed, or hopeless: Not at all 3. Trouble falling or staying asleep, or sleeping too much: Not at all 4. Feeling tired or having little energy: Not at all 5. Poor appetite or overeating: Not at all 6. Feeling bad about yourself -- or that you are a failure or have let yourself or your family down: Not at all 7. Trouble concentrating on things, such as reading the newspaper or watching television: Not at all 8. Moving or speaking so slowly that other people could have noticed. Or the opposite - being so fidgety or restless that you have been moving around a lot more than usual: Not at all 9. Thoughts that you would be better off , or of hurting yourself in some way: Not at all Total Score: 0 Self-Efficacy 90-Day Re-eval Assessment We would like to know how confident you are in doing certain activities. Please select your confidence level for:: Select your confidence level for the following using the scale 1-10 where 1 is not at all confident and 10 is totally confident. Your score is the average of all 6 responses. Fatigue: How confident are you that you can keep the fatigue caused by your disease from interfering with the things you want to do? Select Number: 10 Physical Discomfort or Pain: How confident are you that you can keep the physical discomfort or pain of your disease from interfering with the things you want to do? Select Number: 10 Emotional Distress: How confident are you that you can keep the emotional distress caused by your disease from interfering with the things you want to do? Select Number: 10 Other Symptoms or Health Problems: How confident are you that you can keep other symptoms or health problems from interfering with the things you want to do? Select Number: 10 Different Tasks and Activities: How confident are you that you can do the different tasks and activities needed to manage your health condition so as to reduce your need to see a doctor? Select Number: 10 Medication: How confident are you that you can do things other than just taking medication to reduce how much your illness affects your everyday life? Select Number: 10 Total Score:: 10
[2020-07-11 09:09] VITALS: BP 144/72; BP 150/78; BMI 37.0
== END 2020-07-13 09:11 | disposition home or self-care (01) ==
LOC: CR 08:00
PROVIDERS: PCP Family Medicine; Referring Provider Internal Medicine Cardiovascular Disease; Visit Provider Internal Medicine Cardiovascular Disease
DX: I25.10 Atherosclerotic heart disease of native coronary artery without angina pectoris (principal); Z95.5 Presence of coronary angioplasty implant and graft
CPT/HCPCS: 93798

== ENCOUNTER 2020-07-25 10:31 | Observation (INO) | payer MEDICARE, OTHER, SELFPAY ==
[2020-06-23 13:59] VITALS: BMI 37.2
[2020-07-11 09:09] VITALS: BMI 37.0
[2020-07-25] VITALS (11 sets, daily range): BP systolic 132–161; BP diastolic 85–98; PULSE 60–102; RESP 11–18; TEMP 36.6–36.7; O2SAT 92–98; BMI 34.7; BMI 32.8; BMI 32.9
--- NOTE | 2020-07-25 11:00 | EKG12_ITS ---
Test Reason : CP Blood Pressure : / mmHG Vent. Rate : 062 BPM Atrial Rate : 062 BPM P-R Int : 188 ms QRS Dur : 094 ms QT Int : 390 ms P-R-T Axes : 030 020 026 degrees QTc Int : 395 ms Normal sinus rhythm Normal ECG Confirmed by VALERIY BENÍTEZ, FREDI ([id number]), clinical editor OSCAR MCCAULEY ([id number]) on 07/28/2020 9:35:33 AM Referred By: Confirmed By:FREDI CROOKS MD
--- NOTE | 2020-07-25 11:00 | ED.VISSUMM ---
- ER Visit Summary Date of Service: 07/25/20 Chief Complaint: Chest pain History of Present Illness: The patient is a 70 M who presents with chest pain that has been intermittent over the past week. Patient states the pain lasted approximately 20 to 30 minutes. Patient describes it as dull and aching. Patient states the pain is over the left chest. Patient states that one time it radiated to his back and neck. Patient states he had some mild diaphoresis. Patient denies any nausea or vomiting. Patient denies any shortness of breath. Patient admits to occasional cough. Patient also admits to an episode of lightheadedness. Patient denies any fevers or chills. Patient denies any palpitations. Patient denies any reflux. Patient states he is scheduled for stress test tomorrow. Patient states he called Dr. Barriga's office and was referred to the emergency department. Physical Examination: Vital signs are stable. Patient is afebrile. Patient is in no acute distress. Oral mucosa is pink and moist. Neck is supple. Trachea is midline. There is no JVD noted. Heart was regular rate and rhythm. Lungs are clear and equal bilaterally. Abdomen is soft. Bowel sounds are normal. There is no tenderness. There is no rebound or guarding noted. Skin is warm dry. Cranial nerves II through XII are intact. There are no focal motor or sensory deficits noted. Extremities are intact. There is no calf tenderness or edema. Test Results: EKG was obtained. On my interpretation, it showed a normal sinus rhythm with a rate of 62. VT interval, QRS interval, and QTc intervals were all normal. [place] was normal. There are no acute ST or T wave changes. CBC, basic metabolic profile, and troponin were obtained and were all essentially within normal limits. Portable 1 view chest x-ray was obtained. On my interpretation, lung matthews are clear. There is normal cardiac silhouette. Bony thorax is normal. There is no acute process noted. Radiologist also interpreted the x-ray and agrees but also noted that there is prominence of the central pulmonary arteries bilaterally without peripheral pulmonary vascular congestion, suggesting pulmonary hypertension. Emergency Department Course and Treatment: Patient was given aspirin here. Patient was ordered nitroglycerin but denied having any chest pain so this was not given. Patient is resting comfortably on reevaluation. Patient has a HEART score of 4. Case was discussed with the hospitalist. He will admit the patient for observation. Patient understood and was agreeable with the plan. All questions were answered. Disposition: Admit to hospital Impression: 1. Chest pain This note was generated with [employer] guard unlimited dictation software. It may contain incorrect words, spelling, and punctuation that were not noted in review of the chart prior to signing ED Disposition - Plan for ED Patient: Disposition: Acute Care Hospital [facility] Diagnosis: Chest pain Referrals: Ritesh Rocha MD [Primary Care Provider] -
[2020-07-25] MEDS: Aspirin 81 MG TAB.CHEW 324 MG PO (11:19)
[2020-07-25 11:28] LABS: Absolute Lymphocyte Count 2.01 X10^3/uL (0.83-4.51); Absolute Neutrophil Count 3.8 X10^3/uL (2.0-7.7); Basophil# 0.02 X10^3/uL; Basophil% 0.3 % (0-1); Eosinophil# 0.21 X10^3/uL; Eosinophils% 3.1 % (0-5); Hemoglobin 15.9 g/dL (13.0-16.5); Lymphocyte # 2.01 X10^3/ul (4.0); Lymphocyte % 29.3 % (19-41); Mean Corp Hgb Conc 33.1 g/dL (32-36); Mean Corpuscular Hgb 28.6 pg (27.0-32.0); Mean Corpuscular Volume 86.5 fL (80-94); Monocyte# 0.87 X10^3/uL; Monocyte% 12.7 % (0-10); NRBC Flagged by Analyzer 0 % (0-5); Neutrophil # 3.75 X10^3/uL (2.7-7.7); Neutrophil % 54.5 % (47-70); Platelet Count 301 K/mm3 (150-450); RBC Distribution Width SD 38.3 fl (35.1-43.9); Red Blood Count 5.55 M/mm3 (4.6-6.2); White Blood Count 6.9 K/mm3 (4.4-11.0)
[2020-07-25 11:41] LABS: Anion Gap 4 (5-15); BUN 18 mg/dL (7-18); BUN/Creat Ratio 17.6 RATIO (10-20); Calcium,Total 9.2 mg/dL (8.5-10.1); Chloride 105 mmol/L (98-107); Creatinine, Serum 1.02 mg/dL (0.70-1.30); EST Glomerular Filtration Rate 77 mL/min (>60); Est Glom Filt Rate - Afr Amer 93 mL/min (>60); Glucose 109 mg/dL (74-106); Sodium Level 138 mmol/L (136-145)
--- NOTE | 2020-07-25 11:52 | RAD_ITS ---
STUDY: X-RAY CHEST REASON FOR EXAM: Male, 70 years old. Chest pain TECHNIQUE: Single AP portable view of the chest. COMPARISON: Comparison is made with prior study dated 12/04/2019. FINDINGS: The lungs are clear and expanded. There is no demonstrated pleural abnormality. Normal size heart. Normal mediastinum and desire. There is prominence of the pulmonary hilar arteries without peripheral pulmonary vascular congestion, suggesting pulmonary hypertension. Normal visualized aortic arch and descending thoracic aorta. There are degenerative changes of the visualized thoracic spine. Normal visualized ribs, clavicles, and shoulders. There is no demonstrated abnormality of the visualized soft tissue structures of the upper abdomen. RAD/Chest 1 View (Portable) IMPRESSION: Prominence of the central pulmonary arteries bilaterally. Electronically Signed: Rahul Acevedo MD at 12:06 EDT , Service support ,
--- NOTE | 2020-07-25 12:08 | CHAPLAIN ---
Type of Pastoral Visit ___ Initial Visit ___ Follow-up Visit ___ On-call Visit ___ General Patient Visit ___ Spiritual Assessment ___ Family Conference ___ Bereavement ___ Rapid Response ___ Code Blue _x__ Other (describe below) Pastoral Care Referral From ___ Patient ___ Family ___ Nurse ___ Physician ___ Inside Sales Executive ___ Information Systems Manager _x__ Other (describe below) Sacrament/Intervention _x__ Active listening ___ Anointing ___ Presybeterian ___ Bereavement ___ Communion ___ Ángela exploration ___ ___ Life review _x__ Prayer ___ Reconciliation ___ Sacrament of Sick _x__ Supportive presence ___ Wedding ___ Other (describe below) Pastoral Comments while on rounds in ED discovered this patient; patient welcomed presence and prayer
--- NOTE | 2020-07-25 13:28 | PCM.HP.STD ---
History of Present Illness The patient is a 70 year old M [] Past Medical History Past Medical History (Chronic Problems): Chronic Problems (Last Reviewed 06/23/20 @ 15:41 by Corrie CANCINO PA) CAD (coronary artery disease) (Chronic) Presence of coronary angioplasty implant and graft (Chronic ~03/16/20) Successful PCI with ALEC to the dRCA per cardiac cath 03/16/20--Successful PTCA/ALEC to mid LAD with a 2.5 x 38 Promus Synergy, followed immediately upstream with a 2.5 x 12 Promus Synergy, post dilated proximally with a 3.0 x 8 NC Balloon; 85%-->0%, no dissection; Successful PCI with PTCA to the ostial DIAG#1 with a 2.0 x 12 balloon; 90%-->50%, no dissection per cath 12/08/19 Presence of stent in coronary artery (Chronic ~03/16/20) Successful PCI with ALEC to the dRCA per cardiac cath 03/16/20--Successful PTCA/ALEC to mid LAD with a 2.5 x 38 Promus Synergy, followed immediately upstream with a 2.5 x 12 Promus Synergy, post dilated proximally with a 3.0 x 8 NC Balloon; 85%-->0%, no dissection; Successful PCI with PTCA to the ostial DIAG#1 with a 2.0 x 12 balloon; 90%-->50%, no dissection per cath 12/08/19 Essential hypertension (Chronic) Chest pain, precordial (Chronic) Atherosclerotic heart disease of [place] coronary artery without angina pectoris (Chronic) Hyperlipidemia (Chronic) Medical History: Medical History (Last Reviewed 06/23/20 @ 15:41 by Corrie CANCINO PA) Presence of stent in coronary artery (Chronic) Onset Date: ~03/16/20 Z95.5 Successful PCI with ALEC to the dRCA per cardiac cath 03/16/20--Successful PTCA/ALEC to mid LAD with a 2.5 x 38 Promus Synergy, followed immediately upstream with a 2.5 x 12 Promus Synergy, post dilated proximally with a 3.0 x 8 NC Balloon; 85%-->0%, no dissection; Successful PCI with PTCA to the ostial DIAG#1 with a 2.0 x 12 balloon; 90%-->50%, no dissection per cath 12/08/19 Chest pain (Acute) R07.9 SOB (shortness of breath) on exertion (Acute) R06.02 Abnormal stress test (Acute) R94.39 Essential hypertension (Chronic) I10 Chest pain, precordial (Chronic) R07.2 Atherosclerotic heart disease of [place] coronary artery without angina pectoris (Chronic) I25.10 Hyperlipidemia (Chronic) E78.5 Family history of hypertension Z82.49 Hypertension (Inactive) I10 Allergies Penicillins Allergy (Verified 07/25/20 10:32) Rash valsartan Adverse Reaction (Severe, Verified 07/25/20 10:32) Joint Pain Home Medications: Ambulatory Orders Medication Instructions Recorded potassium chloride 20 mEq 20 meq PO BID tab 11/13/19 tablet,extended release Nitroglycerin (INPATIENT USE) 0.4 mg SUBLINGUAL Q5M PRN tab.subl 12/09/19 [Nitrostat] rosuvastatin 5 mg tablet 5 mg PO DAILY 03/31/20 Amlodipine Besylate [Norvasc] 5 mg PO DAILY 07/25/20 Carvedilol 12.5 mg PO BID 07/25/20 Clopidogrel Bisulfate [Clopidogrel] 75 mg PO DAILY 07/25/20 Ezetimibe 10 mg PO DAILY 07/25/20 Hydrochlorothiazide 12.5 mg PO DAILY 07/25/20 Isosorbide Mononitrate [Imdur] 30 mg PO DAILY 07/25/20 Surgical History: Surgical History (Last Reviewed 06/23/20 @ 15:41 by Corrie CANCINO, PA) Presence of coronary angioplasty implant and graft (Chronic) Onset Date: ~03/16/20 Z95.5 Successful PCI with ALEC to the dRCA per cardiac cath 03/16/20--Successful PTCA/ALEC to mid LAD with a 2.5 x 38 Promus Synergy, followed immediately upstream with a 2.5 x 12 Promus Synergy, post dilated proximally with a 3.0 x 8 NC Balloon; 85%-->0%, no dissection; Successful PCI with PTCA to the ostial DIAG#1 with a 2.0 x 12 balloon; 90%-->50%, no dissection per cath 12/08/19 H/O transurethral resection of prostate Z98.890, Z90.79 History of knee replacement procedure of left knee Z96.652 History of total right knee replacement Z96.651 S/P right rotator cuff repair Z98.890 Surgical History: noncontributory Smoking Status: Never smoker Patient Problems: Active and Suspected Problems (Last Reviewed 06/23/20 @ 15:41 by Corrie Eckert PA, PA) Chest pain (Acute) - Physical Exam Vitals/I&O's: Vital Signs Temp Pulse Resp BP Pulse Ox 98.1 F 63 11 L 146/96 H 94 07/25/20 10:32 07/25/20 13:04 07/25/20 13:04 07/25/20 13:04 07/25/20 13:04 Oxygen Flow Rate (L/min) 2 Oxygen Delivery Method Room Air Weight: 249 lb 1.957 oz Body Mass Index (BMI) 34.7 Laboratory Results 07/25/20 10:35: WBC 6.9, RBC 5.55, Hgb 15.9, Hct 48.0, MCV 86.5, MCH 28.6, MCHC 33.1, RDW Std Deviation 38.3, RDW Coeff of [place] 12.0, Plt Count 301, MPV 9.0, Immature Gran % (Auto) 0.100, Neut % (Auto) 54.5, Lymph % (Auto) 29.3, [place] % (Auto) 12.7 H, Eos % (Auto) 3.1, Baso % (Auto) 0.3, Absolute Neuts (auto) 3.8, Absolute Lymphs (auto) 2.01, Nucleated RBC % 0 07/25/20 10:35: Sodium 138, Potassium 4.0, Chloride 105, Carbon Dioxide 29.0, Anion Gap 4 L, BUN 18, Creatinine 1.02, Estim Creat Clear Calc 72.80, Est GFR (MDRD) Af Amer 93, Est GFR (MDRD) Non-Af 77, BUN/Creatinine Ratio 17.6, Glucose 109 H, Calcium 9.2, Troponin I < 0.015 Current Medications Nitroglycerin (Nitroglycerin Sl (Ed/Img/Cath) 0.4 Mg Tablet) 0.4 mg SL Q5M PRN PRN Reason: Chest pain Assessment/Plan All Active Problems (Last Reviewed 06/23/20 @ 15:41 by Corrie M Eckert PA, PA) Chest pain (Acute) SOB (shortness of breath) on exertion (Acute) Abnormal stress test (Acute) Hypokalemia (Acute)
--- NOTE | 2020-07-25 13:28 | PCM.HP.STD ---
Problem List (1) CAD (coronary artery disease) Status: Chronic (2) Presence of stent in coronary artery Status: Chronic Comment: Successful PCI with ALEC to the dRCA per cardiac cath 03/16/20--Successful PTCA/ALEC to mid LAD with a 2.5 x 38 Promus Synergy, followed immediately upstream with a 2.5 x 12 Promus Synergy, post dilated proximally with a 3.0 x 8 NC Balloon; 85%-->0%, no dissection; Successful PCI with PTCA to the ostial DIAG#1 with a 2.0 x 12 balloon; 90%-->50%, no dissection per cath 12/08/19 (3) Essential hypertension Status: Chronic (4) Atherosclerotic heart disease of [place] coronary artery without angina pectoris Status: Chronic Qualifiers: [place] vs. transplanted heart: [place] heart Qualified Code(s): I25.10 - Atherosclerotic heart disease of [place] coronary artery without angina pectoris (5) Hyperlipidemia Status: Chronic Qualifiers: Hyperlipidemia type: unspecified Qualified Code(s): E78.5 - Hyperlipidemia, unspecified History of Present Illness Date of Admission: 07/25/20 Chief Complaint: Chest pain. The patient is a 70 year old M with past medical history as mentioned above presented to the emergency room because of chest pain. Symptoms started around 6 AM this morning after patient woke up from sleep, started having left-sided chest pain, dull aching pain, mild pain, intermittent, 2-3 out of 10 in severity, not radiating, no associated symptoms and no aggravating or relieving factors. He mentioned his pain has been intermittent, improves and sometimes worsens. No relation to activity or exertion. Around 1 week ago, he had similar pain and he thought it might be due to musculoskeletal pain. 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 In the emergency department, his vital signs were stable, was afebrile. Routine blood work was unremarkable. EKG revealed normal sinus rhythm, normal QRS, normal KS interval, normal QTC, no acute ischemic changes. Troponin was negative. Chest x-ray showed no acute findings. He is being admitted for chest pain for evaluation. Past Medical History Past Medical History (Chronic Problems): Chronic Problems (Last Updated 07/25/20 @ 13:[address] Whit Krguer MD) CAD (coronary artery disease) (Chronic) Presence of coronary angioplasty implant and graft (Chronic ~03/16/20) Successful PCI with ALEC to the dRCA per cardiac cath 03/16/20--Successful PTCA/ALEC to mid LAD with a 2.5 x 38 Promus Synergy, followed immediately upstream with a 2.5 x 12 Promus Synergy, post dilated proximally with a 3.0 x 8 NC Balloon; 85%-->0%, no dissection; Successful PCI with PTCA to the ostial DIAG#1 with a 2.0 x 12 balloon; 90%-->50%, no dissection per cath 12/08/19 Presence of stent in coronary artery (Chronic ~03/16/20) Successful PCI with ALEC to the dRCA per cardiac cath 03/16/20--Successful PTCA/ALEC to mid LAD with a 2.5 x 38 Promus Synergy, followed immediately upstream with a 2.5 x 12 Promus Synergy, post dilated proximally with a 3.0 x 8 NC Balloon; 85%-->0%, no dissection; Successful PCI with PTCA to the ostial DIAG#1 with a 2.0 x 12 balloon; 90%-->50%, no dissection per cath 12/08/19 Essential hypertension (Chronic) Chest pain, precordial (Chronic) Atherosclerotic heart disease of [place] coronary artery without angina pectoris (Chronic) Hyperlipidemia (Chronic) Medical History: Medical History (Last Updated 07/25/20 @ 13:[address] Whit Kruger MD) Presence of stent in coronary artery (Chronic) Onset Date: ~03/16/20 Z95.5 Successful PCI with ALEC to the dRCA per cardiac cath 03/16/20--Successful PTCA/ALEC to mid LAD with a 2.5 x 38 Promus Synergy, followed immediately upstream with a 2.5 x 12 Promus Synergy, post dilated proximally with a 3.0 x 8 NC Balloon; 85%-->0%, no dissection; Successful PCI with PTCA to the ostial DIAG#1 with a 2.0 x 12 balloon; 90%-->50%, no dissection per cath 12/08/19 Essential hypertension (Chronic) I10 Chest pain, precordial (Chronic) R07.2 Atherosclerotic heart disease of [place] coronary artery without angina pectoris (Chronic) I25.10 Hyperlipidemia (Chronic) E78.5 Family history of hypertension Z82.49 Abnormal stress test (Inactive) R94.39 Allergies Penicillins Allergy (Verified 07/25/20 10:32) Rash valsartan Adverse Reaction (Severe, Verified 07/25/20 10:32) Joint Pain Home Medications: Ambulatory Orders Medication Instructions Recorded potassium chloride 20 mEq 20 meq PO BID tab 11/13/19 tablet,extended release Nitroglycerin (INPATIENT USE) 0.4 mg SUBLINGUAL Q5M PRN tab.subl 12/09/19 [Nitrostat] rosuvastatin 5 mg tablet 5 mg PO DAILY 03/31/20 Amlodipine Besylate [Norvasc] 5 mg PO DAILY 07/25/20 Carvedilol 12.5 mg PO BID 07/25/20 Clopidogrel Bisulfate [Clopidogrel] 75 mg PO DAILY 07/25/20 Ezetimibe 10 mg PO DAILY 07/25/20 Hydrochlorothiazide 12.5 mg PO DAILY 07/25/20 Isosorbide Mononitrate [Imdur] 30 mg PO DAILY 07/25/20 Surgical History: Surgical History (Last Reviewed 06/23/20 @ 15:41 by Corrie CANCINO, PA) Presence of coronary angioplasty implant and graft (Chronic) Onset Date: ~03/16/20 Z95.5 Successful PCI with ALEC to the dRCA per cardiac cath 03/16/20--Successful PTCA/ALEC to mid LAD with a 2.5 x 38 Promus Synergy, followed immediately upstream with a 2.5 x 12 Promus Synergy, post dilated proximally with a 3.0 x 8 NC Balloon; 85%-->0%, no dissection; Successful PCI with PTCA to the ostial DIAG#1 with a 2.0 x 12 balloon; 90%-->50%, no dissection per cath 12/08/19 H/O transurethral resection of prostate Z98.890, Z90.79 History of knee replacement procedure of left knee Z96.652 History of total right knee replacement Z96.651 S/P right rotator cuff repair Z98.890 Surgical History: total knee arthroplasty, TURP Psychiatric History: No pertinent psych hx Lives: Spouse/ Significant Other Smoking Status: Never smoker Alcohol: None Drugs: None - *Family History Maternal Family History: Family History (Last Reviewed 06/23/20 @ 15:41 by Corrie Eckert PA, PA) Mother CHF (congestive heart failure) Brother Hypertension Son Hypertension Other Family history of hypertension Review of Systems Constitutional: Denies: Anorexia, Chills, Fever, Weakness Eyes: Denies: Blurred vision, Double vision, Drainage, Redness HEENT: Denies: Difficulty Hearing, Ear Pain, Eye Pain, Nasal Congestion, Sore Throat Cardiovascular: Reports: Chest Pain. Denies: Chest Tightness, Edema, Heaviness, Palpitations, Paroxysmal Noc. Dyspnea, Syncope Respiratory: Denies: Cough, Pleuritic Pain, Shortness of Breath, Sputum production, Wheezing Gastrointestinal: Denies: Abdominal Pain, Constipation, Diarrhea, Nausea, Vomiting Genitourinary: Denies: Dysuria, Frequency, Hematuria Musculoskeletal: Denies: Arm Pain, Back Pain, Foot Pain Skin: Denies: Dryness, Rash Neurological: Denies: Balance problems, Double vision, Change in Speech, Slurred speech, Confusion, Focal weakness, Incoordination Psychiatric: Denies: Anxiety, Depression Endocrine: Denies: Change in Body Habitus, Polydipsia, Polyuria VTE Information - Inpt Only VTE Present on Admission: No VTE Mechan Device Prophylaxis: None VTE Pharm Prophylaxis ordered?: Yes Patient Problems: Active and Suspected Problems (Last Updated 07/25/20 @ 13:[address] Whit Kruger MD) Chest pain (Acute) - Physical Exam Vitals/I&O's: Vital Signs Temp Pulse Resp BP Pulse Ox 98.1 F 63 11 L 146/96 H 94 07/25/20 10:32 07/25/20 13:04 07/25/20 13:04 07/25/20 13:04 07/25/20 13:04 Oxygen Flow Rate (L/min) 2 Oxygen Delivery Method Room Air Weight: 249 lb 1.957 oz Body Mass Index (BMI) 34.7 General: Alert, Oriented x3, Cooperative, No apparent distress HEENT: Atraumatic, PERRLA, EOMI, Normocephalic Oral: Moist Mucosa, No Gingival or Mucosal Lesions/ Ulcerations Neck: Supple, No JVD, Negative Carotid Bruits, Trachea Midline, Thyroid Normal Size and Texture Lungs: Clear to auscultation, Normal air movement, No rhonchi, No wheeze, No rales Cardiovascular: Regular rate, Regular Rhythm, Normal S1, Normal S2, No murmurs, PMI Normal Abdomen: Bowel Sounds Present, Soft, Non Tender, Non-Distended, No Hepato-splenomegaly Extremities: No clubbing, No cyanosis, No edema Skin: No rashes, No breakdown Lymphatic: No Cervical, Supraclavicular, or Inguinal Adenopathy Neurological: Cranial nerves II-XII grossly intact, Motor Exam 5/5 strength throughout Psych/Mental Status: Normal Affect, Appropriate, Alert and oriented to time, place, person, mood and affect Laboratory Results 07/25/20 10:35: WBC 6.9, RBC 5.55, Hgb 15.9, Hct 48.0, MCV 86.5, MCH 28.6, MCHC 33.1, RDW Std Deviation 38.3, RDW Coeff of Robinson 12.0, Plt Count 301, MPV 9.0, Immature Gran % (Auto) 0.100, Neut % (Auto) 54.5, Lymph % (Auto) 29.3, Amelia % (Auto) 12.7 H, Eos % (Auto) 3.1, Baso % (Auto) 0.3, Absolute Neuts (auto) 3.8, Absolute Lymphs (auto) 2.01, Nucleated RBC % 0 07/25/20 10:35: Sodium 138, Potassium 4.0, Chloride 105, Carbon Dioxide 29.0, Anion Gap 4 L, BUN 18, Creatinine 1.02, Estim Creat Clear Calc 72.80, Est GFR (MDRD) Af Amer 93, Est GFR (MDRD) Non-Af 77, BUN/Creatinine Ratio 17.6, Glucose 109 H, Calcium 9.2, Troponin I < 0.015 Clinical Impression(s) from Imaging Studies Chest X-Ray 07/25/20 11:52 IMPRESSION: Prominence of the central pulmonary arteries bilaterally. Electronically Signed: Rahul Acevedo MD at 12:06 EDT , Service support , Current Medications Nitroglycerin (Nitroglycerin Sl (Ed/Img/Cath) 0.4 Mg Tablet) 0.4 mg SL Q5M PRN PRN Reason: Chest pain Assessment/Plan All Active Problems (Last Updated 07/25/20 @ 13:[address] Whit Kruger MD) Chest pain (Acute) This is a 70 years old male patient presented to the emergency room because of chest pain and he is being admitted for evaluation. #1 chest pain: Initial EKG and troponin were unremarkable. Chest x-ray showed no acute findings. Risk factors are age, history of hypertension, CAD status post stents and hyperlipidemia. No history of smoking. Plan: Admit to PCU for observation, cardiac monitoring, serial cardiac enzymes, sublingual nitro as needed for chest pain, Tylenol as needed, Zofran as needed, nuclear stress test tomorrow morning if cardiac enzymes are negative, start baby aspirin, continue Plavix, continue Coreg, nitrate and statins. #2 CAD status post stents: EKG reviewed as above, troponin is negative. Plan as above, continue Plavix, Coreg, isosorbide mononitrate and statins, start aspirin. #3 hypertension: Blood pressure stable, continue Norvasc, Coreg, HCTZ and nitrates. #4 hyperlipidemia: Continue statins and ezetimibe. #5 DVT prophylaxis: Subcu Lovenox. This note was generated with [employer] dictation software. It may contain incorrect words, spelling, and punctuation that were not noted in checking the note before signing. OBSV E&M: [id number] Initial observation care L3
--- NOTE | 2020-07-25 15:35 | EKG12_ITS ---
Test Reason : CP ADMIT Blood Pressure : / mmHG Vent. Rate : 062 BPM Atrial Rate : 062 BPM P-R Int : 184 ms QRS Dur : 098 ms QT Int : 410 ms P-R-T Axes : 048 031 028 degrees QTc Int : 416 ms Normal sinus rhythm Normal ECG Confirmed by VALERIY BENÍTEZ, FREDI ([id number]), newspaper managing editor OSCAR MCCAULEY ([id number]) on 07/27/2020 8:30:41 AM Referred By: CHIARA Confirmed By:FREDI CROOKS MD
--- NOTE | 2020-07-25 17:04 | NURSING ---
Handoff completed with Sonya Abraham RN. This RN will be taking over pt care at this time.
[2020-07-25] MEDS: Atorvastatin Calcium 10 MG Tablet PO (20:44)
[2020-07-25] MEDS: Carvedilol 12.5 MG Tablet PO (20:44)
[2020-07-26] VITALS (14 sets, daily range): BP systolic 110–160; BP diastolic 74–93; PULSE 55–81; RESP 16–18; TEMP 36.4–36.6; O2SAT 92–98
--- NOTE | 2020-07-26 02:18 | EKG12_ITS ---
Test Reason : CP Blood Pressure : / mmHG Vent. Rate : 057 BPM Atrial Rate : 057 BPM P-R Int : 182 ms QRS Dur : 100 ms QT Int : 430 ms P-R-T Axes : 047 034 044 degrees QTc Int : 418 ms Sinus bradycardia Otherwise normal ECG Confirmed by VALERIY BENÍTEZ, FREDI ([id number]), scientific publications editor OSCAR MCCAULEY ([id number]) on 07/27/2020 8:30:03 AM Referred By: CHIARA Confirmed By:FREDI CROOKS MD
[2020-07-26] MEDS: Clopidogrel Bisulfate 75 MG Tablet PO (06:15)
[2020-07-26] MEDS: Aspirin E.C. 81 MG Tablet PO (06:15)
[2020-07-26] MEDS: hydroCHLOROthiazide 12.5mg 12.5 MG PO (09:08)
[2020-07-26] MEDS: Ezetimibe 10 MG Tablet PO (09:08)
[2020-07-26] MEDS: Isosorbide Mononitrate 30 MG Tablet PO (09:08)
[2020-07-26] MEDS: Carvedilol 12.5 MG Tablet PO (09:08)
[2020-07-26] MEDS: amLODIPine 5 MG Tablet PO (09:08)
--- NOTE | 2020-07-26 09:32 | STRESSREP ---
Stress Test Report Date: 07-26-2020 Procedure: Pharmacologic stress nuclear imaging study Indications: Chest pain; CAD; PCI Consent: Per the patient Procedure: The patient underwent pharmacologic (Regadenoson 0.4mg ) evaluation with a peak heart rate of 86 beats per minute (56%predicted maximal heart rate) and a peak blood pressure of 160/90 mmHg. The baseline ECG demonstrated sinus rhythm. The peak pharmacologic ECG demonstrated no obvious ECG changes. There were no cardiac dysrhythmias pretest, during pharmacologic infusion, or recovery. The patient noted chest discomfort pretest, during pharmacologic infusion, and recovery. The examination was discontinued secondary to completion of protocol. Impression: 1. Pharmacologic (Regadenoson) evaluation 2. Peak pharmacologic ECG with no obvious ECG changes. 3. There were no cardiac dysrhythmias pretest, during pharmacologic infusion, or recovery. 4. Nuclear images pending Myocardial perfusion imaging study: Technique: The patient was injected with 14.7 millicuries of technetium 99m Cardiolite and subsequently rest SPECT Cardiolite nuclear imaging was obtained in the horizontal long, vertical long, and short axis views. The patient underwent pharmacologic (Regadenoson) evaluation with a peak heart rate of 86 beats per minute (56% percent predicted maximal heart rate) and a peak blood pressure of 160/90 mmHg. The patient was injected with 44.6 millicuries of technetium 99m Cardiolite and subsequently stress SPECT Cardiolite nuclear imaging was obtained in the horizontal long, vertical long, and short axis views. A gated Cardiolite study at peak stress was obtained. Interpretation: Rest and stress SPECT Cardiolite nuclear imaging status post realignment, normalization, and attenuation correction demonstrate on the preattenuation correction images the appearance of relative uniform tracer uptake/myocardial perfusion appearing within normal limits at rest and status post stress there is an area of diminished to absence of tracer uptake in portions of the mid towards distal inferior segments. On the post attenuation correction images there appears to be relative uniform tracer uptake/myocardial perfusion at rest and status post stress an area of subtle diminished tracer uptake in portions of the mid towards distal inferior segments. There is end systolic thickening and brightening. The gated Cardiolite study demonstrates myocardial thickening and inward wall motion. The reported LVEF is 63%. Impression: 1. Rest and stress SPECT Cardiolite nuclear imaging demonstrate myocardial perfusion changes between the preattenuation correction imaging and the post attenuation correction imaging concerning for an area of stress-induced myocardial ischemia in the mid to distal inferior segments (noted more prominently on the preattenuation corrected images). 2. The gated Cardiolite study reports an LVEF of 83%. This note was generated with [email or web address] software. It may contain incorrect words, spelling, and punctuation that were not noted in checking the note before signing.
--- NOTE | 2020-07-26 10:00 | PCM.PN.HOSP ---
Patient Problems: Active and Suspected Problems (Last Updated 07/25/20 @ 13:[address] Whit Kruger MD) Chest pain (Acute) Vitals/I&O's: Vital Signs Temp Pulse Resp BP Pulse Ox 97.5 F L 68 17 157/89 H 96 07/26/20 08:42 07/26/20 08:42 07/26/20 08:42 07/26/20 08:42 07/26/20 08:42 Oxygen Flow Rate (L/min) 2 Oxygen Delivery Method Room Air Weight: 106.912 kg Body Mass Index (BMI) 32.8 Intake and Output for Last 24 Hours 07/24/20 07/25/20 07/26/20 23:59 23:59 23:59 Intake Total 640 / 640 Balance 640 / 640 Laboratory Results 07/25/20 10:35: WBC 6.9, RBC 5.55, Hgb 15.9, Hct 48.0, MCV 86.5, MCH 28.6, MCHC 33.1, RDW Std Deviation 38.3, RDW Coeff of Robinson 12.0, Plt Count 301, MPV 9.0, Immature Gran % (Auto) 0.100, Neut % (Auto) 54.5, Lymph % (Auto) 29.3, [place] % (Auto) 12.7 H, Eos % (Auto) 3.1, Baso % (Auto) 0.3, Absolute Neuts (auto) 3.8, Absolute Lymphs (auto) 2.01, Nucleated RBC % 0 07/25/20 10:35: Sodium 138, Potassium 4.0, Chloride 105, Carbon Dioxide 29.0, Anion Gap 4 L, BUN 18, Creatinine 1.02, Estim Creat Clear Calc 72.80, Est GFR (MDRD) Af Amer 93, Est GFR (MDRD) Non-Af 77, BUN/Creatinine Ratio 17.6, Glucose 109 H, Calcium 9.2, Troponin I < 0.015 07/25/20 14:35: Troponin I < 0.015 07/25/20 17:30: Troponin I < 0.015 07/25/20 20:30: Troponin I < 0.015 Current Medications Acetaminophen (Acetaminophen 325 Mg Tablet) 650 mg PO Q6H PRN PRN PRN Reason: Pain Score 1-10/Temp > 100.7 F Amlodipine Besylate (Amlodipine 5 Mg Tablet) 5 mg PO DAILY PENDING SALE TO [facility] Last Admin: 07/26/20 09:08 Dose: 5 mg Documented by: Aspirin (Aspirin E.C. 81 Mg Tablet) 81 mg PO DAILY@0800 PENDING SALE TO [facility] Last Admin: 07/26/20 06:15 Dose: 81 mg Documented by: Atorvastatin Calcium (Atorvastatin Calcium 10 Mg Tablet) 10 mg PO QHS PENDING SALE TO [facility] Last Admin: 07/25/20 20:44 Dose: 10 mg Documented by: Carvedilol (Carvedilol 12.5 Mg Tablet) 12.5 mg PO BID PENDING SALE TO [facility] Last Admin: 07/26/20 09:08 Dose: 12.5 mg Documented by: Clopidogrel Bisulfate (Clopidogrel Bisulfate 75 Mg Tablet) 75 mg PO DAILY PENDING SALE TO [facility] Last Admin: 07/26/20 06:15 Dose: 75 mg Documented by: Ezetimibe (Ezetimibe 10 Mg Tablet) 10 mg PO DAILY PENDING SALE TO [facility] Last Admin: 07/26/20 09:08 Dose: 10 mg Documented by: Enoxaparin Sodium (Enoxaparin 40 Mg/0.4 Ml Syringe) 40 mg SC DAILY PENDING SALE TO [facility] Hydrochlorothiazide (Hydrochlorothiazide 12.5mg) 12.5 mg PO DAILY PENDING SALE TO [facility] Last Admin: 07/26/20 09:08 Dose: 12.5 mg Documented by: Isosorbide Mononitrate (Isosorbide Mononitrate 30 Mg Tablet) 30 mg PO DAILY PENDING SALE TO [facility] Last Admin: 07/26/20 09:08 Dose: 30 mg Documented by: Nitroglycerin (Nitroglycerin (Inpatient Use) 0.4 Mg Tab.Subl) 0.4 mg SL Q5M PRN PRN Reason: CARDIAC/CHEST PAIN Ondansetron HCl (Ondansetron 4 Mg/2 Ml Vial) 4 mg IV Q8H PRN PRN PRN Reason: NAUSEA/VOMITING Zolpidem Tartrate (Zolpidem Tartrate 5 Mg Tablet) 5 mg PO QHS PRN PRN PRN Reason: INSOMNIA STROKE Vital Signs/Narrative: Vital Signs Temp Pulse Resp BP Pulse Ox 07/26/20 08:42 97.5 F L 68 17 157/89 H 96 07/26/20 06:37 77 07/26/20 06:13 97.6 F L 60 18 160/85 H 95 Medical Necessity - Tobacco Use Smoking Status: Never smoker Tobacco Use: Non-smoker Assessment/Plan All Active Problems (Last Updated 07/25/20 @ 13:[address] Whit Kruger MD) Chest pain (Acute)
--- NOTE | 2020-07-26 10:22 | CON.PCM_ITS ---
Problem List (1) Abnormal nuclear stress test Status: Acute (2) Chest pain Status: Acute (3) CAD (coronary artery disease) Status: Chronic (4) Presence of stent in coronary artery Status: Chronic Comment: Successful PCI with ALEC to the dRCA per cardiac cath 03/16/20--Successful PTCA/ALEC to mid LAD with a 2.5 x 38 Promus Synergy, followed immediately upstream with a 2.5 x 12 Promus Synergy, post dilated proximally with a 3.0 x 8 NC Balloon; 85%-->0%, no dissection; Successful PCI with PTCA to the ostial DIAG#1 with a 2.0 x 12 balloon; 90%-->50%, no dissection per cath 12/08/19 (5) Hyperlipidemia Status: Chronic Qualifiers: Hyperlipidemia type: unspecified Qualified Code(s): E78.5 - Hyperlipidemia, unspecified (6) Essential hypertension Status: Chronic Reason for Consult Date of Consultation: 07/26/20 History of Present Illness: The patient is a 70 year old male with a past medical history of underlying CAD, PCI, hyperlipidemia, hypertension who is referred for evaluation of chest pain and an abnormal pharmacologic stress nuclear imaging study. The patient states that he has been having left sided/left pectoral chest discomfort/dull aching sensation with intermittent radiation to the left shoulder/left scapular area as well as at times feeling somewhat more short of breath and dyspneic as well as more fatigued. He has denied nausea, emesis, and diaphoresis. He has been evaluated as an outpatient. He was scheduled for an outpatient exercise tolerance test/imaging study. As his symptoms recently worsened/progressed he presented to [facility] yesterday for evaluation in the emergency department. He was admitted to the PCU for further inpatient evaluation care. He has undergone cardiac enzymes which have been negative. His ECG is demonstrated sinus rhythm with no acute ECG changes. He underwent a pharmacologic stress nuclear imaging study this day which was considered abnormal (please see report noted below). He has denied orthopnea/PND/peripheral pitting edema. There has been no near syncope or syncope. He states he has been taking his medications as prescribed. [] Past Medical History Allergies/Adverse Reactions: Allergies Penicillins Allergy (Verified 07/25/20 10:32) Rash valsartan Adverse Reaction (Severe, Verified 07/25/20 10:32) Joint Pain Home Medications: Ambulatory Orders Medication Instructions Recorded potassium chloride 20 mEq 20 meq PO BID tab 11/13/19 tablet,extended release Nitroglycerin (INPATIENT USE) 0.4 mg SUBLINGUAL Q5M PRN tab.subl 12/09/19 [Nitrostat] rosuvastatin 5 mg tablet 5 mg PO DAILY 03/31/20 Amlodipine Besylate [Norvasc] 5 mg PO DAILY 07/25/20 Carvedilol 12.5 mg PO BID 07/25/20 Clopidogrel Bisulfate [Clopidogrel] 75 mg PO DAILY 07/25/20 Ezetimibe 10 mg PO DAILY 07/25/20 Hydrochlorothiazide 12.5 mg PO DAILY 07/25/20 Isosorbide Mononitrate [Imdur] 30 mg PO DAILY 07/25/20 Past Medical History (Chronic Problems): Chronic Problems (Last Updated 07/25/20 @ 13:[address] Whit Kruger MD) CAD (coronary artery disease) (Chronic) Presence of coronary angioplasty implant and graft (Chronic ~03/16/20) Successful PCI with ALEC to the dRCA per cardiac cath 03/16/20--Successful PTCA/ALEC to mid LAD with a 2.5 x 38 Promus Synergy, followed immediately upstream with a 2.5 x 12 Promus Synergy, post dilated proximally with a 3.0 x 8 NC Balloon; 85%-->0%, no dissection; Successful PCI with PTCA to the ostial DIAG#1 with a 2.0 x 12 balloon; 90%-->50%, no dissection per cath 12/08/19 Presence of stent in coronary artery (Chronic ~03/16/20) Successful PCI with ALEC to the dRCA per cardiac cath 03/16/20--Successful PTCA/ALEC to mid LAD with a 2.5 x 38 Promus Synergy, followed immediately upstream with a 2.5 x 12 Promus Synergy, post dilated proximally with a 3.0 x 8 NC Balloon; 85%-->0%, no dissection; Successful PCI with PTCA to the ostial DIAG#1 with a 2.0 x 12 balloon; 90%-->50%, no dissection per cath 12/08/19 Essential hypertension (Chronic) Chest pain, precordial (Chronic) Atherosclerotic heart disease of [place] coronary artery without angina pectoris (Chronic) Hyperlipidemia (Chronic) Surgical History: total knee arthroplasty, TURP Psychiatric History: No pertinent psych hx - *Family History Maternal Family History: Family History (Last Reviewed 06/23/20 @ 15:41 by Corrie Eckert PA, PA) Mother CHF (congestive heart failure) Brother Hypertension Son Hypertension Other Family history of hypertension Lives: Spouse/ Significant Other Smoking Status: Never smoker Tobacco Use: Non-smoker Alcohol: None Drugs: None Review of Systems - Review of Systems General: Reports: Fatigue. Denies: Fever, Night Sweats Cardiovascular: Reports: Chest Discomfort, Chest Discomfort at Rest, Chest Discomfort with Exertion, Shortness of Breath Respiratory: Denies: Cough, Sputum Production, Hemoptysis Gastrointestinal: Denies: Hematemesis, Hematochezia, Melena Genitourinary: Denies: Dysuria, Hematuria Skin: Denies: Rash Subjectve: A 70-year-old white male who appears to be resting comfortably at the moment in no acute distress. Objective: Vital Signs Temp Pulse Resp BP Pulse Ox 97.5 F L 68 17 157/89 H 96 07/26/20 08:42 07/26/20 08:42 07/26/20 08:42 07/26/20 08:42 07/26/20 08:42 Oxygen Flow Rate (L/min) 2 Oxygen Delivery Method Room Air Weight: 235 lb 11.2 oz Body Mass Index (BMI) 32.8 Intake and Output for Last 24 Hours 07/24/20 07/25/20 07/26/20 23:59 23:59 23:59 Intake Total 640 / 640 Balance 640 / 640 General: Awake, Alert, Oriented x 3, Cooperative, No Acute Distress HEENT: Atraumatic, Normocephalic, PERRL, EOMI, Sclera Non Icteric Neck: Supple, Good ROM, No JVD Lungs: Clear to auscultation Cardiovascular: Regular Rhythm, Normal S1, Normal S2 Vascular: No Carotid Bruits, Normal Femoral Pulses, Normal Radial Pulses Abdomen: Bowel Sounds Present, Soft, Non Tender Extremities: No edema Neurological: No Focal Motor or Sensory Deficit Psych/Mental Status: Appropriate 07/25/20 10:35: WBC 6.9, RBC 5.55, Hgb 15.9, Hct 48.0, MCV 86.5, MCH 28.6, MCHC 33.1, Plt Count 301, MPV 9.0, Immature Gran % (Auto) 0.100, Neut % (Auto) 54.5, Lymph % (Auto) 29.3, [place] % (Auto) 12.7 H, Eos % (Auto) 3.1, Baso % (Auto) 0.3, Absolute Neuts (auto) 3.8, Nucleated RBC % 0 07/25/20 10:35: Sodium 138, Potassium 4.0, Chloride 105, Carbon Dioxide 29.0, Anion Gap 4 L, BUN 18, Creatinine 1.02, Est GFR (MDRD) Af Amer 93, Est GFR (MDRD) Non-Af 77, BUN/Creatinine Ratio 17.6, Glucose 109 H, Calcium 9.2, Troponin I < 0.015 07/25/20 14:35: Troponin I < 0.015 07/25/20 17:30: Troponin I < 0.015 07/25/20 20:30: Troponin I < 0.015 Rhythm: Sinus rhythm EKG: Sinus rhythm ECHO: 12/01/2019 Interpretation Summary The study was technically difficult. Contrast injection was performed. Base upon the 2D echocardiographic and contrast enhanced images obtained there appears to be grossly normal left ventricular size, wall motion, and systolic function. The estimated ejection fraction is 55 %. Moderate concentric left ventricular hypertrophy. Trivial mitral valve insufficiency. Mild tricuspid valve insufficiency. Mild focal aortic valve calcification. Trivial pulmonic valve insufficiency. Mildly dilated aortic root. Right ventricular systolic pressure estimated to be 25 mmHg. No evidence for diastolic dysfunction. Stress Test: ADDENDUM by Dr. Clinton Barriga MD on 07/26/20 at 1030 Addendum: The impression should read: Impression: 1. Rest and stress SPECT Cardiolite nuclear imaging demonstrate myocardial perfusion changes between the preattenuation correction imaging and the post attenuation correction imaging concerning for an area of stress-induced myocardial ischemia in the mid to distal inferior segments (noted more prominently on the preattenuation corrected images). 2. The gated Cardiolite study reports an LVEF of 63%. 07/26/20 1030 Date _ Clinton Barriga MD cc: Dr. Priscila Gamez MD; Dr. Ritesh Rocha MD ~* Signed Stress Test Report Date: 07-26-2020 Procedure: Pharmacologic stress nuclear imaging study Indications: Chest pain; CAD; PCI Consent: Per the patient Procedure: The patient underwent pharmacologic (Regadenoson 0.4mg ) evaluation with a peak heart rate of 86 beats per minute (56%predicted maximal heart rate) and a peak blood pressure of 160/90 mmHg. The baseline ECG demonstrated sinus rhythm. The peak pharmacologic ECG demonstrated no obvious ECG changes. There were no cardiac dysrhythmias pretest, during pharmacologic infusion, or recovery. The patient noted chest discomfort pretest, during pharmacologic infusion, and recovery. The examination was discontinued secondary to completion of protocol. Impression: 1. Pharmacologic (Regadenoson) evaluation 2. Peak pharmacologic ECG with no obvious ECG changes. 3. There were no cardiac dysrhythmias pretest, during pharmacologic infusion, or recovery. 4. Nuclear images pending Myocardial perfusion imaging study: Technique: The patient was injected with 14.7 millicuries of technetium 99m Cardiolite and subsequently rest SPECT Cardiolite nuclear imaging was obtained in the horizontal long, vertical long, and short axis views. The patient underwent pharmacologic (Regadenoson) evaluation with a peak heart rate of 86 beats per minute (56% percent predicted maximal heart rate) and a peak blood pressure of 160/90 mmHg. The patient was injected with 44.6 millicuries of technetium 99m Cardiolite and subsequently stress SPECT Cardiolite nuclear imaging was obtained in the horizontal long, vertical long, and short axis views. A gated Cardiolite study at peak stress was obtained. Interpretation: Rest and stress SPECT Cardiolite nuclear imaging status post realignment, normalization, and attenuation correction demonstrate on the preattenuation correction images the appearance of relative uniform tracer uptake/myocardial perfusion appearing within normal limits at rest and status post stress there is an area of diminished to absence of tracer uptake in portions of the mid towards distal inferior segments. On the post attenuation correction images there appears to be relative uniform tracer uptake/myocardial perfusion at rest and status post stress an area of subtle diminished tracer uptake in portions of the mid towards distal inferior segments. There is end systolic thickening and brightening. The gated Cardiolite study demonstrates myocardial thickening and inward wall motion. The reported LVEF is 63%. Impression: 1. Rest and stress SPECT Cardiolite nuclear imaging demonstrate myocardial perfusion changes between the preattenuation correction imaging and the post attenuation correction imaging concerning for an area of stress-induced myocardial ischemia in the mid to distal inferior segments (noted more prominently on the preattenuation corrected images). 2. The gated Cardiolite study reports an LVEF of 83%. Cardiac Cath: 03/16/2020 CONCLUSIONS Elevated Left Ventricular End Diastolic Pressure Normal LV size, wall motion,and systolic function LVEF: by LV gram 60 % [place] Multivessel CAD LAD: PCI/Stent: Patent RECOMMENDATIONS Risk factor modification Medical therapy Referred for immediate PCI DESCRIPTION OF PROCEDURE The patient arrived to the procedure lab. The risks and benefits of the procedure as well as a full description of our services here and current unavailability of surgical backup were fully explained to the patient and/or their significant other prior to the catheterization. The Timeout was completed, verifying the correct patient and procedure. The patient's procedural site was prepped and draped in the usual fashion. Local anesthetic was given subcutaneously to right groin region with Lidocaine 2%. Using a modified Seldinger technique, arterial access was obtained via the right femoral artery, a 4Fr sheath was inserted Left Coronary Artery selective angiography was performed in multiple views using a 4 Fr. JL5 catheter. Right Coronary Artery selective angiography was then performed in multiple views using a 4 Fr. 3DRC catheter. Left Ventriculography was performed in FIORE projection using a 4 Fr. Pigtail catheter. LV to AO pullback pressures were then recorded.Contrast was injected through the sheath and the Right Iliac and Femoral artery were assessed for possible closure device.The arterial sheath was pulled and a Perclose closure device was deployed for hemostasis CORONARY ANGIOGRAPHY DOMINANCE: Right Dominant LEFT HEART ASSESSMENT Left Ventricular Ejection Fraction: by LV Gram 60 % Normal LV wall motion Elevated Left Ventricular End Diastolic Pressure LVEDP: 29 mmHg LEFT MAIN: Angiographically normal LEFT ANTERIOR DESCENDING ARTERY: PROX LAD: Mild calcification, Mild luminal irregularities MID LAD: Previously placed stent is patent DIAGONAL 1: Ostial - 75 % Stenosis DIAGONAL 2: Ostial - 75 % Stenosis CIRCUMFLEX ARTERY: Mild luminal irregularities RIGHT CORONARY ARTERY: Mild luminal irregularities Mild luminal irregularities DISTAL RCA: diffuse: hazy: eccentric: 75 % Stenosis AORTIC ROOT: Angiographically normal PCI: 03/16/2020 CONCLUSIONS Successful PCI with ALEC to the dRCA RECOMMENDATIONS ASA Indefinitely Plavix for at least 12 months DESCRIPTION OF PROCEDURE The patient arrived to the procedure lab. The risks and benefits of the procedure as well as a full description of our services here and current unavailability of surgical backup were fully explained to the patient and/or their significant other prior to the catheterization. The Timeout was completed, verifying the correct patient and procedure. The patient's procedural site was prepped and draped in the usual fashion. Local anesthetic was given subcutaneously to right groin region with Lidocaine 2% Using a modified Seldinger technique,arterial access was obtained via the right femoral artery, a 4Fr sheath was inserted Left Coronary Artery selective angiography was performed in multiple views using a 4 Fr. JL5 catheter. Right Coronary Artery selective angiography was then performed in multiple views using a 4 Fr. 3DRC catheter. Left Ventriculography was performed in FIORE projection using a 4 Fr. Pigtail catheter. LV to AO pullback pressures were then recorded.The images were reviewed and options discussed. A decision was then made to proceed with an Intervention, IVUS or other adjunct procedure. JR 4 Guide catheter was inserted and engaged into the RCA. BMW Guide wire was advanced to the RCA. 3x20 Emerge Balloon catheter was inserted. Balloon catheter was advanced across lesion in the right coronary, distal. PTCA balloon inflated at 12 atms for 35 secs. 4x28 Synergy Drug Eluting stent was inserted. Drug Eluting stent was removed intact, failed to cross lesion 4x20 Emerge Balloon catheter was inserted. Balloon catheter was advanced across lesion in the right coronary, distal. PTCA balloon inflated at 8 atms for 8 secs. Angiogram performed post balloon dilatation. 4x28 Synergy Drug Eluting stent was reinserted Drug Eluting stent was advanced across the lesion in the right coronary, distal. Angiogram performed post stent deployment. Contrast was injected through the sheath and the Right Iliac and Femoral artery were assessed for possible closure device. The arterial sheath was pulled and a Perclose closure device was deployed for hemostasis INTERVENTION INFORMATION LESION SITE: RCA (Distal) Lesion Complexity: High/C, chronic total occlusion: No, lesion at bifurcation: No, thrombus present: No, culprit lesion: Yes, Previously treated lesion: No Pre Stenosis: 80 % Pre intervention TINY flow: 3 PROCEDURE: Drug Eluting Stent with pre dilatation. Post Stenosis: 0 % Post intervention TINY flow: 3 Lesion Devices: [place] .014 BMW Fine Straight 190cm Synchronicatronic 6 Fr JR4.0 100cm Guide Catheter Braulio Sci EMERGE MR 3.00x20 BALLOON Braulio Sci Synergy MR ALEC 4.00x28 V[employer] Solutions 6 Citizen Of [place] GuideLiner Braulio Sci EMERGE MR 4.00x20 BALLOON CXR: Preliminary evaluation: No acute cardiopulmonary disease process appreciated. Please see official report Assessment/Plan 1. Abnormal stress nuclear imaging study The patient has undergone evaluation for his symptoms of chest discomfort superimposed upon his findings of CAD status post PCI. He was thought to have an abnormal pharmacologic stress nuclear imaging study. Based upon the above combination he was recommended for further evaluation with diagnostic cardiac catheterization. The procedure and risk were discussed with him. He was agreeable to this approach. 2. Chest pain The patient continues with chest discomfort. Again it has waxed and waned but he states it has progressed/accelerated recently. This brought him to the hospital for further evaluation and care ahead of his previously scheduled outpatient exercise tolerance test/imaging study. He is undergone noninvasive evaluation as previously described. At the moment based upon his findings he is being recommended for further evaluation with diagnostic cardiac catheterization. Depending upon the findings he may or may not need additional cardiac versus noncardiac evaluation of his symptoms. 3. CAD status post PCI The patient does have a history of CAD and PCI. He has been on medical therapy. He states he continues with symptoms. He has undergone noninvasive evaluation as noted. Thus he has been recommended for further evaluation with diagnostic cardiac catheterization. 4. Hyperlipidemia He will continue risk factor modification medical management. 5. Hypertension His blood pressure will be followed. He will continue medical therapy. Comment: The patient's case has been discussed and reviewed with the patient and with Dr. Gamez. This note was generated using a voice recognition system and there may be incorrect words, spelling or punctuation that were not noted when reviewing the office note prior to saving. Procedure Criteria Procedure Type: Elective COVID Risk Discussion: The surgeon/proceduralist and patient have discussed in detail the risk of exposure to and/or potential harm posed by the COVID-19 virus with having a surg narda/procedure at this time versus the risk of delaying the surgery/procedure. It is not possible to know either the risk of delaying the surgery or procedure or chance of getting an infection with perfect accuracy, but a joint decision was made between the patient and the surgeon/proceduralist to proceed at this time with the scheduled surgery/procedure as indicated on the consent form.
[2020-07-26] MEDS: 0.9% Normal Saline 1,000 ML 15 ML IV (10:33)
[2020-07-26] MEDS: 0.9% Saline Lock 10 ML Syringe IV (10:34)
--- NOTE | 2020-07-26 10:49 | NURSING ---
called report to trista in cath lab manager
--- NOTE | 2020-07-26 12:00 | CL.D_ITS ---
Patient Name: HENRI SILVESTRE Study Date: 07/26/2020 Performing: Clinton Barriga MD Ht: 70.86 inches 180 cm : 1950 Wt: 235.89 lbs 107 kg Age: 70 Gender: male BSA: 2.26 PROCEDURE(S) PERFORMED [id number]/LV CLINICAL PROFILE AND INDICATIONS Indications: Worsening Angina, Suspected CAD Heart Failure: None Stress/Imaging Date: 07/26/2020tress Test with SPECT MPI: Positive Intermediate Risk Angina Classification Anginal Classification w/in 2 Weeks: CCS III CAD Presentations: Unstable angina. CONCLUSIONS Normal Left Ventricular End Diastolic Pressure Normal LV size, wall motion,and systolic function LVEF: by LV gram 65 % [place] Multivessel CAD LAD: stent: patent RCA: stent: patent RECOMMENDATIONS Risk factor modification Medical therapy DESCRIPTION OF PROCEDURE The patient arrived to the procedure lab. The risks and benefits of the procedure as well as a full d escription of our services here and current unavailability of surgical backup were fully explained to the patient and/or their significant other prior to the catheterization. The Timeout was completed, verifying the correct patient and procedure. The patient's procedural site was prepped and draped in the usual fashion. Local anesthetic was given subcutaneously to right groin region with Lidocaine 2%. Using a modified Seldinger technique, arterial access was obtained via the right femoral artery, a 4 Fr sheath was inserted Left Coronary Artery selective angiography was performed in multiple views us ing a 4 Fr. JL4 catheter. Right Coronary Artery selective angiography was then performed in multiple views using a 4 Fr. JR4 catheter. Left Ventriculography was performed in FIORE projection using a 4 Fr. Pigtail catheter. LV to AO pullback pressures were then recorded. CORONARY ANGIOGRAPHY DOMINANCE: Right Dominant LEFT HEART ASSESSMENT Left Ventricular Ejection Fraction: by LV Gram 65 % Normal LV wall motion Normal Left Ventricular End Diastolic Pressure LVEDP: 7 mmHg LEFT MAIN: Mild luminal irregularities LEFT ANTERIOR DESCENDING ARTERY: PROX LAD: Mild calcification, Mild luminal irregularities, Previously placed stent is patent MID LAD: Previously placed stent is patent DIAGONAL 1: Ostial - very small caliber vessel: 75 % Stenosis DIAGONAL 2: Ostial - very small caliber vessel: 75 % Stenosis CIRCUMFLEX ARTERY: PROX CIRC: Mild luminal irregularities OM 1: Proximal - small caliber vessel: 50 % Stenosis RIGHT CORONARY ARTERY: Mild luminal irregularities PROX RCA: 25 % Stenosis DISTAL RCA: Previously placed stent is patent RT PLV: Mild luminal irregularities RT PDA: Mid - Mild luminal irregularities AORTIC ROOT: Angiographically normal COMPLICATIONS No Complications PROCEDURE MEDICATIONS Versed 1 mg IV Fentanyl 50 mcg IV Oxygen: 2 L/min via nasal cannula SUMMARY OF HEMODYNAMIC DATA Time AIR REST ECG 11:01:08 AO 100/69 (83) SA 11:22:09 LV 110/0, 4 11:32:33 LV 109/2, 7 11:32:39 LV 110/1, 5 11:33:57 LV 112/2, 7 11:34:03 LVp 114/-2, 6 11:34:09 AOp 115/71 (91) 11:34:14 Signed By Clinton Barriga MD On 07/26/2020 11:59:37 Clinton Barriga MD
--- NOTE | 2020-07-26 13:02 | CHAPLAIN ---
Type of Pastoral Visit ___ Initial Visit _x__ Follow-up Visit ___ On-call Visit ___ General Patient Visit ___ Spiritual Assessment ___ Family Conference ___ Bereavement ___ Rapid Response ___ Code Blue ___ Other (describe below) Pastoral Care Referral From _x__ Patient _x__ Family ___ Nurse ___ Physician ___ Digital Marketing Officer ___ Mixer And Scaler ___ Other (describe below) Sacrament/Intervention _x__ Active listening ___ Anointing ___ Pentecostal ___ Bereavement ___ Communion ___ Ángela exploration ___ ___ Life review _x__ Prayer ___ Reconciliation ___ Sacrament of Sick _x__ Supportive presence ___ Wedding ___ Other (describe below) Pastoral Comments
--- NOTE | 2020-07-26 13:59 | PCM.DC ---
- Discharge Diagnoses Current Active Problems: Current Active and Chronic Problems (Last Updated 07/26/20 @ 13:26 by Corrie Teixeira) Chest pain (Acute) Abnormal nuclear stress test (Acute) CAD (coronary artery disease) (Chronic) Presence of stent in coronary artery (Chronic ~03/16/20) Successful PCI with ALEC to the dRCA per cardiac cath 03/16/20--Successful PTCA/ALEC to mid LAD with a 2.5 x 38 Promus Synergy, followed immediately upstream with a 2.5 x 12 Promus Synergy, post dilated proximally with a 3.0 x 8 NC Balloon; 85%-->0%, no dissection; Successful PCI with PTCA to the ostial DIAG#1 with a 2.0 x 12 balloon; 90%-->50%, no dissection per cath 12/08/19 Essential hypertension (Chronic) Atherosclerotic heart disease of [place] coronary artery without angina pectoris (Chronic) Hyperlipidemia (Chronic) Reason(s) for Visit for Discharge Instructions: Chest pain You will use the following diet at home:: Cardiac Your food should be the consistency of: Regular Your liquids should be the consistency of: Regular/Thin Discharge Activity: Return to Normal Activity Additional Instructions: Continue to take all your medications as prescribed. Follow a low salt, low fat diet. Follow-up with your primary care doctor and esthetician/owner as scheduled. Allergies/Adverse Reactions: Allergies Penicillins Allergy (Verified 07/25/20 10:32) Rash valsartan Adverse Reaction (Severe, Verified 07/25/20 10:32) Joint Pain Medications to take at Discharge potassium chloride 20 mEq tablet,extended release 20 meq PO BID tab 11/13/19 Nitroglycerin (INPATIENT USE) [Nitrostat] 0.4 mg SUBLINGUAL Q5M PRN tab.subl 12/09/19 rosuvastatin 5 mg tablet 5 mg PO DAILY 03/31/20 Carvedilol 12.5 mg PO BID 07/25/20 Clopidogrel Bisulfate [Clopidogrel] 75 mg PO DAILY 07/25/20 Ezetimibe 10 mg PO DAILY 07/25/20 Hydrochlorothiazide 12.5 mg PO DAILY 07/25/20 Isosorbide Mononitrate [Imdur] 30 mg PO DAILY 07/25/20 Acetaminophen [Tylenol Tablet] 650 mg PO Q6H PRN PRN tablet 03/30/21 Amlodipine [Norvasc] 10 mg PO DAILY tablet 07/26/20 Aspirin E.C. [Ecotrin] 81 mg PO DAILY@0800 30 Days #30 tablet 07/26/20 The following prescriptions were given: Aspirin E.C. [Ecotrin] 81 mg PO DAILY@0800 30 Days #30 tablet Transmission Status: Received by [facility] Primary Care Physician: Ritesh Rocha MD [Primary Care Provider] - Please follow up with your Primary Care Physician in: within 1-2 weeks Test Results: Test results from this visit will be discussed in further detail at your follow-up appointment, if applicable. Please Follow Up With: Clinton Barriga MD When: as scheduled Proposed Discharge Date: 07/26/20
--- NOTE | 2020-07-26 14:09 | CASEMGMT ---
This RN CM to room with METCALF form, explanation done-pt voices understanding, and signs METCALF form. Original to chart and copy to pt. Pt has MCR IP vs OBS booklet at bedside. Pt voices no further questions/concerns/needs. SStaten ROXANNA CM
--- NOTE | 2020-07-26 14:23 | DS.PCM_ITS ---
Discharge Date and Diagnosis - Problem List Patient Problems: Active and Suspected Problems (Last Updated 07/26/20 @ 13:26 by Corrie Teixeira) Chest pain (Acute) Abnormal nuclear stress test (Acute) Date of Admission: 07/25/20 Date of Discharge: 07/26/20 - Primary Discharge Diagnosis Acute Problems: Active Problems (Last Updated 07/26/20 @ 13:26 by Corrie Teixeira) Chest pain (Acute) Abnormal nuclear stress test (Acute) - Secondary Discharge Diagnosis Chronic Problems: Chronic Problems (Last Updated 07/26/20 @ 13:26 by Corrie Teixeira) CAD (coronary artery disease) (Chronic) Presence of coronary angioplasty implant and graft (Chronic ~03/16/20) Successful PCI with ALEC to the dRCA per cardiac cath 03/16/20--Successful PTCA/ALEC to mid LAD with a 2.5 x 38 Promus Synergy, followed immediately upstream with a 2.5 x 12 Promus Synergy, post dilated proximally with a 3.0 x 8 NC Balloon; 85%-->0%, no dissection; Successful PCI with PTCA to the ostial DIAG#1 with a 2.0 x 12 balloon; 90%-->50%, no dissection per cath 12/08/19 Presence of stent in coronary artery (Chronic ~03/16/20) Successful PCI with ALEC to the dRCA per cardiac cath 03/16/20--Successful PTCA/ALEC to mid LAD with a 2.5 x 38 Promus Synergy, followed immediately upstream with a 2.5 x 12 Promus Synergy, post dilated proximally with a 3.0 x 8 NC Balloon; 85%-->0%, no dissection; Successful PCI with PTCA to the ostial DIAG#1 with a 2.0 x 12 balloon; 90%-->50%, no dissection per cath 12/08/19 Essential hypertension (Chronic) Chest pain, precordial (Chronic) Atherosclerotic heart disease of [place] coronary artery without angina pectoris (Chronic) Hyperlipidemia (Chronic) Hospital Course and Treatment Imaging Results: Clinical Impression(s) from Imaging Studies Chest X-Ray 07/25/20 11:52 IMPRESSION: Prominence of the central pulmonary arteries bilaterally. Electronically Signed: Rahul Acevedo MD at 12:06 EDT , Service support , Cardiology Operations: None Procedures: Stress test Summary of Care Provided: The patient is a 70 year old M has medical history of CAD status post stents, hypertension, hyperlipidemia who comes in with complaints of chest pain. Chest pain started on the morning of the admission, was dull in nature, mild, intermittent, had no relation to exertion. He had a plain stress test in his neurology office the next day. He called the office and was asked to come to emergency room. His EKG showed normal sinus rhythm, no acute ST-T changes. His troponins were negative. Chest x-ray showed no acute findings. He was admitted to telemetry bed and monitored. His troponins were negative. His blood work was also negative. Patient underwent nuclear stress test showed areas of stress-induced myocardial ischemia in the mid to distal inferior segments. Patient subsequently underwent cardiac cath; findings showed patent previously placed stent, the diagonal 1 and 2 had very small caliber vessels and had 75% stenosis. The rest of the arteries had minimal disease. He was subsequently monitored on a telemetry bed with no acute events. He was discharged to follow-up with the primary extracorporeal circulation specialist as scheduled. His amlodipine was increased from 5 mg to 10 mg daily. Patient Problems: Active and Suspected Problems (Last Updated 07/26/20 @ 13:26 by Corrie Teixeira) Chest pain (Acute) Abnormal nuclear stress test (Acute) Subjective: On the day of discharge, patient was seen and examined. At the time of being seen, his stress test was pending. He complains of slight left-sided chest discomfort. Objective: Physical exam General: Alert, Oriented x3, Cooperative, No apparent distress HEENT: Atraumatic, PERRLA, EOMI, Normocephalic Oral: Moist Mucosa, No Gingival or Mucosal Lesions/ Ulcerations Neck: Supple, No JVD, Negative Carotid Bruits, Trachea Midline, Thyroid Normal Size and Texture Lungs: Clear to auscultation, Normal air movement, No rhonchi, No wheeze, No rales Cardiovascular: Regular rate, Regular Rhythm, Normal S1, Normal S2, No murmurs, PMI Normal Abdomen: Bowel Sounds Present, Soft, Non Tender, Non-Distended, No Hepato- splenomegaly Extremities: No clubbing, No cyanosis, No edema Skin: No rashes, No breakdown Lymphatic: No Cervical, Supraclavicular, or Inguinal Adenopathy Neurological: Cranial nerves II-XII grossly intact, Motor Exam 5/5 strength throughout Psych/Mental Status: Normal Affect, Appropriate, Alert and oriented to time, place, person, mood and affect - Physical Exam Vitals/I&O's: Vital Signs Temp Pulse Resp BP Pulse Ox 97.6 F L 75 18 121/85 H 94 07/26/20 14:00 07/26/20 14:00 07/26/20 14:00 07/26/20 14:00 07/26/20 14:00 Oxygen Flow Rate (L/min) 2 Oxygen Delivery Method Room Air Weight: 106.912 kg Body Mass Index (BMI) 32.8 Intake and Output for Last 24 Hours 07/24/20 07/25/20 07/26/20 23:59 23:59 23:59 Intake Total 640 / 640 501.75 / 501.75 Balance 640 / 640 501.75 / 501.75 Laboratory Results 07/25/20 14:35: Troponin I < 0.015 07/25/20 17:30: Troponin I < 0.015 07/25/20 20:30: Troponin I < 0.015 Current Medications Acetaminophen (Acetaminophen 325 Mg Tablet) 650 mg PO Q6H PRN PRN PRN Reason: Pain Score 1-10/Temp > 100.7 F Amlodipine Besylate (Amlodipine 5 Mg Tablet) 10 mg PO DAILY [facility] Aspirin (Aspirin E.C. 81 Mg Tablet) 81 mg PO DAILY@0800 [facility] Last Admin: 07/26/20 06:15 Dose: 81 mg Documented by: Atorvastatin Calcium (Atorvastatin Calcium 10 Mg Tablet) 10 mg PO QHS [facility] Last Admin: 07/25/20 20:44 Dose: 10 mg Documented by: Carvedilol (Carvedilol 12.5 Mg Tablet) 12.5 mg PO BID [facility] Last Admin: 07/26/20 09:08 Dose: 12.5 mg Documented by: Clopidogrel Bisulfate (Clopidogrel Bisulfate 75 Mg Tablet) 75 mg PO DAILY [facility] Last Admin: 07/26/20 06:15 Dose: 75 mg Documented by: Ezetimibe (Ezetimibe 10 Mg Tablet) 10 mg PO DAILY [facility] Last Admin: 07/26/20 09:08 Dose: 10 mg Documented by: Enoxaparin Sodium (Enoxaparin 40 Mg/0.4 Ml Syringe) 40 mg SC DAILY [facility] Last Admin: 07/26/20 10:28 Dose: Not Given Documented by: Heparin Sodium (Beef Lung) (Heparin Lock 500 Unit/5 Ml In 10 Ml Syringe) 500 unit IV UD PRN PRN Reason: HEPARIN FLUSH Hydrochlorothiazide (Hydrochlorothiazide 12.5mg) 12.5 mg PO DAILY [facility] Last Admin: 07/26/20 09:08 Dose: 12.5 mg Documented by: Sodium Chloride () 1,000 mls @ 0 mls/hr IV .Q0M [facility] Last Infusion: 07/26/20 12:00 Dose: 75 mls/hr Documented by: Sodium Chloride () 1,000 mls @ 75 mls/hr IV .[id number] [facility] Last Admin: 07/26/20 12:08 Dose: Not Given Documented by: Isosorbide Mononitrate (Isosorbide Mononitrate 30 Mg Tablet) 30 mg PO DAILY [facility] Last Admin: 07/26/20 09:08 Dose: 30 mg Documented by: Labetalol HCl (Labetalol 100 Mg/20 Ml Vial) 5 mg IV X1 PRN PRN Reason: SBP > 160 prior to sheath pull Stop: 07/28/20 11:42 Nitroglycerin (Nitroglycerin (Inpatient Use) 0.4 Mg Tab.Subl) 0.4 mg SL Q5M PRN PRN Reason: CARDIAC/CHEST PAIN Ondansetron HCl (Ondansetron 4 Mg/2 Ml Vial) 4 mg IV Q8H PRN PRN PRN Reason: NAUSEA/VOMITING Sodium Chloride (0.9% Saline Lock 10 Ml Syringe) 10 - 40 ml IV UD PRN PRN Reason: SALINE FLUSH Last Admin: 07/26/20 10:34 Dose: 10 ml Documented by: Zolpidem Tartrate (Zolpidem Tartrate 5 Mg Tablet) 5 mg PO QHS PRN PRN PRN Reason: INSOMNIA Discharge Diet: Low fat/ Low Cholesterol, 2000 mg Sodium Diet Discharge Activity: Return to Normal Activity Home Medications: Medications to take at Discharge potassium chloride 20 mEq tablet,extended release 20 meq PO BID tab 11/13/19 Nitroglycerin (INPATIENT USE) [Nitrostat] 0.4 mg SUBLINGUAL Q5M PRN tab.subl 12/09/19 rosuvastatin 5 mg tablet 5 mg PO DAILY 03/31/20 Carvedilol 12.5 mg PO BID 07/25/20 Clopidogrel Bisulfate [Clopidogrel] 75 mg PO DAILY 07/25/20 Ezetimibe 10 mg PO DAILY 07/25/20 Hydrochlorothiazide 12.5 mg PO DAILY 07/25/20 Isosorbide Mononitrate [Imdur] 30 mg PO DAILY 07/25/20 Acetaminophen [Tylenol Tablet] 650 mg PO Q6H PRN PRN tablet 07/26/20 Amlodipine [Norvasc] 10 mg PO DAILY tablet 07/26/20 Aspirin E.C. [Ecotrin] 81 mg PO DAILY@0800 30 Days #30 tablet 07/26/20 Following Prescriptions Were Given to Patient: Aspirin E.C. [Ecotrin] 81 mg PO DAILY@0800 30 Days #30 tablet Transmission Status: Received by [facility] Primary Care Physician: Ritesh Rocha MD [Primary Care Provider] - Please follow up with your Primary Care Physician in: within 1-2 weeks Disposition: Home Minutes spent on discharge:: 35 Patient Condition:: Stable Medical Necessity - Tobacco Use Smoking Status: Never smoker Tobacco Use: Non-smoker Meaningful Use Info Meaningful Use Diagnoses (Choose all that apply): None applicable OBSV E&M: 58447 Observation care discharge
--- NOTE | 2020-07-26 14:34 | PHA.DC.MC ---
Pharmacy Service has performed discharge medication reconciliation and counseling for this patient. 1. ASPIRIN 81MG PO DAILY The patient's discharge medication list was reviewed for discrepancies and discrepancies were resolved. Home Medications potassium chloride 20 mEq tablet,extended release 20 meq PO BID tab 11/13/19 Nitroglycerin (INPATIENT USE) [Nitrostat] 0.4 mg SUBLINGUAL Q5M PRN tab.subl 12/09/19 rosuvastatin 5 mg tablet 5 mg PO DAILY 03/31/20 Carvedilol 12.5 mg PO BID 07/25/20 Clopidogrel Bisulfate [Clopidogrel] 75 mg PO DAILY 07/25/20 Ezetimibe 10 mg PO DAILY 07/25/20 Hydrochlorothiazide 12.5 mg PO DAILY 07/25/20 Isosorbide Mononitrate [Imdur] 30 mg PO DAILY 07/25/20 Acetaminophen [Tylenol Tablet] 650 mg PO Q6H PRN PRN tablet 07/26/20 Amlodipine [Norvasc] 10 mg PO DAILY tablet 07/26/20 Aspirin E.C. [Ecotrin] 81 mg PO DAILY@0800 30 Days #30 tablet 07/26/20 The patient was counseled on the following discharge medications and changes in medications for homegoing were reviewed. The Reason for Use, instructions for use, and potential side effects were reviewed for all new medications. The patient's questions regarding all of their medications were answered. The patient was able to verbally demonstrate an understanding of their discharge medications.
--- NOTE | 2020-07-26 16:10 | NURSING ---
BEDREST COMPLETE. WALKED PATIENT IN HALLWAY. DRESSING C/D/I. NO HEMATOMA NOTED. TOLERATED WELL
== END 2020-07-26 14:02 | disposition home or self-care (01) ==
LOC: ED 13:14 → PCU 14:15
PROVIDERS: Admitting Provider Hospitalist; Emergency Provider Emergency Medicine; PCP Family Medicine; Visit Provider Internal Medicine
DX: I25.110 Atherosclerotic heart disease of native coronary artery with unstable angina pectoris (principal); I10 Essential (primary) hypertension; E78.5 Hyperlipidemia, unspecified; Z79.899 Other long term (current) drug therapy; Z79.02 Long term (current) use of antithrombotics/antiplatelets; Z95.5 Presence of coronary angioplasty implant and graft
CPT/HCPCS: 36415; 71045; 78452; 80048; 84484; 85025; 93005; 93017; 93458; 96360; 99152; 99153; 99218; 99283; A9500; J7030; Q9967; A4216; C1769; G0378; J2785

== ENCOUNTER → 2020-11-04 08:21 | Outpatient (CLI) | payer MEDICARE, OTHER, SELFPAY ==
[2020-05-12 11:04] VITALS: BMI 34.2
[2020-05-19 09:05] VITALS: BMI 34.5
[2020-07-11 09:09] VITALS: BMI 37.0
[2020-07-25 14:30] VITALS: BMI 32.8
[2020-11-04 10:31] LABS: AST(SGOT) 25 U/L (15-37); Alanine Aminotransfer ALT/SGPT 53 U/L (16-61); Alkaline Phosphatase 82 U/L (45-117); Bilirubin, Direct 0.23 mg/dL (0.00-0.30); Cholesterol 211 mg/dL (200); Globulin 3.6 g/dL (2.2-4.2); High Density Lipoprotein 40 mg/dL; PSA,Total- Diagnostic 5.42 ng/mL (0.0-4.0); Protein, Total 7.6 g/dL (6.4-8.2); Triglycerides 195 mg/dL; Very Low Density Lipoprotein 39 mg/dL (5-40)
== END ==
PROVIDERS: Physician Assistant Medical; PCP Family Medicine; Referring Provider Urology; Visit Provider Urology
DX: C61 Malignant neoplasm of prostate (principal); E78.00 Pure hypercholesterolemia, unspecified; E78.5 Hyperlipidemia, unspecified
CPT/HCPCS: 36415; 80061; 80076; 84153

== ENCOUNTER → 2021-02-16 16:22 | Outpatient (CLI) | payer MEDICARE, OTHER, SELFPAY ==
[2020-07-11 09:09] VITALS: BMI 37.0
[2021-02-16 16:26] LABS: Bacteria 0 SEEN /hpf (None Seen); Mucous, Urine 0 SEEN /hpf (<or=2+); Squamous Epithelial Cells - UA 0 SEEN /hpf (0-5)
[2021-02-16 17:29] LABS: Color, Urine Yellow (Yellow); Glucose, Dipstick Normal (Normal); Ketone-Dipstick Negative (Negative); Leukocyte Esterase-Dipstick 25 /ul (Negative); Nitrite-Dipstick Negative (Negative); Occult Blood-Urine 25 /ul (Negative); Protein-Dipstick 30 mg/dl (Negative); Urine Bilirubin Dipstick Negative (Negative); Urine Clarity Clear (Clear); Urine Urobilinogen 1 mg/dl (Normal)
[2021-02-16 17:43] LABS: White Blood Cells 0-5 SEEN /hpf (0-5)
[2021-02-16 17:44] LABS: Red Blood Cells-Urine 0-5 SEEN /hpf (0-5)
== END ==
PROVIDERS: PCP Family Medicine; Referring Provider Family Medicine; Visit Provider Family Medicine
DX: R31.9 Hematuria, unspecified (principal)
CPT/HCPCS: 81001; 87086; 87088

== ENCOUNTER 2021-05-12 09:40 | Day surgery (SDC) | payer MEDICARE, OTHER, SELFPAY ==
[2020-07-11 09:09] VITALS: BMI 37.0
[2021-04-24 09:04] LABS: Hematocrit 45.6 % (40-54); Hemoglobin 14.9 g/dL (13.0-16.5); Mean Corp Hgb Conc 32.7 g/dL (32-36); Mean Corpuscular Hgb 28.4 pg (27.0-32.0); Mean Corpuscular Volume 86.9 fL (80-94); Mean Platelet Vol. 8.5 fl (6.2-12.0); Platelet Count 252 K/mm3 (150-450); RBC Distribution Width CV 12.5 % (11.6-14.6); RBC Distribution Width SD 39.8 fl (35.1-43.9); Red Blood Count 5.25 M/mm3 (4.6-6.2); White Blood Count 5.6 K/mm3 (4.4-11.0)
[2021-04-24 09:33] LABS: Anion Gap 7 (5-15); BUN 19 mg/dL (7-18); BUN/Creat Ratio 14.5 RATIO (10-20); Calcium,Total 8.7 mg/dL (8.5-10.1); Chloride 101 mmol/L (98-107); Creatinine, Serum 1.31 mg/dL (0.70-1.30); EST Glomerular Filtration Rate 58 mL/min (>60); Est Glom Filt Rate - Afr Amer 70 mL/min (>60); Glucose 221 mg/dL (74-106); Potassium 3.8 mmol/L (3.5-5.1); Sodium Level 140 mmol/L (136-145)
[2021-04-24 12:30] LABS: Probe Check PASS; Specimen Processing Control PASS
--- NOTE | 2021-04-24 13:01 | SUR.PREOP ---
pt called and notified of positive covid result and surgery canceled and to call office to reschedule- he voices understanding
[2021-05-12] VITALS (11 sets, daily range): BP systolic 129–157; BP diastolic 83–96; PULSE 64–81; RESP 16–18; TEMP 36.1–37.2; O2SAT 92–95; BMI 35.0
--- NOTE | 2021-05-12 | PROS_PTH ---
PATIENT: HENRI SILVESTRE LOC: [facility] [place] U#:[id number] AGE/SX: 70/M ROOM: RE05/12/[address]: Dr. Harsha Gilman MD : 1950 BED: DIS: 05/13/2021 SPEC #: [id number] RECD: 05/15/21 11:55 STATUS: GAURANG REErica #: [id number] LUISA: 05/12/21 00:[address]: Harsha Gilman DEPT: SURGICAL PATHOLOGY RECD BY: William Edmonds ENTERED: 05/15/21 12:42 SP TYPE: TURP OTHR DR: Dr. Manule Rocha MD Tissues: Prostate, NOS Procedures: Surgery Specimen Level IV HEADER OPERATION: Cysto, TUR prostate, Olympus PRE-OP DIAGNOSIS: Bladder stone, BPH TISSUE SUBMITTED: Prostate chips MICROSCOPIC DIAGNOSIS Prostate, transurethral resection: Benign nodular hyperplasia, glandular and stromal types. Mild chronic inflammation. AM:nadine 05/16/2021 MICROSCOPIC DESCRIPTION Slides are reviewed. GROSS DESCRIPTION Received is one container labeled with the patient's name and designated prostate chips. The specimen consists of multiple irregular fragments of pink-hunter, rubbery, soft tissue that in aggregate weigh 9 gm and measure in aggregate 5 x 5 x 1.5 cm. The entire specimen is submitted in nine cassettes. / SJ:nadine 05/15/2021 TC:3 CPT: 75269
[2021-05-12] MEDS: Lactated Ringers 1,000 ML 15 ML IV (10:47)
--- NOTE | 2021-05-12 13:47 | HP.PCM_ITS ---
HPI - General HPI Narrative HENRI SILVESTRE, is a 70 M who presents transurethral resection of the prostate for regrowth and with development of bladder stones. [facility] Medical History Abnormal stress test Arthritis Atherosclerotic heart disease of [place] coronary artery without angina pectoris Back pain Basal cell carcinoma (BCC) Bladder stone Cancer Cardiology follow-up encounter Chest pain, precordial CPAP (continuous positive airway pressure) dependence Difficulty swallowing Essential hypertension Family history of hypertension Gastric reflux High cholesterol History of echocardiogram History of edema History of pain when walking History of stress test Hx of basal cell carcinoma Hyperlipidemia Hypertension Non-smoker Obstructive sleep apnea Presence of stent in coronary artery (~03/16/20) Prostate disease Sleep apnea Syncope Wears glasses Home Medications nitroglycerin 0.4 mg SUBLINGUAL Q5M PRN tab.subl 12/09/19 [Rx Last Taken Unknown] clopidogrel 75 mg PO DAILY 07/25/20 [History Last Taken 05/05/21] hydrochlorothiazide 12.5 mg PO DAILY 07/25/20 [History Last Taken 05/11/21] isosorbide mononitrate 30 mg tablet,extended release 24 hr 30 mg PO DAILY #90 tablet 08/29/20 [Rx Last Taken 05/11/21] aspirin 81 mg tablet,delayed release 81 mg PO DAILY 11/07/20 [History Last Taken 05/11/21] carvedilol 12.5 mg tablet 12.5 mg PO BID #180 tab 04/11/21 [Rx Last Taken 05/12/21] One-A-Day Men VitaCraves 2 tab PO DAILY 04/19/21 [History Last Taken 05/11/21] ezetimibe [Zetia] 10 mg PO DAILY 04/19/21 [History Last Taken 05/11/21] potassium 99 mg PO DAILY 04/19/21 [History Last Taken 05/11/21] amlodipine 2.5 mg PO DAILY 05/12/21 [History Last Taken 05/12/21] ciprofloxacin HCl [Cipro] 500 mg PO BID #10 tab 05/12/21 [Rx Last Taken Unknown] Allergy/AdvReac Type Severity Reaction Status Date / Time Penicillins Allergy Rash Verified 05/12/21 10:38 valsartan AdvReac Severe Joint Pain Verified 05/12/21 10:38 rosuvastatin [From Crestor] AdvReac Other Verified 05/12/21 10:39 Family History Mother CHF (congestive heart failure) Brother Hypertension Son Hypertension Other Family history of hypertension Surgical History H/O transurethral resection of prostate History of cardiac catheterization History of coronary artery stent placement History of knee replacement procedure of left knee History of left heart catheterization (LHC) (~07/26/20) History of total right knee replacement History of urologic surgery Hx of colonoscopy Presence of coronary angioplasty implant and graft (~03/16/20) S/P right rotator cuff repair Social History Smoking Status: Never smoker alcohol intake: never substance use type: does not use Vital Signs Vital Signs Vital Signs: 05/12/21 10:41 Temperature 99 F Temperature Source Temporal Pulse Rate 73 Respiratory Rate 16 Respiratory Pattern Normal Blood Pressure 136/94 H Blood Pressure Mean 108 Blood Pressure Source Monitor Blood Pressure Position Semi-Fowlers Blood Pressure Location Right Arm Pulse Ox 94 Oxygen Delivery Method Room Air Weight Weight: 114 kg Body Mass Index (BMI) 35.0 Results Lab / Micro Data Result Diagrams: 04/24/21 08:44 04/24/21 08:44
--- NOTE | 2021-05-12 13:47 | PCM.DC ---
Discharge Instructions Diet Discharge Diet: No restrictions Activity Discharge Activity: Return to Normal Activity and May Not Drive (while taking narcotic pain medications.) Dressing / Incision Call your doctor if you observe: Fever of 101 or Higher Follow Up Care Please Follow Up With: Harsha Gilman MD When: Call [phone] for an appointment Test Results: Test results from this visit will be discussed in further detail at your follow-up appointment, if applicable. Discharge Plan Admission Primary Reason for Your Visit: TURP and removal of bladder stone Attending Provider: Harsha Gilman Primary Care Provider: Ritesh Rocha Discharge Orders/Prescriptions Prescriptions: New ciprofloxacin HCl [Cipro] 500 mg tablet 500 mg PO BID Qty: 10 RF: 0 Continued nitroglycerin 0.4 MG tablet, sublingual 0.4 mg sublingual Q5M PRN (Reason: Cardiac/Chest Pain) RF: 0 hydrochlorothiazide 12.5 MG tablet 12.5 mg PO DAILY RF: 0 potassium 99 mg Tablet 99 mg PO DAILY RF: 0 ezetimibe [Zetia] 10 mg tablet 10 mg PO DAILY RF: 0 One-A-Day Men VitaCraves 200 mcg Tablet,Chewable 2 tab PO DAILY RF: 0 amlodipine 10 mg tablet 2.5 mg PO DAILY RF: 0 isosorbide mononitrate 30 mg tablet extended release 24 hr 30 mg PO DAILY Qty: 90 RF: 3 carvedilol 12.5 mg tablet 12.5 mg PO BID Qty: 180 RF: 3 Held aspirin [Adult Low Dose Aspirin] 81 mg tablet,delayed release (DR/EC) 81 mg PO DAILY RF: 0 Hold Instructions: Resume on 05/26/21. clopidogrel 75 MG tablet 75 mg PO DAILY RF: 0 Hold Instructions: Resume on 05/26/21. Referrals / Follow Up: Ritesh Rocha MD [Primary Care Provider] - Harsha Gilman MD [STAFF PHYSICIAN] - Disposition Disposition (needs filled in before D/C Order can be placed): Home, Self Care
--- NOTE | 2021-05-12 13:48 | OP.PCM_ITS ---
Report of Operation Date of Procedure: 05/12/21 Pre-Operative Diagnosis: BPH with obstruction, bladder stones, regrowth of pros tatic channel Post-Operative Diagnosis: Same Surgery/Procedure Performed:: Transurethral resection of regrowth in the prostatic channel cystolitholapaxy and removal of small bladder stones less than 2.5 cm in size Description of Surgical Findings:: This is a 70-year-old male in 2018 he had a TURP had been doing fairly well and then I saw him in the office he had an episode of gross hematuria cystoscopy was done to demonstrate stones within the prostatic channel heavy regrowth of the prostatic channel causing obstruction therefore recommend we do another TURP 3 we shaved the obstructive prostate and regrowth and also remove the bladder stones at the same time. Patient was taken back to the operating room after smooth induction of general anesthesia he was placed in dorsolithotomy position. Penis and testicles were prepped and draped in usual sterile fashion when the bladder with a 26 [place] continuous-flow resectoscope once inside the prostatic channel there are some stones are within the channel I then evacuated these out using the scope I did not have to use the laser but after removing the stones from the bladder then I switched over the resectoscope I resected the floor the bladder right lobe of the bladder the left little bit of the apical tissue of the roof of the bladder all the chips were dissected out left and right ureter orifice were uninjured the bladder neck was wide open the sphincter was left intact antegrade flow in all the obstructive tissue was removed cauterized resection until there was good hemostasis and I put a catheter in the bladder and continuous irrigation is taken the back to PACU good condition Surgeon: christopher Type of Anesthesia: General Drains: 22 [address] 3 [address] Admit VTE Documentation VTE Present on Admission: No VTE Mechan Device Prophylaxis: SCD's VTE Pharm Prophylaxis ordered?: No
--- NOTE | 2021-05-12 15:36 | PCS.PANDOC ---
PANDEMIC DOCUMENTATION INITIATED: Date: 12/12/2020 Time: 190
[2021-05-12] MEDS: Ciprofloxacin 500 MG Tablet PO (20:08)
[2021-05-12] MEDS: Acetaminophen 500 MG Tablet PO (20:09)
[2021-05-12] MEDS: Carvedilol 12.5 MG Tablet PO (20:09)
--- NOTE | 2021-05-12 23:02 | EKG12_ITS ---
Test Reason : CHEST PAIN Blood Pressure : / mmHG Vent. Rate : 075 BPM Atrial Rate : 075 BPM P-R Int : 178 ms QRS Dur : 100 ms QT Int : 394 ms P-R-T Axes : 036 033 025 degrees QTc Int : 439 ms Normal sinus rhythm Normal ECG When compared with ECG of 26-JUL-2020 02:29, No significant change was found Confirmed by ERIKA BENÍTEZ, KATIE ([id number]), research editor OSCAR MCCAULEY ([id number]) on 05/16/2021 9:33:58 AM Referred By: Harsha Gilman Confirmed By:KATIE JAMES MD
[2021-05-13 00:55] LABS: Troponin-I HS 8 pg/mL (3.0-78.0)
[2021-05-13 05:06] VITALS: BP 147/80; PULSE 75; RESP 18; TEMP 36.8; O2SAT 94
[2021-05-13 06:30] VITALS: O2SAT 94
--- NOTE | 2021-05-13 08:30 | PN_ITS ---
Progress Note 70-year-old male who status post TURP yesterday for some bladder stones and obstruction he does have a history of cardiac problems to see business applications analyst here at [facility] last night had some atypical chest pain EKG no changes and high-sensitivity troponin was [address] Barriga this morning and spoke to him about situation he is going to review his films and his prior catheterization. This morning the patient is clinically stable and will plan to remove the Nicholson catheter for voiding trial and he Probably can go home later this morning. Physical Exam Const alert and oriented x3 General Appearance: cooperative HEENT normocephalic, head/scalp atraumatic, EAC's normal and TM's normal bilaterally Eyes PERRL and EOMs intact bilaterally Pupil: sluggish Neck no lymphadenopathy, supple and no JVD General: trachea midline Lymph Lymphatic: no lymphadenopathy noted, lymphedema and lymphadenopathy Resp normal respiratory effort, normal air movement and clear to auscultation bilaterally Cardio regular rate, regular rhythm and peripheral pulses 2+ throughout GI soft to palpation, non-tender and non-distended Extremity normal capillary refill and no clubbing, cyanosis or edema General Extremity: no tenderness to palpation of joints or extremities Skin no rashes or lesions noted General Skin Exam: turgor normal Lesions: no lesions Rashes: no rashes Neuro CN's II-XII intact bilaterally Speech: speech normal Motor Exam: strength 5/5 throughout; Negative for general weakness Psych thought process normal, cooperative and affect normal Appearance: appropriate Assessment & Plan Assessment/Plan (1) Bladder stone: (2) BPH (benign prostatic hyperplasia):
[2021-05-13 09:13] VITALS: BP 151/83; PULSE 74; RESP 18; TEMP 36.8; O2SAT 93
[2021-05-13] MEDS: Ciprofloxacin 500 MG Tablet PO (09:21)
[2021-05-13] MEDS: hydroCHLOROthiazide 12.5mg 12.5 MG PO (09:21)
[2021-05-13] MEDS: Isosorbide Mononitrate 30 MG Tablet PO (09:21)
[2021-05-13] MEDS: Carvedilol 12.5 MG Tablet PO (09:21)
[2021-05-13] MEDS: amLODIPine 2.5 MG Tablet PO (09:21)
[2021-05-13 09:29] LABS: Troponin-I HS 4 pg/mL (3.0-78.0)
--- NOTE | 2021-05-13 10:03 | NURSING ---
repeat troponin 4
--- NOTE | 2021-05-13 11:12 | CON.PCM.CA_ITS ---
Assessment & Plan Assessment/Plan (1) Chest pain: PLAN: The patient presents with an atypical chest discomfort. Based upon the description of his discomfort, his examination, and his other objective findings, this appears to be somewhat more compatible with a musculoskeletal type discomfort potentially related to his body positioning during his surgical procedure versus an ongoing acute coronary syndrome. (2) CAD (coronary artery disease): QUALIFIERS: Coronary Disease-Associated Artery/Lesion type: [place] artery [place] vs. transplanted heart: [place] heart PLAN: The patient has a history of CAD. He has undergone extensive noninvasive and invasive cardiovascular evaluation in the past. He has been delegated, based upon his last evaluation (noted above) for continued medical management. At the moment his cardiac enzymes and ECG did not demonstrate any acute changes. Thus he will continue medical therapy and follow-up. (3) Presence of stent in coronary artery: PLAN: The patient has undergone evaluation for his history of CAD/PCI. He will continue medical management and follow-up at this time. (4) Hyperlipidemia: QUALIFIERS: Hyperlipidemia type: unspecified Qualified Code(s): E78.5 - Hyperlipidemia, unspecified PLAN: The patient does have a history of hyperlipidemia. He has had concerns of intolerance to lipid-lowering medications/statins. He will continue nonstatin medical therapy as best as tolerated. (5) Essential hypertension: PLAN: The patient has a history of hypertension. He has been on medical therapy. He does state occasionally after he takes all of his medications in the morning he noted his blood pressure to transiently decreased. He was asked to not take all of his medications in the morning at 1 time but to space them out somewhat to hopefully avoid any medication induced hypotensive events. Addt'l Comments Overall, at the present time, from a cardiac standpoint, it does not appear the patient requires additional cardiac diagnostic studies/intervention. He should continue his cardiovascular medical therapy with adjustment over time as deemed appropriate. The patient's case was discussed and reviewed with Dr. Gilman. This note was generated using a voice recognition system and there may be incorrect words, spelling or punctuation that were not noted when reviewing the office note prior to saving. HPI Consult Data Date of Consult: 05/13/21 HPI Narrative HPI Narrative: HENRI SILVESTRE, is a 70 year old white male who presents for a cardiovascular consultation for concerns of underlying CAD, PCI, hyperlipidemia, hypertension, and now post noncardiac surgical atypical chest discomfort. The patient recently underwent urologic evaluation and care with a TURP. He has noted concerns of an upper bilateral chest soreness which he states seems to be somewhat more prominent when he moves his upper extremities and/or takes a deep breath. He has wondered whether this is related to the position his body was then during his surgical procedure. He has denied any other forms at rest or with exertion of ongoing chest discomfort appearing classic for angina pectoris and has had no other episodes of acute shortness of breath/dyspnea. There is been no ongoing orthopnea or PND or peripheral pitting edema. He has had no loss of consciousness. He denies any nitroglycerin sublingual use. Based upon his symptoms he underwent cardiac enzymes. They were negative. He underwent an ECG that demonstrated sinus rhythm with no acute ECG changes. He did not require any additional medical management. [facility] Medical History Abnormal stress test Arthritis Atherosclerotic heart disease of [place] coronary artery without angina pectoris Back pain Basal cell carcinoma (BCC) Bladder stone Cancer Cardiology follow-up encounter Chest pain, precordial CPAP (continuous positive airway pressure) dependence Difficulty swallowing Essential hypertension Family history of hypertension Gastric reflux High cholesterol History of echocardiogram History of edema History of pain when walking History of stress test Hx of basal cell carcinoma Hyperlipidemia Hypertension Non-smoker Obstructive sleep apnea Presence of stent in coronary artery (~03/16/20) Prostate disease Sleep apnea Syncope Wears glasses Home Medications nitroglycerin 0.4 mg SUBLINGUAL Q5M PRN tab.subl 12/09/19 [Rx Last Taken Unknown] clopidogrel 75 mg PO DAILY 07/25/20 [History Last Taken 05/05/21] hydrochlorothiazide 12.5 mg PO DAILY 07/25/20 [History Last Taken 05/11/21] isosorbide mononitrate 30 mg tablet,extended release 24 hr 30 mg PO DAILY #90 tablet 08/29/20 [Rx Last Taken 05/11/21] aspirin 81 mg tablet,delayed release 81 mg PO DAILY 11/07/20 [History Last Taken 05/11/21] carvedilol 12.5 mg tablet 12.5 mg PO BID #180 tab 04/11/21 [Rx Last Taken 05/12/21] One-A-Day Men VitaCraves 2 tab PO DAILY 04/19/21 [History Last Taken 05/11/21] ezetimibe [Zetia] 10 mg PO DAILY 04/19/21 [History Last Taken 05/11/21] potassium 99 mg PO DAILY 04/19/21 [History Last Taken 05/11/21] amlodipine 2.5 mg PO DAILY 05/12/21 [History Last Taken 05/12/21] ciprofloxacin HCl [Cipro] 500 mg PO BID #10 tab 05/12/21 [Rx Last Taken Unknown] Allergy/AdvReac Type Severity Reaction Status Date / Time Penicillins Allergy Rash Verified 05/12/21 10:38 valsartan AdvReac Severe Joint Pain Verified 05/12/21 10:38 rosuvastatin [From Crestor] AdvReac Other Verified 05/12/21 10:39 Family History Mother CHF (congestive heart failure) Brother Hypertension Son Hypertension Other Family history of hypertension Surgical History H/O transurethral resection of prostate History of cardiac catheterization History of coronary artery stent placement History of knee replacement procedure of left knee History of left heart catheterization (LHC) (~07/26/20) History of total right knee replacement History of urologic surgery Hx of colonoscopy Presence of coronary angioplasty implant and graft (~03/16/20) S/P right rotator cuff repair Social History Smoking Status: Never smoker alcohol intake: never substance use type: does not use ROS Constitutional Constitutional: Reports as per HPI Eyes Eyes: Reports as per HPI ENT HEENT: Reports as per HPI Cardiovascular Cardiovascular: Reports chest pain Respiratory/Chest Respiratory/Chest: Reports as per HPI Gastrointestinal Gastrointestinal: Reports as per HPI Genitourinary Genitourinary: Reports as per HPI Musculoskeletal Musculoskeletal: Reports as per HPI Physical Exam Const alert, oriented x3 and no apparent distress Orientation / Consciousness: awake HEENT normocephalic, head/scalp atraumatic and hearing grossly normal bilaterally Eyes PERRL, EOMs intact bilaterally and conjunctivae normal Neck full ROM, supple and no JVD Resp clear to auscultation bilaterally Cardio regular rate, regular rhythm, S1 normal heart sound and S2 normal heart sound GI normal to inspection, nondistended, normoactive bowel sounds Extremity no pedal edema Skin no rashes or lesions noted Neuro oriented x3, moves all extremities, no focal motor deficits and no sensory deficits noted Psych mental status grossly normal Risk Stratification Risk Stratification Applicable: No Procedure Criteria Type of Procedure Procedure Type: Elective Elective Risks - COVID COVID Risk Discussion: The surgeon/proceduralist and patient have discussed in detail the risk of exposure to and/or potential harm posed by the COVID-19 virus with having a surgery/procedure at this time versus the risk of delaying the surgery/procedure. It is not possible to know either the risk of delaying the surgery or procedure or chance of getting an infection with perfect accuracy, but a joint decision was made between the patient and the surgeon/proceduralist to proceed at this time with the scheduled surgery/procedure as indicated on the consent form. Objective Data Vital Signs: Vital Signs Temp Pulse Resp BP Pulse Ox 98.2 F 74 18 151/83 H 93 05/13/21 09:13 05/13/21 09:13 05/13/21 09:13 05/13/21 09:13 05/13/21 09:13 Oxygen Flow Rate (L/min) 2 Oxygen Delivery Method Nasal Cannula Weight: 251 lb 5.231 oz Body Mass Index (BMI) 35.0 Intake & Output: Intake and Output for Last 24 Hours 05/11/21 05/12/21 05/13/21 23:59 23:59 23:59 Intake Total 810 / 810 Output Total 32340 / 99965 70394 / 49694 Balance -22871 / -63767 -67369 / -95586 Lab / Micro Data Result Diagrams: 04/24/21 08:44 04/24/21 08:44 Labs: Laboratory Results - last 24 hr 05/13/21 00:25: Troponin I High Sens 8 05/13/21 08:58: Troponin I High Sens 4 Cardiology Labs/Tests Rhythm: EKG: ransthoracic echocardiogram: 12-01-2019 Interpretation Summary The study was technically difficult. Contrast injection was performed. Base upon the 2D echocardiographic and contrast enhanced images obtained there appears to be grossly normal left ventricular size, wall motion, and systolic function. The estimated ejection fraction is 55 %. Moderate concentric left ventricular hypertrophy. Trivial mitral valve insufficiency. Mild tricuspid valve insufficiency. Mild focal aortic valve calcification. Trivial pulmonic valve insufficiency. Mildly dilated aortic root. Right ventricular systolic pressure estimated to be 25 mmHg. No evidence for diastolic dysfunction. Stress Test Report Date: 12-01-2019 Procedure: Exercise tolerance test/imaging study Indications: Chest pain; CAD Consent: Per the patient Procedure: The patient exercised on a Krzysztof protocol for 7 minutes completing completing Stage II and 1 minute of Stage III achieving a peak heart rate of 131 bpm (86 % predicted maximal heart rate) with a peak blood pressure 204/98 mmHg and a peak MET capacity of 8 METs. The baseline ECG demonstrated normal sinus rhythm. The peak exercise ECG demonstrated somatic/motion artifact with no obvious ECG changes and recovery ECG demonstrating transient 0.5 to [address] segment depression in lead II and aVF and approximately 0.[address] segment depression in lead III with subsequent gradual resolution towards baseline. There was a rare premature ectopic complex during early recovery. The functional capacity was considered average. There was left upper arm/shoulder discomfort during exercise with spontaneous resolution in recovery. The examination was discontinued secondary to dyspnea, fatigue, and left upper arm/shoulder discomfort. Impression: 1. Technically adequate (percent predicted maximal heart rate greater than 85%) exercise tolerance test 2. Peak exercise ECG with somatic/motion artifact with no obvious ECG changes and recovery ECG demonstrating transient 0.5 to [address] segment depression in lead II and aVF and approximately 0.[address] segment depression in lead III with subsequent gradual resolution towards baseline 3. There was a rare premature ectopic complex during early recovery 4. Nuclear images pending Myocardial perfusion imaging study: Technique: The patient was injected with 14.4 mCi of technetium 99m Cardiolite and subsequently rest SPECT Cardiolite nuclear imaging was obtained in the horizontal long, vertical long, and short axis views. The patient exercised on a Krzysztof protocol for 7 minutes completing completing Stage II and 1 minute of Stage III achieving a peak heart rate of 131 bpm (86 % predicted maximal heart rate) with a peak blood pressure 204/98 mmHg and a peak MET capacity of 8 METs. The patient was injected with 44.5 mCi of technetium 99m Cardiolite and subsequently stress SPECT Cardiolite nuclear imaging was obtained in the horizontal long, vertical long, and short axis views. A gated Cardiolite study at peak stress was obtained. Interpretation: Rest and stress SPECT Cardiolite nuclear imaging status post realignment, normalization, and attenuation correction, demonstrates at rest the appearance of relative uniform tracer uptake and myocardial perfusion appearing within normal limits. Status post stress there is notation of diminished myocardial perfusion/tracer uptake in portions of the distal anterior, distal anteroseptal, and apical segments. There is diminished end systolic thickening and brightening in the aforementioned areas. The gated Cardiolite study demonstrates myocardial thickening and inward wall motion. The reported LVEF is 57 %. Impression: 1. Rest and stress SPECT Cardiolite nuclear imaging demonstrate myocardial perfusion changes concerning for an area of stress-induced myocardial ischemia involving portions of the distal anterior, distal anteroseptal, and apical segments. 2. The gated Cardiolite study reports an LVEF of 57 %. ADDENDUM by Dr. Clinton Barriga MD on 07/26/20 at 1030 Addendum: The impression should read: Impression: 1. Rest and stress SPECT Cardiolite nuclear imaging demonstrate myocardial perfusion changes between the preattenuation correction imaging and the post attenuation correction imaging concerning for an area of stress-induced myocardial ischemia in the mid to distal inferior segments (noted more prominently on the preattenuation corrected images). 2. The gated Cardiolite study reports an LVEF of 63%. 07/26/20 1030Date Clinton Barriga MD cc: Dr. Priscila Gamez MD; Dr. Ritesh Rocha MD ~*Signed Stress Test Report Date: 07-26-2020 Procedure: Pharmacologic stress nuclear imaging study Indications: Chest pain; CAD; PCI Consent: Per the patient Procedure: The patient underwent pharmacologic (Regadenoson 0.4mg ) evaluation with a peak heart rate of 86 beats per minute (56%predicted maximal heart rate) and a peak blood pressure of 160/90 mmHg. The baseline ECG demonstrated sinus rhythm. The peak pharmacologic ECG demonstrated no obvious ECG changes. There were no cardiac dysrhythmias pretest, during pharmacologic infusion, or recovery. The patient noted chest discomfort pretest, during pharmacologic infusion, and recovery. The examination was discontinued secondary to completion of protocol. Impression: 1. Pharmacologic (Regadenoson) evaluation 2. Peak pharmacologic ECG with no obvious ECG changes. 3. There were no cardiac dysrhythmias pretest, during pharmacologic infusion, or recovery. 4. Nuclear images pending Myocardial perfusion imaging study: Technique: The patient was injected with 14.7 millicuries of technetium 99m Cardiolite and subsequently rest SPECT Cardiolite nuclear imaging was obtained in the horizontal long, vertical long, and short axis views. The patient underwent pharmacologic (Regadenoson) evaluation with a peak heart rate of 86 beats per minute (56% percent predicted maximal heart rate) and a peak blood pressure of 160/90 mmHg. The patient was injected with 44.6 millicuries of technetium 99m Cardiolite and subsequently stress SPECT Cardiolite nuclear imaging was obtained in the horizontal long, vertical long, and short axis views. A gated Cardiolite study at peak stress was obtained. Interpretation: Rest and stress SPECT Cardiolite nuclear imaging status post realignment, normalization, and attenuation correction demonstrate on the preattenuation correction images the appearance of relative uniform tracer uptake/myocardial perfusion appearing within normal limits at rest and status post stress there is an area of diminished to absence of tracer uptake in portions of the mid towards distal inferior segments. On the post attenuation correction images there appears to be relative uniform tracer uptake/myocardial perfusion at rest and status post stress an area of subtle diminished tracer uptake in portions of the mid towards distal inferior segments. There is end systolic thickening and brightening. The gated Cardiolite study demonstrates myocardial thickening and inward wall motion. The reported LVEF is 63%. Impression: 1. Rest and stress SPECT Cardiolite nuclear imaging demonstrate myocardial perfusion changes between the preattenuation correction imaging and the post attenuation correction imaging concerning for an area of stress-induced myocardial ischemia in the mid to distal inferior segments (noted more prominently on the preattenuation corrected images). 2. The gated Cardiolite study reports an LVEF of 83%. CORONARY ANGIOGRAPHY 12/08/2019 DOMINANCE: Right Dominant LEFT HEART ASSESSMENT Left Ventricular Ejection Fraction: by LV Gram 60 % Normal LV wall motion Normal Left Ventricular End Diastolic Pressure LVEDP: 11 mmHg LEFT MAIN: Angiographically normal LEFT ANTERIOR DESCENDING ARTERY: PROX LAD: Mild calcification, Mild luminal irregularities MID LAD: 90 % Stenosis DIAGONAL 2: Ostial - 90 % Stenosis (small caliber vessel) CIRCUMFLEX ARTERY: PROX CIRC: Mild luminal irregularities RIGHT CORONARY ARTERY: Mild luminal irregularities DISTAL RCA: diffuse: ectatic: 50 -75 % Stenosis PCI: 11/2019: Successful PTCA/ALEC to mid LAD with a 2.5 x 38 Promus Synergy, followed immediately upstream with a 2.5 x 12 Promus Synergy, post dilated proximally with a 3.0 x 8 NC Balloon; 85%-->0%, no dissection. Successful PCI with PTCA to the ostial DIAG#1 with a 2.0 x 12 balloon; 90%-->50%, no dissection. RECOMMENDATIONS Risk factor modification ASA Indefinitley Plavix for at least 12 months Medical management of distal RCA unless or until pt has recurrent angina or inferior ischemia. Heart catheterization from 03/16/2020: CONCLUSIONS Elevated Left Ventricular End Diastolic Pressure Normal LV size, wall motion,and systolic function LVEF: by LV gram 60 % [place] Multivessel CAD LAD: PCI/Stent: Patent RECOMMENDATIONS Risk factor modification Medical therapy Referred for immediate PCI CORONARY ANGIOGRAPHY DOMINANCE: Right Dominant LEFT HEART ASSESSMENT Left Ventricular Ejection Fraction: by LV Gram 60 % Normal LV wall motion Elevated Left Ventricular End Diastolic Pressure LVEDP: 29 mmHg LEFT MAIN: Angiographically normal LEFT ANTERIOR DESCENDING ARTERY: PROX LAD: Mild calcification, Mild luminal irregularities MID LAD: Previously placed stent is patent DIAGONAL 1: Ostial - 75 % Stenosis DIAGONAL 2: Ostial - 75 % Stenosis CIRCUMFLEX ARTERY: Mild luminal irregularities RIGHT CORONARY ARTERY: Mild luminal irregularities Mild luminal irregularities DISTAL RCA: diffuse: hazy: eccentric: 75 % Stenosis AORTIC ROOT: Angiographically normal Cardiac intervention from 03/16/2020: CONCLUSIONS Successful PCI with ALEC to the dRCA RECOMMENDATIONS ASA Indefinitely Plavix for at least 12 months Cardiac catheterization: 07-26-2020 CONCLUSIONS Normal Left Ventricular End Diastolic Pressure Normal LV size, wall motion,and systolic function LVEF: by LV gram 65 % [place] Multivessel CAD LAD: stent: patent RCA: stent: patent RECOMMENDATIONS Risk factor modification Medical therapy DESCRIPTION OF PROCEDURE The patient arrived to the procedure lab. The risks and benefits of the procedure as well as a full description of our services here and current unavailability of surgical backup were fully explained to the patient and/or their significant other prior to the catheterization. The Timeout was completed, verifying the correct patient and procedure. The patient's procedural site was prepped and draped in the usual fashion. Local anesthetic was given subcu taneously to right groin region with Lidocaine 2%. Using a modified Seldinger technique, arterial access was obtained via the right femoral artery, a 4Fr sheath was inserted Left Coronary Artery selective angiography was performed in multiple views using a 4 Fr. JL4 catheter. Right Coronary Artery selective angiography was then performed in multiple views using a 4 Fr. JR4 catheter. Left Ventriculography was performed in FIORE projection using a 4 Fr. Pigtail catheter. LV to AO pullback pressures were then recorded. CORONARY ANGIOGRAPHY DOMINANCE: Right Dominant LEFT HEART ASSESSMENT Left Ventricular Ejection Fraction: by LV Gram 65 % Normal LV wall motion Normal Left Ventricular End Diastolic Pressure LVEDP: 7 mmHg LEFT MAIN: Mild luminal irregularities LEFT ANTERIOR DESCENDING ARTERY: PROX LAD: Mild calcification, Mild luminal irregularities, Previously placed stent is patent MID LAD: Previously placed stent is patent DIAGONAL 1: Ostial - very small caliber vessel: 75 % Stenosis DIAGONAL 2: Ostial - very small caliber vessel: 75 % Stenosis CIRCUMFLEX ARTERY: PROX CIRC: Mild luminal irregularities OM 1: Proximal - small caliber vessel: 50 % Stenosis RIGHT CORONARY ARTERY: Mild luminal irregularities PROX RCA: 25 % Stenosis DISTAL RCA: Previously placed stent is patent RT PLV: Mild luminal irregularities RT PDA: Mid - Mild luminal irregularities AORTIC ROOT: Angiographically normal PCI: 03-16-2020 PCI/ALEC to the RCA system
[2021-05-13 13:17] VITALS: BP 122/69; PULSE 84; RESP 18; TEMP 36.7; O2SAT 92
== END 2021-05-13 13:42 | disposition home or self-care (01) ==
LOC: SDC 09:44 → AC 13:43 → MS2 14:52
PROVIDERS: Anesthesiology; PCP Family Medicine; Referring Provider Urology; Visit Provider Urology
PROC: (CPT 52630; principal; 2021-05-12 11:30)
DX: N40.1 Benign prostatic hyperplasia with lower urinary tract symptoms (principal); N13.8 Other obstructive and reflux uropathy; N21.0 Calculus in bladder; N42.89 Other specified disorders of prostate; I25.10 Atherosclerotic heart disease of native coronary artery without angina pectoris; I10 Essential (primary) hypertension; M19.90 Unspecified osteoarthritis, unspecified site; E78.00 Pure hypercholesterolemia, unspecified; G47.33 Obstructive sleep apnea (adult) (pediatric); R07.89 Other chest pain; Z95.5 Presence of coronary angioplasty implant and graft; Z79.82 Long term (current) use of aspirin; Z79.02 Long term (current) use of antithrombotics/antiplatelets; Z79.899 Other long term (current) drug therapy; Z20.822 Contact with and (suspected) exposure to COVID-19; Z86.16 Personal history of COVID-19
CPT/HCPCS: 52630; 52310; 00914; 36415; 80048; 84484; 85027; 87426; 87635; 88305; 93005; C9803; J7120; U0005; J2405; U0003

== ENCOUNTER 2021-05-18 10:26 | Outpatient (CLI) | payer MEDICARE, OTHER, SELFPAY ==
[2020-07-11 09:09] VITALS: BMI 37.0
== END 2021-05-18 23:59 | disposition short-term general hospital (02) ==
LOC: LAB 10:28
PROVIDERS: PCP Family Medicine; Referring Provider Urology; Visit Provider Urology
DX: N40.1 Benign prostatic hyperplasia with lower urinary tract symptoms (principal)
CPT/HCPCS: 87086

== ENCOUNTER 2021-06-13 10:41 | Outpatient (CLI) | payer MEDICARE, OTHER, SELFPAY ==
[2020-07-11 09:09] VITALS: BMI 37.0
== END 2021-06-13 23:59 | disposition home or self-care (01) ==
LOC: MTLAB 10:43
PROVIDERS: PCP Family Medicine; Referring Provider Urology; Visit Provider Urology
DX: N40.1 Benign prostatic hyperplasia with lower urinary tract symptoms (principal)
CPT/HCPCS: 87086; 87088

== ENCOUNTER 2021-06-26 16:49 | Outpatient (CLI) | payer MEDICARE, OTHER, SELFPAY ==
[2020-07-11 09:09] VITALS: BMI 37.0
== END 2021-06-26 23:59 | disposition home or self-care (01) ==
LOC: LABSPEC 16:50
PROVIDERS: PCP Family Medicine; Visit Provider Urology
DX: R31.0 Gross hematuria (principal)
CPT/HCPCS: 87086; 87088

== ENCOUNTER 2021-07-26 08:05 | Outpatient (CLI) | payer MEDICARE, OTHER, SELFPAY ==
[2020-07-11 09:09] VITALS: BMI 37.0
[2021-07-26 10:34] LABS: PSA,Total- Diagnostic 6.88 ng/mL (0.0-4.0)
[2021-07-26 10:37] LABS: AST(SGOT) 29 U/L (15-37); Alanine Aminotransfer ALT/SGPT 54 U/L (16-61); Albumin, Serum 3.7 g/dL (3.2-5.0); Alkaline Phosphatase 86 U/L (45-117); Bilirubin, Direct 0.18 mg/dL (0.00-0.30); Cholesterol 216 mg/dL (200); Globulin 4.3 g/dL (2.2-4.2); High Density Lipoprotein 36 mg/dL; Triglycerides 222 mg/dL; Very Low Density Lipoprotein 44 mg/dL (5-40)
== END 2021-07-26 23:59 | disposition home or self-care (01) ==
LOC: MTLAB 08:07
PROVIDERS: Nurse Practitioner Family; PCP Family Medicine; Referring Provider Urology; Visit Provider Urology
DX: E78.5 Hyperlipidemia, unspecified (principal); C61 Malignant neoplasm of prostate
CPT/HCPCS: 36415; 80061; 80076; 84153

== ENCOUNTER 2021-11-11 14:08 | Emergency (ER) | payer MEDICARE, OTHER, SELFPAY ==
[2020-07-11 09:09] VITALS: BMI 37.0
[2021-11-11 14:09] VITALS: BP 144/80; PULSE 57; RESP 15; TEMP 36.6; O2SAT 97; BMI 34.2
[2021-11-11 14:19] VITALS: BP 148/93; PULSE 65; RESP 23; O2SAT 96
--- NOTE | 2021-11-11 15:02 | EKG12_ITS ---
Test Reason : CP Blood Pressure : / mmHG Vent. Rate : 064 BPM Atrial Rate : 064 BPM P-R Int : 186 ms QRS Dur : 094 ms QT Int : 396 ms P-R-T Axes : 037 033 031 degrees QTc Int : 408 ms Normal sinus rhythm Normal ECG Confirmed by ERIKA BENÍTEZ, KATIE ([id number]), offline editor BELIA RAM ([id number]) on 11/13/2021 11:04:43 AM Referred By: EDPHYS Confirmed By:KATIE JAMES MD
--- NOTE | 2021-11-11 15:03 | EDS_ITS ---
HPI History of Present Illness Chief Complaint: Chest Pain Narrative Narrative: Patient complains of a sharp or may be tight feeling in his sternum or just right side of his sternum. It last about 5 minutes. This occurred when he was going downhill with a 0 turn mower. It slipped and he thought he was going to crash. He was using the levers quickly to try to get himself back in control. He noticed some discomfort that then resolved. He did not have dyspnea nausea vomiting lightheadedness diaphoresis or any other symptoms. He also was moving a refrigerator yesterday. His states that he was rocking back and forth with the arms. He is not sure if he strained himself a little bit and doing that he does not feel ill. He did have stents placed about 2 years ago but does not know if the symptoms were anything like that. He has a routine appointment for follow-up on this Saturday in 2 days. He feels fine right now. Nothing made his symptoms specifically better or worse. [facility] Medical History Abnormal stress test Arthritis Atherosclerotic heart disease of [place] coronary artery without angina pectoris Back pain Basal cell carcinoma (BCC) Bladder stone Cancer Cardiology follow-up encounter Chest pain, precordial CPAP (continuous positive airway pressure) dependence Difficulty swallowing Essential hypertension Family history of hypertension Gastric reflux High cholesterol History of echocardiogram History of edema History of pain when walking History of stress test Hx of basal cell carcinoma Hyperlipidemia Hypertension Non-smoker Obstructive sleep apnea Presence of stent in coronary artery (~03/16/20) Prostate disease Sleep apnea Syncope Wears glasses Home Medications nitroglycerin 0.4 mg sublingual tablet 0.4 mg sublingual Q5M PRN Cardiac/Chest Pain 12/09/19 [Rx Last Taken Unknown] aspirin 81 mg tablet,delayed release (Adult Low Dose Aspirin) 81 mg PO DAILY [History Last Taken 05/11/21] carvedilol 12.5 mg tablet 12.5 mg PO BID heart #180 tabs 04/11/21 [Rx Last Taken 05/12/21] ezetimibe 10 mg tablet (Zetia) 10 mg PO DAILY cholesterol 04/19/21 [History Last Taken 05/11/21] multivitamin with minerals-folic acid 200 mcg chewable tablet (One-A-Day Men VitaCraves) 2 tab PO DAILY 04/19/21 [History Last Taken 05/11/21] potassium 99 mg tablet 99 mg PO DAILY 04/19/21 [History Last Taken 05/11/21] amlodipine 10 mg tablet 2.5 mg PO DAILY 05/12/21 [History Last Taken 05/12/21] ciprofloxacin HCl 500 mg tablet (Cipro) 500 mg PO BID #10 tabs 05/12/21 [Rx Last Taken Unknown] isosorbide mononitrate 30 mg tablet,extended release 24 hr 30 mg PO DAILY heart #90 tabs 06/01/21 [Rx Last Taken Unknown] hydrochlorothiazide 12.5 mg tablet 12.5 mg PO DAILY blood pressure #90 tabs 08/28/21 [Rx Last Taken Unknown] Allergy/AdvReac Type Severity Reaction Status Date / Time Penicillins Allergy Rash Verified 11/11/21 14:12 valsartan AdvReac Severe Joint Pain Verified 11/11/21 14:12 rosuvastatin [From Crestor] AdvReac Other Verified 11/11/21 14:12 Family History Mother CHF (congestive heart failure) Brother Hypertension Son Hypertension Other Family history of hypertension Surgical History H/O transurethral resection of prostate History of cardiac catheterization History of coronary artery stent placement History of knee replacement procedure of left knee History of left heart catheterization (LHC) (~07/26/20) History of total right knee replacement History of urologic surgery Hx of colonoscopy Presence of coronary angioplasty implant and graft (~03/16/20) S/P right rotator cuff repair Social History Smoking Status: Never smoker alcohol intake: never substance use type: does not use ROS ROS ED Constitutional Constitutional ED: Denies chills, fever(s) or sweats Eyes Eyes: Denies blurry vision ENT ENT ED: Denies rhinorrhea or sore throat Cardiovascular Cardiovascular: Reports as per HPI; Denies orthopnea or paroxysmal nocturnal dyspnea Respiratory/Chest Respiratory/Chest: Denies cough, dyspnea, dyspnea on exertion, orthopnea or paroxysmal nocturnal dyspnea Gastrointestinal Gastrointestinal: Denies nausea or vomiting Genitourinary Genitourinary ED: Denies hematuria Musculoskeletal Musculoskeletal: Reports other Details: Patient's pain had no radiation. No migration ; Denies arthralgias, back pain, myalgias or neck pain Integumentary Denies Abrasions or rash Neurologic Neurologic: Denies paresthesias or weakness Psychiatric Psychiatric: Denies anxiety Endocrine Endocrinology: Denies polydipsia or polyuria Hematologic/Lymphatic Hematologic/Lymphatic: Denies easy bleeding or easy bruising Allergic/Immunologic Allergic/Immunologic ED: Denies urticaria EXAM Physical Exam Const Vital Signs: 11/11/21 14:09 11/11/21 14:19 11/11/21 15:08 Temperature 98 F Temperature Source Temporal Pulse Rate 57 L 65 Respiratory Rate 15 23 H Blood Pressure 144/80 H 148/93 H Blood Pressure Mean 101 111 Pulse Ox 97 96 Oxygen Delivery Method Room Air Room Air Room Air 11/11/21 15:27 11/11/21 16:27 11/11/21 17:00 Temperature 97.6 F L Temperature Source Temporal Pulse Rate 66 60 58 L Respiratory Rate 18 20 H 13 Blood Pressure 120/83 H 134/83 H 139/92 H Blood Pressure Mean 95 100 107 Pulse Ox 95 95 92 Oxygen Delivery Method Room Air Room Air Room Air 11/11/21 18:12 Temperature Temperature Source Pulse Rate 61 Respiratory Rate 21 H Blood Pressure 144/85 H Blood Pressure Mean 104 Pulse Ox 95 Oxygen Delivery Method Room Air Positive well nourished General Appearance ED: NAD HEENT Reports moist mucous membranes Eyes General Eye ED: Negative for scleral icterus Neck supple and no JVD Chest Wall inspection of chest normal Chest Narrative: Mild chest wall tenderness just to the right of the sternum and slightly on the sternum. No rash. No lesion. No subcu air Resp normal respiratory effort and clear to auscultation bilaterally Effort and Inspection: Negative for respiratory distress Auscultation: Negative for rales, rhonchi or wheezes Cardio regular rate, regular rhythm and no murmurs Rate: other Other Details: Equal pulses bilateral upper and lower extremities. GI normal to inspection, nondistended, normoactive bowel sounds and soft to palpation Back/Spine no CVA tenderness Extremity normal to inspection General Extremety ED: Negative for edema, pulses abnormal or tenderness General Extremity: Negative for edema or pulses abnormal Neuro oriented x3 Psych mental status grossly normal Skin no rashes or lesions noted Heart Score History: Slightly/Non-Suspicious ECG: Normal Age: >/= 65 years Risk Factors: >/= 3 Risk Factors or History of CAD Troponin: </= Normal Limit Score: 4 MDM MDM MDM Narrative Medical decision making narrative: Patient's CBC is normal. Electrolytes look good. Minimal dehydration with slightly high BUN to creatinine ratio. Troponin is normal. Repeat troponin is unchanged and still normal. Chest x-ray is normal. X-rays did not show acute changes. this patient heart score is 4. But it is 4 due to his age and history. Even if he had no symptoms of anything he would have a heart score of 4. His symptoms had chest pain only. It was reproduced with some palpation and motion. It occurred after heavy lifting. It was not associated with nausea vomiting diaphoresis lightheadedness shortness of breath. He has 2 negative troponins. He has an appointment with his [facility] sharpshooter Saturday about 18 hours from now. We encouraged him to return with any repeat symptoms. I think he is appropriate for follow-up. Lab Data Attestation: I reviewed the patient's lab results. Labs: Laboratory Results - last 24 hr 11/11/21 11/11/21 11/11/21 14:20 14:20 16:20 WBC 7.1 RBC 5.22 Hgb 15.2 Hct 45.2 MCV 86.6 MCH 29.1 MCHC 33.6 RDW Std Deviation 40.0 RDW Coeff of Robinson 12.7 Plt Count 270 MPV 9.1 Immature Gran % (Auto) 0.300 Neut % (Auto) 46.0 L Lymph % (Auto) 37.7 [place] % (Auto) 12.9 H Eos % (Auto) 2.8 Baso % (Auto) 0.3 Absolute Neuts (auto) 3.3 Absolute Lymphs (auto) 2.67 Nucleated RBC % 0 Sodium 137 Potassium 3.8 Chloride 104 Carbon Dioxide 29.0 Anion Gap 4 L BUN 21 H Creatinine 1.12 Estim Creat Clear Calc 65.36 Est GFR (MDRD) Af Amer 83 Est GFR (MDRD) Non-Af 69 BUN/Creatinine Ratio 18.8 Glucose 139 H Calcium 8.7 Troponin I High Sens 5 5 Radiography Diagnostic Testing: Clinical Impression(s) from Imaging Studies Chest X-Ray 11/11/21 15:12 IMPRESSION: No radiographic evidence of acute cardiopulmonary disease. Electronically Signed: Mariano Coleman MD at 16:02 EDT Reading Location ID and State: [facility] / [place] Tel , Service support , EKG Initial EKG: Comments: EKG done for chest pain read by me shows normal sinus rhythm with overall rate of 64. No ectopy. No acute ST elevation or depression. TX interval QRS duration and QTc are all normal. Discharge Plan Triage Chief Complaint: Chest Pain ED Provider: Giovanny Sanford Dx/Rx/DC Orders Clinical Impression: Chest pain Instructions: ED Chest Pain, Uncertain Cause Prescriptions: No Action aspirin [Adult Low Dose Aspirin] 81 mg tablet,delayed release (DR/EC) 81 mg PO DAILY Hold Instructions: Resume on 05/26/21. nitroglycerin 0.4 MG tablet, sublingual 0.4 mg sublingual Q5M PRN (Reason: Cardiac/Chest Pain) 0RF potassium 99 mg Tablet 99 mg PO DAILY ezetimibe [Zetia] 10 mg tablet 10 mg PO DAILY One-A-Day Men VitaCraves 200 mcg Tablet,Chewable 2 tab PO DAILY amlodipine 10 mg tablet 2.5 mg PO DAILY ciprofloxacin HCl [Cipro] 500 mg tablet 500 mg PO BID Qty: 10 0RF carvedilol 12.5 mg tablet 12.5 mg PO BID Qty: 180 3RF Rx Instructions: must administer with a meal/food isosorbide mononitrate 30 mg tablet extended release 24 hr 30 mg PO DAILY Qty: 90 3RF hydrochlorothiazide 12.5 mg tablet 12.5 mg PO DAILY Qty: 90 3RF Primary Care Provider: Ritesh Rocha Referrals: Blayne Medina MD [STAFF PHYSICIAN] - As soon as possible Ritesh Rocha MD [Primary Care Provider] - Disposition Disposition: Home, Self Care
[2021-11-11 15:10] LABS: Absolute Lymphocyte Count 2.67 X10^3/uL (0.83-4.51); Absolute Neutrophil Count 3.3 X10^3/uL (2.0-7.7); Basophil# 0.02 X10^3/uL; Basophil% 0.3 % (0-1); Eosinophils% 2.8 % (0-5); Hematocrit 45.2 % (40-54); Hemoglobin 15.2 g/dL (13.0-16.5); Lymphocyte # 2.67 X10^3/ul (0.83-4.51); Lymphocyte % 37.7 % (19-41); Mean Corp Hgb Conc 33.6 g/dL (32-36); Mean Corpuscular Hgb 29.1 pg (27.0-32.0); Mean Corpuscular Volume 86.6 fL (80-94); Mean Platelet Vol. 9.1 fl (6.2-12.0); Monocyte# 0.91 X10^3/uL; Monocyte% 12.9 % (0-10); NRBC Flagged by Analyzer 0 % (0-5); Neutrophil # 3.26 X10^3/uL (2.7-7.7); Platelet Count 270 K/mm3 (150-450); RBC Distribution Width CV 12.7 % (11.6-14.6); Red Blood Count 5.22 M/mm3 (4.6-6.2); White Blood Count 7.1 K/mm3 (4.4-11.0)
[2021-11-11] MEDS: Aspirin 81 MG TAB.CHEW 324 MG PO (15:11)
--- NOTE | 2021-11-11 15:12 | RAD_ITS ---
INDICATION: chest pain EXAMINATION/TECHNIQUE: X-RAY - portable upright AP chest x-ray COMPARISON: 07/25/2020 FINDINGS: LINES/DEVICES: None. LUNGS: No consolidation, edema or effusion. No pneumothorax. MEDIASTINUM AND CARDIOVASCULAR STRUCTURES: Cardiac silhouette not enlarged. Central airways and mediastinal contour are unremarkable. BONES AND SOFT TISSUES: Stable old right rib deformities. No acute bony abnormality. RAD/Chest 1 View (Portable) IMPRESSION: No radiographic evidence of acute cardiopulmonary disease. Electronically Signed: Mariano Coleman MD at 16:02 EDT ,
[2021-11-11 15:24] LABS: Anion Gap 4 (5-15); BUN 21 mg/dL (7-18); BUN/Creat Ratio 18.8 RATIO (10-20); Calcium,Total 8.7 mg/dL (8.5-10.1); Chloride 104 mmol/L (98-107); Creatinine, Serum 1.12 mg/dL (0.70-1.30); EST Glomerular Filtration Rate 69 mL/min (>60); Est Glom Filt Rate - Afr Amer 83 mL/min (>60); Estimated Creatinine Clearance 65.36 ml/min; Glucose 139 mg/dL (74-106); Potassium 3.8 mmol/L (3.5-5.1); Sodium Level 137 mmol/L (136-145); Troponin-I HS (w/2H Reflex) 5 pg/mL (3.0-78.0)
[2021-11-11 15:27] VITALS: BP 120/83; PULSE 66; RESP 18; O2SAT 95
[2021-11-11 16:27] VITALS: BP 134/83; PULSE 60; RESP 20; TEMP 36.4; O2SAT 95
[2021-11-11 17:00] VITALS: BP 139/92; PULSE 58; RESP 13; O2SAT 92
[2021-11-11 17:08] LABS: Reflex Troponin-HS? (from REC) Y
[2021-11-11 17:25] LABS: Troponin-I HS 5 pg/mL (3.0-78.0)
[2021-11-11 18:12] VITALS: BP 144/85; PULSE 61; RESP 21; O2SAT 95
== END 2021-11-11 18:54 | disposition home or self-care (01) ==
PROVIDERS: Emergency Provider Emergency Medicine; PCP Family Medicine; Visit Provider Emergency Medicine
DX: R07.9 Chest pain, unspecified (principal); I10 Essential (primary) hypertension; I25.10 Atherosclerotic heart disease of native coronary artery without angina pectoris; G47.33 Obstructive sleep apnea (adult) (pediatric); Z95.5 Presence of coronary angioplasty implant and graft; Z79.82 Long term (current) use of aspirin; Z79.899 Other long term (current) drug therapy
CPT/HCPCS: 36415; 71045; 80048; 84484; 85025; 93005; 99285; A4216

== ENCOUNTER → 2021-11-16 | Outpatient (CLI) | payer MEDICARE, OTHER, SELFPAY ==
[2020-07-11 09:09] VITALS: BMI 37.0
[2021-11-16 10:53] LABS: AST(SGOT) 22 U/L (15-37); Alanine Aminotransfer ALT/SGPT 40 U/L (16-61); Albumin, Serum 3.7 g/dL (3.2-5.0); Alkaline Phosphatase 68 U/L (45-117); Bilirubin, Direct 0.14 mg/dL (0.00-0.30); Cholesterol 200 mg/dL (200); High Density Lipoprotein 40 mg/dL; Protein, Total 7.7 g/dL (6.4-8.2); Triglycerides 189 mg/dL; Very Low Density Lipoprotein 38 mg/dL (5-40)
== END | disposition home or self-care (01) ==
PROVIDERS: Nurse Practitioner Family; PCP Family Medicine; Referring Provider Internal Medicine Cardiovascular Disease; Visit Provider Internal Medicine Cardiovascular Disease
DX: E78.00 Pure hypercholesterolemia, unspecified (principal)
CPT/HCPCS: 36415; 80061; 80076

== ENCOUNTER 2022-03-08 19:09 | Emergency (ER) | payer MEDICARE, OTHER, SELFPAY ==
[2020-07-11 09:09] VITALS: BMI 37.0
[2022-03-08 19:10] VITALS: BP 166/91; PULSE 81; RESP 16; TEMP 36.7; O2SAT 95; BMI 34.2
--- NOTE | 2022-03-08 19:28 | EDS_ITS ---
HPI History of Present Illness Chief Complaint: Upper Extremity Injury Informant: patient Occured/Mechanism Mechanism/Context: Yes direct blow and Yes fall Onset/Context/Timing Onset: Today Context: Sudden Onset Timing: Continuous Quality of Pain: Aching Location: R forearm Current Severity: Moderate Maximum Severity: Moderate Worsened by: moving wrist Relieved by: remaining still Associated Symptoms Associated Symptoms: Negative for Parasthesia, Weakness or Loss of Funtion Narrative Narrative: [id number] male tripped on a board and then fell down striking his right distal ulnar forearm on the board. Does not think he injured anything else, he has been ambulatory, hurts a lot to move. Did not hit his head, did not injure his left arm or his neck or back. Takes no anticoagulant medications. [facility] Medical History Abnormal stress test Arthritis Atherosclerotic heart disease of [place] coronary artery without angina pectoris Back pain Basal cell carcinoma (BCC) Bladder stone Cancer Cardiology follow-up encounter Chest pain, precordial CPAP (continuous positive airway pressure) dependence Difficulty swallowing Essential hypertension Family history of hypertension Gastric reflux High cholesterol History of echocardiogram History of edema History of pain when walking History of stress test Hx of basal cell carcinoma Hyperlipidemia Hypertension Non-smoker Obstructive sleep apnea Presence of stent in coronary artery (~03/16/20) Prostate disease Sleep apnea Syncope Wears glasses Home Medications aspirin 81 mg tablet,delayed release (Adult Low Dose Aspirin) 81 mg PO DAILY 11/07/20 [History Last Taken 05/11/21] carvedilol 12.5 mg tablet 12.5 mg PO BID heart #180 tabs 04/11/21 [Rx Last Taken 05/12/21] potassium 99 mg tablet 99 mg PO DAILY 04/19/21 [History Last Taken 05/11/21] isosorbide mononitrate 30 mg tablet,extended release 24 hr 30 mg PO DAILY heart #90 tabs 06/01/21 [Rx Last Taken Unknown] amlodipine 10 mg tablet 10 mg PO DAILY #90 tabs 11/13/21 [Rx Last Taken Unknown] ezetimibe 10 mg tablet (Zetia) 10 mg PO DAILY cholesterol #90 tabs 11/13/21 [Rx Last Taken Unknown] nitroglycerin 0.4 mg sublingual tablet 0.4 mg sublingual Q5M PRN Cardiac/Chest Pain #25 tabs 11/13/21 [Rx Last Taken Unknown] hydrochlorothiazide 12.5 mg tablet 12.5 mg PO DAILY blood pressure #90 tabs 02/27/22 [Rx Last Taken Unknown] hydrocodone-acetaminophen 5-325mg 5mg-325mg 1 tab PO Q4H PRN PRN Pain 2 days #10 TABLETS 03/08/22 [Rx Last Taken Unknown] Allergy/AdvReac Type Severity Reaction Status Date / Time Penicillins Allergy Rash Verified 03/08/22 19:12 valsartan AdvReac Severe Joint Pain Verified 03/08/22 19:12 rosuvastatin [From Crestor] AdvReac Other Verified 03/08/22 19:12 Family History Mother CHF (congestive heart failure) Brother Hypertension Son Hypertension Other Family history of hypertension Surgical History H/O transurethral resection of prostate History of cardiac catheterization History of coronary artery stent placement History of knee replacement procedure of left knee History of left heart catheterization (LHC) (~07/26/20) History of total right knee replacement History of urologic surgery Hx of colonoscopy Presence of coronary angioplasty implant and graft (~03/16/20) S/P right rotator cuff repair Social History Smoking Status: Never smoker alcohol intake: never substance use type: does not use ROS ROS ED Constitutional Constitutional ED: Denies chills or fever(s) Musculoskeletal Musculoskeletal: Reports extremity pain; Denies neck pain Integumentary Denies Abrasions, rash or wounds Neurologic Neurologic: Denies paresthesias or weakness EXAM Physical Exam Const Vital Signs: 03/08/22 19:10 Temperature 98.0 F Temperature Source Temporal Pulse Rate 81 Respiratory Rate 16 Blood Pressure 166/91 H Blood Pressure Mean 116 Pulse Ox 95 Oxygen Delivery Method Room Air Positive well nourished and well developed General Appearance ED: well developed and NAD HEENT HEENT Narrative: No facial trauma/tenderness. normocephalic and atraumatic Neck full ROM and supple Back/Spine normal ROM and normal to inspection Back/Spine Narrative: No spinal tenderness throughout Extremity Extremity Narrative: Tenderness and swelling at the distal third of the right forearm ulnar aspect, nontender at the wrist itself although he has limited range of motion of the wrist due to pain in the forearm. There are a couple of other abrasions on the ulnar aspect of the right forearm, one of them is more proximal that is nontender. No lacerations. No tenderness along the entire distribution of the radius including proximally, and nontender at the olecranon process and the right shoulder. Other 3 extremities have full range of motion without any tenderness anywhere. Neuro oriented x3, no focal motor deficits and no sensory deficits noted Sensorium / Orientation: alert Psych mental status grossly normal and thought process normal Skin no wounds Rashes: no rashes MDM MDM MDM Narrative Medical decision making narrative: X-rays 2 view right forearm on my interpretation show a distal radial shaft nightstick fracture that is mildly displaced but not enough to require closed reduction at this time. It is closed clinically. We gave him Chloride and placed him in a ulnar gutter splint, and he will follow-up with orthopedics. He was given a sling to use for comfort. Procedures Upper Extremity Splints Upper Extremity Splint: Orthoglass and Ulnar gutter (Neurovascularly intact distally after placement, tolerated well without complication) Splint Fabrication: Fabricated Location: Right Discharge Plan Triage Chief Complaint: Upper Extremity Injury ED Provider: Lionel Bowden Dx/Rx/DC Orders Clinical Impression: Closed fracture of shaft of right ulna Instructions: ED Fracture, Upper Extremity Prescriptions: New hydrocodone-acetaminophen [hydrocodone-acetaminophen] 5-325 mg tablet 1 tab PO Q4H PRN PRN (Reason: Pain) 2 Days Qty: 10 0RF No Action aspirin [Adult Low Dose Aspirin] 81 mg tablet,delayed release (DR/EC) 81 mg PO DAILY Hold Instructions: Resume on 05/26/21. amlodipine 10 mg tablet 10 mg PO DAILY Qty: 90 3RF ezetimibe [Zetia] 10 mg tablet 10 mg PO DAILY Qty: 90 3RF nitroglycerin 0.4 mg tablet, sublingual 0.4 mg sublingual Q5M PRN (Reason: Cardiac/Chest Pain) Qty: 25 3RF potassium 99 mg Tablet 99 mg PO DAILY carvedilol 12.5 mg tablet 12.5 mg PO BID Qty: 180 3RF Rx Instructions: must administer with a meal/food isosorbide mononitrate 30 mg tablet extended release 24 hr 30 mg PO DAILY Qty: 90 3RF hydrochlorothiazide 12.5 mg tablet 12.5 mg PO DAILY Qty: 90 3RF Primary Care Provider: Ritesh Rocha Referrals: Ritesh Rocha MD [Primary Care Provider] - Lopez Malik MD [Med Staff - Active Staff] - As soon as possible (call for appt) Disposition Disposition: Home, Self Care
--- NOTE | 2022-03-08 19:30 | RAD_ITS ---
STUDY: X-RAY XR Forearm 2 Views REASON FOR EXAM: Male, 71 years old. PAIN TECHNIQUE: XR Forearm 2 Views RIGHT COMPARISON: None. FINDINGS: There is no demonstrated soft tissue swelling. Normal visualized radius. Displaced distal ulnar fracture. RAD/Forearm 2 Views IMPRESSION: Displaced distal ulnar fracture. Electronically Signed: Dennis Heredia MD at 20:22 EST ,
[2022-03-08] MEDS: HYDROcodone Bitartrate/Apap 5/325 Tablet PO (20:20)
--- NOTE | 2022-03-08 21:41 | PCM.PN.ORT ---
Subjective Subjective Called by Dr. Butler to look at xrays. Closed and neuro intact per the physician not myself, and was placed in ulnar gutter splint. Objective Data Objective Data Vital Signs: Vital Signs Temp Pulse Resp BP Pulse Ox O2 Del Method 98.0 F 81 16 166/91 H 95 Room Air 03/08/22 19:10 03/08/22 19:10 03/08/22 19:10 03/08/22 19:10 03/08/22 19:10 03/08/22 19:10 Oxygen Delivery Method Room Air Weight: 246 lb Body Mass Index (BMI) 34.2 Radiography Diagnostic Testing: Radiology Impression Forearm X-Ray 03/08/22 19:30 IMPRESSION: Displaced distal ulnar fracture. Electronically Signed: Dennis Heredia MD at 20:22 EST Reading Location ID and State: [facility] / [place] , Service support , Assessment & Plan Assessment/Plan (1) Closed fracture of shaft of right ulna: PLAN: I agree. Splint and FU in clinic tomorrow to discuss options ORIF vs non op cast.
== END 2022-03-08 21:40 | disposition home or self-care (01) ==
PROVIDERS: Emergency Provider Emergency Medicine; PCP Family Medicine; Visit Provider Emergency Medicine
DX: S52.201A Unspecified fracture of shaft of right ulna, initial encounter for closed fracture (principal); I25.10 Atherosclerotic heart disease of native coronary artery without angina pectoris; G47.33 Obstructive sleep apnea (adult) (pediatric); Z95.5 Presence of coronary angioplasty implant and graft; W01.0XXA Fall on same level from slipping, tripping and stumbling without subsequent striking against object, initial encounter
CPT/HCPCS: 73090; 99283

== ENCOUNTER 2022-03-12 10:43 | Day surgery (SDC) | payer MEDICARE, OTHER, SELFPAY ==
[2020-07-11 09:09] VITALS: BMI 37.0
--- NOTE | 2022-03-12 11:15 | EKG12_ITS ---
Test Reason : PRE OP Blood Pressure : / mmHG Vent. Rate : 065 BPM Atrial Rate : 065 BPM P-R Int : 178 ms QRS Dur : 094 ms QT Int : 396 ms P-R-T Axes : 031 050 027 degrees QTc Int : 411 ms Normal sinus rhythm Normal ECG Confirmed by VALERIY BENÍTEZ, FREDI ([id number]), tape editor OSCAR MCCAULEY ([id number]) on 03/14/2022 8:13:01 AM Referred By: REYNA Confirmed By:FREDI CROOKS MD
[2022-03-12 11:22] VITALS: BP 137/82; PULSE 72; RESP 16; TEMP 37.4; O2SAT 95; BMI 34.9
[2022-03-12] MEDS: Lactated Ringers 1,000 ML 15 ML IV (11:37)
[2022-03-12 11:48] LABS: Hematocrit 47.8 % (40-54); Hemoglobin 16.2 g/dL (13.0-16.5); Mean Corp Hgb Conc 33.9 g/dL (32-36); Mean Corpuscular Hgb 29.2 pg (27.0-32.0); Mean Corpuscular Volume 86.3 fL (80-94); Mean Platelet Vol. 8.7 fl (6.2-12.0); Platelet Count 270 K/mm3 (150-450); RBC Distribution Width CV 12.6 % (11.6-14.6); RBC Distribution Width SD 39.1 fl (35.1-43.9); Red Blood Count 5.54 M/mm3 (4.6-6.2); White Blood Count 5.9 K/mm3 (4.4-11.0)
[2022-03-12 12:03] LABS: Anion Gap 4 (5-15); Chloride 106 mmol/L (98-107); Potassium 4.1 mmol/L (3.5-5.1); Sodium Level 138 mmol/L (136-145)
[2022-03-12 12:04] LABS: International Normalized Ratio 1.1; Prothrombin Time (Protime)PT. 13.8 SECONDS (11.7-14.9)
[2022-03-12 12:05] LABS: Partial Thromboplast Time 32.8 Seconds (24.1-36.2)
--- NOTE | 2022-03-12 12:26 | HP.PCM_ITS ---
HPI - General HPI Narrative HENRI SILVESTRE, is a 71 M who presents for open reduction internal fixation right distal ulna fracture possible pinning of the distal radial ulnar joint. No changes to his history and physical exam. Patient wishes to proceed. We again discussed the pros and cons risks and benefits of surgical fixation versus nonoperative therapy. Right upper extremity marked. Patient had no further concerns. Narcotic counseling performed risks of addiction constipation falls lightheadedness and other risks. MR#: [id number] Acct: [id number] Name:? HENRI SILVESTRE Rep #: [id number] : 1950 ? ? Provider: Dr. Lopez Malik MD Age/Sex:? 71/M ? ? Location: [facility] [place].[facility] Status: Signed Intake Vital Signs ? 03/09/2209:05 Height 5 ft 11 in Weight: 253 lb BMI 35.2 Intake Visit Reasons:?right arm Chief Complaint: right arm pain Is patient in pain?: Yes (right arm ) Pain scale (1-10): 6 Allergies Penicillins Allergy (Verified 03/09/22 09:06) Rashvalsartan Adverse Reaction (Severe, Verified 03/09/22 09:06) Joint Painrosuvastatin [From Crestor] Adverse Reaction (Verified 03/09/22 09:06) Other Medications aspirin 81 mg tablet,delayed release (Adult Low Dose Aspirin) 81 mg PO DAILY 11/07/20 [History Confirmed 03/09/22] carvedilol 12.5 mg tablet 12.5 mg PO BID heart #180 tabs 04/11/21 [Rx Confirmed 03/09/22] potassium 99 mg tablet 99 mg PO DAILY 04/19/21 [History Confirmed 03/09/22] isosorbide mononitrate 30 mg tablet,extended release 24 hr 30 mg PO DAILY heart #90 tabs 06/01/21 [Rx Confirmed 03/09/22] amlodipine 10 mg tablet 10 mg PO DAILY #90 tabs 11/13/21 [Rx Confirmed 03/09/22] ezetimibe 10 mg tablet (Zetia) 10 mg PO DAILY cholesterol #90 tabs 11/13/21 [Rx Confirmed 03/09/22] nitroglycerin 0.4 mg sublingual tablet 0.4 mg sublingual Q5M PRN Cardiac/Chest Pain #25 tabs 11/13/21 [Rx Confirmed 03/09/22] hydrochlorothiazide 12.5 mg tablet 12.5 mg PO DAILY blood pressure #90 tabs 02/27/22 [Rx Confirmed 03/09/22] hydrocodone-acetaminophen 5-325mg 5mg-325mg 1 tab PO Q4H PRN PRN Pain 2 days #10 TABLETS 03/08/22 [Rx Confirmed 03/09/22] PFSH Medical History? Abnormal stress test Arthritis Atherosclerotic heart disease of [place] coronary artery without angina pectoris Back pain Basal cell carcinoma (BCC) Bladder stone Cancer Cardiology follow-up encounter Chest pain, precordial CPAP (continuous positive airway pressure) dependence Difficulty swallowing Essential hypertension Family history of hypertension Gastric reflux High cholesterol History of echocardiogram History of edema History of pain when walking History of stress test Hx of basal cell carcinoma Hyperlipidemia Hypertension Non-smoker Obstructive sleep apnea Presence of stent in coronary artery (~03/16/20) Prostate disease Sleep apnea Syncope Wears glasses Surgical History? H/O transurethral resection of prostate History of cardiac catheterization History of coronary artery stent placement History of knee replacement procedure of left knee History of left heart catheterization (LHC) (~07/26/20) History of total right knee replacement History of urologic surgery Hx of colonoscopy Presence of coronary angioplasty implant and graft (~03/16/20) S/P right rotator cuff repair Family History? Mother?? CHF (congestive heart failure)Brother HypertensionSon HypertensionOther Family history of hypertension Social History? Smoking Status:? Never smoker alcohol intake:? never substance use type:? does not use HPI right arm Details: Parts of this documentation were recorded by a scribe, this documentation accurately reflects the service provided and the decisions made by me, Dr. Lopez Malik MD 03/09/22 0904. HENRI SILVESTRE is a 71 year old M here today for? 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 Ortho Exam General General: Yes no acute distress Neurologic: Yes alert and Yes oriented x3 Psychologic: Yes reasonable and appropriate Right Wrist/Hand Skin/Wound: Yes CDI, Yes Swelling, Yes Ecchymosis, Yes nail intact and Yes capil jeimy refill normal Right Wrist: Yes TTP Fracture site; No ROM-Extension 0-60, ROM-Flexion 0-80, ROM-Pronation 0-80, ROM-Supination 0-90 or Snuffbox tenderness Motor: EPL: 5, FDP-2: 5, 1st Dorsal Interosseous: 5 and APB: 5 Sensation: Radial: I, Ulnar: I and Median: I WRIST: prominence and pain at distal ulna. no pain at hand or elbow. Left Wrist/Hand Skin/Wound: Yes Swelling and Yes Ecchymosis Supplemental Info [facility] Imaging Services [address] [place] [address] Forearm 2 Views MR#: [id number] Acct: [id number] Name: HENRI SILVESTRE Rep #: [id number] : 1950 M 71 From: Dennis Almanza PCP: Dr. Ritesh Rocha MD Status: REG ER Study: Forearm 2 Views Date of Exam: 03/08/22 Exam# [id number] Ordering Dr: Lionel Bowden MD STUDY: X-RAY XR Forearm 2 Views REASON FOR EXAM: Male, 71 years old. PAIN TECHNIQUE: XR Forearm 2 Views RIGHT COMPARISON: None. FINDINGS: There is no demonstrated soft tissue swelling. Normal visualized radius. Displaced distal ulnar fracture. RAD/Forearm 2 Views IMPRESSION: Displaced distal ulnar fracture. Electronically Signed: Dennis Heredia MD at 20:22 EST Reading Location ID and State: [facility] / [place] , Service support , CC: Dr. Lionel Bowden MD; Dr. Ritesh Rocha MD Imaging Analyst: Signed Distal ulna # displaced up to 80% and apex volar angulation up to 25%. Coding Level of Care Code Off vis,new,level 4 Diagnoses Closed fracture of shaft of right ulna? S52.201A Time Spent (min) 45 Assessment and Plan Assessment and Plan (1) Closed fracture of shaft of right ulna: ?Status:?Acute ?Plan: 71-year-old man with a right side displaced angulated distal ulna fracture.? He states he is unable to pronate and supinate.? 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 Pros and cons risks and benefits of nonoperative treatment versus surgery were discussed.? The risks of nonsurgical treatment would include malalignment at the distal radial ulnar joint delayed mal or nonunion of the fracture wrist pain and instability as well as high long-term risk of stiffness.? That being said surgery does have its own set of risks.? He has had a previous cardiac catheterization.? We will try to get him cleared for surgery on an expedited basis.? For now I have asked him to remain fasting he had Cheerios at 8 AM. Pros and cons risks and benefits were discussed with the patient including but not limited to infection, pain, stiffness, bleeding, damage to surrounding structures, neurovascular injury, recurrence or retear, failure or wear of hardware or fixation, instability, fracture, deep vein thrombosis and pulmonary embolism, anesthetic risks, patient dissatisfaction, need for further surgery and other risks.? Patient understood and wished to proceed with surgery, and signed the informed consent documentation. [facility] Medical History (Updated 03/09/22 @ 16:17 by Tish Parker) Abnormal stress test Arthritis Atherosclerotic heart disease of [place] coronary artery without angina pectoris Back pain Basal cell carcinoma (BCC) Bladder stone Cancer Cardiology follow-up encounter Chest pain, precordial CPAP (continuous positive airway pressure) dependence Difficulty swallowing Essential hypertension Family history of hypertension Gastric reflux High cholesterol History of echocardiogram History of edema History of pain when walking History of stress test Hx of basal cell carcinoma Hyperlipidemia Hypertension Non-smoker Obstructive sleep apnea Presence of stent in coronary artery (~03/16/20) Prostate disease Sleep apnea Syncope Wears glasses Home Medications aspirin 81 mg tablet,delayed release (Adult Low Dose Aspirin) 81 mg PO DAILY 11/07/20 [History Last Taken 05/11/21] carvedilol 12.5 mg tablet 12.5 mg PO BID heart #180 tabs 04/11/21 [Rx Last Taken 05/12/21] potassium 99 mg tablet 99 mg PO DAILY 04/19/21 [History Last Taken 05/11/21] isosorbide mononitrate 30 mg tablet,extended release 24 hr 30 mg PO DAILY heart #90 tabs 06/01/21 [Rx Last Taken Unknown] amlodipine 10 mg tablet 10 mg PO DAILY #90 tabs 11/13/21 [Rx Last Taken Unknown] ezetimibe 10 mg tablet (Zetia) 10 mg PO DAILY cholesterol #90 tabs 11/13/21 [Rx Last Taken Unknown] nitroglycerin 0.4 mg sublingual tablet 0.4 mg sublingual Q5M PRN Cardiac/Chest Pain #25 tabs 11/13/21 [Rx Last Taken Unknown] hydrochlorothiazide 12.5 mg tablet 12.5 mg PO DAILY blood pressure #90 tabs 02/27/22 [Rx Last Taken Unknown] hydrocodone-acetaminophen 5-325mg 5mg-325mg 1 tab PO Q4H PRN PRN Pain 2 days #10 TABLETS 03/08/22 [Rx Last Taken Unknown] multivitamin 1 tab PO DAILY 03/09/22 [History Last Taken Unknown] Allergy/AdvReac Type Severity Reaction Status Date / Time Penicillins Allergy Rash Verified 03/12/22 11:28 valsartan AdvReac Severe Joint Pain Verified 03/12/22 11:28 rosuvastatin [From Crestor] AdvReac Other Verified 03/12/22 11:28 Family History Mother CHF (congestive heart failure) Brother Hypertension Son Hypertension Other Family history of hypertension Surgical History H/O transurethral resection of prostate History of cardiac catheterization History of coronary artery stent placement History of knee replacement procedure of left knee History of left heart catheterization (LHC) (~07/26/20) History of total right knee replacement History of urologic surgery Hx of colonoscopy Presence of coronary angioplasty implant and graft (~03/16/20) S/P right rotator cuff repair Social History Smoking Status: Never smoker alcohol intake: never substance use type: does not use Vital Signs Vital Signs Vital Signs: 03/12/22 11:22 03/12/22 11:22 Temperature 99.3 F H Temperature Source Temporal Pulse Rate 72 Respiratory Rate 16 Respiratory Pattern Normal Blood Pressure 137/82 H Blood Pressure Mean 100 Blood Pressure Source Monitor Blood Pressure Position Semi-Fowlers Blood Pressure Location Left Arm Pulse Ox 95 Oxygen Delivery Method Room Air Weight Weight: 250 lb 6.4 oz Body Mass Index (BMI) 34.9 Results Lab / Micro Data Result Diagrams: 03/12/22 11:35 03/12/22 11:35 Labs: Laboratory Results - last 24 hr 03/12/22 11:35: WBC 5.9, RBC 5.54, Hgb 16.2, Hct 47.8, MCV 86.3, MCH 29.2, MCHC 33.9, RDW Std Deviation 39.1, RDW Coeff of Robinson 12.6, Plt Count 270, MPV 8.7 03/12/22 11:35: PT 13.8, INR 1.1, APTT 32.8 03/12/22 11:35: Sodium 138, Potassium 4.1, Chloride 106, Carbon Dioxide 28.0, Anion Gap 4 L
[2022-03-12] MEDS: Clindamycin 900 MG/50 ML BAG 75 MG IV (12:52)
--- NOTE | 2022-03-12 12:55 | RAD_ITS ---
STUDY: X-RAY - RIGHT WRIST REASON FOR EXAM: Male, 71 years old. ORIF WRIST TECHNIQUE: 3 intraoperative view(s) of the wrist were obtained. COMPARISON: None. FINDINGS: 3 limited intraoperative C-arm films were performed as patient has undergone open reduction internal fixation of a distal ulnar fracture. A metallic side plate anchored with 6 screws has been placed along the medial aspect of the distal ulna. Alignment at the fracture site is anatomic follow-up recommended to ensure complete osseous union RAD/Wrist 2 Views IMPRESSION: No intraoperative complications during ORIF of a distal ulnar fracture. Follow-up recommended to assure complete osseous union Electronically Signed: Adi Dawson MD at 8:22 EST ,
--- NOTE | 2022-03-12 14:23 | CHAPLAIN ---
Type of Pastoral Visit _x__ Initial Visit ___ Follow-up Visit ___ On-call Visit ___ General Patient Visit ___ Spiritual Assessment ___ Family Conference ___ Bereavement ___ Rapid Response ___ Code Blue ___ Other (describe below) Pastoral Care Referral From _x__ Patient ___ Family ___ Nurse ___ Physician ___ Quantometer Operator ___ Electrical Tests Supervisor ___ Other (describe below) Sacrament/Intervention ___ Active listening ___ Anointing ___ Voodoo ___ Bereavement ___ Communion ___ Ángela exploration ___ ___ Life review _x__ Prayer ___ Reconciliation ___ Sacrament of Sick ___ Supportive presence ___ Wedding ___ Other (describe below) Pastoral Comments pre surgery prayer for patient; met with spouse to offer support
--- NOTE | 2022-03-12 14:25 | OP.PCM_ITS ---
Problems Associated Problem List Diagnoses (1) Left ulnar fracture: Report of Operation Date of Procedure: 03/12/22 Pre-Operative Diagnosis: left distal ulna fracture Post-Operative Diagnosis: same Surgery/Procedure Performed:: left distal ulna ORIF Description of Surgical Findings:: distal ulna fracture with stable DRUJ Surgeon: Lopez Malik Type of Anesthesia: Block,Regional and General Anesthesiologist: Tom Bonilla Estimated Blood Loss (mL): 10 Description of Procedure: Patient was brought to operating room theater. Placed supine on the operating room table. Hand table to the patient's operative side. 18 inch tourniquet applied to the upper extremity appropriately padded. Preoperative axillary nerve block performed by anesthesia. Clindamycin 900 mg IV administered prior to the start of the procedure. All bony prominences appropriately padded. SCDs on the legs. Bed turned 90 degrees. General anesthesia induced. Left upper extremity prepped and draped in the usual sterile fashion with chlorhexidine- based prep solution allowing over 3 minutes drying time prior to draping. Preoperative timeout performed to confirm site patient and surgery. Began by elevating the limb inflating the tourniquet to 250 mmHg. I made a longitudinal incision to the subcutaneous border of the distal ulna. Carried the dissection down through skin and subcutaneous tissue achieve meticulous hemostasis. I used the interval between the FCU and ECU tendons. Identified the fracture site. I elevated the periosteum. I used curettes and irrigation of the fracture site to remove hematoma and interposed periosteum. I achieved an anatomic reduction with the aid of longitudinal traction and pointed reduction clamp. There was some comminution at the fracture site a butterfly fragment bending wedge type fragment at the volar aspect of the fracture. This is a short oblique fracture. Decided to not place the lag screw as this would have been interfering with the extensor tendons, and caused excessive soft tissue stripping of the distal fragment. First tried to use the precontoured distal ulna hook plate however this was too short. Therefore I precontoured a 7 hole 2.0 mm LCDC plate stopping this at the distal ulna styloid. I placed 3 screws proximally and 3 screws distal to the fracture site. These were fully threaded cortical screws. This applied good compression at the the plate bone interface as well as of the fracture site. I placed 1 fully threaded locking screw just distal to the fracture site. Reduction was anatomic. Ulna was out to length and appropriate reduction was achieved. I took AP and lateral radiographs throughout as well as stressing the distal radial ulnar joint in both pronation supination and neutral and compared this to the preoperative exam and found to be stable therefore I did not pin the distal radial ulnar joint. Final radiographs were taken and saved onto the system. Tourniquet let down meticulous hemostasis achieved. Wound thoroughly irrigated. Subcutaneous tissue closed with 2-0 Vicryl sutures and skin with running 3-0 Monocryl. Skin cleaned with wet and dry dressing followed application of Steri- Strips Adaptic 4 x 4 sterile gauze ABD pad dressing sterile cast padding and a ulnar gutter prefabricated fiberglass splint with the hand and wrist in neutral overwrapped with 4 inch Alexys bandage. Patient woken up from general anesthetic transferred off the operating room table and taken to postanesthetic care unit in stable condition. All sponge needle instrument counts were correct no complications. Plan to the patient to be discharged home when they are comfortable and vital signs are stable. We will send in a prescription for oral narcotics and appropriate counseling given follow-up in the office in 2 days time. Grafts/Implants Used: 2.0mm LCDP plate Complications none Admit VTE Documentation VTE Present on Admission: No VTE Mechan Device Prophylaxis: SCD's Reason prophylaxis not ordered:: Treatment Not Indicated Procedures Musculoskeletal 20xxx-29xxx: Other Procedure See Report
[2022-03-12 14:26] VITALS: BP 136/82; BP 137/82; PULSE 61; RESP 16; TEMP 36.6; O2SAT 92
[2022-03-12 14:30] VITALS: BP 119/86; BP 137/82; PULSE 61; RESP 16; O2SAT 93
--- NOTE | 2022-03-12 14:34 | EX.PCM.DISCH ---
Discharge Instructions Diet Discharge Diet: No restrictions Activity Keep extremity elevated above heart level: Operative Extremity Additional Activity Instructions:: OK for finger and elbow range of motion Dressing / Incision Call your doctor if your incision/area has: Continuous Slow Oozing, Sudden Increased Bleeding, Increased Pain/ Swelling, Increased Redness, Foul Smelling Discharge and Swelling at the incision site Change Dressing in: leave in place till F/U Follow Up Care Please Follow Up With: Lopez Malik MD When: 2 days Test Results: Test results from this visit will be discussed in further detail at your follow-up appointment, if applicable. Discharge Plan Admission Attending Provider: Lopez Malik Primary Care Provider: Ritesh Rocha Discharge Orders/Prescriptions Prescriptions: New oxycodone-acetaminophen [Endocet] 5-325 mg tablet 1 tab PO Q4H MDD 6 PRN (Reason: pain) 7 Days Qty: 30 0RF No Action aspirin [Adult Low Dose Aspirin] 81 mg tablet,delayed release (DR/EC) 81 mg PO DAILY Hold Instructions: Resume on 05/26/21. amlodipine 10 mg tablet 10 mg PO DAILY Qty: 90 3RF ezetimibe [Zetia] 10 mg tablet 10 mg PO DAILY Qty: 90 3RF nitroglycerin 0.4 mg tablet, sublingual 0.4 mg sublingual Q5M PRN (Reason: Cardiac/Chest Pain) Qty: 25 3RF potassium 99 mg Tablet 99 mg PO DAILY hydrocodone-acetaminophen [hydrocodone-acetaminophen] 5-325 mg tablet 1 tab PO Q4H PRN PRN (Reason: Pain) 2 Days Qty: 10 0RF multivitamin Tablet 1 tab PO DAILY carvedilol 12.5 mg tablet 12.5 mg PO BID Qty: 180 3RF Rx Instructions: must administer with a meal/food isosorbide mononitrate 30 mg tablet extended release 24 hr 30 mg PO DAILY Qty: 90 3RF hydrochlorothiazide 12.5 mg tablet 12.5 mg PO DAILY Qty: 90 3RF Other Ambulatory Orders: 12 Lead EKG (Routine) Timeframe: [id number] Facility: [facility] - Location: Cardiovascular Services Ordered By: Lopez Malik Referrals / Follow Up: Ritesh Rocha MD [Primary Care Provider] - Lopez Malik MD [Med Staff - Active Staff] - Disposition Disposition (needs filled in before D/C Order can be placed): Home, Self Care
[2022-03-12 14:45] VITALS: BP 123/79; BP 137/82; PULSE 64; RESP 16; O2SAT 92
[2022-03-12 15:00] VITALS: BP 123/76; BP 137/82; PULSE 63; RESP 15; TEMP 36.4; O2SAT 92
[2022-03-12 15:35] VITALS: BP 112/66; BP 137/82; PULSE 65; RESP 16; O2SAT 93
== END 2022-03-12 15:56 | disposition home or self-care (01) ==
LOC: SDC 10:45 → AC 10:46
PROVIDERS: PCP Family Medicine; Visit Provider Orthopaedic Surgery Sports Medicine
PROC: (CPT 25607; principal; 2022-03-12 12:15)
DX: S52.602A Unspecified fracture of lower end of left ulna, initial encounter for closed fracture (principal); I25.10 Atherosclerotic heart disease of native coronary artery without angina pectoris; I10 Essential (primary) hypertension; G47.33 Obstructive sleep apnea (adult) (pediatric); Z79.82 Long term (current) use of aspirin; Z79.899 Other long term (current) drug therapy; W19.XXXA Unspecified fall, initial encounter
CPT/HCPCS: 25607; 01830; 73100; 76000; 80051; 85027; 85610; 85730; 93005; C1713; J7120; J2405

== ENCOUNTER 2022-05-28 08:30 | Outpatient (RCR) | payer MEDICARE, OTHER, SELFPAY ==
[2020-07-11 09:09] VITALS: BMI 37.0
--- NOTE | 2022-03-27 14:55 | HP.OTEVAL ---
Patient's Visit Information HENRI SILVESTRE is a 71 year old M, referred to Occupational Therapy by Dr. Lopez Malik MD, with a diagnosis of right distal ulnar fx. Date of Evaluation: 03/27/22 Occupational Therapist: Corrie Desai, JALENR/Dany, CHT - Subjective This 71 year old male was seen for OT eval with dx of right distal ulnar fx. pt states . Mar 08 2022 and had sx repair on Saturday2021. Pt is currently 2 weeks and one day s/p distal ulnar ORIF. 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 pt reports no pain but due to healing structures pt is limited with ADLs and IADls at this time. pt would like to return to his PLOF. - Pain right wrist 2 Pain Intensity Range: 4 - ROM Forearm: right supination 15* left 70* Wrist: right 40/30 left 55/50 Opposition: Kapandji opposition scale right 8 left 9 ROM Comments: right RD [address] 15* UD 30*. pt demo full composite fist with right and left. 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 cmc left worse than right - Strength Mathematics Improvement Teacher: right NT left 75# Lateral Pinch: right NT left 6# Tripod Pinch: right NT left 12# Strength Comments: will test right Mathematics Improvement Teacher/pinch strength at 6 weeks s/p - Edema Wrist: right 20.5cm left 18cm Other: MCP circumference 21.5cm left 18cm - Sensation Sensation Comments: denies - Quick DASH-Disab of Arm,Shoulder& Hand Quick DASH Score: 46.4275 - Goals Goal:Daily scar massage when approriate: Yes Goal:ROM equal to unaffected hand: Yes Goal:Mathematics Improvement Teacher/Pinch strength at least 75% of unaffected hand: Yes Goal:No pain with affected hand use: Yes Goal:Full use of affected hand in daily activities including: Yes - Rehabilitation General Assessment: Pt arrives to OT services 2 weeks and 1 day s/p ORIF. pt limited with ROM and functional use of right hand due to healing structures- pt would benefit from skilled OT services 1-2x week for 8 weeks to return pt to his PLOF. Today therapist ed. pt on AROM of forearm wrist and digits along with edema control and use of wrist brace- pt demo understanding and agree to POC. Rehabilitation Potential: Good - Anticipated Interventions A/AAROM/PROM, Strengthening, Scar Care, Modalities, Orthoses, Joint Protection/Energy Conservation, Ergonomic Education, Education re assistive Equipment, Education re Diagnosis, Home Program, Other - Visit Plan Frequency: 1-2x /Week Duration: 2 Months General Plan: ROM. at 6 weeks and cleared by will initiate strengthening TEXT: Thank you for the opportunity to evaluate your patient. For Medicare and Medicare HMO plans, please review the plan of care and approve it. It will need to be FAXED BACK to us at [phone] for Medicare purposes. Please let me know if there are questions or concerns regarding this plan of care. Physician Signature: Date:
--- NOTE | 2022-05-28 08:57 | HP.OTDCSUM_ITS ---
It has been my pleasure to treat HENRI SILVESTRE under orders from Dr. Lopez Malik MD, for the diagnosis of right distal ulnar fx for a total of 10 visit(s). Please see the following information for a summary of their discharge status. % Improvement: 75 Objective/Function: right wrist ROM 55/50. right forearm supination 70* (equal to left). pt demo with a right geotechnical operating engineer strength of 55#. right lateral pinch 22#. right tripod pinch 10#. pt continues to have right LF tingling from time to time- therapist advised if this continued or got worse to contact the dr. therapist rec'd a bullseye wrist brace as needed. pt will continue to strengthen with daily use and his HEP. Patient Goals: Regain Mobility, Return to Work, Be More Independent in ADLS Goal:Daily scar massage when approriate: Yes Goal:ROM equal to unaffected hand: Yes Goal:Health Care Specialist/Pinch strength at least 75% of unaffected hand: Yes Goal:No pain with affected hand use: Yes Goal:Full use of affected hand in daily activities including: Yes Plan: D/C Discharge Comments: pt was seen for 10 OT sessions following ORIF of distal ulna. pt demo return of his right wrist ROM and good return of right geotechnical operating engineer strength- pt has returned to performing his ADLs and IADLs at [facility]. pt does have right side ulna soreness from time to time but overall has no pain. pt does report tingling in LF mostly with positioning- therapist advised if pt continued to have tingling to return to dr. pt demo understanding and agree to D/C with HEP. If there are questions or concerns regarding this patient's occupational therapy, please fell free to call me at [phone]. Thank you for the referral of this patient. Sincerely, Corrie Desai, OTR/L, CHT
== END 2022-05-28 09:24 | disposition home or self-care (01) ==
LOC: OT 08:30
PROVIDERS: PCP Family Medicine; Referring Provider Orthopaedic Surgery Sports Medicine; Visit Provider Orthopaedic Surgery Sports Medicine
DX: S52.601D Unspecified fracture of lower end of right ulna, subsequent encounter for closed fracture with routine healing (principal)
CPT/HCPCS: 97110; 97140; 97166; 97530

== ENCOUNTER 2022-06-11 19:07 | Emergency (ER) | payer MEDICARE, OTHER, SELFPAY ==
[2020-07-11 09:09] VITALS: BMI 37.0
[2022-06-11 19:08] VITALS: BP 156/88; PULSE 89; RESP 16; TEMP 36.4; O2SAT 99; BMI 34.8
--- NOTE | 2022-06-11 20:30 | ED.RN ---
pt states he would like to leave and come back to be evaluated in the am.
== END 2022-06-11 20:30 | disposition left against medical advice (07) ==
LOC: ED 20:33
PROVIDERS: PCP Family Medicine
DX: Z53.21 Procedure and treatment not carried out due to patient leaving prior to being seen by health care provider (principal)

== ENCOUNTER → 2022-06-18 | Outpatient (CLI) | payer MEDICARE, OTHER, SELFPAY ==
[2020-07-11 09:09] VITALS: BMI 37.0
[2022-06-18 12:41] LABS: AST(SGOT) 22 U/L (15-37); Alanine Aminotransfer ALT/SGPT 45 U/L (16-61); Albumin, Serum 3.8 g/dL (3.2-5.0); Alkaline Phosphatase 78 U/L (45-117); Cholesterol 203 mg/dL (200); High Density Lipoprotein 42 mg/dL; PSA,Total- Diagnostic 4.33 ng/mL (0.0-4.0); Protein, Total 7.8 g/dL (6.4-8.2); Triglycerides 145 mg/dL; Very Low Density Lipoprotein 29 mg/dL (5-40)
== END | disposition home or self-care (01) ==
PROVIDERS: Internal Medicine Cardiovascular Disease; PCP Family Medicine; Referring Provider Urology; Visit Provider Urology
DX: C61 Malignant neoplasm of prostate (principal); E78.00 Pure hypercholesterolemia, unspecified
CPT/HCPCS: 36415; 80061; 80076; 84153

== ENCOUNTER → 2022-08-28 | Outpatient (CLI) | payer MEDICARE, OTHER, SELFPAY ==
[2020-07-11 09:09] VITALS: BMI 37.0
[2022-08-28 10:56] LABS: ALB/GLOB Ratio 0.9 RATIO (0.9-2.4); AST(SGOT) 23 U/L (15-37); Alanine Aminotransfer ALT/SGPT 47 U/L (16-61); Albumin, Serum 3.7 g/dL (3.2-5.0); Alkaline Phosphatase 79 U/L (45-117); Anion Gap 7 (5-15); BUN 23 mg/dL (7-18); BUN/Creat Ratio 22.1 RATIO (10-20); Bilirubin, Direct 0.16 mg/dL (0.00-0.30); Calcium,Total 9.3 mg/dL (8.5-10.1); Chloride 104 mmol/L (98-107); Cholesterol 231 mg/dL (200); Creatinine, Serum 1.04 mg/dL (0.70-1.30); EST Glomerular Filtration Rate 75 mL/min (>60); Est Glom Filt Rate - Afr Amer 91 mL/min (>60); Glucose 190 mg/dL (74-106); High Density Lipoprotein 36 mg/dL; Potassium 3.4 mmol/L (3.5-5.1); Protein, Total 7.7 g/dL (6.4-8.2); Sodium Level 139 mmol/L (136-145); Triglycerides 314 mg/dL; Very Low Density Lipoprotein 63 mg/dL (5-40)
[2022-08-28 10:59] LABS: PSA,Total - Annual Screen 4.58 ng/mL (0.00-4.00)
== END | disposition home or self-care (01) ==
LOC: MTLAB 07:58
PROVIDERS: Internal Medicine Cardiovascular Disease; PCP Family Medicine; Referring Provider Urology; Visit Provider Urology
DX: I25.10 Atherosclerotic heart disease of native coronary artery without angina pectoris (principal); C61 Malignant neoplasm of prostate; E78.5 Hyperlipidemia, unspecified; Z12.5 Encounter for screening for malignant neoplasm of prostate
CPT/HCPCS: 36415; 80053; 80061; 82248; 84153; G0103

== ENCOUNTER 2022-10-11 07:29 | Outpatient (RCR) | payer MEDICARE, OTHER, SELFPAY ==
[2020-07-11 09:09] VITALS: BMI 37.0
== END 2022-10-26 23:59 ==
LOC: DC 07:29
PROVIDERS: PCP Family Medicine; Referring Provider Family Medicine; Visit Provider Family Medicine
DX: E66.01 Morbid (severe) obesity due to excess calories (principal); E11.65 Type 2 diabetes mellitus with hyperglycemia; Z68.36 Body mass index [BMI] 36.0-36.9, adult
CPT/HCPCS: 97802

== ENCOUNTER 2022-11-14 07:33 | Outpatient (RCR) | payer MEDICARE, OTHER, SELFPAY ==
[2020-07-11 09:09] VITALS: BMI 37.0
== END 2022-11-26 23:59 ==
LOC: DC 07:33
PROVIDERS: PCP Family Medicine; Referring Provider Family Medicine; Visit Provider Family Medicine
DX: E11.65 Type 2 diabetes mellitus with hyperglycemia (principal); E66.01 Morbid (severe) obesity due to excess calories; Z68.36 Body mass index [BMI] 36.0-36.9, adult
CPT/HCPCS: 97803

== ENCOUNTER → 2023-02-20 | Outpatient (CLI) | payer MEDICARE, OTHER, SELFPAY ==
[2020-07-11 09:09] VITALS: BMI 37.0
--- NOTE | 2023-02-20 08:45 | RAD_ITS ---
STUDY: X-RAY - ESOPHAGUS (BARIUM SWALLOW) WITH FLUOROSCOPY REASON FOR EXAM: Male, 72 years old. DYSPHAGIA TECHNIQUE: 26 view(s) of the esophagus were obtained following swallowing of barium. FLUOROSCOPY TIME (if supplied): (48 seconds) minutes/seconds. 38.22 mGy. COMPARISON: Comparison is made with prior study dated November 07, 2018. FINDINGS: There is no demonstrated esophageal foreign body. Narrowing of the distal esophagus at the level of the gastroesophageal junction. The patient ingested a 12 mm tablet of barium. The tablet is trapped at the gastroesophageal junction. Endoscopic correlation recommended. There is atherosclerotic calcification of the aortic arch with tortuosity of the descending aorta. Normal visualized pulmonary parenchyma. Normal visualized osseous structures of the thorax. RAD/Esophagus Dual Contrast IMPRESSION: Narrowing at the gastroesophageal junction with trapping of the 12 mm tablet of barium at that site. Endoscopic correlation recommended. Electronically Signed: Rahul Acevedo MD at 12:39 EDT ,
== END | disposition home or self-care (01) ==
LOC: RAD 08:40
PROVIDERS: PCP Family Medicine; Referring Provider Internal Medicine Gastroenterology; Visit Provider Internal Medicine Gastroenterology
DX: R13.10 Dysphagia, unspecified (principal)
CPT/HCPCS: 74221

== ENCOUNTER 2023-02-21 07:30 | Outpatient (RCR) | payer MEDICARE, OTHER, SELFPAY ==
[2020-07-11 09:09] VITALS: BMI 37.0
== END 2023-02-26 23:59 ==
LOC: DC 07:30
PROVIDERS: PCP Family Medicine; Referring Provider Family Medicine; Visit Provider Family Medicine
DX: E66.01 Morbid (severe) obesity due to excess calories (principal); Z68.36 Body mass index [BMI] 36.0-36.9, adult; E11.65 Type 2 diabetes mellitus with hyperglycemia
CPT/HCPCS: 97803

== ENCOUNTER 2023-05-29 08:54 | Outpatient (RCR) | payer MEDICARE, OTHER, SELFPAY ==
[2020-07-11 09:09] VITALS: BMI 37.0
== END 2023-05-29 23:59 ==
LOC: DC 08:54
PROVIDERS: PCP Family Medicine; Referring Provider Family Medicine; Visit Provider Family Medicine
DX: E11.65 Type 2 diabetes mellitus with hyperglycemia (principal); E66.01 Morbid (severe) obesity due to excess calories; Z68.36 Body mass index [BMI] 36.0-36.9, adult
CPT/HCPCS: 97803

== ENCOUNTER → 2023-09-12 | Outpatient (CLI) | payer MEDICARE, OTHER, SELFPAY ==
[2020-07-11 09:09] VITALS: BMI 37.0
[2023-09-12 09:04] LABS: PSA,Total- Diagnostic 5.17 ng/mL (0.0-4.0)
== END | disposition home or self-care (01) ==
LOC: LAB 08:16
PROVIDERS: PCP Family Medicine; Visit Provider Nurse Practitioner
DX: C61 Malignant neoplasm of prostate (principal)
CPT/HCPCS: 36415; 84153

== ENCOUNTER 2023-09-19 09:43 | Outpatient (RCR) | payer MEDICARE, OTHER, SELFPAY ==
[2020-07-11 09:09] VITALS: BMI 37.0
== END 2023-09-27 23:59 ==
LOC: DC 09:43
PROVIDERS: PCP Family Medicine; Referring Provider Family Medicine; Visit Provider Family Medicine
DX: E11.65 Type 2 diabetes mellitus with hyperglycemia (principal); E66.01 Morbid (severe) obesity due to excess calories; Z68.36 Body mass index [BMI] 36.0-36.9, adult
CPT/HCPCS: 97803

== ENCOUNTER → 2023-09-19 | Outpatient (CLI) | payer MEDICARE, OTHER, SELFPAY ==
[2020-07-11 09:09] VITALS: BMI 37.0
[2023-09-19 10:35] LABS: Vitamin B12 671 pg/mL (211-911)
[2023-09-19 10:57] LABS: AST(SGOT) 22 U/L (15-37); Alanine Aminotransfer ALT/SGPT 45 U/L (16-61); Albumin, Serum 3.9 g/dL (3.2-5.0); Alkaline Phosphatase 70 U/L (45-117); Anion Gap 7 (5-15); BUN 22 mg/dL (7-18); Chloride 105 mmol/L (98-107); EST Glomerular Filtration Rate 70 mL/min (>60); Est Glom Filt Rate - Afr Amer 85 mL/min (>60); Globulin 4.1 g/dL (2.2-4.2); Glucose 127 mg/dL (74-106); Potassium 3.7 mmol/L (3.5-5.1); Sodium Level 139 mmol/L (136-145); Thyroid Stim Hormone (TSH) 5.89 uIU/mL (0.358-3.74)
[2023-09-20 14:34] LABS: T4 Free Direct 0.93 ng/dL (0.76-1.46)
== END | disposition home or self-care (01) ==
LOC: MTLAB 09:25
PROVIDERS: PCP Family Medicine; Referring Provider Family Medicine; Visit Provider Family Medicine
DX: E03.9 Hypothyroidism, unspecified (principal); E11.65 Type 2 diabetes mellitus with hyperglycemia
CPT/HCPCS: 36415; 80053; 82607; 84403; 84439; 84443

== ENCOUNTER → 2024-03-05 | Outpatient (CLI) | payer MEDICARE, OTHER, SELFPAY ==
[2020-07-11 09:09] VITALS: BMI 37.0
[2024-03-05 10:35] LABS: AST(SGOT) 24 U/L (15-37); Alanine Aminotransfer ALT/SGPT 54 U/L (16-61); Albumin, Serum 3.8 g/dL (3.2-5.0); Alkaline Phosphatase 74 U/L (45-117); Bilirubin, Direct 0.16 mg/dL (0.00-0.30); Cholesterol 211 mg/dL (200); High Density Lipoprotein 45 mg/dL; Protein, Total 7.8 g/dL (6.4-8.2); Triglycerides 175 mg/dL; Very Low Density Lipoprotein 35 mg/dL (5-40)
== END | disposition home or self-care (01) ==
PROVIDERS: PCP Family Medicine; Referring Provider Nurse Practitioner Family; Visit Provider Nurse Practitioner Family
DX: I25.10 Atherosclerotic heart disease of native coronary artery without angina pectoris (principal); E78.5 Hyperlipidemia, unspecified
CPT/HCPCS: 36415; 80061; 80076

== ENCOUNTER → 2024-09-14 | Outpatient (CLI) | payer MEDICARE, OTHER, SELFPAY ==
[2020-07-11 09:09] VITALS: BMI 37.0
[2024-09-14 10:06] LABS: Hematocrit 48.6 % (40-54); Hemoglobin 16.5 g/dL (13.0-16.5); Mean Corpuscular Volume 85.6 fL (80-94); Mean Platelet Vol. 8.7 fl (6.2-12.0); Platelet Count 304 K/mm3 (150-450); RBC Distribution Width CV 12.9 % (11.6-14.6); RBC Distribution Width SD 39.4 fl (35.1-43.9); Red Blood Count 5.68 M/mm3 (4.6-6.2); White Blood Count 6.8 K/mm3 (4.4-11.0)
[2024-09-14 11:00] LABS: ALB/GLOB Ratio 1.2 RATIO (0.9-2.4); AST(SGOT) 27 U/L (<=37); Alanine Aminotransfer ALT/SGPT 33 U/L (<=46); Albumin, Serum 4.5 g/dL (3.4-4.8); Alkaline Phosphatase 81 U/L (40-129); BUN 16 mg/dL (4-19); BUN/Creat Ratio 15.4 RATIO (10-20); Calcium,Total 9.3 mg/dL (7.6-11.0); Carbon Dioxide 24.3 mmol/L (21.0-32.0); Chloride 101 mmol/L (98-108); Cholesterol 258 mg/dL (<=200); Creatinine, Serum 1.02 mg/dL (0.70-1.20); EST Glomerular Filtration Rate 78 (>60); Globulin 3.8 g/dL (2.2-4.2); Glucose 123 mg/dL (70-99); Potassium 3.4 mmol/L (3.3-5.1); Protein, Total 8.2 g/dL (5.9-8.4); Sodium Level 138 mmol/L (133-145); Total Bilirubin 0.58 mg/dL (0.00-1.30); Triglycerides 160 mg/dL
[2024-09-14 11:01] LABS: Anion Gap 12 (5-15); High Density Lipoprotein 44 mg/dL; Low Density Lipoprotein Calc. 183 mg/dL; PSA,Total- Diagnostic 6.09 ng/mL (0.00-4.00); Very Low Density Lipoprotein 32 mg/dL (5-40); Vitamin B12 824 pg/mL (180-914); cholesterol:hdl ratio screen 5.93
== END | disposition home or self-care (01) ==
LOC: MTLAB 08:52
PROVIDERS: PCP Family Medicine; Referring Provider Family Medicine; Visit Provider Family Medicine
DX: E11.65 Type 2 diabetes mellitus with hyperglycemia (principal); R97.20 Elevated prostate specific antigen [PSA]
CPT/HCPCS: 36415; 80053; 80061; 82607; 84153; 84403; 85027